=== PATIENT | male | born 1975 | race Caucasian/White ===

== ENCOUNTER → 2016-05-25 | Outpatient (REF) | payer MEDICARE, MEDICAID ==
[~2016-05-25] MED LIST: /GLIP10TAB OR; ACID REDUCER PO; ACTO15TA OR; ALBU17IN INH; ASPI81CH PO; ASPI81TA45 OR; ATEN25TA OR; ATOR1TAB21 PO; AUGM875T27 PO; AZIT500T2 PO; CETI10TA PO; CETI5TAB2 OR; CYCL10TA PO; FISH1000 OR; GABA-283 PO; GLIP10TA PO; JANUVIA; LISI10TA4 OR; LISI10TA4 PO; METF1000 PO; METF500T PO; OMEP40CA2 PO; PERC5TAB6 PO; PRED20TAB PO; PRIL40CA PO; SIMV20TA2 OR; TRIC145T19 OR
== END ==
LOC: M SFHCLERA 11:37
PROVIDERS: ATTEND Family Medicine
DX: E11.42 Type 2 diabetes mellitus with diabetic polyneuropathy (principal)

== ENCOUNTER → 2016-05-30 | Outpatient (REF) | payer MEDICARE, MEDICAID ==
[2016-05-30 18:45] LABS: BASO % 0.3 % (0.0-1.0); EOS # 0.1 K/mm3 (0.0-0.50); EOS % 1.5 % (0.0-3.0); LARGE UNSTAINED CELL # 0.1 K/mm3 (0.0-0.4); LARGE UNSTAINED CELL % 1.5 % (0.0-4.0); LYMPH # 1.9 K/mm3 (1.5-4.5); LYMPH % 23.3 % (24.0-44.0); MEAN CORPUSCULAR HEMOGLOBIN 29.2 pg (27.0-33.0); MEAN CORPUSCULAR HGB CONC 35.3 g/dl (32.0-36.5); MEAN CORPUSCULAR VOLUME 82.6 fl (80.0-96.0); MONO # 0.4 K/mm3 (0.0-0.8); MONO % 5.3 % (0.0-5.0); NEUTROPHILS # 5.5 K/mm3 (1.8-7.7); NEUTROPHILS % 68.2 % (36.0-66.0); PLATELET COUNT, AUTOMATED 224 k/mm3 (150-450); RED CELL DISTRIBUTION WIDTH 12.5 % (11.5-14.5); WHITE BLOOD COUNT 8.1 K/mm3 (4.0-10.0)
[2016-05-30 19:35] LABS: ALBUMIN 3.8 GM/DL (3.2-5.2); ALBUMIN/GLOBULIN RATIO 1.31 (1.00-1.93); ALKALINE PHOSPHATASE 115 U/L (45-117); ALT/SGPT 71 U/L (12-78); ANION GAP 13 MEQ/L (8-16); AST/SGOT 14 U/L (15-37); BILIRUBIN,TOTAL 0.8 MG/DL (0.2-1.0); BLOOD UREA NITROGEN 15 MG/DL (7-18); CALCIUM LEVEL 8.4 MG/DL (8.5-10.1); CARBON DIOXIDE LEVEL 23 MEQ/L (21-32); CHLORIDE LEVEL 103 MEQ/L (98-107); CHOLESTEROL LEVEL 103 MG/DL (<200); CREATININE FOR GFR 0.97 MG/DL (0.70-1.30); GLOMERULAR FILTRATION RATE > 60.0 (>60); GLUCOSE, FASTING 209 MG/DL (70-105); POTASSIUM SERUM 4.4 MEQ/L (3.5-5.1); SODIUM LEVEL 139 MEQ/L (136-145); TOTAL PROTEIN 6.7 GM/DL (6.4-8.2); TRIGLYCERIDES LEVEL 130 MG/DL (<150)
== END ==
LOC: M SFHCLERA 11:05
PROVIDERS: ATTEND Family Medicine
DX: E11.42 Type 2 diabetes mellitus with diabetic polyneuropathy (principal)

== ENCOUNTER → 2016-06-06 | Outpatient (CLI) | payer MEDICARE, MEDICAID ==
--- NOTE | 2016-06-20 01:49 | ECWPNPC ---
PATIENT NAME: ABHAY ORNELAS : 1975 GENDER: MALE VISIT DATE: 06/06/2016 DISCHARGE DATE: 06/06/16 1425 VISIT LOCKED DATE TIME: PHYSICIAN: LING HURLEY RESOURCE: LING HURLEY REASON FOR APPOINTMENT 1. LUMBAR PAIN/REFERRED FOR INJECTION HISTORY OF PRESENT ILLNESS NEW PATIENT CONSULT: 40 Y/O MALE WITH 6MOS HX OF LOW BACK PAIN.BEGAN WITHOUT PRECIPITATING EVENT.LOCATED ACROSS LOW BACK L>R.PAIN RADIATES INTO LEFT BUTTOCK AND HIP.PAIN IS AGGREVATED BY GETTING IN AND OUT OF CAR AND LAYING ON BACK.RELIEVED BY ELEVATING FEET.LONG HX OF CHRONIC BILAT. KNEE PAIN SINCE 2009.HAS BEEN LIMPING AND USING CANE.RATING PAIN VAS 6/10.DENIES RECENT FEVER ,ILLNESS OR WEIGHT LOSS.DENIES BOWEL OR BLADDER INCONTINENCE. WHEN DID YOUR PAIN FIRST START? . BRIEFLY DESCRIBE HOW YOUR PAIN STARTED? . HOW DOES YOUR PAIN CHANGE WITH TIME? . DOES YOUR PAIN AWAKEN YOU FROM SLEEP? . HOW MANY HOURS OF SLEEP DO YOU NORMALLY GET? . ANY DIAGNOSTIC TESTING? . FACILITY WHERE TESTS WERE DONE? ____. PAIN TREATMENT TREATMENT YES CANCER HAVE YOU EVER HAD ANY TYPE OF CANCER?NO NO. PAIN SCREENING: PATIENT HAS A COMPLAINT OF ACUTE OR CHRONIC PAIN YES FALL RISK SCREENING: SCREENING :NO FALLS IN THE PAST YEAR DIAZ INVENTORY: QUESTIONNAIRE ASSESSEDTBD SCORE VALUE CALCULATED TBD CURRENT MEDICATIONS TAKING ASTELIN 137 MCG/SPRAY SOLUTION 1 PUFF IN EACH NOSTRIL NASALLY TWICE A DAY TAKING ZYRTEC ALLERGY 10 MG TABLET 1 TABLET NEEDED ORALLY ONCE A DAY TAKING FLONASE 50 MCG/ACT SUSPENSION 1 SPRAY IN EACH NOSTRIL NASALLY BID TAKING LOTRISONE 1-0.05 % CREAM 1 APPLICATION TO AFFECTED AREAS ON RIGHT THIGH AND LOWER ABDOMEN EXTERNALLY TWICE A DAY UNTIL 2 DAYS AFTER RASH CLEARS TAKING KETOCONAZOLE 2 % CREAM 1 APPLICATION TO AFFECTED AREAS ON LOWER ABDOMEN EXTERNALLY TWICE A DAY UNTIL 2 DAYS AFTER RASH CLEARS TAKING LISINOPRIL 10 MG TABLET 1 TABLET ORALLY ONCE A DAY TAKING OMEPRAZOLE 40 MG CAPSULE DELAYED RELEASE 1 CAPSULE ORALLY TWICE A DAY TAKING GABAPENTIN 400MG CAPSULE 1 CAP(S) P.O. BID TAKING METFORMIN HCL 1000 MG TABLET 1 TABLET WITH MEALS ORALLY TWICE A DAY TAKING ATORVASTATIN CALCIUM 80 MG TABLET 1 TABLET ORALLY ONCE A DAY TAKING ASPIR-81 81 MG TABLET DELAYED RELEASE 1 TABLET ORALLY ONCE A DAY TAKING GLIPIZIDE ER 10 MG TABLET EXTENDED RELEASE 24 HOUR 1 TABLET ORALLY BID PRIOR TO BREAKFAST AND DINNER TAKING LYRICA 75 MG CAPSULE 1 CAPSULE ORALLY-SOS TWICE A DAY TAKING FLEXERIL 10 MG TABLET 1 TABLET ORALLY THREE TIMES A DAY NOT-TAKING LIDOCAINE VISCOUS 2 % SOLUTION 15 ML NEEDED MOUTH/THROAT EVERY 6 HRS NOT-TAKING BENZONATATE 100 MG CAPSULE 1 CAPSULE NEEDED ORALLY THREE TIMES A DAY NOT-TAKING OMEPRAZOLE 40MG CAPSULE DELAYED RELEASE TAKE ONE CAPSULE BY MOUTH TWICE DAILY NOT-TAKING FARXIGA 5MG TABLET 1 TAB ORALLY ONCE DAILY MEDICATION LIST REVIEWED AND RECONCILED WITH THE PATIENT PAST MEDICAL HISTORY HYPERTENSION OBESITY ESOPHAGEAL REFLUX OBSTRUCTIVE SLEEP APNEA, 9 CM WATER BALANTITIS / BALANOPOSTHITIS HISTORY OF DM2 STRESS TEST 06/2012 [facility] - CANNY PAIN IN JOINT, LOWER LEG OSTEOARTHRITIS OF BOTH KNEES PAIN IN JOINT, SHOULDER REGION UNSPECIFIED INTERNAL DERANGEMENT OF KNEE ALLERGIC RHINITIS POSITIVE URINE DRUG SCREEN FOR MARIJUANA, PATIENT DENIES USE ALLERGIES ENVIRONMENTAL: ALLERGY SURGICAL HISTORY TONSILLECTOMY AT AGE 7 ARTHROSCOPIC KNEE SURGERY L - DR Brett ROLLINS 11/14 GASTRIC BYPASS SURGERY 12/09/12 RIGHT SHOULDER SURGERY @ [facility] 11/2013 LEFT SHOULDER SURGERY @ [facility] 12/2013 LUMP REMOVED FROM RIGHT SHOULDER DR. SCOTT 03/2014 RIGHT CARPAL TUNNEL /ELBOE 2016 FAMILY HISTORY FATHER: ALIVE, UNKNOWN- ESTRANGED UNKNOWN- ESTRANGED, DIAGNOSED WITH OTHER MOTHER: ALIVE 59 YRS, HTN, DM-2, CERVICAL CANCER, MORBID OBESITY HTN, DM-2, CERVICAL CANCER, MORBID OBESITY, DIAGNOSED WITH DIABETES, HYPERTENSION, CANCER SIBLINGS: ALIVE, 1/2 MATERNAL SISTER - SIGNIFICANT PSYCHIATRIC HX 1/2 MATERNAL SISTER - SIGNIFICANT PSYCHIATRIC HX, DIAGNOSED WITH PSYCHIATRIC CONDITIONS DAUGHTER(S): ALIVE 11 YRS, NO KNOWN MEDICAL PROBLEMS NO KNOWN MEDICAL PROBLEMS, DIAGNOSED WITH OTHER PATERNAL GRAND FATHER: UNKNOWN, DIAGNOSED WITH OTHER PATERNAL GRAND MOTHER: UNKNOWN, DIAGNOSED WITH OTHER MATERNAL GRAND MOTHER: , UNKNOWN CANCER UNKNOWN CANCER, DIAGNOSED WITH CANCER 1 SISTER(S) . 1DAUGHTER(S) - HEALTHY. . NO H/O COLON/PROSTATE/LUNG CANCER. SON 4 HOURS AFTER DELIVERY AT 21 WEEKS GESTATION. SOCIAL HISTORY GENERAL: TOBACCO USE ARE YOU A:NONSMOKER ARE YOU A:NONSMOKER PAIN CLINIC PFS, CLERGY, PUBLIC HEALTH REFERRALS CLERGY REFERRAL NEEDED?NO WAS THE PROVIDER NOTIFIED OF ANY PERTINENT INFO?NO PFS REFERRAL NEEDED?NO PUBLIC HEALTH REFERRAL NEEDED?NO PSYCHOLOGICAL HX TREATMENTNO ALCOHOL OR DRUG TREATMENTNO PATIENT: ____. ADVANCED DIRECTIVES HEALTH CARE PROXY?NO POWER OF NAILHEAD SETTER?NO SCREENING/ASSESSMENT TOOL NUTRITION ASSESSEDYES ARE YOU ON ANY SPECIAL DIET?NO ANY SIGNIFICANT CHANGES RELATED TO EATING, WEIGHT GAIN/LOSS, OR BOWEL HABITS?NO IF YES, IS YOUR PRIMARY CARE PROVIDER AWARE OF THIS?NO SPECIAL NEEDS LEVEL OF CARE? SELF, GLASSES: NO, CONTACTS: NO, HEARING AIDS: NO, DENTURES: NO, WALKER: NO, CANE: NO, WHEELCHAIR: NO, REFERRALS NEEDED: NO. BMI CARE GOAL FOLLOW-UP ABOVE NORMAL BMI FOLLOW-UPDIETARY MANAGEMENT EDUCATION, GUIDANCE, AND COUNSELING ALCOHOL SCREENING DID YOU HAVE A DRINK CONTAINING ALCOHOL IN THE PAST YEAR?NO POINTS0 INTERPRETATIONNEGATIVE RECREATIONAL DRUG USE DRUG USE?NO CAFFEINE CAFFEINE USE?NO OCCUPATION: DISABLED. DIET: REGULAR DIET. EXERCISE: NO REGULAR EXERCISE. MARITAL STATUS: . OTHERS AT HOME: SPOUSE. PETS: NONE. CONGREGATIONAL: NO BAHAI BELIEFS THAT WOULD IMPACT HEALTH CARE. LANGUAGE: KINYARWANDA. EDUCATION: HIGH SCHOOL. LEARNING BARRIERS / SPECIAL NEEDS CHANGE FROM LAST VISIT?NO BARRIERS TO LEARNING?NO HEARING IMPAIRED?NO VISION IMPAIRED?YES :CORRECTIVE LENSES COGNITIVELY IMPAIRED?NO READINESS TO LEARN?YES LEARNING PREFERENCES?NO LEARNING CAPABILITIES PRESENT?YES EMOTIONAL BARRIERS?NO SPECIAL DEVICES?NO HOSPITALIZATION/MAJOR DIAGNOSTIC PROCEDURE [facility] 12/09/2012 TONSILLECTOMY 1983 [facility] - PNEUMONIA 06/2015 [facility] - TIA 03/2016 REVIEW OF SYSTEMS CONSTITUTIONAL: RECENT ILLNESS DENIES . ANY CHANGE IN YOUR MEDICAL CONDITION? NO . CHILLS NO . FEVER NO, DENIES . WEIGHT LOSS DENIES . INFECTION: DO YOU HAVE NEW INFECTIONS? NO . DO YOU HAVE HISTORY OF MRSA? NO . MUSCULOSKELETAL: ANY NEW PATTERNS OF PAIN OR NUMBNESS? YES . SYTEMIC LUPUS NO . JOINT PAIN DENIES . JOINT STIFFNESS DENIES . GASTROENTEROLOGY: BOWEL INCONTINENCE DENIES . ANY NEW CHANGE IN BOWEL CONTROL? NO . BARRETTS ESOPHAGUS NO . CIRRHOSIS NO . HEPATITIS NO . LIVER FAILURE NO . ACID REFLUX NO . BLOOD IN STOOL DENIES . UNEXPLAINED WEIGHT LOSS NO . GENITOURINARY: ANY NEW CHANGE IN BLADDER CONTROL? NO . IS THERE A CHANCE YOU COULD BE ? NO . HEMATOLOGY/LYMPH: DENIES . BLEEDING DISORDER DENIES . DO YOU TAKE ANY BLOOD THINNERS? (FOR EXAMPLE- COUMADIN, PLAVIX, AGGRENOX, PLATEL, PRADAXA, OR XARELTO) NO . WHEN WAS YOUR LAST DOSE? DATE: TIME: . LOW PLATELET COUNT NO . SICKLE CELL DISEASE NO . VON WILLIEBRANDS NO . FACTOR V LEIDEN NO . THALLASEMIA NO . ANEMIA NO . EASY BRUISING NO . NEUROLOGY: HAVE YOU FALLEN IN THE PAST 6 MONTHS? NO . ANY NEW EXTREMITY NUMBNESS OR WEAKNESS? NO . HEAD INJURY NO . DEMENTIA NO . CEREBRAL PALSY NO . MULTIPLE SCLEROSIS NO . DIZZINESS NO . HEADACHE NO, DENIES . SEIZURES DENIES . STROKES NO . VERTIGO NO . CARDIOLOGY: DO YOU HAVE A PACEMAKER OR DEFIBRILLATOR? NO . ANGINA NO . HEART ATTACK NO . HEART SURGERY NO . CONGESTIVE HEART FAILURE/FLUID OVERLOAD NO . CHEST PAIN NO, DENIES . HIGH BLOOD PRESSURE NO . IRREGULAR HEART BEAT NO . SHORTNESS OF BREATH DENIES . RESPIRATORY: HAVE YOU BEEN SICK IN THE PAST WEEK? NO . FEVER NO . FLU LIKE SYMPTOMS? NO . CPAP NO . BYPAP NO . ASTHMA NO . EMPHYSEMA NO . CHRONIC LUNG DISEASES NO . SHORTNESS OF BREATH ON EXERTION NO . DO YOU USE ANY TYPE OF TOBACCO (SMOKE, SMOKELESS, CHEW)? NO . COUGH NO, DENIES . SHORTNESS OF BREATH DENIES . SNORING NO . INTEGUMENTARY: DO YOU HAVE ANY RASHES OR OPEN SORES? NO . ALLERGIC/IMMUNO: ARE YOU ALLERGIC TO SHELLFISH OR IV DYE? NO . ANY NEW ALLERGIES? NO . PSYCHIATRIC: DO YOU HAVE THOUGHTS OF HURTING YOURSELF OR SOMEONE ELSE? NO . ARE YOU ABUSED, NEGLECTED, OR IN AN UNSAFE ENVIRONMENT? NO . ENDOCRINOLOGY: THYROID DISEASE DENIES . ARE YOU DIABETIC? YES . DIABETES DENIES . THYROID DISORDER NO . OTHER: DO YOU NEED ANY PRESCRIPTIONS? NO . IF YES, PLEASE LIST: ____ . ANY NEW PROBLEMS WITH YOUR MEDICATIONS? NO . WHEN DID YOU LAST EAT? ____ . WHEN DID YOU LAST DRINK? ____ . WHAT DID YOU LAST DRINK? ____ . NAME OF PERSON DRIVING YOU HOME? ____ . DO YOU HAVE ANY OTHER QUESTIONS OR CONCERNS NO . HEENT: CHANGE IN VISION DENIES . LOSS OF HEARING DENIES . TROUBLE SWALLOWING DENIES . PSYCHOLOGY: ANXIETY DENIES . DEPRESSION DENIES . UROLOGY: URINARY INCONTINENCE DENIES . BLOOD IN URINE DENIES . REVIEWED BY: PROVIDER: LING ZAPATA . EXAMINATION GENERAL EXAMINATION: HEENT:HEAD:, NORMOCEPHALIC, EYES:, EYES NORMAL, NOSE:, NOSE CLEAR, THROAT: NORMAL. LUNGS:LUNG SOUNDS ARE CLEAR. HEART:HEART RATE REGULAR. ABDOMEN:SOFT AND NOT TENDER, NON-DISTENDED. MUSCULOSKELETAL:*. LUMBAR SACRAL SPINEMUSCLE STRENGTH TESTING 5/5 BILATERAL, PALPATION: NEGATIVE FOR PAIN OVER L/S SPINE. SPECIFIC POINT TENDERNESS NOTED OVER LEFT SIJ. THORACIC SPINENEGATIVE FOR PAIN WITH PALPATION OF THORACIC SPINE. NEGATIVE FOR PAIN WITH PALPATION OF THORACIC PARASPINAL. CERVICALNEGATIVE FOR PAIN WITH PALPATION OF CERVICAL SPINE. NEGATIVE FOR PAIN WITH PALPATION OF CERVICAL PARASPINALS. NEGATIVE FOR PAIN WITH PALPATION OF TRAPEZIUS BILAT. SKIN:NORMAL, NO RASH. NEUROLOGIC EXAM:ALERT AND ORIENTED X 3, DTRS 1-2+ IN ALL 4 EXTREMITIES, DENIES UPPER EXTREMETIES SENSORY LOSS, DENIES LOWER EXTREMETIES SENSORY LOSS. DIAGNOSTIC: . 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 IT IS NOT A COPY OF THE [employer] System PROGRESS NOTE. MTDD
== END ==
LOC: M PAIN 13:20
PROVIDERS: ATTEND Nurse Practitioner Family
DX: G89.29 Other chronic pain (principal); M46.1 Sacroiliitis, not elsewhere classified; I10 Essential (primary) hypertension; E66.9 Obesity, unspecified; Z68.41 Body mass index [BMI] 40.0-44.9, adult; K21.9 Gastro-esophageal reflux disease without esophagitis; G47.33 Obstructive sleep apnea (adult) (pediatric); E11.9 Type 2 diabetes mellitus without complications; M17.0 Bilateral primary osteoarthritis of knee; J30.89 Other allergic rhinitis; Z79.84 Long term (current) use of oral hypoglycemic drugs; Z79.82 Long term (current) use of aspirin; Z79.899 Other long term (current) drug therapy; Z87.438 Personal history of other diseases of male genital organs

== ENCOUNTER → 2016-07-17 | Outpatient (CLI) | payer MEDICARE, MEDICAID ==
[~2016-07-17] MED LIST changes: +BUPIVACAINE HCL 0.25% 30 ML VIAL As Ordered ONE; +ISOVUE-M 300 61% 15ML VIAL (Q9967) As Ordered ONE; +LIDOCAINE 1% SDV INJ 30 ML VIAL As Ordered ONE; +TRIAMCINOLONE ACETONIDE SUSP 40 MG/ML VIAL (J3301) As Ordered ONE; +diazePAM 5 MG TAB As Ordered ONE; +oxyCODONE 5MG TAB As Ordered ONE
--- NOTE | 2016-07-17 15:28 | REP ---
FLUOROSCOPIC GUIDANCE FOR LEFT SI JOINT INJECTION: 07/17/2016. Clinical history: Back pain. Eight images from C-arm fluoroscopy provided to Dr. Martin of the pain clinic for left SI joint injection. The images show the needle pointed to the middle, lower and upper one-third aspect of that joint with some contrast adjacent. Fluoroscopy time: 17 seconds. Signed by Eusebio Art MD 07/17/2016 05:11 P
--- NOTE | 2016-07-22 23:24 | ECWPNPC ---
PATIENT NAME: ABHAY ORNELAS : 1975 GENDER: MALE VISIT DATE: 07/17/2016 DISCHARGE DATE: 07/17/16 1329 VISIT LOCKED DATE TIME: PHYSICIAN: SILVINA MITTAL RESOURCE: SILVINA MITTAL REASON FOR APPOINTMENT 1. SIJ HISTORY OF PRESENT ILLNESS HISTORY OF PRESENT ILLNESS: PAIN THE PATIENT DESCRIBES THE PAIN... FALL RISK SCREENING: SCREENING :NO FALLS IN THE PAST YEAR CURRENT MEDICATIONS TAKING ASTELIN 137 MCG/SPRAY SOLUTION 1 PUFF IN EACH NOSTRIL NASALLY TWICE A DAY, NOTES: 07/16 11PM TAKING ZYRTEC ALLERGY 10 MG TABLET 1 TABLET NEEDED ORALLY ONCE A DAY, NOTES: 07/16 9AM TAKING FLONASE 50 MCG/ACT SUSPENSION 1 SPRAY IN EACH NOSTRIL NASALLY BID, NOTES: 6 MONTHS TAKING LOTRISONE 1-0.05 % CREAM 1 APPLICATION TO AFFECTED AREAS ON RIGHT THIGH AND LOWER ABDOMEN EXTERNALLY TWICE A DAY UNTIL 2 DAYS AFTER RASH CLEARS, NOTES: 1 WEEK TAKING KETOCONAZOLE 2 % CREAM 1 APPLICATION TO AFFECTED AREAS ON LOWER ABDOMEN EXTERNALLY TWICE A DAY UNTIL 2 DAYS AFTER RASH CLEARS, NOTES: 1 WEEK TAKING LISINOPRIL 10 MG TABLET 1 TABLET ORALLY ONCE A DAY, NOTES: 07/16 9AM TAKING OMEPRAZOLE 40 MG CAPSULE DELAYED RELEASE 1 CAPSULE ORALLY TWICE A DAY, NOTES: 07/16 9AM TAKING METFORMIN HCL 1000 MG TABLET 1 TABLET WITH MEALS ORALLY TWICE A DAY, NOTES: 07/16 11PM TAKING ATORVASTATIN CALCIUM 80 MG TABLET 1 TABLET ORALLY ONCE A DAY, NOTES: 07/16 11PM TAKING ASPIR-81 81 MG TABLET DELAYED RELEASE 1 TABLET ORALLY ONCE A DAY, NOTES: 07/16 11PM TAKING GLIPIZIDE ER 10 MG TABLET EXTENDED RELEASE 24 HOUR 1 TABLET ORALLY BID PRIOR TO BREAKFAST AND DINNER, NOTES: 07/16 11PM TAKING LYRICA 75 MG CAPSULE 1 CAPSULE ORALLY-SOS TWICE A DAY, NOTES: 07/16 11PM TAKING FLEXERIL 10 MG TABLET 1 TABLET ORALLY THREE TIMES A DAY, NOTES: 07/16 11PM NOT-TAKING GABAPENTIN 400MG CAPSULE 1 CAP(S) P.O. BID NOT-TAKING LIDOCAINE VISCOUS 2 % SOLUTION 15 ML NEEDED MOUTH/THROAT EVERY 6 HRS NOT-TAKING BENZONATATE 100 MG CAPSULE 1 CAPSULE NEEDED ORALLY THREE TIMES A DAY NOT-TAKING OMEPRAZOLE 40MG CAPSULE DELAYED RELEASE TAKE ONE CAPSULE BY MOUTH TWICE DAILY NOT-TAKING FARXIGA 5MG TABLET 1 TAB ORALLY ONCE DAILY MEDICATION LIST REVIEWED AND RECONCILED WITH THE PATIENT PAST MEDICAL HISTORY HYPERTENSION OBESITY ESOPHAGEAL REFLUX OBSTRUCTIVE SLEEP APNEA, 9 CM WATER BALANTITIS / BALANOPOSTHITIS HISTORY OF DM2 STRESS TEST 06/2012 [facility] - CANNY PAIN IN JOINT, LOWER LEG OSTEOARTHRITIS OF BOTH KNEES PAIN IN JOINT, SHOULDER REGION UNSPECIFIED INTERNAL DERANGEMENT OF KNEE ALLERGIC RHINITIS POSITIVE URINE DRUG SCREEN FOR MARIJUANA, PATIENT DENIES USE ALLERGIES ENVIRONMENTAL: ALLERGY SOCIAL HISTORY GENERAL: TOBACCO USE ARE YOU A:NONSMOKER LEARNING BARRIERS / SPECIAL NEEDS ORIENTED TO PLAN OF CARE: PATIENT, PAIN MANAGEMENT PATIENT, ORIENTED TO PLAN OF CARE: PATIENT, PAIN MANAGEMENT PATIENT. NEW PATIENT PAIN DIARY TODAY'S VISITNOTES FROM 0-10, WHAT LEVEL IS YOUR PAIN TODAY?0 PAIN CLINIC PFS, CLERGY, PUBLIC HEALTH REFERRALS PFS REFERRAL NEEDED?NO CLERGY REFERRAL NEEDED?NO PUBLIC HEALTH REFERRAL NEEDED?NO WAS THE PROVIDER NOTIFIED OF ANY PERTINENT INFO?NO PFS REFERRAL NEEDED?NO CLERGY REFERRAL NEEDED?NO PUBLIC HEALTH REFERRAL NEEDED?NO WAS THE PROVIDER NOTIFIED OF ANY PERTINENT INFO?NO REVIEW OF SYSTEMS CONSTITUTIONAL: ANY CHANGE IN YOUR MEDICAL CONDITION? NO . CHILLS NO . FEVER NO . INFECTION: DO YOU HAVE NEW INFECTIONS? NO . DO YOU HAVE HISTORY OF MRSA? NO . MUSCULOSKELETAL: ANY NEW PATTERNS OF PAIN OR NUMBNESS? NO . GASTROENTEROLOGY: ANY NEW CHANGE IN BOWEL CONTROL? NO . GENITOURINARY: ANY NEW CHANGE IN BLADDER CONTROL? NO . IS THERE A CHANCE YOU COULD BE ? NO . HEMATOLOGY/LYMPH: DO YOU TAKE ANY BLOOD THINNERS? (FOR EXAMPLE- COUMADIN, PLAVIX, AGGRENOX, PLATEL, PRADAXA, OR XARELTO) NO . WHEN WAS YOUR LAST DOSE? DATE: TIME: . NEUROLOGY: HAVE YOU FALLEN IN THE PAST 6 MONTHS? NO . ANY NEW EXTREMITY NUMBNESS OR WEAKNESS? NO . CARDIOLOGY: DO YOU HAVE A PACEMAKER OR DEFIBRILLATOR? NO . RESPIRATORY: HAVE YOU BEEN SICK IN THE PAST WEEK? NO . FEVER NO . FLU LIKE SYMPTOMS? NO . COUGH NO . INTEGUMENTARY: DO YOU HAVE ANY RASHES OR OPEN SORES? NO . ALLERGIC/IMMUNO: ARE YOU ALLERGIC TO SHELLFISH OR IV DYE? NO . ANY NEW ALLERGIES? NO . PSYCHIATRIC: DO YOU HAVE THOUGHTS OF HURTING YOURSELF OR SOMEONE ELSE? NO . ARE YOU ABUSED, NEGLECTED, OR IN AN UNSAFE ENVIRONMENT? NO . ENDOCRINOLOGY: ARE YOU DIABETIC? YES, BORDERLINE, MANAGED WITH MEDICATIONS . OTHER: DO YOU NEED ANY PRESCRIPTIONS? NO . IF YES, PLEASE LIST: ____ . ANY NEW PROBLEMS WITH YOUR MEDICATIONS? NO . WHEN DID YOU LAST EAT? 07/16 11PM . WHEN DID YOU LAST DRINK? 07/16 11PM . WHAT DID YOU LAST DRINK? WATER . NAME OF PERSON DRIVING YOU HOME? LUCÍA . DO YOU HAVE ANY OTHER QUESTIONS OR CONCERNS NO . REVIEWED BY: PROVIDER: . VITAL SIGNS WT 304 LBS, HT 70 IN, BMI 43.61 INDEX, BP 137/85 MM HG, HR 86 /MIN, RR 18 /MIN, TEMP 97.7 F, OXYGEN SAT % 99, SAFE IN ENV? (Y/N) Y, NA INITIALS TL 1138, REVIEWED BY: YAQUELIN. ASSESSMENTS SACROILIITIS, NOT ELSEWHERE CLASSIFIED - M46.1 (PRIMARY) PROCEDURES PN SI PRE PROCEDURE DIAGNOSIS SACROILIITIS, SACROILIAC JOINT DYSFUNCTION POST PROCEDURE DIAGNOSIS SACROILIITIS, SACROILIAC JOINT DYSFUNCTION PROCEDURE LEFT SACROILIAC JOINT BLOCK SURGEON DR. SILVINA MITTAL PRODUCT CRAFTSMAN NONE ANESTHESIA LOCAL PRE PROCEDURE NOTE PATIENT WITH HISTORY OF CHRONIC LOW BACK PAIN. I EVALUATED THE PATIENT AND REVIEWED THE CHART. I WENT OVER THE RISKS, ALTERNATIVES, AND BENEFITS ASSOCIATED WITH THIS PROCEDURE. THE PATIENT WOULD LIKE TO PROCEED AND GAVE CONSENT TO PERFORM THE PROCEDURE. THE PATIENT DENIES UNEXPLAINABLE WEIGHT LOSS, FEVER, CHILLS, OR NEW CHANGES IN URINARY OR BOWEL CONTROL DESCRIPTION OF PROCEDURE THE PATIENT WAS BROUGHT TO THE PROCEDURE ROOM AND PLACED IN THE PRONE POSITION. THE LUMBOSACRAL AREA WAS CLEANED WITH CHLORAPREP SOLUTION AND DRAPED ASEPTICALLY. THE PROCEDURE WAS DONE UNDER STERILE CONDITIONS. I CHECKED LATERALITY AND THE LEVEL WHERE THE PROCEDURE WAS GOING TO BE PERFORMED WITH THE PATIENT AND THE SUPPORTING STAFF AT THE MOMENT OF THE TIME OUT IN THE PROCEDURE ROOM. UNDER FLUOROSCOPIC GUIDANCE, TARGET POINT WAS SELECTED AT THE LOWER BORDER OF THE LEFT SACROILIAC JOINT. TARGET POINT WAS SELECTED AFTER MEDIAL ROTATION AND TILT OF THE MAGNIFIER OF THE C-ARM. LIDOCAINE WAS USED TO NUMB THE SKIN AND SUBCUTANEOUS TISSUE BELOW IT. A SPINAL NEEDLE, 22-GAUGE, WAS ADVANCED UNDER FLUOROSCOPIC GUIDANCE AND FOLLOWING PATIENT FEEDBACK UNTIL THE TARGET AREA WAS TOUCHED. THE POSITION OF THE NEEDLE WAS VERIFIED WITH AP AND LATERAL VIEWS. AFTER PROPER POSITION OF THE NEEDLE WAS ACHIEVED, ISOVUE M DYE 30%, 0.25 ML, WAS INJECTED SHOWING SPREAD OF THE DYE. THEN, A SOLUTION OF 20 MG OF KENALOG WAS INJECTED IN RIGHT JOINT WITH 3 ML OF BUPIVACAINE 0.125%. THERE WAS NO EVIDENCE OF BLOOD, PARESTHESIA OR CEREBROSPINAL FLUID DURING THE PROCEDURE. THE PATIENT WAS SENT TO THE RECOVERY ROOM. THE PATIENT WAS MOVING THE EXTREMITIES AND DOING WELL. THERE WAS NO COMPLICATION DURING THE PROCEDURE. FLUOROSCOPY TIME WAS 17 SECONDS POST PROCEDURE NOTE THE PATIENT WILL BE SEEN IN A FOLLOW UP IN THE NEXT FEW WEEKS. INSTRUCTIONS WERE GIVEN, QUESTIONS WERE ANSWERED, AND THE PATIENT EXPRESSED UNDERSTANDING AND AGREED WITH THE PLAN. I, ARLIN POSADAS, DOCUMENTED THE ABOVE INFORMATION ACTING A SCRIBE FOR DR. MITTAL. I HAVE REVIEWED THE ABOVE DOCUMENT, WRITTEN BY ARLIN ZAPATAIBVishnu AND I VERIFY THAT IT IS [facility] FLUORO GUIDANCE (PAIN)[id number] PROCEDURE CODES 46361 INJECT SACROILIAC JOINT 6045F RADXPS IN END [id number] PXD DISPOSITION & COMMUNICATION FOLLOW UP 3 WEEKS ELECTRONICALLY SIGNED BY SILVINA MITTAL MD ON 07/22/2016 AT 09:50 PM EDT DISCLAIMER : THIS IS A VISIT SUMMARY EXTRACTED FROM THE [employer] CHART. IT IS NOT A COPY OF THE [employer] PROGRESS NOTE. MICK
== END | disposition home or self-care (01) ==
LOC: M PAIN 11:40
PROVIDERS: ATTEND Anesthesiology
DX: G89.29 Other chronic pain (principal); M46.1 Sacroiliitis, not elsewhere classified; I10 Essential (primary) hypertension; K21.9 Gastro-esophageal reflux disease without esophagitis; E11.9 Type 2 diabetes mellitus without complications; G47.33 Obstructive sleep apnea (adult) (pediatric); J30.9 Allergic rhinitis, unspecified; Z79.899 Other long term (current) drug therapy; Z79.84 Long term (current) use of oral hypoglycemic drugs
CPT/HCPCS: G0260; J3301; Q9967

== ENCOUNTER → 2016-08-01 | Outpatient (CLI) | payer MEDICARE, MEDICAID ==
[~2016-08-01] MED LIST changes: -BUPIVACAINE HCL 0.25% 30 ML VIAL As Ordered ONE; -ISOVUE-M 300 61% 15ML VIAL (Q9967) As Ordered ONE; -LIDOCAINE 1% SDV INJ 30 ML VIAL As Ordered ONE; -TRIAMCINOLONE ACETONIDE SUSP 40 MG/ML VIAL (J3301) As Ordered ONE; -diazePAM 5 MG TAB As Ordered ONE; -oxyCODONE 5MG TAB As Ordered ONE
--- NOTE | 2016-08-08 02:16 | ECWPNPC ---
PATIENT NAME: ABHAY ORNELAS : 1975 GENDER: MALE VISIT DATE: 08/01/2016 DISCHARGE DATE: 08/01/16 1523 VISIT LOCKED DATE TIME: PHYSICIAN: LING HURLEY RESOURCE: LING HURLEY REASON FOR APPOINTMENT 1. POST PROCEDURE HISTORY OF PRESENT ILLNESS HISTORY OF PRESENT ILLNESS: HERE FOR POST PROC. F/U.HAD LEFT SIJ ON 07-17-16.REPORTS 2-3 DAYS OF IMPROVEMENT POST PROCEDURE THEN DAY #4 PAIN HAS ESCALATED.REPORTS INCREASE IN LEFT LEG NUMBNESS PAST FEW DAYS.REPORTING TWO EPISODES OF DIARHEA INCONTINENECE ,ONE YESTERDAY AND ONE 3 DAYS AGO.NORMAL URINATION.RATING PAIN VAS 7/10.DESCRIBES PAIN INTERMITTENT SHARP AND ACHING.PAIN IS LOCATED IN LEFT BUTTOCKS. PAIN THE PATIENT DESCRIBES THE PAIN... FALL RISK SCREENING: SCREENING :NO FALLS IN THE PAST YEAR CURRENT MEDICATIONS TAKING ASTELIN 137 MCG/SPRAY SOLUTION 1 PUFF IN EACH NOSTRIL NASALLY TWICE A DAY TAKING ZYRTEC ALLERGY 10 MG TABLET 1 TABLET NEEDED ORALLY ONCE A DAY TAKING FLONASE 50 MCG/ACT SUSPENSION 1 SPRAY IN EACH NOSTRIL NASALLY BID TAKING LOTRISONE 1-0.05 % CREAM 1 APPLICATION TO AFFECTED AREAS ON RIGHT THIGH AND LOWER ABDOMEN EXTERNALLY TWICE A DAY UNTIL 2 DAYS AFTER RASH CLEARS TAKING KETOCONAZOLE 2 % CREAM 1 APPLICATION TO AFFECTED AREAS ON LOWER ABDOMEN EXTERNALLY TWICE A DAY UNTIL 2 DAYS AFTER RASH CLEARS TAKING OMEPRAZOLE 40 MG CAPSULE DELAYED RELEASE 1 CAPSULE ORALLY TWICE A DAY TAKING METFORMIN HCL 1000 MG TABLET 1 TABLET WITH MEALS ORALLY TWICE A DAY TAKING ATORVASTATIN CALCIUM 80 MG TABLET 1 TABLET ORALLY ONCE A DAY TAKING ASPIR-81 81 MG TABLET DELAYED RELEASE 1 TABLET ORALLY ONCE A DAY TAKING GLIPIZIDE ER 10 MG TABLET EXTENDED RELEASE 24 HOUR 1 TABLET ORALLY BID PRIOR TO BREAKFAST AND DINNER TAKING LYRICA 75 MG CAPSULE 1 CAPSULE ORALLY-SOS TWICE A DAY TAKING FLEXERIL 10 MG TABLET 1 TABLET ORALLY THREE TIMES A DAY TAKING LISINOPRIL 10 MG TABLET 1 TABLET ORALLY ONCE A DAY NOT-TAKING GABAPENTIN 400MG CAPSULE 1 CAP(S) P.O. BID NOT-TAKING LIDOCAINE VISCOUS 2 % SOLUTION 15 ML NEEDED MOUTH/THROAT EVERY 6 HRS NOT-TAKING BENZONATATE 100 MG CAPSULE 1 CAPSULE NEEDED ORALLY THREE TIMES A DAY NOT-TAKING OMEPRAZOLE 40MG CAPSULE DELAYED RELEASE TAKE ONE CAPSULE BY MOUTH TWICE DAILY NOT-TAKING FARXIGA 5MG TABLET 1 TAB ORALLY ONCE DAILY MEDICATION LIST REVIEWED AND RECONCILED WITH THE PATIENT PAST MEDICAL HISTORY HYPERTENSION OBESITY ESOPHAGEAL REFLUX OBSTRUCTIVE SLEEP APNEA, 9 CM WATER BALANTITIS / BALANOPOSTHITIS HISTORY OF DM2 STRESS TEST 06/2012 [facility] - CANNY PAIN IN JOINT, LOWER LEG OSTEOARTHRITIS OF BOTH KNEES PAIN IN JOINT, SHOULDER REGION UNSPECIFIED INTERNAL DERANGEMENT OF KNEE ALLERGIC RHINITIS POSITIVE URINE DRUG SCREEN FOR MARIJUANA, PATIENT DENIES USE ALLERGIES ENVIRONMENTAL: ALLERGY REVIEW OF SYSTEMS CONSTITUTIONAL: ANY CHANGE IN YOUR MEDICAL CONDITION? NO . CHILLS NO . FEVER NO . INFECTION: DO YOU HAVE NEW INFECTIONS? NO . DO YOU HAVE HISTORY OF MRSA? NO . MUSCULOSKELETAL: ANY NEW PATTERNS OF PAIN OR NUMBNESS? YES INCREASED PAIN IN LEFT BUTTOCK . GASTROENTEROLOGY: ANY NEW CHANGE IN BOWEL CONTROL? YES LOST CONTROL OF BOWELS ON SUNDAY AND SUNDAY , THEY WERE LOOSE,,&QUOT;THIS HAS NEVER HAPPENED BEFORE&QUOT; . GENITOURINARY: ANY NEW CHANGE IN BLADDER CONTROL? NO . IS THERE A CHANCE YOU COULD BE ? NO . HEMATOLOGY/LYMPH: DO YOU TAKE ANY BLOOD THINNERS? (FOR EXAMPLE- COUMADIN, PLAVIX, AGGRENOX, PLATEL, PRADAXA, OR XARELTO) NO . WHEN WAS YOUR LAST DOSE? DATE: TIME: . NEUROLOGY: HAVE YOU FALLEN IN THE PAST 6 MONTHS? NO . ANY NEW EXTREMITY NUMBNESS OR WEAKNESS? NO . CARDIOLOGY: DO YOU HAVE A PACEMAKER OR DEFIBRILLATOR? NO . RESPIRATORY: HAVE YOU BEEN SICK IN THE PAST WEEK? NO . FEVER NO . FLU LIKE SYMPTOMS? NO . COUGH NO . INTEGUMENTARY: DO YOU HAVE ANY RASHES OR OPEN SORES? NO . ALLERGIC/IMMUNO: ARE YOU ALLERGIC TO SHELLFISH OR IV DYE? NO . ANY NEW ALLERGIES? NO . PSYCHIATRIC: DO YOU HAVE THOUGHTS OF HURTING YOURSELF OR SOMEONE ELSE? NO . ARE YOU ABUSED, NEGLECTED, OR IN AN UNSAFE ENVIRONMENT? NO . ENDOCRINOLOGY: ARE YOU DIABETIC? NO . OTHER: DO YOU NEED ANY PRESCRIPTIONS? NO . IF YES, PLEASE LIST: ____ . ANY NEW PROBLEMS WITH YOUR MEDICATIONS? NO . WHEN DID YOU LAST EAT? ____ . WHEN DID YOU LAST DRINK? ____ . WHAT DID YOU LAST DRINK? ____ . NAME OF PERSON DRIVING YOU HOME? ____ . DO YOU HAVE ANY OTHER QUESTIONS OR CONCERNS NO . REVIEWED BY: PROVIDER: LING ZAPATA . VITAL SIGNS WT 300 LBS, HT 70 IN, BMI 43.04 INDEX, BP 138/90 MM HG, HR 89 /MIN, RR 18 /MIN, TEMP 99.4 F, OXYGEN SAT % 95%, SAFE IN ENV? (Y/N) KG, NA INITIALS SC 14:49. EXAMINATION GENERAL EXAMINATION: HEENT:HEAD:, NORMOCEPHALIC, EYES:, EYES NORMAL, NOSE:, NOSE CLEAR, THROAT: NORMAL. LUNGS:LUNG SOUNDS ARE CLEAR. HEART:HEART RATE REGULAR. ABDOMEN:SOFT AND NOT TENDER, NON-DISTENDED. MUSCULOSKELETAL:*. LUMBAR SACRAL SPINEMUSCLE STRENGTH TESTING 5/5 BILATERAL, PALPATION: NEGATIVE FOR PAIN OVER L/S SPINE. SPECIFIC POINT TENDERNESS NOTED OVER LEFT SIJ. THORACIC SPINENEGATIVE FOR PAIN WITH PALPATION OF THORACIC SPINE. NEGATIVE FOR PAIN WITH PALPATION OF THORACIC PARASPINAL. CERVICALNEGATIVE FOR PAIN WITH PALPATION OF CERVICAL SPINE. NEGATIVE FOR PAIN WITH PALPATION OF CERVICAL PARASPINALS. NEGATIVE FOR PAIN WITH PALPATION OF TRAPEZIUS BILAT. SKIN:NORMAL, NO RASH. NEUROLOGIC EXAM:ALERT AND ORIENTED X 3, DTRS 1-2+ IN ALL 4 EXTREMITIES, DENIES UPPER EXTREMETIES SENSORY LOSS, DENIES LOWER EXTREMETIES SENSORY LOSS. DIAGNOSTIC: . ASSESSMENTS SACROILIITIS - M46.1 (PRIMARY) PROTRUDED LUMBAR DISC - M51.26 TREATMENT SACROILIITIS NOTES: CONSERVATIVE CARE/MD ALVARADO. FOR ANY MORE BOWEL INCONTINENCE. PROCEDURE CODES FA211 ESTABILISHED PATIENT [facility] CHARGE DISPOSITION & COMMUNICATION FOLLOW UP 4 WEEKS ELECTRONICALLY SIGNED BY JODI MULLEN ON 08/07/2016 AT 01:25 PM EDT DISCLAIMER : THIS IS A VISIT SUMMARY EXTRACTED FROM THE [employer] CHART. IT IS NOT A COPY OF THE [employer] PROGRESS NOTE. MICK
== END ==
LOC: M PAIN 14:20
PROVIDERS: ATTEND Nurse Practitioner Family
DX: Z09 Encounter for follow-up examination after completed treatment for conditions other than malignant neoplasm (principal); G89.29 Other chronic pain; M46.1 Sacroiliitis, not elsewhere classified; M51.26 Other intervertebral disc displacement, lumbar region; I10 Essential (primary) hypertension; E66.9 Obesity, unspecified; Z68.43 Body mass index [BMI] 50.0-59.9, adult; K21.9 Gastro-esophageal reflux disease without esophagitis; G47.33 Obstructive sleep apnea (adult) (pediatric); M17.0 Bilateral primary osteoarthritis of knee; J30.89 Other allergic rhinitis; E11.9 Type 2 diabetes mellitus without complications; Z79.84 Long term (current) use of oral hypoglycemic drugs; Z79.82 Long term (current) use of aspirin; Z79.899 Other long term (current) drug therapy

== ENCOUNTER 2016-08-21 12:26 | Emergency (ER) | payer MEDICARE, MEDICAID ==
[~2016-08-21] VITALS: Ht 177.8 cm; Wt 137.0 kg
[2016-08-21] MEDS ORDERED: LYRI75CA (12:43)
[2016-08-21] MEDS ORDERED: ACETAMINOPHEN 325 MG TAB PO ONE (13:45)
[2016-08-21] MEDS ORDERED: IPRATROPIUM 0.5MG/ALBUTEROL 2.5MG INH SOL UD 3ML (DUONEB)(J7620) NEB ONE (13:45)
--- NOTE | 2016-08-21 14:06 | REP ---
Chest two views HISTORY: Cough Comparison: 03/09/2016 The lungs are clear. The heart is normal in size. The pulmonary vasculature is normal in appearance. The bony structure is intact. IMPRESSION: No acute disease. Signed by Christian Jett MD 08/21/2016 01:56 P
[2016-08-21] MEDS ORDERED: NS 1,000 ML IV ONE (15:00)
[2016-08-21] MEDS ORDERED: KETOROLAC 30 MG/ML VIAL (J1885) IV ONE (15:00)
[2016-08-21 15:50] LABS: BASO % 0.3 % (0.0-1.0); EOS # 0.1 K/mm3 (0.0-0.50); EOS % 1.3 % (0.0-3.0); LARGE UNSTAINED CELL # 0.1 K/mm3 (0.0-0.4); LYMPH # 0.6 K/mm3 (1.5-4.5); LYMPH % 5.8 % (24.0-44.0); MEAN CORPUSCULAR HEMOGLOBIN 29.1 pg (27.0-33.0); MEAN CORPUSCULAR VOLUME 80.9 fl (80.0-96.0); MONO # 0.6 K/mm3 (0.0-0.8); MONO % 6.1 % (0.0-5.0); NEUTROPHILS # 7.9 K/mm3 (1.8-7.7); NEUTROPHILS % 85.4 % (36.0-66.0); PLATELET COUNT, AUTOMATED 198 k/mm3 (150-450); RED CELL DISTRIBUTION WIDTH 12.2 % (11.5-14.5); WHITE BLOOD COUNT 9.3 K/mm3 (4.0-10.0)
[2016-08-21 16:19] LABS: ALBUMIN 3.9 GM/DL (3.2-5.2); ALBUMIN/GLOBULIN RATIO 1.39 (1.00-1.93); ALKALINE PHOSPHATASE 111 U/L (45-117); ALT/SGPT 80 U/L (12-78); ANION GAP 11 MEQ/L (8-16); AST/SGOT 37 U/L (15-37); BILIRUBIN,DIRECT 0.3 MG/DL (0.0-0.2); BILIRUBIN,TOTAL 0.9 MG/DL (0.2-1.0); BLOOD UREA NITROGEN 14 MG/DL (7-18); CALCIUM LEVEL 8.2 MG/DL (8.5-10.1); CARBON DIOXIDE LEVEL 24 MEQ/L (21-32); CHLORIDE LEVEL 99 MEQ/L (98-107); CREATININE FOR GFR 1.02 MG/DL (0.70-1.30); GLOMERULAR FILTRATION RATE > 60.0 (>60); GLUCOSE, FASTING 197 MG/DL (70-105); POTASSIUM SERUM 4.1 MEQ/L (3.5-5.1); SODIUM LEVEL 134 MEQ/L (136-145); TOTAL PROTEIN 6.7 GM/DL (6.4-8.2)
[2016-08-21 16:51] VITALS: BP 128/79
== END 2016-08-21 17:43 | disposition home or self-care (01) ==
LOC: M ED 13:35
DX: B34.9 Viral infection, unspecified (principal); E11.9 Type 2 diabetes mellitus without complications; I10 Essential (primary) hypertension; K21.9 Gastro-esophageal reflux disease without esophagitis; E66.9 Obesity, unspecified; J30.89 Other allergic rhinitis; Z79.899 Other long term (current) drug therapy; Z79.82 Long term (current) use of aspirin; Z79.84 Long term (current) use of oral hypoglycemic drugs
CPT/HCPCS: 71020; 80048; 80076; 81001; 83605; 85025; 87040; 87804; 94640; 96374; 99283; J1885

== ENCOUNTER → 2016-09-05 | Outpatient (CLI) | payer MEDICARE, MEDICAID ==
[~2016-09-05] MED LIST changes: +LYRI75CA
--- NOTE | 2016-09-13 00:19 | ECWPNPC ---
PATIENT NAME: ABHAY ORNELAS : 1975 GENDER: MALE VISIT DATE: 09/05/2016 DISCHARGE DATE: 09/05/16 1401 VISIT LOCKED DATE TIME: PHYSICIAN: LING HURLEY RESOURCE: LING HURLEY REASON FOR APPOINTMENT 1. BACK HISTORY OF PRESENT ILLNESS HISTORY OF PRESENT ILLNESS: HERE FOR F/U OF CHRONIC LOW BACK AND LEFT LEG PAIN.HAS MULTI LEVEL LUMBAR DISC PROTRUSIONS AND A MODERATE SIZED RIGHT PARACENTRAL DISC PROTRUSION ON MRI-2016.PAIN IS DESCRIBED CONSTANT LEFT LOW BACK PAIN WITH RADIATION INTO LEFT INNER THIGH AND DOWN LEFT POSTERIOR LEG.DID NOT RESPOND TO LEFT SIJ.RATING PAIN VAS 6/10. FALL RISK SCREENING: SCREENING :NO FALLS IN THE PAST YEAR CURRENT MEDICATIONS TAKING OMEPRAZOLE 40 MG CAPSULE DELAYED RELEASE 1 CAPSULE ORALLY TWICE A DAY TAKING ASTELIN 137 MCG/SPRAY SOLUTION 1 PUFF IN EACH NOSTRIL NASALLY TWICE A DAY TAKING ZYRTEC ALLERGY 10 MG TABLET 1 TABLET NEEDED ORALLY ONCE A DAY TAKING FLONASE 50 MCG/ACT SUSPENSION 1 SPRAY IN EACH NOSTRIL NASALLY BID TAKING METFORMIN HCL 1000 MG TABLET 1 TABLET WITH MEALS ORALLY TWICE A DAY TAKING ATORVASTATIN CALCIUM 40 MG TABLET 1 TABLET ORALLY ONCE A DAY TAKING ASPIR-81 81 MG TABLET DELAYED RELEASE 1 TABLET ORALLY ONCE A DAY TAKING GLIPIZIDE ER 10 MG TABLET EXTENDED RELEASE 24 HOUR 1 TABLET ORALLY BID PRIOR TO BREAKFAST AND DINNER TAKING LYRICA 75 MG CAPSULE 1 CAPSULE ORALLY-SOS TWICE A DAY TAKING FLEXERIL 10 MG TABLET 1 TABLET ORALLY THREE TIMES A DAY TAKING LISINOPRIL 10 MG TABLET 1 TABLET ORALLY ONCE A DAY TAKING ALBUTEROL SULFATE HFA 108 (90 BASE) MCG/ACT AEROSOL SOLUTION 2 PUFFS NEEDED INHALATION EVERY 4 HRS TAKING IPRATROPIUM-ALBUTEROL 0.5-2.5 (3) MG/3ML SOLUTION 3 ML PRN INHALATION EVERY 6 HRS TAKING NEBULIZER - DEVICE DIRECTED DX. J20.9 DIRECTED TAKING NEBULIZER AIR TUBE/PLUGS - MISCELLANEOUS DIRECTED DX. J20.9 DIRECTED NOT-TAKING LEVOFLOXACIN 750 MG TABLET 1 TABLET ORALLY ONCE A DAY NOT-TAKING METHYLPREDNISOLONE 4 MG TABLET DIRECTED WITH FOOD OR MILK ORALLY DIRECTED NOT-TAKING LOTRISONE 1-0.05 % CREAM 1 APPLICATION TO AFFECTED AREAS ON RIGHT THIGH AND LOWER ABDOMEN EXTERNALLY TWICE A DAY UNTIL 2 DAYS AFTER RASH CLEARS NOT-TAKING KETOCONAZOLE 2 % CREAM 1 APPLICATION TO AFFECTED AREAS ON LOWER ABDOMEN EXTERNALLY TWICE A DAY UNTIL 2 DAYS AFTER RASH CLEARS NOT-TAKING GABAPENTIN 400MG CAPSULE 1 CAP(S) P.O. BID NOT-TAKING LIDOCAINE VISCOUS 2 % SOLUTION 15 ML NEEDED MOUTH/THROAT EVERY 6 HRS NOT-TAKING BENZONATATE 100 MG CAPSULE 1 CAPSULE NEEDED ORALLY THREE TIMES A DAY NOT-TAKING OMEPRAZOLE 40MG CAPSULE DELAYED RELEASE TAKE ONE CAPSULE BY MOUTH TWICE DAILY NOT-TAKING FARXIGA 5MG TABLET 1 TAB ORALLY ONCE DAILY MEDICATION LIST REVIEWED AND RECONCILED WITH THE PATIENT PAST MEDICAL HISTORY HYPERTENSION OBESITY ESOPHAGEAL REFLUX OBSTRUCTIVE SLEEP APNEA, 9 CM WATER BALANTITIS / BALANOPOSTHITIS HISTORY OF DM2 STRESS TEST 06/2012 [facility] - CANNY PAIN IN JOINT, LOWER LEG OSTEOARTHRITIS OF BOTH KNEES PAIN IN JOINT, SHOULDER REGION UNSPECIFIED INTERNAL DERANGEMENT OF KNEE ALLERGIC RHINITIS POSITIVE URINE DRUG SCREEN FOR MARIJUANA, PATIENT DENIES USE ALLERGIES ENVIRONMENTAL: ALLERGY REVIEW OF SYSTEMS CONSTITUTIONAL: ANY CHANGE IN YOUR MEDICAL CONDITION? NO . CHILLS NO . FEVER NO . INFECTION: DO YOU HAVE NEW INFECTIONS? NO . DO YOU HAVE HISTORY OF MRSA? NO . MUSCULOSKELETAL: ANY NEW PATTERNS OF PAIN OR NUMBNESS? NO . GASTROENTEROLOGY: ANY NEW CHANGE IN BOWEL CONTROL? NO . GENITOURINARY: ANY NEW CHANGE IN BLADDER CONTROL? NO . IS THERE A CHANCE YOU COULD BE ? NO . HEMATOLOGY/LYMPH: DO YOU TAKE ANY BLOOD THINNERS? (FOR EXAMPLE- COUMADIN, PLAVIX, AGGRENOX, PLATEL, PRADAXA, OR XARELTO) NO . WHEN WAS YOUR LAST DOSE? DATE: TIME: . NEUROLOGY: HAVE YOU FALLEN IN THE PAST 6 MONTHS? NO . ANY NEW EXTREMITY NUMBNESS OR WEAKNESS? NO . CARDIOLOGY: DO YOU HAVE A PACEMAKER OR DEFIBRILLATOR? NO . RESPIRATORY: HAVE YOU BEEN SICK IN THE PAST WEEK? NO . FEVER NO . FLU LIKE SYMPTOMS? NO . COUGH NO . INTEGUMENTARY: DO YOU HAVE ANY RASHES OR OPEN SORES? NO . ALLERGIC/IMMUNO: ARE YOU ALLERGIC TO SHELLFISH OR IV DYE? NO . ANY NEW ALLERGIES? NO . PSYCHIATRIC: DO YOU HAVE THOUGHTS OF HURTING YOURSELF OR SOMEONE ELSE? NO . ARE YOU ABUSED, NEGLECTED, OR IN AN UNSAFE ENVIRONMENT? NO . ENDOCRINOLOGY: ARE YOU DIABETIC? YES . OTHER: DO YOU NEED ANY PRESCRIPTIONS? NO . IF YES, PLEASE LIST: ____ . ANY NEW PROBLEMS WITH YOUR MEDICATIONS? NO . WHEN DID YOU LAST EAT? ____ . WHEN DID YOU LAST DRINK? ____ . WHAT DID YOU LAST DRINK? ____ . NAME OF PERSON DRIVING YOU HOME? ____ . DO YOU HAVE ANY OTHER QUESTIONS OR CONCERNS NO . REVIEWED BY: PROVIDER: LING ZAPATA . VITAL SIGNS WT 292 LBS, HT 70 IN, BMI 41.89 INDEX, BP 137/77 MM HG, HR 100 /MIN, RR 18 /MIN, TEMP 98.6 F, OXYGEN SAT % 95%, REVIEWED BY: CS (DONE AT 1320). EXAMINATION GENERAL EXAMINATION: HEENT:HEAD:, NORMOCEPHALIC, EYES:, EYES NORMAL, NOSE:, NOSE CLEAR, THROAT: NORMAL. LUNGS:LUNG SOUNDS ARE CLEAR. HEART:HEART RATE REGULAR. ABDOMEN:SOFT AND NOT TENDER, NON-DISTENDED. MUSCULOSKELETAL:*. LUMBAR SACRAL SPINEMUSCLE STRENGTH TESTING 5/5 BILATERAL, PALPATION: NEGATIVE FOR PAIN OVER L/S SPINE. SPECIFIC POINT TENDERNESS NOTED OVER LEFT SIJ. THORACIC SPINENEGATIVE FOR PAIN WITH PALPATION OF THORACIC SPINE. NEGATIVE FOR PAIN WITH PALPATION OF THORACIC PARASPINAL. CERVICALNEGATIVE FOR PAIN WITH PALPATION OF CERVICAL SPINE. NEGATIVE FOR PAIN WITH PALPATION OF CERVICAL PARASPINALS. NEGATIVE FOR PAIN WITH PALPATION OF TRAPEZIUS BILAT. SKIN:NORMAL, NO RASH. NEUROLOGIC EXAM:ALERT AND ORIENTED X 3, DTRS 1-2+ IN ALL 4 EXTREMITIES, DENIES UPPER EXTREMETIES SENSORY LOSS, DENIES LOWER EXTREMETIES SENSORY LOSS. DIAGNOSTIC: . ASSESSMENTS PROTRUDED LUMBAR DISC - M51.26 (PRIMARY) LUMBAR RADICULOPATHY - M54.16 TREATMENT PROTRUDED LUMBAR DISC CAUDAL/LUMBAR EPIDURALMEILING 09/05/2016 1:53:28 PM > LESI-L4/5 NOTES: OPTION FOR EPIDURAL INJECTIONS WERE DISCUSSED WITH THE PATIENT. FDA CONCERNS AND WARNING WERE REVIEWED INCLUDING THE RISK OF BLEEDING, RISK OF INFECTION, RISK OF INCREASED PAIN OR NEURALGIA, AND RISK OF PARALYSIS. PATIENT'S QUESTIONS WERE ANSWERED AND HE/SHE WISHES TO MOVE FORWARD WITH EPIDURAL INJECTION. LUMBAR RADICULOPATHY CAUDAL/LUMBAR EPIDURALMEILING 09/05/2016 1:53:28 PM > LESI-L4/5 PROCEDURE CODES FA211 ESTABILISHED PATIENT [facility] CHARGE G8730 PAIN ASSESS POS TOOL F/U PLAN DOC G8427 DOC MEDS VERIFIED W/PT OR RE DISPOSITION & COMMUNICATION FOLLOW UP 2WK POST (REASON: LESI L4/5) ELECTRONICALLY SIGNED BY JODI MULLEN ON 09/12/2016 AT 10:43 AM EDT DISCLAIMER : THIS IS A VISIT SUMMARY EXTRACTED FROM THE [employer] CHART. IT IS NOT A COPY OF THE [employer] PROGRESS NOTE. MICK
== END ==
LOC: M PAIN 13:20
PROVIDERS: ATTEND Nurse Practitioner Family
DX: G89.29 Other chronic pain (principal); M51.26 Other intervertebral disc displacement, lumbar region; M54.16 Radiculopathy, lumbar region; I10 Essential (primary) hypertension; E66.9 Obesity, unspecified; Z68.41 Body mass index [BMI] 40.0-44.9, adult; K21.9 Gastro-esophageal reflux disease without esophagitis; G47.33 Obstructive sleep apnea (adult) (pediatric); E11.9 Type 2 diabetes mellitus without complications; M17.0 Bilateral primary osteoarthritis of knee; J30.2 Other seasonal allergic rhinitis; Z79.84 Long term (current) use of oral hypoglycemic drugs; Z79.82 Long term (current) use of aspirin; Z79.899 Other long term (current) drug therapy

== ENCOUNTER → 2016-09-07 | Outpatient (REF) | payer MEDICARE, MEDICAID ==
[2016-09-07 11:51] LABS: MEAN CORPUSCULAR HEMOGLOBIN 29.6 pg (27.0-33.0); MEAN CORPUSCULAR HGB CONC 34.5 g/dl (32.0-36.5); RED CELL DISTRIBUTION WIDTH 12.7 % (11.5-14.5)
[2016-09-07 12:12] LABS: ALBUMIN 3.6 GM/DL (3.2-5.2); ALBUMIN/GLOBULIN RATIO 1.16 (1.00-1.93); ALKALINE PHOSPHATASE 99 U/L (45-117); ALT/SGPT 59 U/L (12-78); ANION GAP 9 MEQ/L (8-16); AST/SGOT 10 U/L (15-37); BILIRUBIN,TOTAL 0.7 MG/DL (0.2-1.0); BLOOD UREA NITROGEN 13 MG/DL (7-18); CALCIUM LEVEL 8.6 MG/DL (8.5-10.1); CARBON DIOXIDE LEVEL 28 MEQ/L (21-32); CHLORIDE LEVEL 102 MEQ/L (98-107); CHOLESTEROL LEVEL 187 MG/DL (<200); GLOMERULAR FILTRATION RATE > 60.0 (>60); GLUCOSE, FASTING 234 MG/DL (70-105); POTASSIUM SERUM 4.3 MEQ/L (3.5-5.1); SODIUM LEVEL 139 MEQ/L (136-145); TOTAL PROTEIN 6.7 GM/DL (6.4-8.2); TRIGLYCERIDES LEVEL 365 MG/DL (<150)
== END ==
LOC: M SFHCLERA 07:54
PROVIDERS: ATTEND Family Medicine
DX: I10 Essential (primary) hypertension (principal); E11.42 Type 2 diabetes mellitus with diabetic polyneuropathy; G45.9 Transient cerebral ischemic attack, unspecified

== ENCOUNTER → 2016-09-07 | Outpatient (CLI) | payer MEDICARE, MEDICAID ==
[2016-09-07 11:51] LABS: BASO % 0.2 % (0.0-1.0); EOS # 0.1 K/mm3 (0.0-0.50); EOS % 0.9 % (0.0-3.0); LYMPH # 2.1 K/mm3 (1.5-4.5); LYMPH % 23.4 % (24.0-44.0); MEAN CORPUSCULAR HEMOGLOBIN 29.7 pg (27.0-33.0); MEAN CORPUSCULAR HGB CONC 34.6 g/dl (32.0-36.5); MEAN CORPUSCULAR VOLUME 85.9 fl (80.0-96.0); MONO # 0.5 K/mm3 (0.0-0.8); MONO % 5.1 % (0.0-5.0); NEUTROPHILS # 6.2 K/mm3 (1.8-7.7); RED CELL DISTRIBUTION WIDTH 12.6 % (11.5-14.5); WHITE BLOOD COUNT 8.9 K/mm3 (4.0-10.0)
[2016-09-07 12:08] LABS: ANION GAP 9 MEQ/L (8-16); BLOOD UREA NITROGEN 14 MG/DL (7-18); CALCIUM LEVEL 8.7 MG/DL (8.5-10.1); CARBON DIOXIDE LEVEL 28 MEQ/L (21-32); CHLORIDE LEVEL 102 MEQ/L (98-107); GLOMERULAR FILTRATION RATE > 60.0 (>60); GLUCOSE, FASTING 234 MG/DL (70-105); POTASSIUM SERUM 4.3 MEQ/L (3.5-5.1); SODIUM LEVEL 139 MEQ/L (136-145)
== END ==
LOC: M LRY 08:11
PROVIDERS: ATTEND Internal Medicine Cardiovascular Disease
DX: G45.9 Transient cerebral ischemic attack, unspecified (principal); I10 Essential (primary) hypertension; E11.42 Type 2 diabetes mellitus with diabetic polyneuropathy

== ENCOUNTER → 2016-09-18 | Outpatient (CLI) | payer MEDICARE, MEDICAID ==
[~2016-09-18] MED LIST changes: +ISOVUE-M 300 61% 15ML VIAL (Q9967) As Ordered ONE; +LIDOCAINE 1% SDV INJ 30 ML VIAL As Ordered ONE; +diazePAM 5 MG TAB As Ordered ONE; +methylPREDNISolone SUSP 40 MG/ML (DEPO-medrol) VIAL (J1030) As Ordered ONE; +oxyCODONE 5MG TAB As Ordered ONE
--- NOTE | 2016-09-18 10:40 | REP ---
PARTIAL LUMBAR SPINE SERIES: THREE VIEWS. HISTORY: Lumbar epidural steroid injection for pain. 10 seconds of fluoroscopy time is reported. FINDINGS: A sequence of three fluoroscopically-obtained last image hold intraprocedural spot radiographs of the lumbar spine document needle position and contrast injection associated with lumbar epidural injection procedure. Signed by Arnie Sauceda MD 09/18/2016 12:18 P
--- NOTE | 2016-09-23 23:32 | ECWPNPC ---
PATIENT NAME: ABHAY ORNELAS : 1975 GENDER: MALE VISIT DATE: 09/18/2016 DISCHARGE DATE: 09/18/16 1031 VISIT LOCKED DATE TIME: PHYSICIAN: SILVINA MITTAL RESOURCE: SILVINA MITTAL REASON FOR APPOINTMENT 1. LE HISTORY OF PRESENT ILLNESS HISTORY OF PRESENT ILLNESS: PAIN THE PATIENT DESCRIBES THE PAIN... FALL RISK SCREENING: SCREENING :NO FALLS IN THE PAST YEAR CURRENT MEDICATIONS TAKING OMEPRAZOLE 40 MG CAPSULE DELAYED RELEASE 1 CAPSULE ORALLY TWICE A DAY, NOTES: 09/17/162199 TAKING ASTELIN 137 MCG/SPRAY SOLUTION 1 PUFF IN EACH NOSTRIL NASALLY TWICE A DAY, NOTES: ONE YEAR TAKING ZYRTEC ALLERGY 10 MG TABLET 1 TABLET NEEDED ORALLY ONCE A DAY, NOTES: ONE MONTH TAKING FLONASE 50 MCG/ACT SUSPENSION 1 SPRAY IN EACH NOSTRIL NASALLY BID, NOTES: LAST YEAR TAKING METFORMIN HCL 1000 MG TABLET 1 TABLET WITH MEALS ORALLY TWICE A DAY, NOTES: 09/17/162199 TAKING ATORVASTATIN CALCIUM 40 MG TABLET 1 TABLET ORALLY ONCE A DAY, NOTES: 09/17/162199 TAKING ASPIR-81 81 MG TABLET DELAYED RELEASE 1 TABLET ORALLY ONCE A DAY, NOTES: 09/17/162199 TAKING GLIPIZIDE ER 10 MG TABLET EXTENDED RELEASE 24 HOUR 1 TABLET ORALLY BID PRIOR TO BREAKFAST AND DINNER, NOTES: 09/17/16 08 TAKING LYRICA 75 MG CAPSULE 1 CAPSULE ORALLY-SOS TWICE A DAY, NOTES: 09/17/162199 TAKING FLEXERIL 10 MG TABLET 1 TABLET ORALLY THREE TIMES A DAY, NOTES: 09/17/162199 TAKING LISINOPRIL 10 MG TABLET 1 TABLET ORALLY ONCE A DAY, NOTES: 09/17/16 08 TAKING ALBUTEROL SULFATE HFA 108 (90 BASE) MCG/ACT AEROSOL SOLUTION 2 PUFFS NEEDED INHALATION EVERY 4 HRS, NOTES: ONE WEEK AGO NOT-TAKING NEBULIZER - DEVICE DIRECTED DX. J20.9 DIRECTED NOT-TAKING NEBULIZER AIR TUBE/PLUGS - MISCELLANEOUS DIRECTED DX. J20.9 DIRECTED NOT-TAKING IPRATROPIUM-ALBUTEROL 0.5-2.5 (3) MG/3ML SOLUTION 3 ML PRN INHALATION EVERY 6 HRS NOT-TAKING LEVOFLOXACIN 750 MG TABLET 1 TABLET ORALLY ONCE A DAY NOT-TAKING METHYLPREDNISOLONE 4 MG TABLET DIRECTED WITH FOOD OR MILK ORALLY DIRECTED NOT-TAKING LOTRISONE 1-0.05 % CREAM 1 APPLICATION TO AFFECTED AREAS ON RIGHT THIGH AND LOWER ABDOMEN EXTERNALLY TWICE A DAY UNTIL 2 DAYS AFTER RASH CLEARS NOT-TAKING KETOCONAZOLE 2 % CREAM 1 APPLICATION TO AFFECTED AREAS ON LOWER ABDOMEN EXTERNALLY TWICE A DAY UNTIL 2 DAYS AFTER RASH CLEARS NOT-TAKING GABAPENTIN 400MG CAPSULE 1 CAP(S) P.O. BID NOT-TAKING LIDOCAINE VISCOUS 2 % SOLUTION 15 ML NEEDED MOUTH/THROAT EVERY 6 HRS NOT-TAKING BENZONATATE 100 MG CAPSULE 1 CAPSULE NEEDED ORALLY THREE TIMES A DAY NOT-TAKING OMEPRAZOLE 40MG CAPSULE DELAYED RELEASE TAKE ONE CAPSULE BY MOUTH TWICE DAILY NOT-TAKING FARXIGA 5MG TABLET 1 TAB ORALLY ONCE DAILY MEDICATION LIST REVIEWED AND RECONCILED WITH THE PATIENT PAST MEDICAL HISTORY HYPERTENSION OBESITY ESOPHAGEAL REFLUX OBSTRUCTIVE SLEEP APNEA, 9 CM WATER BALANTITIS / BALANOPOSTHITIS HISTORY OF DM2 STRESS TEST 06/2012 [facility] - CANNY PAIN IN JOINT, LOWER LEG OSTEOARTHRITIS OF BOTH KNEES PAIN IN JOINT, SHOULDER REGION UNSPECIFIED INTERNAL DERANGEMENT OF KNEE ALLERGIC RHINITIS POSITIVE URINE DRUG SCREEN FOR MARIJUANA, PATIENT DENIES USE ALLERGIES ENVIRONMENTAL: ALLERGY SURGICAL HISTORY TONSILLECTOMY AT AGE 7 ARTHROSCOPIC KNEE SURGERY L - DR Brett ROLLINS 11/14 GASTRIC BYPASS SURGERY 12/09/12 RIGHT SHOULDER SURGERY @ [facility] 11/2013 LEFT SHOULDER SURGERY @ [facility] 12/2013 LUMP REMOVED FROM RIGHT SHOULDER DR. SCOTT 03/2014 RIGHT CARPAL TUNNEL /ELBOE 2015 HOSPITALIZATION/MAJOR DIAGNOSTIC PROCEDURE [facility] BYPASS 12/09/2012 TONSILLECTOMY 1983 [facility] - PNEUMONIA 06/2015 [facility] - TIA 03/2016 REVIEW OF SYSTEMS CONSTITUTIONAL: ANY CHANGE IN YOUR MEDICAL CONDITION? NO . CHILLS NO . FEVER NO . INFECTION: DO YOU HAVE NEW INFECTIONS? NO . DO YOU HAVE HISTORY OF MRSA? NO . MUSCULOSKELETAL: ANY NEW PATTERNS OF PAIN OR NUMBNESS? NO . GASTROENTEROLOGY: ANY NEW CHANGE IN BOWEL CONTROL? NO . GENITOURINARY: ANY NEW CHANGE IN BLADDER CONTROL? NO . IS THERE A CHANCE YOU COULD BE ? NO . HEMATOLOGY/LYMPH: DO YOU TAKE ANY BLOOD THINNERS? (FOR EXAMPLE- COUMADIN, PLAVIX, AGGRENOX, PLATEL, PRADAXA, OR XARELTO) NO . WHEN WAS YOUR LAST DOSE? DATE: TIME: . NEUROLOGY: HAVE YOU FALLEN IN THE PAST 6 MONTHS? NO . ANY NEW EXTREMITY NUMBNESS OR WEAKNESS? NO . CARDIOLOGY: DO YOU HAVE A PACEMAKER OR DEFIBRILLATOR? NO . RESPIRATORY: HAVE YOU BEEN SICK IN THE PAST WEEK? NO . FEVER NO . FLU LIKE SYMPTOMS? NO . COUGH NO . INTEGUMENTARY: DO YOU HAVE ANY RASHES OR OPEN SORES? NO . ALLERGIC/IMMUNO: ARE YOU ALLERGIC TO SHELLFISH OR IV DYE? NO . ANY NEW ALLERGIES? NO . PSYCHIATRIC: DO YOU HAVE THOUGHTS OF HURTING YOURSELF OR SOMEONE ELSE? NO . ARE YOU ABUSED, NEGLECTED, OR IN AN UNSAFE ENVIRONMENT? NO . ENDOCRINOLOGY: ARE YOU DIABETIC? YES . OTHER: DO YOU NEED ANY PRESCRIPTIONS? NO . IF YES, PLEASE LIST: ____ . ANY NEW PROBLEMS WITH YOUR MEDICATIONS? NO . WHEN DID YOU LAST EAT? ____09/17/161999 . WHEN DID YOU LAST DRINK? ____09/17/162299 . WHAT DID YOU LAST DRINK? ____WATER . NAME OF PERSON DRIVING YOU HOME? ____AMANDA . DO YOU HAVE ANY OTHER QUESTIONS OR CONCERNS NO . REVIEWED BY: PROVIDER: . VITAL SIGNS WT 292.0 LBS, HT 70 IN, BMI 41.89 INDEX, BP 130/92 MM HG, HR 89 /MIN, RR 18 /MIN, TEMP 98.0 F, OXYGEN SAT % 96%, SAFE IN ENV? (Y/N) YES, NA INITIALS TL 0854, REVIEWED BY: LAS. DONG INTERVERTEBRAL DISC DISORDERS WITH RADICULOPATHY, LUMBOSACRAL REGION - M51.17 (PRIMARY) PROCEDURES PRE PROCEDURE DIAGNOSIS LUMBOSACRAL DISC DISORDER WITH RADICULOPATHY POST PROCEDURE DIAGNOSIS LUMBOSACRAL DISC DISORDER WITH RADICULOPATHY PROCEDURE LUMBAR EPIDURAL STEROID INJECTION UNDER FLUOROSCOPIC GUIDANCE SURGEON DR. SILVINA MITTAL ATHLETIC FIELD CUSTODIAN NONE ANESTHESIA LOCAL PRE PROCEDURE NOTE THE PATIENT HAS A HISTORY OF CHRONIC LOW BACK PAIN. I EVALUATE THE PATIENT AND REVIEWED THE CHART. I WENT OVER THE RISKS, ALTERNATIVES, AND BENEFITS ASSOCIATED WITH THIS PROCEDURE. THE PATIENT WOULD LIKE TO PROCEED AND GIVE CONSENT TO PERFORMED THE PROCEDURE. THE PATIENT DENIES UNEXPLAINABLE WEIGHT LOSS, FEVER, CHILLS, OR NEW CHANGES IN URINARY OR BOWEL CONTROL DESCRIPTION OF PROCEDURE THE PATIENT WAS BROUGHT TO THE PROCEDURE ROOM AND PLACED IN THE PRONE POSITION. THE LUMBOSACRAL AREA WAS CLEANED WITH BETADINE SOLUTION AND DRAPED ASEPTICALLY. THE PROCEDURE WAS DONE UNDER STERILE CONDITIONS. I CHECKED LATERALITY AND THE LEVEL WHERE THE PROCEDURE WAS GOING TO BE PERFORMED WITH THE PATIENT AND THE SUPPORTING STAFF AT THE MOMENT OF THE TIME OUT IN THE PROCEDURE ROOM. UNDER FLUOROSCOPIC GUIDANCE, THE TARGET POINT WAS SELECTED AT THE INTERLAMINAR LEVEL OF L5-S1. LIDOCAINE WAS USED TO NUMB THE SKIN AND THE SUBCUTANEOUS TISSUE BELOW IT. EPIDURAL TUOHY NEEDLE, 17-GAUGE, WAS ADVANCED UNDER FLUOROSCOPIC GUIDANCE AND FOLLOWING PATIENT FEEDBACK UNTIL THE EPIDURAL SPACE WAS REACHED, 7 CM DEEP INTO THE SKIN BY THE LOSS OF RESISTANCE TECHNIQUE. ISOVUE M DYE 30%, 0.25 ML, WAS INJECTED SHOWING ADEQUATE SPREAD OF THE DYE. THEN, A SOLUTION OF 3 ML OF NORMAL SALINE WITH DEPO-MEDROL 60 MG WAS INJECTED SLOWLY FOLLOWING PATIENT FEEDBACK. THERE WAS NO EVIDENCE OF BLOOD, PARESTHESIA OR CEREBROSPINAL FLUID DURING THE PROCEDURE. THE PATIENT WAS SENT TO THE RECOVERY ROOM. THE PATIENT WAS MOVING THE EXTREMITIES AND DOING WELL. THERE WAS NO COMPLICATION DURING THE PROCEDURE. FLUOROSCOPY TIME WAS 10 SECONDS POST PROCEDURE NOTE THE PATIENT WILL BE SEEN IN A FOLLOW UP IN THE NEXT FEW WEEKS. INSTRUCTIONS WERE GIVEN, QUESTIONS WERE ANSWERED, AND THE PATIENT EXPRESSED UNDERSTANDING AND AGREES WITH THE PLAN. I, ARLIN POSADAS, DOCUMENTED THE ABOVE INFORMATION ACTING A SCRIBE FOR DR. MITTAL. I HAVE REVIEWED THE ABOVE DOCUMENT, WRITTEN BY ARLIN ROACH AND I VERIFY THAT IT IS ACCURATE DIAGNOSTIC IMAGING [facility] FLUORO GUIDE SPINE INJECTION (PAIN)[id number] PROCEDURE CODES 55225 LUMBAR/SACRAL W/ IMAGING 6045F RADXPS IN END [id number] PXD DISPOSITION & COMMUNICATION FOLLOW UP 3 WEEKS ELECTRONICALLY SIGNED BY SILVINA MITTAL MD ON 09/23/2016 AT 07:28 PM EDT DISCLAIMER : THIS IS A VISIT SUMMARY EXTRACTED FROM THE [employer] CHART. IT IS NOT A COPY OF THE [employer] PROGRESS NOTE. MICK
== END ==
LOC: M PAIN 08:40
PROVIDERS: ATTEND Anesthesiology
DX: G89.29 Other chronic pain (principal); M51.17 Intervertebral disc disorders with radiculopathy, lumbosacral region; E11.42 Type 2 diabetes mellitus with diabetic polyneuropathy; I10 Essential (primary) hypertension; E66.9 Obesity, unspecified; Z68.41 Body mass index [BMI] 40.0-44.9, adult; K21.9 Gastro-esophageal reflux disease without esophagitis; G47.33 Obstructive sleep apnea (adult) (pediatric); M17.0 Bilateral primary osteoarthritis of knee; J30.89 Other allergic rhinitis; Z79.4 Long term (current) use of insulin; Z79.84 Long term (current) use of oral hypoglycemic drugs; Z79.82 Long term (current) use of aspirin; Z79.899 Other long term (current) drug therapy
CPT/HCPCS: 62323; J1030; Q9967

== ENCOUNTER → 2016-10-03 | Outpatient (CLI) | payer MEDICARE, MEDICAID ==
[~2016-10-03] MED LIST changes: -ISOVUE-M 300 61% 15ML VIAL (Q9967) As Ordered ONE; -LIDOCAINE 1% SDV INJ 30 ML VIAL As Ordered ONE; -diazePAM 5 MG TAB As Ordered ONE; -methylPREDNISolone SUSP 40 MG/ML (DEPO-medrol) VIAL (J1030) As Ordered ONE; -oxyCODONE 5MG TAB As Ordered ONE
--- NOTE | 2016-10-04 01:20 | ECWPNPC ---
PATIENT NAME: ABHAY ORNELAS : 1975 GENDER: MALE VISIT DATE: 10/03/2016 DISCHARGE DATE: 10/03/16 1230 VISIT LOCKED DATE TIME: PHYSICIAN: LING HURLEY RESOURCE: LING HURLEY REASON FOR APPOINTMENT 1. POST LE HISTORY OF PRESENT ILLNESS HISTORY OF PRESENT ILLNESS: HERE FOR POST PROCEDURE F/U AND MANAGEMENT OF CHRONIC LOW BACK PAIN/LEFT LEG PAIN.REPORTS 7 DAYS OF >75% IMPROVEMENT THEN PAIN RETURNED TO BASELINE.RATING PAIN VAS 7/10.DESCRIBES PAIN INTERMITTENT AND SHARP.REPORTING POOR SLEEP SECONDARY TO PAIN.NEED MEDICAL CLEARANCE FROM CARDIOLOGY.HAS HX OF STROKE MARCH 2016.RECENTLY HAD LOOP RECORDER PLACED RECENTLY. PAIN THE PATIENT DESCRIBES THE PAIN... FALL RISK SCREENING: SCREENING :NO FALLS IN THE PAST YEAR CURRENT MEDICATIONS TAKING OMEPRAZOLE 40 MG CAPSULE DELAYED RELEASE 1 CAPSULE ORALLY TWICE A DAY, NOTES: 09/17/162199 TAKING ASTELIN 137 MCG/SPRAY SOLUTION 1 PUFF IN EACH NOSTRIL NASALLY TWICE A DAY, NOTES: ONE YEAR TAKING ZYRTEC ALLERGY 10 MG TABLET 1 TABLET NEEDED ORALLY ONCE A DAY, NOTES: ONE MONTH TAKING FLONASE 50 MCG/ACT SUSPENSION 1 SPRAY IN EACH NOSTRIL NASALLY BID, NOTES: LAST YEAR TAKING METFORMIN HCL 1000 MG TABLET 1 TABLET WITH MEALS ORALLY TWICE A DAY, NOTES: 09/17/162199 TAKING ATORVASTATIN CALCIUM 40 MG TABLET 1 TABLET ORALLY ONCE A DAY, NOTES: 09/17/162199 TAKING ASPIR-81 81 MG TABLET DELAYED RELEASE 1 TABLET ORALLY ONCE A DAY, NOTES: 09/17/162199 TAKING GLIPIZIDE ER 10 MG TABLET EXTENDED RELEASE 24 HOUR 1 TABLET ORALLY BID PRIOR TO BREAKFAST AND DINNER, NOTES: 09/17/16 08 TAKING LYRICA 75 MG CAPSULE 1 CAPSULE ORALLY-SOS TWICE A DAY, NOTES: 09/17/162199 TAKING FLEXERIL 10 MG TABLET 1 TABLET ORALLY THREE TIMES A DAY, NOTES: 09/17/162199 TAKING LISINOPRIL 10 MG TABLET 1 TABLET ORALLY ONCE A DAY, NOTES: 09/17/16 0800 TAKING ALBUTEROL SULFATE HFA 108 (90 BASE) MCG/ACT AEROSOL SOLUTION 2 PUFFS NEEDED INHALATION EVERY 4 HRS, NOTES: ONE WEEK AGO TAKING IPRATROPIUM-ALBUTEROL 0.5-2.5 (3) MG/3ML SOLUTION 3 ML PRN DX J44.9 INHALATION EVERY 6 HRS NOT-TAKING NEBULIZER - DEVICE DIRECTED DX. J20.9 DIRECTED NOT-TAKING NEBULIZER AIR TUBE/PLUGS - MISCELLANEOUS DIRECTED DX. J20.9 DIRECTED NOT-TAKING LEVOFLOXACIN 750 MG TABLET 1 TABLET ORALLY ONCE A DAY NOT-TAKING METHYLPREDNISOLONE 4 MG TABLET DIRECTED WITH FOOD OR MILK ORALLY DIRECTED NOT-TAKING LOTRISONE 1-0.05 % CREAM 1 APPLICATION TO AFFECTED AREAS ON RIGHT THIGH AND LOWER ABDOMEN EXTERNALLY TWICE A DAY UNTIL 2 DAYS AFTER RASH CLEARS NOT-TAKING KETOCONAZOLE 2 % CREAM 1 APPLICATION TO AFFECTED AREAS ON LOWER ABDOMEN EXTERNALLY TWICE A DAY UNTIL 2 DAYS AFTER RASH CLEARS NOT-TAKING GABAPENTIN 400MG CAPSULE 1 CAP(S) P.O. BID NOT-TAKING LIDOCAINE VISCOUS 2 % SOLUTION 15 ML NEEDED MOUTH/THROAT EVERY 6 HRS NOT-TAKING BENZONATATE 100 MG CAPSULE 1 CAPSULE NEEDED ORALLY THREE TIMES A DAY NOT-TAKING OMEPRAZOLE 40MG CAPSULE DELAYED RELEASE TAKE ONE CAPSULE BY MOUTH TWICE DAILY NOT-TAKING FARXIGA 5MG TABLET 1 TAB ORALLY ONCE DAILY MEDICATION LIST REVIEWED AND RECONCILED WITH THE PATIENT PAST MEDICAL HISTORY HYPERTENSION OBESITY ESOPHAGEAL REFLUX OBSTRUCTIVE SLEEP APNEA, 9 CM WATER BALANTITIS / BALANOPOSTHITIS HISTORY OF DM2 STRESS TEST 06/2012 [facility]MILL - CANNY PAIN IN JOINT, LOWER LEG OSTEOARTHRITIS OF BOTH KNEES PAIN IN JOINT, SHOULDER REGION UNSPECIFIED INTERNAL DERANGEMENT OF KNEE ALLERGIC RHINITIS POSITIVE URINE DRUG SCREEN FOR MARIJUANA, PATIENT DENIES USE ALLERGIES ENVIRONMENTAL: ALLERGY SURGICAL HISTORY TONSILLECTOMY AT AGE 7 ARTHROSCOPIC KNEE SURGERY L - DR Brett ROLLINS 11/14 GASTRIC BYPASS SURGERY 12/09/12 RIGHT SHOULDER SURGERY @ [facility] 11/2013 LEFT SHOULDER SURGERY @ [facility] 12/2013 LUMP REMOVED FROM RIGHT SHOULDER DR. SCOTT 03/2014 RIGHT CARPAL TUNNEL /ELBOE 2016 LOOP RECORDER 09/2016 HOSPITALIZATION/MAJOR DIAGNOSTIC PROCEDURE [facility] BYPASS 12/09/2012 TONSILLECTOMY 1983 [facility] - PNEUMONIA 06/2015 [facility] - TIA 03/2016 REVIEW OF SYSTEMS CONSTITUTIONAL: ANY CHANGE IN YOUR MEDICAL CONDITION? NO . CHILLS NO . FEVER NO . INFECTION: DO YOU HAVE NEW INFECTIONS? NO . DO YOU HAVE HISTORY OF MRSA? NO . MUSCULOSKELETAL: ANY NEW PATTERNS OF PAIN OR NUMBNESS? YES, PT STATES LESI DONE 09/18/16. PRE PROCEDURE PT STATES PAIN WAS 8/10. POST PROCEDURE PT STATES PAIN WAS 3-4/10, THEN STARTED CREEPING IN INTENSITY TO CURRENT 7/10. PT STATES HE HAS APPT WITH ORTHOPEDIC SURGEON 10/10/16, [facility] IN [place] FOR DISCUSSION OF SURGERY TO LOWER BACK. . GASTROENTEROLOGY: ANY NEW CHANGE IN BOWEL CONTROL? NO . GENITOURINARY: ANY NEW CHANGE IN BLADDER CONTROL? NO . IS THERE A CHANCE YOU COULD BE ? NO . HEMATOLOGY/LYMPH: DO YOU TAKE ANY BLOOD THINNERS? (FOR EXAMPLE- COUMADIN, PLAVIX, AGGRENOX, PLATEL, PRADAXA, OR XARELTO) NO . WHEN WAS YOUR LAST DOSE? DATE: TIME: . NEUROLOGY: HAVE YOU FALLEN IN THE PAST 6 MONTHS? NO . ANY NEW EXTREMITY NUMBNESS OR WEAKNESS? NO . CARDIOLOGY: DO YOU HAVE A PACEMAKER OR DEFIBRILLATOR? NO, LOOP RECORDER, PLACED 09/19/2016 . RESPIRATORY: HAVE YOU BEEN SICK IN THE PAST WEEK? NO . FEVER NO . FLU LIKE SYMPTOMS? NO . COUGH NO . INTEGUMENTARY: DO YOU HAVE ANY RASHES OR OPEN SORES? NO . ALLERGIC/IMMUNO: ARE YOU ALLERGIC TO SHELLFISH OR IV DYE? NO . ANY NEW ALLERGIES? NO . PSYCHIATRIC: DO YOU HAVE THOUGHTS OF HURTING YOURSELF OR SOMEONE ELSE? NO . ARE YOU ABUSED, NEGLECTED, OR IN AN UNSAFE ENVIRONMENT? NO . ENDOCRINOLOGY: ARE YOU DIABETIC? YES . OTHER: DO YOU NEED ANY PRESCRIPTIONS? NO . IF YES, PLEASE LIST: ____ . ANY NEW PROBLEMS WITH YOUR MEDICATIONS? NO . WHEN DID YOU LAST EAT? ____ . WHEN DID YOU LAST DRINK? ____ . WHAT DID YOU LAST DRINK? ____ . NAME OF PERSON DRIVING YOU HOME? ____ . DO YOU HAVE ANY OTHER QUESTIONS OR CONCERNS NO . REVIEWED BY: PROVIDER: LING ZAPATA . VITAL SIGNS WT 302.6 LBS, HT 70 IN, BMI 43.41 INDEX, BP 130/77 MM HG, HR 88 /MIN, RR 16 /MIN, TEMP 98.2 F, OXYGEN SAT % 98%, SAFE IN ENV? (Y/N) Y, NA INITIALS TL 1119, REVIEWED BY: EM. EXAMINATION GENERAL EXAMINATION: HEENT:HEAD:, NORMOCEPHALIC, EYES:, EYES NORMAL, NOSE:, NOSE CLEAR, THROAT: NORMAL. LUNGS:LUNG SOUNDS ARE CLEAR. HEART:HEART RATE REGULAR. ABDOMEN:SOFT AND NOT TENDER, NON-DISTENDED. MUSCULOSKELETAL:*. LUMBAR SACRAL SPINEMUSCLE STRENGTH TESTING 5/5 BILATERAL, PALPATION: NEGATIVE FOR PAIN OVER L/S SPINE. SPECIFIC POINT TENDERNESS NOTED OVER LEFT SIJ. THORACIC SPINENEGATIVE FOR PAIN WITH PALPATION OF THORACIC SPINE. NEGATIVE FOR PAIN WITH PALPATION OF THORACIC PARASPINAL. CERVICALNEGATIVE FOR PAIN WITH PALPATION OF CERVICAL SPINE. NEGATIVE FOR PAIN WITH PALPATION OF CERVICAL PARASPINALS. NEGATIVE FOR PAIN WITH PALPATION OF TRAPEZIUS BILAT. SKIN:NORMAL, NO RASH. NEUROLOGIC EXAM:ALERT AND ORIENTED X 3, DTRS 1-2+ IN ALL 4 EXTREMITIES, DENIES UPPER EXTREMETIES SENSORY LOSS, DENIES LOWER EXTREMETIES SENSORY LOSS. DIAGNOSTIC: . ASSESSMENTS INTERVERTEBRAL DISC DISORDERS WITH RADICULOPATHY, LUMBOSACRAL REGION - M51.17 (PRIMARY) TREATMENT INTERVERTEBRAL DISC DISORDERS WITH RADICULOPATHY, LUMBOSACRAL REGION START PERCOCET TABLET, 5-325 MG, 1 TABLET NEEDED, ORALLY, EVERY 6 HRS PRN MDD2, 30 DAY(S), 30, REFILLS 0 NOTES: ISTOP REGISTRY REVIEWED AND DEMNOSTRATES COMPLLIANCE., RISKS AND BENEFITS OF NARCOTIC/OPIOD MEDICATIONS WERE REVIEWED WITH PATIENT - THIS INCLUDES BUT IS NOT LIMITED TO RISK OF DEPENDANCE/DEVELOPMENT OF ADDICTION, MOOD DISTURBANCE AND DEPRESSION, OSTEOPOROSIS, HORMONAL AND LABIDAL CHANGES, RESPIRATORY DEPRESSION AND . PATIENT IS ADVISED NOT TO DRIVE WHILE ON THESE MEDICATIONS. PROCEDURE CODES FA211 ESTABILISHED PATIENT [facility] CHARGE G8730 PAIN ASSESS POS TOOL F/U PLAN DOC G8427 DOC MEDS VERIFIED W/PT OR RE DISPOSITION & COMMUNICATION FOLLOW UP 2 WEEKS ELECTRONICALLY SIGNED BY JODI MULLEN ON 10/03/2016 AT 04:56 PM EDT DISCLAIMER : THIS IS A VISIT SUMMARY EXTRACTED FROM THE [employer] CHART. IT IS NOT A COPY OF THE [employer] PROGRESS NOTE. MTDD
== END ==
LOC: M PAIN 11:00
PROVIDERS: ATTEND Nurse Practitioner Family
DX: M51.17 Intervertebral disc disorders with radiculopathy, lumbosacral region (principal); Z79.82 Long term (current) use of aspirin; Z79.84 Long term (current) use of oral hypoglycemic drugs; Z79.899 Other long term (current) drug therapy; J30.9 Allergic rhinitis, unspecified; E78.2 Mixed hyperlipidemia; I10 Essential (primary) hypertension; J45.30 Mild persistent asthma, uncomplicated; J44.9 Chronic obstructive pulmonary disease, unspecified

== ENCOUNTER → 2016-10-31 | Outpatient (REF) | payer MEDICARE, MEDICAID ==
[~2016-10-31] MED LIST changes: -AUGM875T27 PO; +AUGM875T28 PO; -METF1000 PO; +METF10004 PO; -METF500T PO; +METF500T13 PO; +PERC5TAB12 PO; -PERC5TAB6 PO
[2016-10-31 21:03] LABS: FOLATE > 24.0 NG/ML (>5.4)
[2016-10-31 21:08] LABS: BASO % 0.3 % (0.0-1.0); EOS # 0.2 K/mm3 (0.0-0.50); LARGE UNSTAINED CELL # 0.1 K/mm3 (0.0-0.4); LYMPH # 2.7 K/mm3 (1.5-4.5); LYMPH % 28.4 % (24.0-44.0); MEAN CORPUSCULAR HEMOGLOBIN 29.8 pg (27.0-33.0); MEAN CORPUSCULAR VOLUME 82.8 fl (80.0-96.0); MONO # 0.4 K/mm3 (0.0-0.8); NEUTROPHILS % 64.2 % (36.0-66.0); PLATELET COUNT, AUTOMATED 251 k/mm3 (150-450); RED CELL DISTRIBUTION WIDTH 12.6 % (11.5-14.5); WHITE BLOOD COUNT 9.3 K/mm3 (4.0-10.0)
[2016-10-31 21:17] LABS: ALBUMIN/GLOBULIN RATIO 1.33 (1.00-1.93); ALKALINE PHOSPHATASE 92 U/L (45-117); ALT/SGPT 48 U/L (12-78); ANION GAP 6 MEQ/L (8-16); AST/SGOT 12 U/L (15-37); BILIRUBIN,TOTAL 0.7 MG/DL (0.2-1.0); BLOOD UREA NITROGEN 11 MG/DL (7-18); CALCIUM LEVEL 8.8 MG/DL (8.5-10.1); CARBON DIOXIDE LEVEL 27 MEQ/L (21-32); CHLORIDE LEVEL 104 MEQ/L (98-107); FERRITIN 104 NG/ML (26-388); FREE T4 1.12 NG/DL (0.76-1.46); GLOMERULAR FILTRATION RATE > 60.0 (>60); GLUCOSE, FASTING 115 MG/DL (70-105); PERCENT SATURATION 20.3 % (19.7-37.4); POTASSIUM SERUM 4.1 MEQ/L (3.5-5.1); SODIUM LEVEL 137 MEQ/L (136-145); TOTAL IRON BINDING CAPACITY 330 UG/DL (250-450)
[2016-11-01 11:18] LABS: VITAMIN B12 LEVEL 659 PG/ML (247-911)
== END ==
LOC: M SFHCLERA 15:00
PROVIDERS: ATTEND Family Medicine
DX: E11.42 Type 2 diabetes mellitus with diabetic polyneuropathy (principal); Z98.84 Bariatric surgery status; E78.2 Mixed hyperlipidemia; G45.9 Transient cerebral ischemic attack, unspecified; I10 Essential (primary) hypertension; Z86.73 Personal history of transient ischemic attack (TIA), and cerebral infarction without residual deficits; Z79.84 Long term (current) use of oral hypoglycemic drugs; Z79.82 Long term (current) use of aspirin; Z79.899 Other long term (current) drug therapy
CPT/HCPCS: 80053; 82306; 82525; 82607; 82728; 82746; 83036; 83550; 84439; 84443; 84630; 85025; G0463

== ENCOUNTER → 2017-01-22 | Outpatient (CLI) | payer MEDICARE, MEDICAID ==
--- NOTE | 2017-01-22 23:21 | ECWPNPC ---
PATIENT NAME: ABHAY ORNELAS : 1975 GENDER: MALE VISIT DATE: 01/22/2017 DISCHARGE DATE: 01/22/17 1009 VISIT LOCKED DATE TIME: PHYSICIAN: LING HURLEY RESOURCE: LING HURLEY REASON FOR APPOINTMENT 1. HIP HISTORY OF PRESENT ILLNESS HISTORY OF PRESENT ILLNESS: HERE FOR F/U OF CHRONIC LOW BACK PAIN L>R.SURGERY ON HIS BACK HAS BEEN POSPONED UNTIL INSURANCE CAN BE EVALUATED.HAS RESPONDED WELL TO LESI,LAST DONE IN SEPTEMBER.RATING PAIN VAS 7/10.DESCRIBES PAIN SHARP AND ACHING AND AGGREVATED WITH WALKING.DISCUSSED TREATMENT OPTIONS. PAIN THE PATIENT DESCRIBES THE PAIN... FALL RISK SCREENING: SCREENING :NO FALLS IN THE PAST YEAR CURRENT MEDICATIONS TAKING OMEPRAZOLE 40 MG CAPSULE DELAYED RELEASE 1 CAPSULE ORALLY TWICE A DAY TAKING ASPIR-81 81 MG TABLET DELAYED RELEASE 1 TABLET ORALLY ONCE A DAY TAKING ALBUTEROL SULFATE HFA 108 (90 BASE) MCG/ACT AEROSOL SOLUTION 2 PUFFS NEEDED INHALATION EVERY 4 HRS TAKING IPRATROPIUM-ALBUTEROL 0.5-2.5 (3) MG/3ML SOLUTION 3 ML PRN DX J44.9 INHALATION EVERY 6 HRS TAKING ACCU-CHEK QUINCY PLUS W/DEVICE KIT DIRECTED SUBCUTANEOUSLY BID TESTING TAKING ACCU-CHEK QUINCY PLUS - STRIP DIRECTED IN VITRO BID TESTING TAKING ALCOHOL PADS 70 % PAD DIRECTED TOPICALLY BID TESTING TAKING ACCU-CHEK SOFTCLIX LANCET DEV - KIT DIRECTED _ BID TESTING TAKING ACCU-CHEK SOFTCLIX LANCETS - MISCELLANEOUS DIRECTED _ BID TESTING TAKING METFORMIN HCL 1000 MG TABLET 1 TABLET WITH MEALS ORALLY TWICE A DAY TAKING ATORVASTATIN CALCIUM 40 MG TABLET 1 TABLET ORALLY ONCE A DAY TAKING LISINOPRIL 10 MG TABLET 1 TABLET ORALLY ONCE A DAY TAKING FLEXERIL 10 MG TABLET 1 TABLET ORALLY THREE TIMES A DAY TAKING GLIPIZIDE ER 10 MG TABLET EXTENDED RELEASE 24 HOUR 1 TABLET ORALLY BID PRIOR TO BREAKFAST AND DINNER NOT-TAKING VITAMIN D (CHOLECALCIFEROL) 400 UNIT TABLET 2 TABLETS ORALLY ONCE A DAY MEDICATION LIST REVIEWED AND RECONCILED WITH THE PATIENT PAST MEDICAL HISTORY HYPERTENSION OBESITY ESOPHAGEAL REFLUX OBSTRUCTIVE SLEEP APNEA, 9 CM WATER TYPE II DIABETIC OSTEOARTHRITIS OF BOTH KNEES PAIN IN JOINT, SHOULDER REGION UNSPECIFIED INTERNAL DERANGEMENT OF KNEE ALLERGIC RHINITIS POSITIVE URINE DRUG SCREEN FOR MARIJUANA, PATIENT DENIES USE HYPERLIPIDEMIA HYPERTENSION MORBID OBESITY STATUS POST BYPASS 2012 WITH REGAINING OF WEIGHT ALLERGIES ENVIRONMENTAL: ALLERGY REVIEW OF SYSTEMS REVIEWED BY: PROVIDER: LING ZAPATA . CONSTITUTIONAL: ANY CHANGE IN YOUR MEDICAL CONDITION? NO . CHILLS NO . FEVER NO . INFECTION: DO YOU HAVE NEW INFECTIONS? NO . DO YOU HAVE HISTORY OF MRSA? NO . MUSCULOSKELETAL: ANY NEW PATTERNS OF PAIN OR NUMBNESS? YES PT REPORTS INCREASED PAIN GOING DOWN LEFT LEG, WITH CRAMPING OF FOOT AND TOES. ALSO REPORTS MILDER PAIN STARTING IN RIGHT LEG. . GASTROENTEROLOGY: ANY NEW CHANGE IN BOWEL CONTROL? NO . GENITOURINARY: ANY NEW CHANGE IN BLADDER CONTROL? NO . IS THERE A CHANCE YOU COULD BE ? NO . HEMATOLOGY/LYMPH: DO YOU TAKE ANY BLOOD THINNERS? (FOR EXAMPLE- COUMADIN, PLAVIX, AGGRENOX, PLATEL, PRADAXA, OR XARELTO) NO . WHEN WAS YOUR LAST DOSE? DATE: TIME: . NEUROLOGY: HAVE YOU FALLEN IN THE PAST 6 MONTHS? NO . ANY NEW EXTREMITY NUMBNESS OR WEAKNESS? NO . CARDIOLOGY: DO YOU HAVE A PACEMAKER OR DEFIBRILLATOR? NO . RESPIRATORY: HAVE YOU BEEN SICK IN THE PAST WEEK? NO . FEVER NO . FLU LIKE SYMPTOMS? NO . COUGH NO . INTEGUMENTARY: DO YOU HAVE ANY RASHES OR OPEN SORES? NO . ALLERGIC/IMMUNO: ARE YOU ALLERGIC TO SHELLFISH OR IV DYE? NO . ANY NEW ALLERGIES? NO . PSYCHIATRIC: DO YOU HAVE THOUGHTS OF HURTING YOURSELF OR SOMEONE ELSE? NO . ARE YOU ABUSED, NEGLECTED, OR IN AN UNSAFE ENVIRONMENT? NO . ENDOCRINOLOGY: ARE YOU DIABETIC? YES . OTHER: DO YOU NEED ANY PRESCRIPTIONS? NO . IF YES, PLEASE LIST: ____ . ANY NEW PROBLEMS WITH YOUR MEDICATIONS? NO . WHEN DID YOU LAST EAT? ____ . WHEN DID YOU LAST DRINK? ____ . WHAT DID YOU LAST DRINK? ____ . NAME OF PERSON DRIVING YOU HOME? ____ . DO YOU HAVE ANY OTHER QUESTIONS OR CONCERNS NO . VITAL SIGNS WT 294 LBS, HT 70 IN, BMI 42.18 INDEX, BP 133/79 MM HG, HR 100 /MIN, RR 18 /MIN, TEMP 98.2 F, OXYGEN SAT % 98%, SAFE IN ENV? (Y/N) YES, NA INITIALS IA 09:08, REVIEWED BY: DELILAH. EXAMINATION GENERAL EXAMINATION: HEENT:HEAD:, NORMOCEPHALIC, EYES:, EYES NORMAL, NOSE:, NOSE CLEAR, THROAT: NORMAL. LUNGS:LUNG SOUNDS ARE CLEAR. HEART:HEART RATE REGULAR. ABDOMEN:SOFT AND NOT TENDER, NON-DISTENDED. MUSCULOSKELETAL:*. LUMBAR SACRAL SPINEMUSCLE STRENGTH TESTING 5/5 BILATERAL, PALPATION: NEGATIVE FOR PAIN OVER L/S SPINE. SPECIFIC POINT TENDERNESS NOTED OVER LEFT SIJ. THORACIC SPINENEGATIVE FOR PAIN WITH PALPATION OF THORACIC SPINE. NEGATIVE FOR PAIN WITH PALPATION OF THORACIC PARASPINAL. CERVICALNEGATIVE FOR PAIN WITH PALPATION OF CERVICAL SPINE. NEGATIVE FOR PAIN WITH PALPATION OF CERVICAL PARASPINALS. NEGATIVE FOR PAIN WITH PALPATION OF TRAPEZIUS BILAT. SKIN:NORMAL, NO RASH. NEUROLOGIC EXAM:ALERT AND ORIENTED X 3, DTRS 1-2+ IN ALL 4 EXTREMITIES, DENIES UPPER EXTREMETIES SENSORY LOSS, DENIES LOWER EXTREMETIES SENSORY LOSS. DIAGNOSTIC: . ASSESSMENTS PROTRUDED LUMBAR DISC - M51.26 (PRIMARY) LUMBAR RADICULOPATHY - M54.16 TREATMENT PROTRUDED LUMBAR DISC NOTES: L4/5 INTRALAMINAR LESI,WHAT IS LUMBAR EPIDURAL INJECTION? MATERIAL WAS PRINTED,LUMBAR EPIDURAL INJECTION: YOUR PROCEDURE MATERIAL WAS PRINTED,LUMBAR EPIDURAL INJECTION: YOUR PROCEDURE MATERIAL WAS PRINTED. PROCEDURE CODES FA211 ESTABILISHED PATIENT [facility] CHARGE G8730 PAIN ASSESS POS TOOL F/U PLAN DOC G8427 DOC MEDS VERIFIED W/PT OR RE DISPOSITION & COMMUNICATION FOLLOW UP 2WK POST (REASON: L4/5 INTRALAMINAR LESI) ELECTRONICALLY SIGNED BY JODI MULLEN ON 01/22/2017 AT 10:45 AM EDT DISCLAIMER : THIS IS A VISIT SUMMARY EXTRACTED FROM THE [employer] CHART. IT IS NOT A COPY OF THE [employer] PROGRESS NOTE. MTDD
== END ==
LOC: M PAIN 08:45
PROVIDERS: ATTEND Nurse Practitioner Family
DX: G89.29 Other chronic pain (principal); M51.26 Other intervertebral disc displacement, lumbar region; M54.16 Radiculopathy, lumbar region; E78.2 Mixed hyperlipidemia; I10 Essential (primary) hypertension; E11.9 Type 2 diabetes mellitus without complications; E55.9 Vitamin D deficiency, unspecified; E66.9 Obesity, unspecified; Z68.41 Body mass index [BMI] 40.0-44.9, adult; G47.33 Obstructive sleep apnea (adult) (pediatric); M17.0 Bilateral primary osteoarthritis of knee; J30.89 Other allergic rhinitis; E78.5 Hyperlipidemia, unspecified; Z79.82 Long term (current) use of aspirin; Z79.84 Long term (current) use of oral hypoglycemic drugs; Z79.899 Other long term (current) drug therapy

== ENCOUNTER → 2017-02-07 | Outpatient (REF) | payer MEDICARE, MEDICAID ==
[2017-02-07 14:30] LABS: INR 0.91
== END ==
LOC: M LAB REF 13:23
PROVIDERS: ATTEND Internal Medicine Medical Oncology
DX: D68.61 Antiphospholipid syndrome (principal)

== ENCOUNTER → 2017-02-13 | Outpatient (CLI) | payer MEDICARE, MEDICAID ==
[~2017-02-13] MED LIST changes: +ISOVUE-M 300 61% 15ML VIAL (Q9967) As Ordered ONE; +LIDOCAINE 1% SDV INJ 30 ML VIAL As Ordered ONE; +diazePAM 5 MG TAB As Ordered ONE; +methylPREDNISolone SUSP 40 MG/ML (DEPO-medrol) VIAL (J1030) As Ordered ONE; +oxyCODONE 5MG TAB As Ordered ONE
--- NOTE | 2017-02-13 11:15 | REP ---
Partial lumbar spine series: Three views . History: Injection procedure for pain. Eight seconds of fluoroscopy time is reported. Findings: A sequence of three fluoroscopically obtained last image hold procedural spot radiographs of the lumbar spine document needle position and contrast injection associated with injection procedure. Signed by Arnie Sauceda MD 02/13/2017 11:06 A
--- NOTE | 2017-02-15 00:01 | ECWPNPC ---
PATIENT NAME: ABHAY ORNELAS : 1975 GENDER: MALE VISIT DATE: 02/13/2017 DISCHARGE DATE: 02/13/17 1054 VISIT LOCKED DATE TIME: PHYSICIAN: SILVINA MITTAL RESOURCE: SILVINA MITTAL REASON FOR APPOINTMENT 1. L4-5 INTERLAMINAL HISTORY OF PRESENT ILLNESS HISTORY OF PRESENT ILLNESS: PAIN THE PATIENT DESCRIBES THE PAIN... FALL RISK SCREENING: SCREENING :NO FALLS IN THE PAST YEAR CURRENT MEDICATIONS TAKING OMEPRAZOLE 40 MG CAPSULE DELAYED RELEASE 1 CAPSULE ORALLY TWICE A DAY, NOTES: 02/12/17 AM TAKING ASPIR-81 81 MG TABLET DELAYED RELEASE 1 TABLET ORALLY ONCE A DAY, NOTES: 02/12/17 PM TAKING ALBUTEROL SULFATE HFA 108 (90 BASE) MCG/ACT AEROSOL SOLUTION 2 PUFFS NEEDED INHALATION EVERY 4 HRS, NOTES: NONE LATELY TAKING IPRATROPIUM-ALBUTEROL 0.5-2.5 (3) MG/3ML SOLUTION 3 ML PRN DX J44.9 INHALATION EVERY 6 HRS, NOTES: NONE LATELY TAKING ACCU-CHEK QUINCY PLUS W/DEVICE KIT DIRECTED SUBCUTANEOUSLY BID TESTING TAKING ACCU-CHEK QUINCY PLUS - STRIP DIRECTED IN VITRO BID TESTING TAKING ALCOHOL PADS 70 % PAD DIRECTED TOPICALLY BID TESTING TAKING ACCU-CHEK SOFTCLIX LANCET DEV - KIT DIRECTED _ BID TESTING TAKING ACCU-CHEK SOFTCLIX LANCETS - MISCELLANEOUS DIRECTED _ BID TESTING TAKING METFORMIN HCL 1000 MG TABLET 1 TABLET WITH MEALS ORALLY TWICE A DAY, NOTES: 02/12/17 PM TAKING ATORVASTATIN CALCIUM 40 MG TABLET 1 TABLET ORALLY ONCE A DAY, NOTES: 02/12/17 AM TAKING LISINOPRIL 10 MG TABLET 1 TABLET ORALLY ONCE A DAY, NOTES: 02/12/17 AM TAKING FLEXERIL 10 MG TABLET 1 TABLET ORALLY THREE TIMES A DAY, NOTES: 02/12/17 PM TAKING GLIPIZIDE ER 10 MG TABLET EXTENDED RELEASE 24 HOUR 1 TABLET ORALLY BID PRIOR TO BREAKFAST AND DINNER, NOTES: 02/12/17 PM UNKNOWN VITAMIN D (CHOLECALCIFEROL) 400 UNIT TABLET 2 TABLETS ORALLY ONCE A DAY MEDICATION LIST REVIEWED AND RECONCILED WITH THE PATIENT PAST MEDICAL HISTORY HYPERTENSION OBESITY ESOPHAGEAL REFLUX OBSTRUCTIVE SLEEP APNEA, 9 CM WATER TYPE II DIABETIC OSTEOARTHRITIS OF BOTH KNEES PAIN IN JOINT, SHOULDER REGION UNSPECIFIED INTERNAL DERANGEMENT OF KNEE ALLERGIC RHINITIS POSITIVE URINE DRUG SCREEN FOR MARIJUANA, PATIENT DENIES USE HYPERLIPIDEMIA HYPERTENSION MORBID OBESITY STATUS POST BYPASS 2012 WITH REGAINING OF WEIGHT ALLERGIES ENVIRONMENTAL: ALLERGY SURGICAL HISTORY TONSILLECTOMY AT AGE 7 ARTHROSCOPIC KNEE SURGERY Amos - DR Brett ROLLINS 11/14 GASTRIC BYPASS SURGERY 12/09/12 RIGHT SHOULDER SURGERY @ [facility] 11/2013 LEFT SHOULDER SURGERY @ [facility] 12/2013 LUMP REMOVED FROM RIGHT SHOULDER DR. SCOTT 03/2014 RIGHT CARPAL TUNNEL /ELBOE 2016 LOOP RECORDER 09/2016 SOCIAL HISTORY GENERAL: TOBACCO USE ARE YOU A:NONSMOKER LUNG CANCER SCREENING SMOKING STATUS:NON SMOKER BMI CARE GOAL FOLLOW-UP ABOVE NORMAL BMI FOLLOW-UPDIETARY MANAGEMENT EDUCATION, GUIDANCE, AND COUNSELING ALCOHOL SCREENING DID YOU HAVE A DRINK CONTAINING ALCOHOL IN THE PAST YEAR?NO POINTS0 INTERPRETATIONNEGATIVE RECREATIONAL DRUG USE DENIES, DRUG USE? NO. CAFFEINE 1-2/DAY, CAFFEINE USE? NO . OCCUPATION: DISABLED. DIET: REGULAR DIET. EXERCISE: NO REGULAR EXERCISE. MARITAL STATUS: . OTHERS AT HOME: SPOUSE. PETS: NONE. ORIENTAL ORTHODOX NO MANDAEN BELIEFS THAT WOULD IMPACT HEALTH CARE. LANGUAGE DOMINICAN. EDUCATION HIGH SCHOOL. PSYCHOLOGICAL HX TREATMENT NO . PAIN CLINIC PFS, CLERGY, PUBLIC HEALTH REFERRALS HAS THE PATIENT BEEN EDUCATED REGARDING HIS/HER PLAN OF CARE?YES HAS THE PATIENT BEEN EDUCATED REGARDING PAIN, THE RISK FOR PAIN, THE IMPORTANCE OF EFFECTIVE PAIN MANAGEMENT, AND THE PAIN ASSESSMENT PROCESS?YES PATIENT: DENIES ABUSE OR MISUSE OF ANY MEDICATION, DENIES USE OF ANY ILLEGAL SUBSTANCE INCLUDING MARIJUANA OR COCAINE. ADVANCE DIRECTIVES HEALTH CARE PROXY? NO, POWER OF PARTITION ASSEMBLER? NO. HOSPITALIZATION/MAJOR DIAGNOSTIC PROCEDURE [facility] BYPASS 12/09/2012 TONSILLECTOMY 1982 [facility] - PNEUMONIA 06/2015 [facility] - TIA 03/2016 REVIEW OF SYSTEMS REVIEWED BY: PROVIDER: . CONSTITUTIONAL: ANY CHANGE IN YOUR MEDICAL CONDITION? NO . CHILLS NO . FEVER NO . INFECTION: DO YOU HAVE NEW INFECTIONS? NO . DO YOU HAVE HISTORY OF MRSA? NO . MUSCULOSKELETAL: ANY NEW PATTERNS OF PAIN OR NUMBNESS? NO . GASTROENTEROLOGY: ANY NEW CHANGE IN BOWEL CONTROL? NO . GENITOURINARY: ANY NEW CHANGE IN BLADDER CONTROL? NO . IS THERE A CHANCE YOU COULD BE ? NO . HEMATOLOGY/LYMPH: DO YOU TAKE ANY BLOOD THINNERS? (FOR EXAMPLE- COUMADIN, PLAVIX, AGGRENOX, PLATEL, PRADAXA, OR XARELTO) NO . WHEN WAS YOUR LAST DOSE? DATE: TIME: . NEUROLOGY: HAVE YOU FALLEN IN THE PAST 6 MONTHS? NO . ANY NEW EXTREMITY NUMBNESS OR WEAKNESS? NO . CARDIOLOGY: DO YOU HAVE A PACEMAKER OR DEFIBRILLATOR? NO . RESPIRATORY: HAVE YOU BEEN SICK IN THE PAST WEEK? NO . FEVER NO . FLU LIKE SYMPTOMS? NO . COUGH NO . INTEGUMENTARY: DO YOU HAVE ANY RASHES OR OPEN SORES? NO . ALLERGIC/IMMUNO: ARE YOU ALLERGIC TO SHELLFISH OR IV DYE? NO . ANY NEW ALLERGIES? NO . PSYCHIATRIC: DO YOU HAVE THOUGHTS OF HURTING YOURSELF OR SOMEONE ELSE? NO . ARE YOU ABUSED, NEGLECTED, OR IN AN UNSAFE ENVIRONMENT? NO . ENDOCRINOLOGY: ARE YOU DIABETIC? YES . OTHER: DO YOU NEED ANY PRESCRIPTIONS? NO . IF YES, PLEASE LIST: ____ . ANY NEW PROBLEMS WITH YOUR MEDICATIONS? NO . WHEN DID YOU LAST EAT? 02/12/17 9PM . WHEN DID YOU LAST DRINK? 02/12/17 1030PM . WHAT DID YOU LAST DRINK? WATER . NAME OF PERSON DRIVING YOU HOME? LUCÍA . DO YOU HAVE ANY OTHER QUESTIONS OR CONCERNS NO . VITAL SIGNS WT 298 LBS, HT 70 IN, BMI 42.75 INDEX, BP 138/90 MM HG, HR 92 /MIN, RR 20 /MIN, TEMP 98.6 F, OXYGEN SAT % 98%, NA INITIALS SC 08:54. ASSESSMENTS INTERVERTEBRAL DISC DISORDER WITH RADICULOPATHY OF LUMBOSACRAL REGION - M51.17 (PRIMARY) PROCEDURES PRE PROCEDURE DIAGNOSIS LUMBOSACRAL DISC DISORDER WITH RADICULOPATHY POST PROCEDURE DIAGNOSIS LUMBOSACRAL DISC DISORDER WITH RADICULOPATHY PROCEDURE LUMBAR EPIDURAL STEROID INJECTION UNDER FLUOROSCOPIC GUIDANCE SURGEON DR. SILVINA MITTAL SLURRY TANK OPERATOR NONE ANESTHESIA LOCAL PRE PROCEDURE NOTE THE PATIENT HAS A HISTORY OF CHRONIC LOW BACK PAIN. I EVALUATE THE PATIENT AND REVIEWED THE CHART. I WENT OVER THE RISKS, ALTERNATIVES, AND BENEFITS ASSOCIATED WITH THIS PROCEDURE. THE PATIENT WOULD LIKE TO PROCEED AND GIVE CONSENT TO PERFORMED THE PROCEDURE. THE PATIENT DENIES UNEXPLAINABLE WEIGHT LOSS, FEVER, CHILLS, OR NEW CHANGES IN URINARY OR BOWEL CONTROL. DESCRIPTION OF PROCEDURE THE PATIENT WAS BROUGHT TO THE PROCEDURE ROOM AND PLACED IN THE PRONE POSITION. THE LUMBOSACRAL AREA WAS CLEANED WITH BETADINE SOLUTION AND DRAPED ASEPTICALLY. THE PROCEDURE WAS DONE UNDER STERILE CONDITIONS. I CHECKED LATERALITY AND THE LEVEL WHERE THE PROCEDURE WAS GOING TO BE PERFORMED WITH THE PATIENT AND THE SUPPORTING STAFF AT THE MOMENT OF THE TIME OUT IN THE PROCEDURE ROOM. UNDER FLUOROSCOPIC GUIDANCE, THE TARGET POINT WAS SELECTED AT THE INTERLAMINAR LEVEL OF L5-S1. LIDOCAINE WAS USED TO NUMB THE SKIN AND THE SUBCUTANEOUS TISSUE BELOW IT. EPIDURAL TUOHY NEEDLE, 17-GAUGE, WAS ADVANCED UNDER FLUOROSCOPIC GUIDANCE AND FOLLOWING PATIENT FEEDBACK UNTIL THE EPIDURAL SPACE WAS REACHED, 7 CM DEEP INTO THE SKIN BY THE LOSS OF RESISTANCE TECHNIQUE. ISOVUE M DYE 30%, 0.25 ML, WAS INJECTED SHOWING ADEQUATE SPREAD OF THE DYE. THEN, A SOLUTION OF 3 ML OF NORMAL SALINE WITH DEPO-MEDROL 60 MG WAS INJECTED SLOWLY FOLLOWING PATIENT FEEDBACK. THERE WAS NO EVIDENCE OF BLOOD, PARESTHESIA OR CEREBROSPINAL FLUID DURING THE PROCEDURE. THE PATIENT WAS SENT TO THE RECOVERY ROOM. THE PATIENT WAS MOVING THE EXTREMITIES AND DOING WELL. THERE WAS NO COMPLICATION DURING THE PROCEDURE. FLUOROSCOPY TIME WAS 8 SECONDS. POST PROCEDURE NOTE THE PATIENT WILL BE SEEN IN A FOLLOW UP IN THE NEXT FEW WEEKS. INSTRUCTIONS WERE GIVEN, QUESTIONS WERE ANSWERED, AND THE PATIENT EXPRESSED UNDERSTANDING AND AGREES WITH THE PLAN. I, ARLIN POSADAS, DOCUMENTED THE ABOVE INFORMATION ACTING A SCRIBE FOR DR. MITTAL. I HAVE REVIEWED THE ABOVE DOCUMENT, WRITTEN BY ARLIN POSADAS SCRIBVishnu AND I VERIFY THAT IT IS [facility] FLUORO GUIDE SPINE INJECTION (PAIN)[id number] PROCEDURE CODES G8427 DOC MEDS VERIFIED W/PT OR RE 6045F RADXPS IN END [id number] PXD [id number] LUMBAR/SACRAL W/ IMAGING DISPOSITION & COMMUNICATION FOLLOW UP 3 WEEKS ELECTRONICALLY SIGNED BY SILVINA MITTAL MD ON 02/14/2017 AT 01:01 PM EDT DISCLAIMER : THIS IS A VISIT SUMMARY EXTRACTED FROM THE [employer] CHART. IT IS NOT A COPY OF THE [employer] PROGRESS NOTE. MICK
== END ==
LOC: M PAIN 08:45
PROVIDERS: ATTEND Anesthesiology
DX: G89.29 Other chronic pain (principal); M51.17 Intervertebral disc disorders with radiculopathy, lumbosacral region; I10 Essential (primary) hypertension; E11.9 Type 2 diabetes mellitus without complications; Z79.82 Long term (current) use of aspirin; Z79.84 Long term (current) use of oral hypoglycemic drugs; J30.9 Allergic rhinitis, unspecified
CPT/HCPCS: 62323; J1030; Q9967

== ENCOUNTER → 2017-02-26 | Outpatient (CLI) | payer MEDICARE, MEDICAID ==
[~2017-02-26] MED LIST changes: -ISOVUE-M 300 61% 15ML VIAL (Q9967) As Ordered ONE; -LIDOCAINE 1% SDV INJ 30 ML VIAL As Ordered ONE; -diazePAM 5 MG TAB As Ordered ONE; -methylPREDNISolone SUSP 40 MG/ML (DEPO-medrol) VIAL (J1030) As Ordered ONE; -oxyCODONE 5MG TAB As Ordered ONE
--- NOTE | 2017-03-22 01:52 | ECWPNPC ---
PATIENT NAME: ABHAY ORNELAS : 1975 GENDER: MALE VISIT DATE: 02/26/2017 DISCHARGE DATE: 02/26/17 1003 VISIT LOCKED DATE TIME: PHYSICIAN: LING HURLEY RESOURCE: LING HURLEY REASON FOR APPOINTMENT 1. POST INJEC HISTORY OF PRESENT ILLNESS HISTORY OF PRESENT ILLNESS: HERE FOR POST PROCEDURE F/U.HAD LESI L5/S1 ON 02/13/17.REPORTS >50% IMPROVEMENT IN PAIN THAT CONTINUES TODAY.REPORTS HE IS NOW ABLE TO DO WALKING AND SIT.RATING PAIN VAS 3/10.REPORTING PERIODIC NIGHTTIME LEG JERKING AND PAIN MAKING IT DIFFICULT TO SLEEP. PAIN THE PATIENT DESCRIBES THE PAIN... FALL RISK SCREENING: SCREENING :NO FALLS IN THE PAST YEAR CURRENT MEDICATIONS UNKNOWN OMEPRAZOLE 40 MG CAPSULE DELAYED RELEASE 1 CAPSULE ORALLY TWICE A DAY UNKNOWN ASPIR-81 81 MG TABLET DELAYED RELEASE 1 TABLET ORALLY ONCE A DAY UNKNOWN ALBUTEROL SULFATE HFA 108 (90 BASE) MCG/ACT AEROSOL SOLUTION 2 PUFFS NEEDED INHALATION EVERY 4 HRS UNKNOWN IPRATROPIUM-ALBUTEROL 0.5-2.5 (3) MG/3ML SOLUTION 3 ML PRN DX J44.9 INHALATION EVERY 6 HRS UNKNOWN ACCU-CHEK QUINCY PLUS W/DEVICE KIT DIRECTED SUBCUTANEOUSLY BID TESTING UNKNOWN ACCU-CHEK QUINCY PLUS - STRIP DIRECTED IN VITRO BID TESTING UNKNOWN ALCOHOL PADS 70 % PAD DIRECTED TOPICALLY BID TESTING UNKNOWN ACCU-CHEK SOFTCLIX LANCET DEV - KIT DIRECTED _ BID TESTING UNKNOWN ACCU-CHEK SOFTCLIX LANCETS - MISCELLANEOUS DIRECTED _ BID TESTING UNKNOWN METFORMIN HCL 1000 MG TABLET 1 TABLET WITH MEALS ORALLY TWICE A DAY UNKNOWN ATORVASTATIN CALCIUM 40 MG TABLET 1 TABLET ORALLY ONCE A DAY UNKNOWN LISINOPRIL 10 MG TABLET 1 TABLET ORALLY ONCE A DAY UNKNOWN FLEXERIL 10 MG TABLET 1 TABLET ORALLY THREE TIMES A DAY UNKNOWN GLIPIZIDE ER 10 MG TABLET EXTENDED RELEASE 24 HOUR 1 TABLET ORALLY BID PRIOR TO BREAKFAST AND DINNER UNKNOWN VITAMIN D (CHOLECALCIFEROL) 400 UNIT TABLET 2 TABLETS ORALLY ONCE A DAY MEDICATION LIST REVIEWED AND RECONCILED WITH THE PATIENT PAST MEDICAL HISTORY HYPERTENSION OBESITY ESOPHAGEAL REFLUX OBSTRUCTIVE SLEEP APNEA, 9 CM WATER TYPE II DIABETIC OSTEOARTHRITIS OF BOTH KNEES PAIN IN JOINT, SHOULDER REGION UNSPECIFIED INTERNAL DERANGEMENT OF KNEE ALLERGIC RHINITIS POSITIVE URINE DRUG SCREEN FOR MARIJUANA, PATIENT DENIES USE HYPERLIPIDEMIA HYPERTENSION MORBID OBESITY STATUS POST BYPASS 2012 WITH REGAINING OF WEIGHT ALLERGIES ENVIRONMENTAL: ALLERGY REVIEW OF SYSTEMS REVIEWED BY: PROVIDER: LING ZAPATA . CONSTITUTIONAL: ANY CHANGE IN YOUR MEDICAL CONDITION? NO . CHILLS NO . FEVER NO . INFECTION: DO YOU HAVE NEW INFECTIONS? NO . DO YOU HAVE HISTORY OF MRSA? NO . MUSCULOSKELETAL: ANY NEW PATTERNS OF PAIN OR NUMBNESS? NO . GASTROENTEROLOGY: ANY NEW CHANGE IN BOWEL CONTROL? NO . GENITOURINARY: ANY NEW CHANGE IN BLADDER CONTROL? NO . IS THERE A CHANCE YOU COULD BE ? NO . HEMATOLOGY/LYMPH: DO YOU TAKE ANY BLOOD THINNERS? (FOR EXAMPLE- COUMADIN, PLAVIX, AGGRENOX, PLATEL, PRADAXA, OR XARELTO) NO . WHEN WAS YOUR LAST DOSE? DATE: TIME: . NEUROLOGY: HAVE YOU FALLEN IN THE PAST 6 MONTHS? NO . ANY NEW EXTREMITY NUMBNESS OR WEAKNESS? NO . CARDIOLOGY: DO YOU HAVE A PACEMAKER OR DEFIBRILLATOR? NO . RESPIRATORY: HAVE YOU BEEN SICK IN THE PAST WEEK? NO . FEVER NO . FLU LIKE SYMPTOMS? NO . COUGH NO . INTEGUMENTARY: DO YOU HAVE ANY RASHES OR OPEN SORES? NO . ALLERGIC/IMMUNO: ARE YOU ALLERGIC TO SHELLFISH OR IV DYE? NO . ANY NEW ALLERGIES? NO . PSYCHIATRIC: DO YOU HAVE THOUGHTS OF HURTING YOURSELF OR SOMEONE ELSE? NO . ARE YOU ABUSED, NEGLECTED, OR IN AN UNSAFE ENVIRONMENT? NO . ENDOCRINOLOGY: ARE YOU DIABETIC? YES . OTHER: DO YOU NEED ANY PRESCRIPTIONS? NO . IF YES, PLEASE LIST: ____ . ANY NEW PROBLEMS WITH YOUR MEDICATIONS? NO . WHEN DID YOU LAST EAT? ____ . WHEN DID YOU LAST DRINK? ____ . WHAT DID YOU LAST DRINK? ____ . NAME OF PERSON DRIVING YOU HOME? ____ . DO YOU HAVE ANY OTHER QUESTIONS OR CONCERNS MORE PAIN AT NIGHT / NOT SLEEPING WELL, . VITAL SIGNS WT 292.8 LBS, HT 70 IN, BMI 42.01 INDEX, BP 133/74 MM HG, HR 93 /MIN, RR 20 /MIN, TEMP 98.5 F, OXYGEN SAT % 98, SAFE IN ENV? (Y/N) Y, NA INITIALS MP 909, REVIEWED BY: NL. EXAMINATION GENERAL EXAMINATION: HEENT:HEAD:, NORMOCEPHALIC, EYES:, EYES NORMAL, NOSE:, NOSE CLEAR, THROAT: NORMAL. LUNGS:LUNG SOUNDS ARE CLEAR. HEART:HEART RATE REGULAR. ABDOMEN:SOFT AND NOT TENDER, NON-DISTENDED. MUSCULOSKELETAL:*. LUMBAR SACRAL SPINEMUSCLE STRENGTH TESTING 5/5 BILATERAL, PALPATION: NEGATIVE FOR PAIN OVER L/S SPINE. . DIAGNOSTIC: . ASSESSMENTS PROTRUDED LUMBAR DISC - M51.26 (PRIMARY) LUMBAR RADICULOPATHY - M54.16 TREATMENT PROTRUDED LUMBAR DISC STOP FLEXERIL TABLET, 10 MG, 1 TABLET, ORALLY, THREE TIMES A DAY START SOMA TABLET, 350 MG, 1 TABLET NEEDED, ORALLY, QHS PRN MDD1 #15 TAB FOR THIRTY DAY SUPPLY, 30 DAY(S), 15, REFILLS 0 PROCEDURE CODES FA211 ESTABILISHED PATIENT [facility] FACILITY CHARGE G8783 BP SCR PRFRM RCMDD DEFIND SCR INTVL G8730 PAIN ASSESS POS TOOL F/U PLAN DOC 3016F PT SCRND UNHLTHY [place] USE 1124F ACP DISCUSS-NO DSCNMKR DOCD 1036F TOBACCO NON-USER G8427 DOC MEDS VERIFIED W/PT OR RE G8420 BMI<30 AND >=22 CALC & DOCU DISPOSITION & COMMUNICATION FOLLOW UP 2 MONTHS ELECTRONICALLY SIGNED BY JODI MULLEN ON 03/21/2017 AT 05:13 PM EST DISCLAIMER : THIS IS A VISIT SUMMARY EXTRACTED FROM THE [employer] CHART. IT IS NOT A COPY OF THE [employer] PROGRESS NOTE. MTDD
== END ==
LOC: M PAIN 09:00
PROVIDERS: ATTEND Nurse Practitioner Family
DX: M51.26 Other intervertebral disc displacement, lumbar region (principal); M54.16 Radiculopathy, lumbar region; I10 Essential (primary) hypertension; E11.9 Type 2 diabetes mellitus without complications; K21.9 Gastro-esophageal reflux disease without esophagitis; E78.5 Hyperlipidemia, unspecified; J30.2 Other seasonal allergic rhinitis; Z79.82 Long term (current) use of aspirin; Z79.84 Long term (current) use of oral hypoglycemic drugs; Z79.899 Other long term (current) drug therapy

== ENCOUNTER → 2017-05-09 | Outpatient (CLI) | payer MEDICARE, MEDICAID ==
[~2017-05-09] MED LIST changes: -/GLIP10TAB OR; -ACID REDUCER PO; -ACTO15TA OR; -ALBU17IN INH; -ASPI81CH PO; -ASPI81TA45 OR; -ATEN25TA OR; -ATOR1TAB21 PO; -AUGM875T28 PO; -AZIT500T2 PO; -CETI10TA PO; -CETI5TAB2 OR; -CYCL10TA PO; -FISH1000 OR; -GABA-283 PO; -GLIP10TA PO; +ISOVUE-M 300 61% 15ML VIAL (Q9967) As Ordered; -JANUVIA; +LIDOCAINE 1% SDV INJ 30 ML VIAL As Ordered; -LISI10TA4 OR; -LISI10TA4 PO; -LYRI75CA; -METF10004 PO; -METF500T13 PO; -OMEP40CA2 PO; -PERC5TAB12 PO; -PRED20TAB PO; -PRIL40CA PO; -SIMV20TA2 OR; -TRIC145T19 OR; +diazePAM 5 MG TAB As Ordered; +methylPREDNISolone SUSP 40 MG/ML (DEPO-medrol) VIAL (J1030) As Ordered; +oxyCODONE 5MG TAB As Ordered
== END ==
LOC: M PAIN 08:30
DX: G89.29 Other chronic pain (principal); M51.17 Intervertebral disc disorders with radiculopathy, lumbosacral region; I10 Essential (primary) hypertension; E66.01 Morbid (severe) obesity due to excess calories; Z68.41 Body mass index [BMI] 40.0-44.9, adult; K21.9 Gastro-esophageal reflux disease without esophagitis; G47.33 Obstructive sleep apnea (adult) (pediatric); E11.9 Type 2 diabetes mellitus without complications; M16.0 Bilateral primary osteoarthritis of hip; J30.89 Other allergic rhinitis; E78.5 Hyperlipidemia, unspecified; Z79.82 Long term (current) use of aspirin; Z79.84 Long term (current) use of oral hypoglycemic drugs; Z79.899 Other long term (current) drug therapy; Z98.84 Bariatric surgery status
CPT/HCPCS: J1030

== ENCOUNTER → 2017-05-25 | Outpatient (CLI) | payer OTHER | LOC: M PAIN 10:15 | DX: G89.29 Other chronic pain (principal); M25.562 Pain in left knee; I10 Essential (primary) hypertension; E66.01 Morbid (severe) obesity due to excess calories; Z68.41 Body mass index [BMI] 40.0-44.9, adult; K21.9 Gastro-esophageal reflux disease without esophagitis; G47.33 Obstructive sleep apnea (adult) (pediatric); E11.9 Type 2 diabetes mellitus without complications; M17.0 Bilateral primary osteoarthritis of knee; J30.9 Allergic rhinitis, unspecified; E78.5 Hyperlipidemia, unspecified; Z79.82 Long term (current) use of aspirin; Z79.84 Long term (current) use of oral hypoglycemic drugs; Z79.899 Other long term (current) drug therapy | CPT/HCPCS: G0463 ==

== ENCOUNTER → 2017-05-30 | Outpatient (CLI) | payer MEDICARE, MEDICAID, OTHER | LOC: M PAIN 10:45 | DX: M51.26 Other intervertebral disc displacement, lumbar region (principal); M54.16 Radiculopathy, lumbar region; I10 Essential (primary) hypertension; K21.9 Gastro-esophageal reflux disease without esophagitis; E78.5 Hyperlipidemia, unspecified; E11.9 Type 2 diabetes mellitus without complications; Z79.82 Long term (current) use of aspirin; Z79.84 Long term (current) use of oral hypoglycemic drugs; Z79.899 Other long term (current) drug therapy; J30.2 Other seasonal allergic rhinitis | CPT/HCPCS: G0463 ==

== ENCOUNTER 2017-06-07 11:58 | Emergency (ER) | payer MEDICARE, MEDICAID, OTHER ==
[2017-06-07] MEDS: ACETAMINOPHEN 325 MG TAB PO (14:09)
[2017-06-07] MEDS: ASPIRIN 81 MG CHEW TABLET PO (14:09)
[2017-06-07] MEDS: NS 1,000 ML IV (14:09)
[2017-06-07] MEDS: IPRATROPIUM 0.5MG/ALBUTEROL 2.5MG INH SOL UD 3ML (DUONEB)(J7620) NEB (14:10)
[2017-06-07 14:11] LABS: BASO % 0.3 % (0.0-1.0); EOS # 0.1 10^3/uL (0.0-0.50); EOS % 0.6 % (0.0-3.0); HEMATOCRIT 43.5 % (42.0-52.0); HEMOGLOBIN 15.7 g/dl (14.0-18.0); IMMATURE GRANULOCYTE # 0.1 10^3/uL (0-0); IMMATURE GRANULOCYTE % 0.5 % (0-0); LYMPH % 8.5 % (24.0-44.0); MEAN CORPUSCULAR HEMOGLOBIN 28.4 pg (27.0-33.0); MEAN CORPUSCULAR HGB CONC 36.1 g/dl (32.0-36.5); MEAN CORPUSCULAR VOLUME 78.7 fl (80.0-96.0); MONO # 0.9 10^3/uL (0.0-0.8); MONO % 7.9 % (0.0-5.0); NEUTROPHILS # 9.2 10^3/uL (1.8-7.7); NEUTROPHILS % 82.2 % (36.0-66.0); PLATELET COUNT, AUTOMATED 278 10^3/uL (150-450); RED BLOOD COUNT 5.53 10^6/uL (4.30-6.10); RED CELL DISTRIBUTION WIDTH 11.9 % (11.5-14.5); WHITE BLOOD COUNT 11.2 10^3/uL (4.0-10.0)
[2017-06-07 14:30] LABS: INR 0.97
[2017-06-07 14:51] LABS: ANION GAP 10 MEQ/L (8-16); BLOOD UREA NITROGEN 17 MG/DL (7-18); CALCIUM LEVEL 8.9 MG/DL (8.5-10.1); CARBON DIOXIDE LEVEL 23 MEQ/L (21-32); CHLORIDE LEVEL 101 MEQ/L (98-107); CK-MB VALUE MASS 1.5 NG/ML (0.0-3.6); CPK CREATINE PHOSPHOKINASE 63 U/L (39-308); CREATININE FOR GFR 1.01 MG/DL (0.70-1.30); GLOMERULAR FILTRATION RATE > 60.0 (>60); GLUCOSE, FASTING 154 MG/DL (70-100); MB/CK RELATIVE INDEX 2.38 (< OR =4); SODIUM LEVEL 134 MEQ/L (136-145); TROPONIN I < 0.02 NG/ML (< 0.10)
[2017-06-07 15:27] LABS: INFLUENZA A AMPLIFICATION POSITIVE (NEGATIVE); INFLUENZA B AMPLIFICATION NEGATIVE (NEGATIVE); RSV AMPLIFICATION NEGATIVE (NEGATIVE)
== END 2017-06-07 15:58 | disposition home or self-care (01) ==
LOC: M ED 11:58
DX: J10.1 Influenza due to other identified influenza virus with other respiratory manifestations (principal); I10 Essential (primary) hypertension; E11.9 Type 2 diabetes mellitus without complications; Z98.84 Bariatric surgery status
CPT/HCPCS: 71046

== ENCOUNTER → 2017-06-12 | Outpatient (CLI) | payer MEDICARE ==
[2017-06-12 11:28] LABS: BASO % 0.1 % (0.0-1.0); EOS # 0.1 10^3/uL (0.0-0.50); EOS % 1.6 % (0.0-3.0); HEMATOCRIT 43.2 % (42.0-52.0); HEMOGLOBIN 15.4 g/dl (14.0-18.0); IMMATURE GRANULOCYTE % 0.5 % (0-0); LYMPH # 2.7 10^3/uL (1.5-4.5); LYMPH % 33.3 % (24.0-44.0); MEAN CORPUSCULAR HEMOGLOBIN 28.5 pg (27.0-33.0); MEAN CORPUSCULAR HGB CONC 35.6 g/dl (32.0-36.5); MONO # 0.5 10^3/uL (0.0-0.8); MONO % 5.5 % (0.0-5.0); NEUTROPHILS # 4.8 10^3/uL (1.8-7.7); PLATELET COUNT, AUTOMATED 272 10^3/uL (150-450); RED CELL DISTRIBUTION WIDTH 11.8 % (11.5-14.5); WHITE BLOOD COUNT 8.2 10^3/uL (4.0-10.0)
[2017-06-12 11:54] LABS: ALBUMIN 4.1 GM/DL (3.2-5.2); ALBUMIN/GLOBULIN RATIO 1.32 (1.00-1.93); ALKALINE PHOSPHATASE 90 U/L (45-117); ALT/SGPT 39 U/L (12-78); ANION GAP 10 MEQ/L (8-16); AST/SGOT 15 U/L (7-37); BILIRUBIN,TOTAL 0.7 MG/DL (0.2-1.0); BLOOD UREA NITROGEN 17 MG/DL (7-18); CALCIUM LEVEL 8.7 MG/DL (8.5-10.1); CARBON DIOXIDE LEVEL 23 MEQ/L (21-32); CHLORIDE LEVEL 102 MEQ/L (98-107); CHOLESTEROL LEVEL 89 MG/DL (<200); CHOLESTEROL RISK RATIO 2.781 (<5); CREATININE FOR GFR 0.87 MG/DL (0.70-1.30); GLOMERULAR FILTRATION RATE > 60.0 (>60); GLUCOSE, FASTING 132 MG/DL (70-100); HDL CHOLESTEROL 32 MG/DL (>40); NON-HDL-C 57 MG/DL; POTASSIUM SERUM 4.1 MEQ/L (3.5-5.1); SODIUM LEVEL 135 MEQ/L (136-145); TOTAL PROTEIN 7.2 GM/DL (6.4-8.2); TRIGLYCERIDES LEVEL 130 MG/DL (<150)
[2017-06-12 11:57] LABS: TOTAL 25(OH) VITAMIN D 18.8 NG/ML (30.0-100.0)
[2017-06-12 12:03] LABS: ESTIMATED AVERAGE GLUCOSE 171 MG/DL (60-110); HEMOGLOBIN A1c 7.6 %
[2017-06-12 12:06] LABS: MALB URINE SIEMENS 10.8 MG/L; MAU/CREAT RATIO 5.3 MCG/MG (0.0-30.0)
== END ==
LOC: M LAB 10:50
DX: E55.9 Vitamin D deficiency, unspecified (principal); E11.9 Type 2 diabetes mellitus without complications
CPT/HCPCS: 80053

== ENCOUNTER → 2017-07-31 | Outpatient (CLI) | payer OTHER | LOC: M PAIN 14:30 | DX: M25.562 Pain in left knee (principal); G89.29 Other chronic pain; I10 Essential (primary) hypertension; K21.9 Gastro-esophageal reflux disease without esophagitis; G47.30 Sleep apnea, unspecified; E11.9 Type 2 diabetes mellitus without complications; M17.0 Bilateral primary osteoarthritis of knee; E78.5 Hyperlipidemia, unspecified; E66.01 Morbid (severe) obesity due to excess calories; Z68.41 Body mass index [BMI] 40.0-44.9, adult; J30.89 Other allergic rhinitis; Z79.82 Long term (current) use of aspirin; Z79.84 Long term (current) use of oral hypoglycemic drugs; Z79.899 Other long term (current) drug therapy; Z98.84 Bariatric surgery status | CPT/HCPCS: G0463 ==

== ENCOUNTER → 2017-08-02 | Outpatient (CLI) | payer MEDICARE, MEDICAID | LOC: M PAIN 08:30 | DX: G89.29 Other chronic pain (principal); M51.17 Intervertebral disc disorders with radiculopathy, lumbosacral region; I10 Essential (primary) hypertension; K21.9 Gastro-esophageal reflux disease without esophagitis; G47.33 Obstructive sleep apnea (adult) (pediatric); E11.9 Type 2 diabetes mellitus without complications; M17.0 Bilateral primary osteoarthritis of knee; J30.89 Other allergic rhinitis; E78.5 Hyperlipidemia, unspecified; E66.01 Morbid (severe) obesity due to excess calories; Z79.82 Long term (current) use of aspirin; Z79.84 Long term (current) use of oral hypoglycemic drugs; Z79.899 Other long term (current) drug therapy; Z68.41 Body mass index [BMI] 40.0-44.9, adult; Z98.84 Bariatric surgery status | CPT/HCPCS: J1030 ==

== ENCOUNTER → 2017-12-18 | Outpatient (CLI) | payer MEDICARE, MEDICAID | LOC: M PAIN 14:00 | DX: M51.16 Intervertebral disc disorders with radiculopathy, lumbar region (principal); I10 Essential (primary) hypertension; K21.9 Gastro-esophageal reflux disease without esophagitis; G47.33 Obstructive sleep apnea (adult) (pediatric); E11.9 Type 2 diabetes mellitus without complications; M17.0 Bilateral primary osteoarthritis of knee; J30.9 Allergic rhinitis, unspecified; E78.5 Hyperlipidemia, unspecified; Z98.84 Bariatric surgery status; Z68.26 Body mass index [BMI] 26.0-26.9, adult; Z79.82 Long term (current) use of aspirin; Z79.84 Long term (current) use of oral hypoglycemic drugs; Z79.899 Other long term (current) drug therapy; Z86.73 Personal history of transient ischemic attack (TIA), and cerebral infarction without residual deficits | CPT/HCPCS: G0463 ==

== ENCOUNTER → 2018-01-02 | Outpatient (CLI) | payer MEDICARE, MEDICAID | LOC: M PAIN 08:45 | DX: G89.29 Other chronic pain (principal); M51.17 Intervertebral disc disorders with radiculopathy, lumbosacral region; I10 Essential (primary) hypertension; G47.30 Sleep apnea, unspecified; E11.9 Type 2 diabetes mellitus without complications; M17.0 Bilateral primary osteoarthritis of knee; J30.89 Other allergic rhinitis; E78.5 Hyperlipidemia, unspecified; K21.9 Gastro-esophageal reflux disease without esophagitis; E66.01 Morbid (severe) obesity due to excess calories; Z68.41 Body mass index [BMI] 40.0-44.9, adult; Z79.82 Long term (current) use of aspirin; Z79.84 Long term (current) use of oral hypoglycemic drugs; Z79.899 Other long term (current) drug therapy; Z98.84 Bariatric surgery status | CPT/HCPCS: J1030 ==

== ENCOUNTER → 2018-01-23 | Outpatient (CLI) | payer MEDICARE, MEDICAID | LOC: M PAIN 14:00 | DX: M51.26 Other intervertebral disc displacement, lumbar region (principal); M54.16 Radiculopathy, lumbar region; I10 Essential (primary) hypertension; K21.9 Gastro-esophageal reflux disease without esophagitis; E11.9 Type 2 diabetes mellitus without complications; E78.5 Hyperlipidemia, unspecified; Z79.82 Long term (current) use of aspirin; Z79.899 Other long term (current) drug therapy; J30.2 Other seasonal allergic rhinitis | CPT/HCPCS: G0463 ==

== ENCOUNTER → 2018-02-05 | Outpatient (CLI) | payer MEDICARE, MEDICAID, OTHER ==
[2018-02-05 12:10] LABS: BASO % 0.3 % (0.0-1.0); EOS # 0.2 10^3/uL (0.0-0.50); EOS % 1.5 % (0.0-3.0); HEMATOCRIT 42.1 % (42.0-52.0); HEMOGLOBIN 14.9 g/dl (13.5-17.5); IMMATURE GRANULOCYTE % 0.4 % (0-3.0); LYMPH # 2.4 10^3/uL (1.5-4.5); LYMPH % 22.4 % (24.0-44.0); MEAN CORPUSCULAR HEMOGLOBIN 28.8 pg (27.0-33.0); MEAN CORPUSCULAR HGB CONC 35.4 g/dl (32.0-36.5); MEAN CORPUSCULAR VOLUME 81.3 fl (80.0-96.0); MONO # 0.7 10^3/uL (0.0-0.8); MONO % 6.4 % (0.0-5.0); NEUTROPHILS # 7.5 10^3/uL (1.8-7.7); PLATELET COUNT, AUTOMATED 261 10^3/uL (150-450); RED BLOOD COUNT 5.18 10^6/uL (4.30-6.10); WHITE BLOOD COUNT 10.8 10^3/uL (4.0-10.0)
[2018-02-05 12:51] LABS: ESTIMATED AVERAGE GLUCOSE 177 MG/DL (60-110); HEMOGLOBIN A1c 7.8 %
[2018-02-05 13:07] LABS: ALBUMIN 4.1 GM/DL (3.2-5.2); ALBUMIN/GLOBULIN RATIO 1.37 (1.00-1.93); ALKALINE PHOSPHATASE 89 U/L (45-117); ALT/SGPT 44 U/L (12-78); ANION GAP 11 MEQ/L (8-16); AST/SGOT 16 U/L (7-37); BILIRUBIN,TOTAL 0.6 MG/DL (0.2-1.0); BLOOD UREA NITROGEN 15 MG/DL (7-18); CALCIUM LEVEL 8.6 MG/DL (8.5-10.1); CARBON DIOXIDE LEVEL 22 MEQ/L (21-32); CHLORIDE LEVEL 105 MEQ/L (98-107); CREATININE FOR GFR 0.96 MG/DL (0.70-1.30); GLOMERULAR FILTRATION RATE > 60.0 (>60); GLUCOSE, FASTING 206 MG/DL (70-100); POTASSIUM SERUM 4.5 MEQ/L (3.5-5.1); SODIUM LEVEL 138 MEQ/L (136-145); TOTAL PROTEIN 7.1 GM/DL (6.4-8.2)
== END ==
LOC: M LAB 11:26
DX: Z01.812 Encounter for preprocedural laboratory examination (principal)
CPT/HCPCS: 80053

== ENCOUNTER → 2018-02-22 | Outpatient (CLI) | payer MEDICARE, MEDICAID | LOC: M RAD 13:49 | DX: H65.22 Chronic serous otitis media, left ear (principal) | CPT/HCPCS: 70480 ==

== ENCOUNTER → 2018-03-25 | Outpatient (CLI) | payer MEDICARE, MEDICAID | LOC: M PAIN 13:30 | DX: M51.26 Other intervertebral disc displacement, lumbar region (principal); M54.16 Radiculopathy, lumbar region; G89.29 Other chronic pain; I10 Essential (primary) hypertension; E11.9 Type 2 diabetes mellitus without complications; K21.9 Gastro-esophageal reflux disease without esophagitis; G47.33 Obstructive sleep apnea (adult) (pediatric); M17.0 Bilateral primary osteoarthritis of knee; E78.5 Hyperlipidemia, unspecified; J30.89 Other allergic rhinitis; E66.01 Morbid (severe) obesity due to excess calories; Z68.41 Body mass index [BMI] 40.0-44.9, adult; Z79.82 Long term (current) use of aspirin; Z79.84 Long term (current) use of oral hypoglycemic drugs; Z79.899 Other long term (current) drug therapy; Z98.84 Bariatric surgery status | CPT/HCPCS: G0463 ==

== ENCOUNTER → 2018-04-02 | Outpatient (CLI) | payer MEDICARE, MEDICAID ==
[~2018-04-02] MED LIST changes: +/GLIP10TAB OR; +ACID REDUCER PO; +ACTO15TA OR; +ALBU17IN INH; +ASPI81CH PO; +ASPI81TA45 OR; +ATEN25TA OR; +ATOR1TAB21 PO; +AUGM875T28 PO; +AZIT500T2 PO; +CETI10TA PO; +CETI5TAB2 OR; +CYCL10TA PO; +FISH1000 OR; +GABA-845 PO; +GLIP10TA PO; -ISOVUE-M 300 61% 15ML VIAL (Q9967) As Ordered; +ISOVUE-M 300 61% 15ML VIAL (Q9967) As Ordered ONE; +JANUVIA; -LIDOCAINE 1% SDV INJ 30 ML VIAL As Ordered; +LIDOCAINE 1% SDV INJ 30 ML VIAL As Ordered ONE; +LISI10TA4 OR; +LISI10TA4 PO; +LYRI75CA; +METF10004 PO; +METF500T13 PO; +OMEP40CA2 PO; +OSEL75CA PO; +PERC5TAB12 PO; +PRED20TAB PO; +PRIL40CA PO; +SIMV20TA2 OR; +TRIC145T19 OR; -diazePAM 5 MG TAB As Ordered; +diazePAM 5 MG TAB As Ordered ONE; -methylPREDNISolone SUSP 40 MG/ML (DEPO-medrol) VIAL (J1030) As Ordered; +methylPREDNISolone SUSP 40 MG/ML (DEPO-medrol) VIAL (J1030) As Ordered ONE; -oxyCODONE 5MG TAB As Ordered; +oxyCODONE 5MG TAB As Ordered ONE
--- NOTE | 2018-04-02 13:43 | REP ---
Partial lumbar spine series: Four views . History: Injection procedure for pain. 12 seconds of fluoroscopy time is reported. Findings: A sequence of four fluoroscopically obtained last image hold procedural spot radiographs of the lumbar spine document needle position and contrast injection associated with injection procedure. Electronically Signed by Arnie Sauceda MD 04/02/2018 01:35 P
--- NOTE | 2018-04-17 01:09 | ECWPNPC ---
PATIENT NAME: ABHYA ORNELAS : 1975 GENDER: MALE VISIT DATE: 04/02/2018 DISCHARGE DATE: 04/02/18 1157 VISIT LOCKED DATE TIME: PHYSICIAN: SILVINA MITTAL MD RESOURCE: SILVINA MITTAL MD REASON FOR APPOINTMENT 1. NON COMP LESI HISTORY OF PRESENT ILLNESS DEPRESSION SCREENING: PHQ-2 IN LAST TWO WEEKS HAVE YOU BEEN BOTHERED BY LITTLE INTEREST OR PLEASURE IN DOING THINGSNO FEELING DOWN, DEPRESSED, OR HOPELESSNO HISTORY OF PRESENT ILLNESS: PAIN THE PATIENT DESCRIBES THE PAIN... FALL RISK SCREENING: SCREENING :NO FALLS IN THE PAST YEAR CURRENT MEDICATIONS TAKING OMEPRAZOLE 40 MG CAPSULE DELAYED RELEASE 1 CAPSULE ORALLY TWICE A DAY, NOTES: 04/01 1930 TAKING ASPIR-81 81 MG TABLET DELAYED RELEASE 1 TABLET ORALLY ONCE A DAY, NOTES: 04/01 1930 TAKING ACCU-CHEK QUINCY PLUS W/DEVICE KIT DIRECTED SUBCUTANEOUSLY BID TESTING TAKING ACCU-CHEK QUINCY PLUS - STRIP DIRECTED IN VITRO BID TESTING TAKING ALCOHOL PADS 70 % PAD DIRECTED TOPICALLY BID TESTING TAKING ACCU-CHEK SOFTCLIX LANCET DEV - KIT DIRECTED _ BID TESTING TAKING ACCU-CHEK SOFTCLIX LANCETS - MISCELLANEOUS DIRECTED _ BID TESTING TAKING METFORMIN HCL 1000 MG TABLET 1 TABLET WITH MEALS ORALLY TWICE A DAY, NOTES: 04/01 1630 TAKING ATORVASTATIN CALCIUM 40 MG TABLET 1 TABLET ORALLY ONCE A DAY, NOTES: 04/01 1930 TAKING LISINOPRIL 10 MG TABLET 1 TABLET ORALLY ONCE A DAY, NOTES: 04/01 730 TAKING GLIPIZIDE ER 10 MG TABLET EXTENDED RELEASE 24 HOUR 1 TABLET ORALLY BID PRIOR TO BREAKFAST AND DINNER, NOTES: 04/01 1630 TAKING CYCLOBENZAPRINE HCL 10 MG TABLET 1 TABLET NEEDED ORALLY THREE TIMES A DAY PRN, NOTES: NONE RECENT TAKING ALBUTEROL SULFATE HFA 108 (90 BASE) MCG/ACT AEROSOL SOLUTION 2 PUFFS NEEDED INHALATION EVERY 4 HRS, NOTES: NONE RECENT TAKING IPRATROPIUM-ALBUTEROL 0.5-2.5 (3) MG/3ML SOLUTION 3 ML PRN DX J44.9 INHALATION EVERY 6 HRS, NOTES: 2 YRS AGO MEDICATION LIST REVIEWED AND RECONCILED WITH THE PATIENT PAST MEDICAL HISTORY HYPERTENSION OBESITY ESOPHAGEAL REFLUX OBSTRUCTIVE SLEEP APNEA, 9 CM WATER TYPE II DIABETIC OSTEOARTHRITIS OF BOTH KNEES PAIN IN JOINT, SHOULDER REGION UNSPECIFIED INTERNAL DERANGEMENT OF KNEE ALLERGIC RHINITIS POSITIVE URINE DRUG SCREEN FOR MARIJUANA, PATIENT DENIES USE HYPERLIPIDEMIA HYPERTENSION MORBID OBESITY STATUS POST BYPASS 2012 WITH REGAINING OF WEIGHT 03/09/2016 TIA ALLERGIES ENVIRONMENTAL: ALLERGY SURGICAL HISTORY TONSILLECTOMY AT AGE 7 ARTHROSCOPIC KNEE SURGERY L - DR Brett ROLLINS 11/14 GASTRIC BYPASS SURGERY 12/09/12 RIGHT SHOULDER SURGERY @ SOS 11/2013 LEFT SHOULDER SURGERY @ SOS 12/2013 LUMP REMOVED FROM RIGHT SHOULDER DR. SCOTT 03/2014 RIGHT CARPAL TUNNEL /ELBOE 2016 LOOP RECORDER 09/2016 LEFT KNEE ARTHROSCOPIC -2017 FAMILY HISTORY FATHER: ALIVE, DIAGNOSED WITH DIABETES MOTHER: ALIVE 60 YRS, DIAGNOSED WITH DIABETES, HYPERTENSION, CANCER SIBLINGS: ALIVE, DIAGNOSED WITH PSYCHIATRIC CONDITIONS DAUGHTER(S): ALIVE 12 YRS PATERNAL GRAND FATHER: DIAGNOSED WITH OTHER PATERNAL GRAND MOTHER: DIAGNOSED WITH OTHER MATERNAL GRAND MOTHER: , DIAGNOSED WITH CANCER 1DAUGHTER(S) - HEALTHY. MOM-OVARIAN CANO H/O COLON/PROSTATE/LUNG CANCER. SON 4 HOURS AFTER DELIVERY AT 21 WEEKS GESTATION. SOCIAL HISTORY GENERAL: TOBACCO USE ARE YOU A:NONSMOKER ALCOHOL SCREENING DID YOU HAVE A DRINK CONTAINING ALCOHOL IN THE PAST YEAR?NO POINTS0 INTERPRETATIONNEGATIVE RECREATIONAL DRUG USE DRUG USE?NO CAFFEINE CAFFEINE USE?YES HOW OFTEN AND HOW MUCH? 2 CUPS OF COFFEE PER WEEK [employer] [id number] BUD[employer]IST LANGUAGE LANGUAGES SPOKEN:[place] EDUCATION LEVEL OF EDUCATION:HIGH SCHOOL LEARNING BARRIERS / SPECIAL NEEDS BARRIERS TO LEARNING?NO HEARING IMPAIRED?NO VISION IMPAIRED?YES COGNITIVELY IMPAIRED?NO :CORRECTIVE LENSES READINESS TO LEARN?NO LEARNING PREFERENCES?YES :DEMONSTRATION/VERBAL INSTRUCTION LEARNING CAPABILITIES PRESENT?NO EMOTIONAL BARRIERS?NO DOMESTIC VIOLENCE DO YOU FEEL SAFE IN YOUR ENVIRONMENT?YES OCCUPATION: UNEMPLOYED. DIET: REGULAR. EXERCISE: WALKS. MARITAL STATUS: . OTHERS AT HOME: SPOUSE. PAIN CLINIC PFS, CLERGY, PUBLIC HEALTH REFERRALS PFS REFERRAL NEEDED?NO CLERGY REFERRAL NEEDED?NO PUBLIC HEALTH REFERRAL NEEDED?NO WAS THE PROVIDER NOTIFIED OF ANY PERTINENT INFO? N/A HAS THE PATIENT BEEN EDUCATED REGARDING HIS/HER PLAN OF CARE?YES HAS THE PATIENT BEEN EDUCATED REGARDING PAIN, THE RISK FOR PAIN, THE IMPORTANCE OF EFFECTIVE PAIN MANAGEMENT, AND THE PAIN ASSESSMENT PROCESS?YES HOUSING: RENTS APARTMENT. ADVANCE DIRECTIVE ADVANCE DIRECTIVE DISCUSSED WITH PATIENT:YES 04/02/18 PT STATES HE HAS A HCP --LUCÍA [phone] ASKED TO BRING A COPY IN. 04/02/18 5522 REVIEWED WITH PT. AD. HOSPITALIZATION/MAJOR DIAGNOSTIC PROCEDURE [facility] FOR GASTRIC BYPASS 12/09/2012 TONSILLECTOMY 1983 [facility] - PNEUMONIA 06/2015 [facility] - TIA 03/2016 REVIEW OF SYSTEMS REVIEWED BY: PROVIDER: . CONSTITUTIONAL: ANY CHANGE IN YOUR MEDICAL CONDITION? NO . CHILLS NO . FEVER NO . INFECTION: DO YOU HAVE NEW INFECTIONS? NO . DO YOU HAVE HISTORY OF MRSA? NO . MUSCULOSKELETAL: ANY NEW PATTERNS OF PAIN OR NUMBNESS? NO . GASTROENTEROLOGY: ANY NEW CHANGE IN BOWEL CONTROL? NO . GENITOURINARY: ANY NEW CHANGE IN BLADDER CONTROL? NO . IS THERE A CHANCE YOU COULD BE ? NO . HEMATOLOGY/LYMPH: DO YOU TAKE ANY BLOOD THINNERS? (FOR EXAMPLE- COUMADIN, PLAVIX, AGGRENOX, PLATEL, PRADAXA, OR XARELTO) NO . WHEN WAS YOUR LAST DOSE? DATE: TIME: . NEUROLOGY: HAVE YOU FALLEN IN THE PAST 6 MONTHS? NO . ANY NEW EXTREMITY NUMBNESS OR WEAKNESS? NO . CARDIOLOGY: DO YOU HAVE A PACEMAKER OR DEFIBRILLATOR? NO . RESPIRATORY: HAVE YOU BEEN SICK IN THE PAST WEEK? NO . FEVER NO . FLU LIKE SYMPTOMS? NO . COUGH NO . INTEGUMENTARY: DO YOU HAVE ANY RASHES OR OPEN SORES? NO . ALLERGIC/IMMUNO: ARE YOU ALLERGIC TO SHELLFISH OR IV DYE? NO . ANY NEW ALLERGIES? NO . PSYCHIATRIC: DO YOU HAVE THOUGHTS OF HURTING YOURSELF OR SOMEONE ELSE? NO . ARE YOU ABUSED, NEGLECTED, OR IN AN UNSAFE ENVIRONMENT? NO . ENDOCRINOLOGY: ARE YOU DIABETIC? YES FSBS THIS A.M. WAS 117 . OTHER: DO YOU NEED ANY PRESCRIPTIONS? NO . IF YES, PLEASE LIST: ____ . ANY NEW PROBLEMS WITH YOUR MEDICATIONS? NO . WHEN DID YOU LAST EAT? 04/01/18 2130 . WHEN DID YOU LAST DRINK? 04/02 0700 . WHAT DID YOU LAST DRINK? WATER . NAME OF PERSON DRIVING YOU HOME? ____ . DO YOU HAVE ANY OTHER QUESTIONS OR CONCERNS NO PT. HAS NOT HAD ANY VACCINES IN THE PAST 30 DAYS. . VITAL SIGNS WT 285.4 LBS, HT 70 IN, BMI 40.95 INDEX, BP 127/90 MM HG, HR 86 /MIN, RR 18 /MIN, TEMP 97.5 F, OXYGEN SAT % 97%, SAFE IN ENV? (Y/N) YES, NA INITIALS SC 10:10, REVIEWED BY: LUCINA. ASSESSMENTS INTERVERTEBRAL DISC DISORDER WITH RADICULOPATHY OF LUMBOSACRAL REGION - M51.17 (PRIMARY) PROCEDURES PRE PROCEDURE DIAGNOSIS LUMBOSACRAL DISC DISORDER WITH RADICULOPATHY POST PROCEDURE DIAGNOSIS LUMBOSACRAL DISC DISORDER WITH RADICULOPATHY PROCEDURE LUMBAR EPIDURAL STEROID INJECTION UNDER FLUOROSCOPIC GUIDANCE SURGEON DR. SILVINA MITTAL JUNIOR ADMINISTRATIVE ASSISTANT NONE ANESTHESIA LOCAL PRE PROCEDURE NOTE THE PATIENT HAS A HISTORY OF CHRONIC LOW BACK PAIN. I EVALUATE THE PATIENT AND REVIEWED THE CHART. I WENT OVER THE RISKS, ALTERNATIVES, AND BENEFITS ASSOCIATED WITH THIS PROCEDURE. THE PATIENT WOULD LIKE TO PROCEED AND GIVE CONSENT TO PERFORMED THE PROCEDURE. THE PATIENT DENIES UNEXPLAINABLE WEIGHT LOSS, FEVER, CHILLS, OR NEW CHANGES IN URINARY OR BOWEL CONTROL. DESCRIPTION OF PROCEDURE THE PATIENT WAS BROUGHT TO THE PROCEDURE ROOM AND PLACED IN THE PRONE POSITION. THE LUMBOSACRAL AREA WAS CLEANED WITH BETADINE SOLUTION AND DRAPED ASEPTICALLY. THE PROCEDURE WAS DONE UNDER STERILE CONDITIONS. I CHECKED LATERALITY AND THE LEVEL WHERE THE PROCEDURE WAS GOING TO BE PERFORMED WITH THE PATIENT AND THE SUPPORTING STAFF AT THE MOMENT OF THE TIME OUT IN THE PROCEDURE ROOM. UNDER FLUOROSCOPIC GUIDANCE, THE TARGET POINT WAS SELECTED AT THE INTERLAMINAR LEVEL OF L5-S1. LIDOCAINE WAS USED TO NUMB THE SKIN AND THE SUBCUTANEOUS TISSUE BELOW IT. EPIDURAL TUOHY NEEDLE, 17-GAUGE, WAS ADVANCED UNDER FLUOROSCOPIC GUIDANCE AND FOLLOWING PATIENT FEEDBACK UNTIL THE EPIDURAL SPACE WAS REACHED, 7 CM DEEP INTO THE SKIN BY THE LOSS OF RESISTANCE TECHNIQUE. ISOVUE M DYE 30%, 0.25 ML, WAS INJECTED SHOWING ADEQUATE SPREAD OF THE DYE. THEN, A SOLUTION OF 3 ML OF NORMAL SALINE WITH DEPO-MEDROL 60 MG WAS INJECTED SLOWLY FOLLOWING PATIENT FEEDBACK. THERE WAS NO EVIDENCE OF BLOOD, PARESTHESIA OR CEREBROSPINAL FLUID DURING THE PROCEDURE. THE PATIENT WAS SENT TO THE RECOVERY ROOM. THE PATIENT WAS MOVING THE EXTREMITIES AND DOING WELL. THERE WAS NO COMPLICATION DURING THE PROCEDURE. FLUOROSCOPY TIME WAS 12 SECONDS. POST PROCEDURE NOTE THE PATIENT WILL BE SEEN IN A FOLLOW UP IN THE NEXT FEW WEEKS. INSTRUCTIONS WERE GIVEN, QUESTIONS WERE ANSWERED, AND THE PATIENT EXPRESSED UNDERSTANDING AND AGREES WITH THE PLAN. I, BETO GREEN, DOCUMENTED THE ABOVE INFORMATION ACTING A SCRIBE FOR DR. MITTAL. I HAVE REVIEWED THE ABOVE DOCUMENT, WRITTEN BY BETO ROACH AND I VERIFY THAT IT IS ACCURATE. DIAGNOSTIC IMAGING [facility] FLUORO GUIDE SPINE INJECTION (PAIN)[id number] PROCEDURE CODES 6045F RADXPS IN END [id number] PXD [id number] LUMBAR/SACRAL W/ IMAGING DISPOSITION & COMMUNICATION FOLLOW UP 2 WEEKS ELECTRONICALLY SIGNED BY SILVINA MITTAL MD, ON 04/16/2018 AT 04:58 PM EST DISCLAIMER : THIS IS A VISIT SUMMARY EXTRACTED FROM THE [employer] CHART. IT IS NOT A COPY OF THE [employer] PROGRESS NOTE. RODNEYD
== END ==
LOC: M PAIN 10:15
PROVIDERS: ATTEND Anesthesiology
DX: M51.17 Intervertebral disc disorders with radiculopathy, lumbosacral region (principal); G89.29 Other chronic pain; E11.9 Type 2 diabetes mellitus without complications; I10 Essential (primary) hypertension; K21.9 Gastro-esophageal reflux disease without esophagitis; G47.30 Sleep apnea, unspecified; M17.0 Bilateral primary osteoarthritis of knee; J30.9 Allergic rhinitis, unspecified; E66.01 Morbid (severe) obesity due to excess calories; Z68.41 Body mass index [BMI] 40.0-44.9, adult; Z79.82 Long term (current) use of aspirin; Z79.84 Long term (current) use of oral hypoglycemic drugs; Z79.899 Other long term (current) drug therapy; Z98.84 Bariatric surgery status
CPT/HCPCS: 62323; J1030; Q9967

== ENCOUNTER → 2018-06-28 | Outpatient (CLI) | payer MEDICARE, MEDICAID ==
[~2018-06-28] MED LIST changes: -ISOVUE-M 300 61% 15ML VIAL (Q9967) As Ordered ONE; -LIDOCAINE 1% SDV INJ 30 ML VIAL As Ordered ONE; -diazePAM 5 MG TAB As Ordered ONE; -methylPREDNISolone SUSP 40 MG/ML (DEPO-medrol) VIAL (J1030) As Ordered ONE; -oxyCODONE 5MG TAB As Ordered ONE
--- NOTE | 2018-07-13 23:29 | ECWPNPC ---
PATIENT NAME: ABHAY ORNELAS : 1975 GENDER: MALE VISIT DATE: 06/28/2018 DISCHARGE DATE: 06/28/18 1530 VISIT LOCKED DATE TIME: PHYSICIAN: LING HURLEY RESOURCE: LING HULREY REASON FOR APPOINTMENT 1. NON COMP, 2 MONTHS HISTORY OF PRESENT ILLNESS GENERAL: HERE FOR F/U OF CHRONIC LOW BACK PAIN W BILAT. LEG PAIN.PAIN HAS RETURNED TO BASELINE.RATING PAIN VAS 8/10. HISTORY OF PRESENT ILLNESS: PAIN THE PATIENT DESCRIBES THE PAIN... FALL RISK SCREENING: SCREENING : NO FALLS IN THE PAST YEAR. CURRENT MEDICATIONS TAKING OMEPRAZOLE 40 MG CAPSULE DELAYED RELEASE 1 CAPSULE ORALLY TWICE A DAY TAKING ASPIR-81 81 MG TABLET DELAYED RELEASE 1 TABLET ORALLY ONCE A DAY TAKING ACCU-CHEK QUINCY PLUS W/DEVICE KIT DIRECTED SUBCUTANEOUSLY BID TESTING TAKING ACCU-CHEK QUINCY PLUS - STRIP DIRECTED IN VITRO BID TESTING TAKING ALCOHOL PADS 70 % PAD DIRECTED TOPICALLY BID TESTING TAKING ACCU-CHEK SOFTCLIX LANCET DEV - KIT DIRECTED _ BID TESTING TAKING ACCU-CHEK SOFTCLIX LANCETS - MISCELLANEOUS DIRECTED _ BID TESTING TAKING METFORMIN HCL 1000 MG TABLET 1 TABLET WITH MEALS ORALLY TWICE A DAY TAKING ATORVASTATIN CALCIUM 40 MG TABLET 1 TABLET ORALLY ONCE A DAY TAKING LISINOPRIL 10 MG TABLET 1 TABLET ORALLY ONCE A DAY TAKING GLIPIZIDE ER 10 MG TABLET EXTENDED RELEASE 24 HOUR 1 TABLET ORALLY BID PRIOR TO BREAKFAST AND DINNER TAKING CYCLOBENZAPRINE HCL 10 MG TABLET 1 TABLET NEEDED ORALLY THREE TIMES A DAY PRN, NOTES: NONE RECENT TAKING ALBUTEROL SULFATE HFA 108 (90 BASE) MCG/ACT AEROSOL SOLUTION 2 PUFFS NEEDED INHALATION EVERY 4 HRS, NOTES: NONE RECENT TAKING IPRATROPIUM-ALBUTEROL 0.5-2.5 (3) MG/3ML SOLUTION 3 ML PRN DX J44.9 INHALATION EVERY 6 HRS, NOTES: 2 YRS AGO MEDICATION LIST REVIEWED AND RECONCILED WITH THE PATIENT PAST MEDICAL HISTORY HYPERTENSION OBESITY ESOPHAGEAL REFLUX OBSTRUCTIVE SLEEP APNEA, 9 CM WATER TYPE II DIABETIC OSTEOARTHRITIS OF BOTH KNEES PAIN IN JOINT, SHOULDER REGION UNSPECIFIED INTERNAL DERANGEMENT OF KNEE ALLERGIC RHINITIS POSITIVE URINE DRUG SCREEN FOR MARIJUANA, PATIENT DENIES USE HYPERLIPIDEMIA HYPERTENSION MORBID OBESITY STATUS POST BYPASS 2012 WITH REGAINING OF WEIGHT 03/09/2016 TIA ALLERGIES ENVIRONMENTAL: ALLERGY SURGICAL HISTORY TONSILLECTOMY AT AGE 7 ARTHROSCOPIC KNEE SURGERY L - DR Brett ROLLINS 11/14 GASTRIC BYPASS SURGERY 12/09/12 RIGHT SHOULDER SURGERY @ SOS 11/2013 LEFT SHOULDER SURGERY @ SOS 12/2013 LUMP REMOVED FROM RIGHT SHOULDER DR. SCOTT 03/2014 RIGHT CARPAL TUNNEL /ELBOE 2016 LOOP RECORDER 09/2016 LEFT KNEE ARTHROSCOPIC --2017 FAMILY HISTORY FATHER: ALIVE, DIAGNOSED WITH DIABETES MOTHER: ALIVE 61 YRS, DIAGNOSED WITH DIABETES, HYPERTENSION, CANCER SIBLINGS: ALIVE, DIAGNOSED WITH PSYCHIATRIC CONDITIONS DAUGHTER(S): ALIVE 13 YRS PATERNAL GRAND FATHER: DIAGNOSED WITH OTHER PATERNAL GRAND MOTHER: DIAGNOSED WITH OTHER MATERNAL GRAND MOTHER: , DIAGNOSED WITH CANCER 1DAUGHTER(S) - HEALTHY. MOM-OVARIAN CANO H/O COLON/PROSTATE/LUNG CANCER. SON 4 HOURS AFTER DELIVERY AT 21 WEEKS GESTATION. SOCIAL HISTORY GENERAL: TOBACCO USE ARE YOU A:NONSMOKER ALCOHOL SCREENING DID YOU HAVE A DRINK CONTAINING ALCOHOL IN THE PAST YEAR?NO POINTS0 INTERPRETATIONNEGATIVE RECREATIONAL DRUG USE DRUG USE?NO CAFFEINE CAFFEINE USE?YES HOW OFTEN AND HOW MUCH? 2 CUPS OF COFFEE PER WEEK [id number] L[employer] LANGUAGES SPOKEN:[place] EDUCATION LEVEL OF EDUCATION:HIGH SCHOOL LEARNING BARRIERS / SPECIAL NEEDS BARRIERS TO LEARNING?NO HEARING IMPAIRED?NO VISION IMPAIRED?YES COGNITIVELY IMPAIRED?NO :CORRECTIVE LENSES READINESS TO LEARN?NO LEARNING PREFERENCES?YES :DEMONSTRATION/VERBAL INSTRUCTION LEARNING CAPABILITIES PRESENT?NO EMOTIONAL BARRIERS?NO DOMESTIC VIOLENCE DO YOU FEEL SAFE IN YOUR ENVIRONMENT?YES OCCUPATION: UNEMPLOYED. DIET: REGULAR. EXERCISE: WALKS. MARITAL STATUS: . OTHERS AT HOME: SPOUSE. PAIN CLINIC PFS, CLERGY, PUBLIC HEALTH REFERRALS PFS REFERRAL NEEDED?NO CLERGY REFERRAL NEEDED?NO PUBLIC HEALTH REFERRAL NEEDED?NO WAS THE PROVIDER NOTIFIED OF ANY PERTINENT INFO? N/A HAS THE PATIENT BEEN EDUCATED REGARDING HIS/HER PLAN OF CARE?YES HAS THE PATIENT BEEN EDUCATED REGARDING PAIN, THE RISK FOR PAIN, THE IMPORTANCE OF EFFECTIVE PAIN MANAGEMENT, AND THE PAIN ASSESSMENT PROCESS?YES HOUSING: RENTS APARTMENT. ADVANCE DIRECTIVE ADVANCE DIRECTIVE DISCUSSED WITH PATIENT:YES 06/28/18 PT STATES HE HAS A HCP --LUCÍA [phone] ASKED TO BRING A COPY IN. REMINDED PT BRING IN COPT 04/02/18 1048 REVIEWED WITH PT. AD 06/28/18 1455 REVIEWED WITH PT LAS. HOSPITALIZATION/MAJOR DIAGNOSTIC PROCEDURE [facility] FOR GASTRIC BYPASS 12/09/2012 TONSILLECTOMY 1982 [facility] - PNEUMONIA 06/2015 [facility] - TIA 03/2016 REVIEW OF SYSTEMS REVIEWED BY: PROVIDER: LING ZAPATA . CONSTITUTIONAL: ANY CHANGE IN YOUR MEDICAL CONDITION? NO . CHILLS NO . FEVER NO . INFECTION: DO YOU HAVE NEW INFECTIONS? NO . DO YOU HAVE HISTORY OF MRSA? NO . MUSCULOSKELETAL: ANY NEW PATTERNS OF PAIN OR NUMBNESS? NO . GASTROENTEROLOGY: ANY NEW CHANGE IN BOWEL CONTROL? NO . GENITOURINARY: ANY NEW CHANGE IN BLADDER CONTROL? NO . IS THERE A CHANCE YOU COULD BE ? NO . HEMATOLOGY/LYMPH: DO YOU TAKE ANY BLOOD THINNERS? (FOR EXAMPLE- COUMADIN, PLAVIX, AGGRENOX, PLATEL, PRADAXA, OR XARELTO) NO . WHEN WAS YOUR LAST DOSE? DATE: TIME: . NEUROLOGY: HAVE YOU FALLEN IN THE PAST 12 MONTHS? NO . ANY NEW EXTREMITY NUMBNESS OR WEAKNESS? NO . CARDIOLOGY: DO YOU HAVE A PACEMAKER OR DEFIBRILLATOR? NO . RESPIRATORY: HAVE YOU BEEN SICK IN THE PAST WEEK? NO . FEVER NO . FLU LIKE SYMPTOMS? NO . COUGH NO . INTEGUMENTARY: DO YOU HAVE ANY RASHES OR OPEN SORES? NO . ALLERGIC/IMMUNO: ARE YOU ALLERGIC TO IV DYE? NO . ANY NEW ALLERGIES? NO . PSYCHIATRIC: DO YOU HAVE THOUGHTS OF HURTING YOURSELF OR SOMEONE ELSE? NO . ARE YOU ABUSED, NEGLECTED, OR IN AN UNSAFE ENVIRONMENT? NO . ENDOCRINOLOGY: ARE YOU DIABETIC? NO . OTHER: DO YOU NEED ANY PRESCRIPTIONS? NO . IF YES, PLEASE LIST: ____ . ANY NEW PROBLEMS WITH YOUR MEDICATIONS? NO . WHEN DID YOU LAST EAT? ____ . WHEN DID YOU LAST DRINK? ____ . WHAT DID YOU LAST DRINK? ____ . NAME OF PERSON DRIVING YOU HOME? ____ . DO YOU HAVE ANY OTHER QUESTIONS OR CONCERNS NO . VITAL SIGNS WT 290.4 LBS, HT 70 IN, BMI 41.66 INDEX, BP 141/88 MM HG, HR 97 /MIN, RR 20 /MIN, TEMP 98.6 F, OXYGEN SAT % 98%, NA INITIALS SC 14:44, REVIEWED BY: EM. EXAMINATION GENERAL EXAMINATION: LUNGS:LUNG SOUNDS ARE CLEAR. HEART:HEART RATE REGULAR. MUSCULOSKELETAL:*. LUMBAR SACRAL SPINEMUSCLE STRENGTH TESTING 5/5 BILATERAL, PALPATION: MILD TENDERNESS OVER L/S SPINE. SLE + AT 45 DEGREES BILAT. DIAGNOSTIC: . ASSESSMENTS PROTRUDED LUMBAR DISC - M51.26 (PRIMARY) LUMBAR RADICULOPATHY - M54.16 TREATMENT OTHERS NOTES: L5/S1 INTRALAMINAR LESI. PROCEDURE CODES [id number] ESTABILISHED PATIENT [facility] CHARGE DISPOSITION & COMMUNICATION FOLLOW UP POST (REASON: L5/S1 INTRALAMINAR LESI) ELECTRONICALLY SIGNED BY JODI COLON ON 07/12/2018 AT 03:41 PM EST DISCLAIMER : THIS IS A VISIT SUMMARY EXTRACTED FROM THE [facility] CHART. IT IS NOT A COPY OF THE [facility] PROGRESS NOTE. MTDD
== END ==
LOC: M PAIN 14:45
PROVIDERS: ATTEND Nurse Practitioner Family
DX: M51.26 Other intervertebral disc displacement, lumbar region (principal); M54.16 Radiculopathy, lumbar region; G89.29 Other chronic pain; E11.9 Type 2 diabetes mellitus without complications; I10 Essential (primary) hypertension; K21.9 Gastro-esophageal reflux disease without esophagitis; G47.33 Obstructive sleep apnea (adult) (pediatric); M17.0 Bilateral primary osteoarthritis of knee; E78.5 Hyperlipidemia, unspecified; J30.89 Other allergic rhinitis; E66.01 Morbid (severe) obesity due to excess calories; Z68.41 Body mass index [BMI] 40.0-44.9, adult; Z79.82 Long term (current) use of aspirin; Z79.84 Long term (current) use of oral hypoglycemic drugs; Z79.899 Other long term (current) drug therapy; Z98.84 Bariatric surgery status

== ENCOUNTER → 2018-08-20 | Outpatient (CLI) | payer MEDICARE, MEDICAID ==
[~2018-08-20] MED LIST changes: -ASPI81CH PO; +ASPI81CH49 PO
--- NOTE | 2018-09-05 00:44 | ECWPNPC ---
PATIENT NAME: ABHAY ORNELAS : 1975 GENDER: MALE VISIT DATE: 08/20/2018 DISCHARGE DATE: 08/20/18 1421 VISIT LOCKED DATE TIME: PHYSICIAN: LING HURLEY RESOURCE: LING HURLEY REASON FOR APPOINTMENT 1. F/U L5/S1 INTRALAMINAR LESI HISTORY OF PRESENT ILLNESS HISTORY OF PRESENT ILLNESS: HERE FOR POST PROCEDURE F/U.HAD LESI ON 07-16-18.REPORTING THAT HE HAD 3 1/2 WEEKS OF SIGNIFICANT IMPROVEMENT THEN PAIN GRADUALLY RETURNS TO BASELINE.RATING PAIN VAS 7/0.HAVING FREQUENT FALLING EPISODES.FOLLOWS WITH NEUROLOGY WHO FEEL HE HAS NEUROPATHY AND THEY HAVE STARTED HIM ON GABAPENTIN.FOLLOWS WITH SARAH BARAHONA WHO FEELS HE NEEDS SURGERY BUT IS ASKING HIM TO LOOSE 50#.REVIEWED MRI L/S SPINE AND DISCUSSSED TREATMENT OPTIONS. PAIN THE PATIENT DESCRIBES THE PAIN... THE PATIENT DESCRIBES THE PAIN... FALL RISK SCREENING: SCREENING :NO FALLS REPORTED IN THE LAST YEAR CURRENT MEDICATIONS TAKING OMEPRAZOLE 40 MG CAPSULE DELAYED RELEASE 1 CAPSULE ORALLY TWICE A DAY TAKING ASPIR-81 81 MG TABLET DELAYED RELEASE 1 TABLET ORALLY ONCE A DAY TAKING ACCU-CHEK QUINCY PLUS W/DEVICE KIT DIRECTED SUBCUTANEOUSLY BID TESTING TAKING ACCU-CHEK QUINCY PLUS - STRIP DIRECTED IN VITRO BID TESTING TAKING ALCOHOL PADS 70 % PAD DIRECTED TOPICALLY BID TESTING TAKING ACCU-CHEK SOFTCLIX LANCET DEV - KIT DIRECTED _ BID TESTING TAKING ACCU-CHEK SOFTCLIX LANCETS - MISCELLANEOUS DIRECTED _ BID TESTING TAKING METFORMIN HCL 1000 MG TABLET 1 TABLET WITH MEALS ORALLY TWICE A DAY TAKING ATORVASTATIN CALCIUM 40 MG TABLET 1 TABLET ORALLY ONCE A DAY TAKING LISINOPRIL 10 MG TABLET 1 TABLET ORALLY ONCE A DAY TAKING GLIPIZIDE ER 10 MG TABLET EXTENDED RELEASE 24 HOUR 1 TABLET ORALLY BID PRIOR TO BREAKFAST AND DINNER TAKING CYCLOBENZAPRINE HCL 10 MG TABLET 1 TABLET NEEDED ORALLY THREE TIMES A DAY PRN TAKING ALBUTEROL SULFATE HFA 108 (90 BASE) MCG/ACT AEROSOL SOLUTION 2 PUFFS NEEDED INHALATION EVERY 4 HRS TAKING GABAPENTIN 300 MG CAPSULE 1 CAPSULE ORALLY THREE TIMES DAILY TAKING IPRATROPIUM-ALBUTEROL 0.5-2.5 (3) MG/3ML SOLUTION 3 ML PRN DX J44.9 INHALATION EVERY 6 HRS MEDICATION LIST REVIEWED AND RECONCILED WITH THE PATIENT PAST MEDICAL HISTORY HYPERTENSION OBESITY ESOPHAGEAL REFLUX OBSTRUCTIVE SLEEP APNEA, 9 CM WATER TYPE II DIABETIC OSTEOARTHRITIS OF BOTH KNEES PAIN IN JOINT, SHOULDER REGION UNSPECIFIED INTERNAL DERANGEMENT OF KNEE ALLERGIC RHINITIS POSITIVE URINE DRUG SCREEN FOR MARIJUANA, PATIENT DENIES USE HYPERLIPIDEMIA HYPERTENSION MORBID OBESITY STATUS POST BYPASS 2012 WITH REGAINING OF WEIGHT 03/09/2016 [facility]IA ALLERGIES ENVIRONMENTAL: ALLERGY SURGICAL HISTORY TONSILLECTOMY AT AGE 7 ARTHROSCOPIC KNEE SURGERY Amos - DR Brett ROLLINS 11/14 GASTRIC BYPASS SURGERY 12/09/12 RIGHT SHOULDER SURGERY @ SOS 11/2013 LEFT SHOULDER SURGERY @ SOS 12/2013 LUMP REMOVED FROM RIGHT SHOULDER DR. SCOTT 03/2014 RIGHT CARPAL TUNNEL /ELBOW 2015 LOOP RECORDER 09/2016 LEFT KNEE ARTHROSCOPIC FAMILY HISTORY FATHER: ALIVE, DIAGNOSED WITH DIABETES MOTHER: ALIVE 61 YRS, CANCER, DIABETES, HYPERTENSION SIBLINGS: ALIVE, PSYCHIATRIC CONDITIONS DAUGHTER(S): ALIVE 13 YRS MATERNAL GRAND MOTHER: , CANCER PATERNAL GRAND FATHER: OTHER PATERNAL GRAND MOTHER: OTHER 1DAUGHTER(S) - HEALTHY. MOM-OVARIAN CA\NNO H\/O COLON\/PROSTATE\/LUNG CANCER. SON 4 HOURS AFTER DELIVERY AT 21 WEEKS GESTATION. SOCIAL HISTORY GENERAL: TOBACCO USE ARE YOU A:NONSMOKER LATEX QUESTIONNAIRE LATEX ALLERGY : HAVE YOU EVER DEVELOPED ANY TYPE OF REACTION AFTER HANDLING LATEX PRODUCTS SUCH RUBBER GLOVES, CONDOMS, DIAPHRAGMS, BALLOONS, SOCKS, OR UNDERWEAR?NO LATEX ALLERGY : HAVE YOU EVER DEVELOPED ANY TYPE OF REACTION DURING OR AFTER DENTAL APPOINTMENT, VAGINAL/RECTAL EXAMINATION, SURGICAL PROCEDURE, OR ANY OTHER EXPOSURE?NO LATEX RISK : HAVE YOU EVER HAD ANY DIFFICULTY BREATHING OR HIVES AFTER EATING OR HANDLING ANY FRUITS, OR VEGETABLES; SUCH KIWI, BANANAS, STONE FRUITS, OR CHESTNUTSNO LATEX RISK : DO YOU HAVE A PREVIOUS PERSONAL HISTORY OF MORE THAN NINE SURGERIES, SPINA BIFIDA, OR REPEATED CATHERTIZATIONS? YES - PLEASE INDICATE : > 9 SURGERIES LATEX RISK : ARE YOU FREQUENTLY EXPOSED TO LATEX PRODUCTS IN YOUR OCCUPATION?NO DATE ASKED : 08/20/2018 ALCOHOL SCREENING DID YOU HAVE A DRINK CONTAINING ALCOHOL IN THE PAST YEAR?NO POINTS0 INTERPRETATIONNEGATIVE RECREATIONAL DRUG USE DRUG USE?NO CAFFEINE CAFFEINE USE?YES HOW OFTEN AND HOW MUCH? 2 CUPS OF COFFEE PER WEEK ROMAN CATHOLIC [id number] SPIRITISM LANGUAGE LANGUAGES SPOKEN:CHINESE EDUCATION LEVEL OF EDUCATION:HIGH SCHOOL LEARNING BARRIERS / SPECIAL NEEDS BARRIERS TO LEARNING?NO HEARING IMPAIRED?NO VISION IMPAIRED?YES :CORRECTIVE LENSES COGNITIVELY IMPAIRED?NO READINESS TO LEARN?NO LEARNING PREFERENCES?YES :DEMONSTRATION/VERBAL INSTRUCTION LEARNING CAPABILITIES PRESENT?NO EMOTIONAL BARRIERS?NO DOMESTIC VIOLENCE DO YOU FEEL SAFE IN YOUR ENVIRONMENT?YES OCCUPATION: UNEMPLOYED. DIET: REGULAR. EXERCISE: WALKS. MARITAL STATUS: . OTHERS AT HOME: SPOUSE. PAIN CLINIC PFS, CLERGY, PUBLIC HEALTH REFERRALS PFS REFERRAL NEEDED?NO CLERGY REFERRAL NEEDED?NO PUBLIC HEALTH REFERRAL NEEDED?NO WAS THE PROVIDER NOTIFIED OF ANY PERTINENT INFO? N/A HAS THE PATIENT BEEN EDUCATED REGARDING HIS/HER PLAN OF CARE?YES HAS THE PATIENT BEEN EDUCATED REGARDING PAIN, THE RISK FOR PAIN, THE IMPORTANCE OF EFFECTIVE PAIN MANAGEMENT, AND THE PAIN ASSESSMENT PROCESS?YES HOUSING: RENTS APARTMENT. ADVANCE DIRECTIVE ADVANCE DIRECTIVE DISCUSSED WITH PATIENT:YES PT STATES HE HAS A HCP --LUCÍA [phone] ASKED TO BRING A COPY IN. REMINDED PT BRING IN COPY. 04/02/18 1048 REVIEWED WITH PT. AD 06/28/18 1455 REVIEWED WITH PT LAS 08/20/18 REVIEWED WITH PT. AD. HOSPITALIZATION/MAJOR DIAGNOSTIC PROCEDURE [facility] 12/09/2012 TONSILLECTOMY 1982 [facility] - PNEUMONIA 06/2015 [facility] - TIA 03/2016 REVIEW OF SYSTEMS REVIEWED BY: PROVIDER: LING ZAPATA . CONSTITUTIONAL: ANY CHANGE IN YOUR MEDICAL CONDITION? NO . CHILLS NO . FEVER NO . INFECTION: DO YOU HAVE NEW INFECTIONS? NO . DO YOU HAVE HISTORY OF MRSA? NO . MUSCULOSKELETAL: ANY NEW PATTERNS OF PAIN OR NUMBNESS? YES, NUMBNESS RIGHT CENTER 3 TOES. SAW NEUROLOGIST YEST AND STARTED ON GABAPENTIN 300MGS-HASN'T STARTED YET . GASTROENTEROLOGY: ANY NEW CHANGE IN BOWEL CONTROL? NO . GENITOURINARY: ANY NEW CHANGE IN BLADDER CONTROL? YES, HAS HAD AN INCREASE IN URINATION . IS THERE A CHANCE YOU COULD BE ? NO . HEMATOLOGY/LYMPH: DO YOU TAKE ANY BLOOD THINNERS? (FOR EXAMPLE- COUMADIN, PLAVIX, AGGRENOX, PLATEL, PRADAXA, OR XARELTO) NO . WHEN WAS YOUR LAST DOSE? DATE: TIME: . NEUROLOGY: HAVE YOU FALLEN IN THE PAST 12 MONTHS? YES, X 2 IN THE PAST 2 WEEKS, HIS LEFT KNEE GAVE OUT ON HIM. NOT EVALUATED AFTER, NO INJURY . ANY NEW EXTREMITY NUMBNESS OR WEAKNESS? YES, RIGHT FOOT DESCRIBED ABOVE . CARDIOLOGY: DO YOU HAVE A PACEMAKER OR DEFIBRILLATOR? NO . RESPIRATORY: HAVE YOU BEEN SICK IN THE PAST WEEK? NO . FEVER NO . FLU LIKE SYMPTOMS? NO . COUGH NO . INTEGUMENTARY: DO YOU HAVE ANY RASHES OR OPEN SORES? NO . ALLERGIC/IMMUNO: ARE YOU ALLERGIC TO IV DYE? NO . ANY NEW ALLERGIES? NO . PSYCHIATRIC: DO YOU HAVE THOUGHTS OF HURTING YOURSELF OR SOMEONE ELSE? NO . ARE YOU ABUSED, NEGLECTED, OR IN AN UNSAFE ENVIRONMENT? NO . ENDOCRINOLOGY: ARE YOU DIABETIC? YES, FSBS THIS A.M. 157 . OTHER: DO YOU NEED ANY PRESCRIPTIONS? NO . IF YES, PLEASE LIST: ____ . ANY NEW PROBLEMS WITH YOUR MEDICATIONS? NO . WHEN DID YOU LAST EAT? ____ . WHEN DID YOU LAST DRINK? ____ . WHAT DID YOU LAST DRINK? ____ . NAME OF PERSON DRIVING YOU HOME? ____ . DO YOU HAVE ANY OTHER QUESTIONS OR CONCERNS NO . VITAL SIGNS WT 293 LBS, HT 70 IN, BMI 42.04 INDEX, BP 132/77 MM HG, HR 92 /MIN, RR 18 /MIN, TEMP 98.8 F, OXYGEN SAT % 96%, SAFE IN ENV? (Y/N) Y, NA INITIALS AW 1309, REVIEWED BY: LUCINA. EXAMINATION GENERAL EXAMINATION: LUNGS:LUNG SOUNDS ARE CLEAR. HEART:HEART RATE REGULAR. MUSCULOSKELETAL:*. LUMBAR SACRAL SPINEMUSCLE STRENGTH TESTING 5/5 BILATERAL, PALPATION: MILD TENDERNESS OVER L/S SPINE. SLE + AT 45 DEGREES BILAT. DIAGNOSTIC: . ASSESSMENTS PROTRUDED LUMBAR DISC - M51.26 (PRIMARY) LUMBAR RADICULOPATHY - M54.16 TREATMENT PROTRUDED LUMBAR DISC [facility] MRI SPINE, L.S. WITHOUT [id number] NOTES: L5/S1 LESI. PROCEDURE CODES FA211 ESTABILISHED PATIENT [facility] FACILITY CHARGE DISPOSITION & COMMUNICATION FOLLOW UP POST (REASON: L5/S1 LESI) ELECTRONICALLY SIGNED BY JODI COLON ON 09/03/2018 AT 08:43 AM EDT DISCLAIMER : THIS IS A VISIT SUMMARY EXTRACTED FROM THE [employer] CHART. IT IS NOT A COPY OF THE [employer] PROGRESS NOTE. MICK
== END ==
LOC: M PAIN 13:00
PROVIDERS: ATTEND Nurse Practitioner Family
DX: M51.26 Other intervertebral disc displacement, lumbar region (principal); M54.16 Radiculopathy, lumbar region; E11.9 Type 2 diabetes mellitus without complications; I10 Essential (primary) hypertension; K21.9 Gastro-esophageal reflux disease without esophagitis; G47.30 Sleep apnea, unspecified; M17.0 Bilateral primary osteoarthritis of knee; J30.89 Other allergic rhinitis; E78.5 Hyperlipidemia, unspecified; E66.01 Morbid (severe) obesity due to excess calories; Z68.41 Body mass index [BMI] 40.0-44.9, adult; Z79.82 Long term (current) use of aspirin; Z79.84 Long term (current) use of oral hypoglycemic drugs; Z79.899 Other long term (current) drug therapy; Z98.84 Bariatric surgery status

== ENCOUNTER → 2018-08-22 | Outpatient (REF) | payer MEDICARE | LOC: M LAB REF 15:52 | PROVIDERS: ATTEND Surgery | DX: D23.71 Other benign neoplasm of skin of right lower limb, including hip (principal) ==

== ENCOUNTER → 2018-08-30 | Outpatient (CLI) | payer MEDICARE ==
--- NOTE | 2018-08-31 09:04 | REP ---
MR LUMBAR SPINE WITHOUT CONTRAST: HISTORY: Disc herniation. Decreased signal intensity on T2-weighted images is present in the T12-L1 and L2-3 through L5-S1 intervertebral discs. The discs are decreased in height. These findings are consistent with disc degeneration. A diffuse disc bulge is present at the L1-2 level. There is minimal compression of the thecal sac. The L1 nerves exit the neural foraminal without compression. A diffuse disc bulge and small central disc protrusion are present at the L2-3 level. There is minimal compression of the thecal sac. The L2 nerves exit the neural foramina without compression. A diffuse disc bulge is present at the L3-4 level. There is minimal compression of the thecal sac. There is hypertrophy of the posterior articulating facets. The L3 nerves exit the neural foramina without compression. A diffuse disc bulge and small right paracentral disc protrusion are present at the L4-5 level. There is minimal compression of the thecal sac. There is hypertrophy of the posterior articulating facets. The L4 nerves exit the neural foraminal without compression. A diffuse disc bulge and small right paracentral disc protrusion are present at the L5-S1 level. There are 3 mm of retrolisthesis of L5 on S1. The disc protrusion abuts the right S1 nerve. There is no thecal sac compression. There is hypertrophy of the posterior articulating facets. The L5 nerves exit the neural foraminal without compression. The conus medullaris is normal in appearance terminating at the level of the T12-L1 intervertebral disc. Normal signal intensity is present in the lumbar vertebral bodies. IMPRESSION: 1. Diffuse disc bulges of the L1-2 and L3-4 levels with minimal thecal sac compression. 2. Diffuse disc bulge and small central disc protrusion at the L2-3 level with minimal thecal sac compression. 3. Diffuse disc bulge and small right paracentral disc protrusion at the L4-5 level with minimal thecal sac compression. 4. Diffuse disc bulge and small right paracentral disc protrusion at the L5-S1 level. The disc protrusion abuts the right S1 nerve. Electronically Signed by Christian Jett MD 08/31/2018 09:18 A
== END ==
LOC: M PLARAD 15:00
PROVIDERS: ATTEND Nurse Practitioner Family
DX: M51.26 Other intervertebral disc displacement, lumbar region (principal); M51.27 Other intervertebral disc displacement, lumbosacral region

== ENCOUNTER → 2018-09-10 | Outpatient (CLI) | payer MEDICARE, MEDICAID ==
[~2018-09-10] MED LIST changes: +ISOVUE-M 300 61% 15ML VIAL (Q9967) As Ordered ONE; +LIDOCAINE 1% SDV INJ 30 ML VIAL As Ordered ONE; +diazePAM 5 MG TAB As Ordered ONE; +methylPREDNISolone SUSP 40 MG/ML (DEPO-medrol) VIAL (J1030) As Ordered ONE; +oxyCODONE 5MG TAB As Ordered ONE
--- NOTE | 2018-09-10 11:09 | REP ---
Partial lumbar spine series: Three views . History: Injection procedure for pain. 12 seconds of fluoroscopy time is reported. Findings: A sequence of three fluoroscopically obtained last image hold procedural spot radiographs of the lumbar spine document needle position and contrast injection associated with injection procedure. Electronically Signed by Arnie Sauceda MD 09/10/2018 11:00 A
--- NOTE | 2018-09-22 23:57 | ECWPNPC ---
PATIENT NAME: ABHAY ORNELAS : 1975 GENDER: MALE VISIT DATE: 09/10/2018 DISCHARGE DATE: 09/10/18 1047 VISIT LOCKED DATE TIME: PHYSICIAN: SILVINA MITTAL MD RESOURCE: SILVINA MITTAL MD REASON FOR APPOINTMENT 1. LESI HISTORY OF PRESENT ILLNESS HISTORY OF PRESENT ILLNESS: PAIN THE PATIENT DESCRIBES THE PAIN... FALL RISK SCREENING: SCREENING :NO FALLS REPORTED IN THE LAST YEAR CURRENT MEDICATIONS TAKING OMEPRAZOLE 40 MG CAPSULE DELAYED RELEASE 1 CAPSULE ORALLY TWICE A DAY, NOTES: 09/09/182199 TAKING ASPIR-81 81 MG TABLET DELAYED RELEASE 1 TABLET ORALLY ONCE A DAY, NOTES: 09/09/182199 TAKING ACCU-CHEK QUINCY PLUS W/DEVICE KIT DIRECTED SUBCUTANEOUSLY BID TESTING TAKING ACCU-CHEK QUINCY PLUS - STRIP DIRECTED IN VITRO BID TESTING TAKING ALCOHOL PADS 70 % PAD DIRECTED TOPICALLY BID TESTING TAKING ACCU-CHEK SOFTCLIX LANCET DEV - KIT DIRECTED _ BID TESTING TAKING ACCU-CHEK SOFTCLIX LANCETS - MISCELLANEOUS DIRECTED _ BID TESTING TAKING METFORMIN HCL 1000 MG TABLET 1 TABLET WITH MEALS ORALLY TWICE A DAY, NOTES: 09/09/182199 TAKING ATORVASTATIN CALCIUM 40 MG TABLET 1 TABLET ORALLY ONCE A DAY, NOTES: 09/09/182199 TAKING LISINOPRIL 10 MG TABLET 1 TABLET ORALLY ONCE A DAY, NOTES: 09/09/18729 TAKING GLIPIZIDE ER 10 MG TABLET EXTENDED RELEASE 24 HOUR 1 TABLET ORALLY BID PRIOR TO BREAKFAST AND DINNER, NOTES: 09/09/182199 TAKING CYCLOBENZAPRINE HCL 10 MG TABLET 1 TABLET NEEDED ORALLY THREE TIMES A DAY PRN, NOTES: > 1 MONTH TAKING ALBUTEROL SULFATE HFA 108 (90 BASE) MCG/ACT AEROSOL SOLUTION 2 PUFFS NEEDED INHALATION EVERY 4 HRS, NOTES: > 3 MONTHS TAKING GABAPENTIN 300 MG CAPSULE 1 CAPSULE ORALLY THREE TIMES DAILY, NOTES: 09/09/182199 TAKING IPRATROPIUM-ALBUTEROL 0.5-2.5 (3) MG/3ML SOLUTION 3 ML PRN DX J44.9 INHALATION EVERY 6 HRS, NOTES: > 1 YEAR TAKING TRULICITY 0.75 MG/0.5ML SOLUTION PEN-INJECTOR DIRECTED SUBCUTANEOUS , NOTES: 09/04/18 MEDICATION LIST REVIEWED AND RECONCILED WITH THE PATIENT PAST MEDICAL HISTORY HYPERTENSION OBESITY ESOPHAGEAL REFLUX OBSTRUCTIVE SLEEP APNEA, 9 CM WATER TYPE II DIABETIC OSTEOARTHRITIS OF BOTH KNEES PAIN IN JOINT, SHOULDER REGION UNSPECIFIED INTERNAL DERANGEMENT OF KNEE ALLERGIC RHINITIS POSITIVE URINE DRUG SCREEN FOR MARIJUANA, PATIENT DENIES USE HYPERLIPIDEMIA HYPERTENSION MORBID OBESITY STATUS POST BYPASS 2012 WITH REGAINING OF WEIGHT 03/09/2016 TIA ALLERGIES ENVIRONMENTAL: ALLERGY SURGICAL HISTORY TONSILLECTOMY AT AGE 7 ARTHROSCOPIC KNEE SURGERY Amos - DR Brett ROLLINS 11/14 GASTRIC BYPASS SURGERY 12/09/12 RIGHT SHOULDER SURGERY @ SOS 11/2013 LEFT SHOULDER SURGERY @ SOS 12/2013 LUMP REMOVED FROM RIGHT SHOULDER DR. SCOTT 03/2014 RIGHT CARPAL TUNNEL /ELBOW 2016 LOOP RECORDER 09/2016 LEFT KNEE ARTHROSCOPIC --2017 REMOVAL OF CYST RIGHT LEG 08/2018 FAMILY HISTORY FATHER: ALIVE, DIAGNOSED WITH DIABETES MOTHER: ALIVE 61 YRS, CANCER, DIABETES, HYPERTENSION SIBLINGS: ALIVE, PSYCHIATRIC CONDITIONS DAUGHTER(S): ALIVE 13 YRS MATERNAL GRAND MOTHER: , CANCER PATERNAL GRAND FATHER: OTHER PATERNAL GRAND MOTHER: OTHER 1DAUGHTER(S) - HEALTHY. MOM-OVARIAN CA\\NNO H\\\/O COLON\\\/PROSTATE\\\/LUNG CANCER. SON 4 HOURS AFTER DELIVERY AT 21 WEEKS GESTATION. SOCIAL HISTORY GENERAL: TOBACCO USE ARE YOU A:NONSMOKER OTHERS AT HOME: SPOUSE. HOUSING: RENTS APARTMENT. EDUCATION LEVEL OF EDUCATION:HIGH SCHOOL DIET: REGULAR. LANGUAGE LANGUAGES SPOKEN:SPANISH DOMESTIC VIOLENCE DO YOU FEEL SAFE IN YOUR ENVIRONMENT?YES RECREATIONAL DRUG USE DRUG USE?NO EXERCISE: WALKS. LEARNING BARRIERS / SPECIAL NEEDS BARRIERS TO LEARNING?NO HEARING IMPAIRED?NO VISION IMPAIRED?YES :CORRECTIVE LENSES COGNITIVELY IMPAIRED?NO READINESS TO LEARN?NO LEARNING PREFERENCES?YES :DEMONSTRATION/VERBAL INSTRUCTION LEARNING CAPABILITIES PRESENT?NO EMOTIONAL BARRIERS?NO PAIN CLINIC PFS, CLERGY, PUBLIC HEALTH REFERRALS PFS REFERRAL NEEDED?NO CLERGY REFERRAL NEEDED?NO PUBLIC HEALTH REFERRAL NEEDED?NO WAS THE PROVIDER NOTIFIED OF ANY PERTINENT INFO? N/A HAS THE PATIENT BEEN EDUCATED REGARDING HIS/HER PLAN OF CARE?YES HAS THE PATIENT BEEN EDUCATED REGARDING PAIN, THE RISK FOR PAIN, THE IMPORTANCE OF EFFECTIVE PAIN MANAGEMENT, AND THE PAIN ASSESSMENT PROCESS?YES LATEX QUESTIONNAIRE LATEX ALLERGY : HAVE YOU EVER DEVELOPED ANY TYPE OF REACTION AFTER HANDLING LATEX PRODUCTS SUCH RUBBER GLOVES, CONDOMS, DIAPHRAGMS, BALLOONS, SOCKS, OR UNDERWEAR?NO LATEX ALLERGY : HAVE YOU EVER DEVELOPED ANY TYPE OF REACTION DURING OR AFTER DENTAL APPOINTMENT, VAGINAL/RECTAL EXAMINATION, SURGICAL PROCEDURE, OR ANY OTHER EXPOSURE?NO LATEX RISK : HAVE YOU EVER HAD ANY DIFFICULTY BREATHING OR HIVES AFTER EATING OR HANDLING ANY FRUITS, OR VEGETABLES; SUCH KIWI, BANANAS, STONE FRUITS, OR CHESTNUTSNO LATEX RISK : DO YOU HAVE A PREVIOUS PERSONAL HISTORY OF MORE THAN NINE SURGERIES, SPINA BIFIDA, OR REPEATED CATHERTIZATIONS? YES - PLEASE INDICATE : > 9 SURGERIES LATEX RISK : ARE YOU FREQUENTLY EXPOSED TO LATEX PRODUCTS IN YOUR OCCUPATION?NO DATE ASKED : 08/20/2018 CAFFEINE CAFFEINE USE?YES HOW OFTEN AND HOW MUCH? 2 CUPS OF COFFEE PER WEEK ADVANCE DIRECTIVE ADVANCE DIRECTIVE DISCUSSED WITH PATIENT:YES PT STATES HE HAS A HCP --LUCÍA [phone] ASKED TO BRING A COPY IN. REMINDED PT BRING IN COPY. PENTECOSTAL [id number] ALEVISM MARITAL STATUS: . ALCOHOL SCREENING DID YOU HAVE A DRINK CONTAINING ALCOHOL IN THE PAST YEAR?NO POINTS0 INTERPRETATIONNEGATIVE OCCUPATION: UNEMPLOYED. 04/02/18 1048 REVIEWED WITH PT. AD 06/28/18 1455 REVIEWED WITH PT LAS 08/20/18 REVIEWED WITH PT. AD. HOSPITALIZATION/MAJOR DIAGNOSTIC PROCEDURE [facility] BYPASS 12/09/2012 TONSILLECTOMY 1982 [facility] - PNEUMONIA 06/2015 [facility] - TIA 03/2016 REVIEW OF SYSTEMS REVIEWED BY: PROVIDER: . CONSTITUTIONAL: ANY CHANGE IN YOUR MEDICAL CONDITION? NO . CHILLS NO . FEVER NO . INFECTION: DO YOU HAVE NEW INFECTIONS? NO . DO YOU HAVE HISTORY OF MRSA? NO . MUSCULOSKELETAL: ANY NEW PATTERNS OF PAIN OR NUMBNESS? NO . GASTROENTEROLOGY: ANY NEW CHANGE IN BOWEL CONTROL? NO . GENITOURINARY: ANY NEW CHANGE IN BLADDER CONTROL? NO . IS THERE A CHANCE YOU COULD BE ? NO . HEMATOLOGY/LYMPH: DO YOU TAKE ANY BLOOD THINNERS? (FOR EXAMPLE- COUMADIN, PLAVIX, AGGRENOX, PLATEL, PRADAXA, OR XARELTO) NO . WHEN WAS YOUR LAST DOSE? DATE: TIME: . NEUROLOGY: HAVE YOU FALLEN IN THE PAST 12 MONTHS? YES . ANY NEW EXTREMITY NUMBNESS OR WEAKNESS? NO . CARDIOLOGY: DO YOU HAVE A PACEMAKER OR DEFIBRILLATOR? NO . RESPIRATORY: HAVE YOU BEEN SICK IN THE PAST WEEK? NO . FEVER NO . FLU LIKE SYMPTOMS? NO . COUGH NO . INTEGUMENTARY: DO YOU HAVE ANY RASHES OR OPEN SORES? NO . ALLERGIC/IMMUNO: ARE YOU ALLERGIC TO IV DYE? NO . ANY NEW ALLERGIES? NO . PSYCHIATRIC: DO YOU HAVE THOUGHTS OF HURTING YOURSELF OR SOMEONE ELSE? NO . ARE YOU ABUSED, NEGLECTED, OR IN AN UNSAFE ENVIRONMENT? NO . ENDOCRINOLOGY: ARE YOU DIABETIC? YES . OTHER: DO YOU NEED ANY PRESCRIPTIONS? NO . IF YES, PLEASE LIST: ____ . ANY NEW PROBLEMS WITH YOUR MEDICATIONS? NO . WHEN DID YOU LAST EAT? ____09/09 2130 . WHEN DID YOU LAST DRINK? ____09/09 1100 . WHAT DID YOU LAST DRINK? ____WATER . NAME OF PERSON DRIVING YOU HOME? ____AMANDA . DO YOU HAVE ANY OTHER QUESTIONS OR CONCERNS NO . VITAL SIGNS WT 288.6 LBS, HT 70 IN, BMI 41.41 INDEX, BP 140/82 MM HG, HR 83 /MIN, RR 18 /MIN, TEMP 99.4 F, OXYGEN SAT % 96%, SAFE IN ENV? (Y/N) YES, NA INITIALS MN 08:54, REVIEWED BY: DELILAH. ASSESSMENTS INTERVERTEBRAL DISC DISORDER WITH RADICULOPATHY OF LUMBAR REGION - M51.16 (PRIMARY) PROCEDURES PRE PROCEDURE DIAGNOSIS LUMBAR DISC DISORDER WITH RADICULOPATHY POST PROCEDURE DIAGNOSIS LUMBAR DISC DISORDER WITH RADICULOPATHY PROCEDURE LUMBAR EPIDURAL STEROID INJECTION UNDER FLUOROSCOPIC GUIDANCE SURGEON DR. SILVINA MITTAL VICE PRESIDENT OF INSTRUCTION NONE ANESTHESIA LOCAL PRE PROCEDURE NOTE THE PATIENT HAS A HISTORY OF CHRONIC LOW BACK PAIN. I EVALUATE THE PATIENT AND REVIEWED THE CHART. I WENT OVER THE RISKS, ALTERNATIVES, AND BENEFITS ASSOCIATED WITH THIS PROCEDURE. THE PATIENT WOULD LIKE TO PROCEED AND GIVE CONSENT TO PERFORMED THE PROCEDURE. THE PATIENT DENIES UNEXPLAINABLE WEIGHT LOSS, FEVER, CHILLS, OR NEW CHANGES IN URINARY OR BOWEL CONTROL. DESCRIPTION OF PROCEDURE THE PATIENT WAS BROUGHT TO THE PROCEDURE ROOM AND PLACED IN THE PRONE POSITION. THE LUMBOSACRAL AREA WAS CLEANED WITH BETADINE SOLUTION AND DRAPED ASEPTICALLY. THE PROCEDURE WAS DONE UNDER STERILE CONDITIONS. I CHECKED LATERALITY AND THE LEVEL WHERE THE PROCEDURE WAS GOING TO BE PERFORMED WITH THE PATIENT AND THE SUPPORTING STAFF AT THE MOMENT OF THE TIME OUT IN THE PROCEDURE ROOM. UNDER FLUOROSCOPIC GUIDANCE, THE TARGET POINT WAS SELECTED AT THE INTERLAMINAR LEVEL OF L4-L5. LIDOCAINE WAS USED TO NUMB THE SKIN AND THE SUBCUTANEOUS TISSUE BELOW IT. EPIDURAL TUOHY NEEDLE, 17-GAUGE, WAS ADVANCED UNDER FLUOROSCOPIC GUIDANCE AND FOLLOWING PATIENT FEEDBACK UNTIL THE EPIDURAL SPACE WAS REACHED, 5 CM DEEP INTO THE SKIN BY THE LOSS OF RESISTANCE TECHNIQUE. ISOVUE M DYE 30%, 0.25 ML, WAS INJECTED SHOWING ADEQUATE SPREAD OF THE DYE. THEN, A SOLUTION OF 3 ML OF NORMAL SALINE WITH DEPO-MEDROL 60 MG WAS INJECTED SLOWLY FOLLOWING PATIENT FEEDBACK. THERE WAS NO EVIDENCE OF BLOOD, PARESTHESIA OR CEREBROSPINAL FLUID DURING THE PROCEDURE. THE PATIENT WAS SENT TO THE RECOVERY ROOM. THE PATIENT WAS MOVING THE EXTREMITIES AND DOING WELL. THERE WAS NO COMPLICATION DURING THE PROCEDURE. FLUOROSCOPY TIME WAS 12 SECONDS. POST PROCEDURE NOTE THE PATIENT WILL BE SEEN IN A FOLLOW UP IN THE NEXT FEW WEEKS. INSTRUCTIONS WERE GIVEN, QUESTIONS WERE ANSWERED, AND THE PATIENT EXPRESSED UNDERSTANDING AND AGREES WITH THE PLAN. I, BETO GREEN, DOCUMENTED THE ABOVE INFORMATION ACTING A SCRIBE FOR DR. MITTAL. I HAVE REVIEWED THE ABOVE DOCUMENT, WRITTEN BY BETO ZAPATAIBVishnu AND I VERIFY THAT IT IS ACCURATE. DIAGNOSTIC IMAGING [facility] FLUORO GUIDE SPINE INJECTION (PAIN)[id number] PROCEDURE CODES 6045F RADXPS IN END [id number] PXD [id number] LUMBAR/SACRAL W/ IMAGING DISPOSITION & COMMUNICATION FOLLOW UP 2 WEEKS ELECTRONICALLY SIGNED BY SILVINA MITTAL MD, MD ON 09/22/2018 AT 07:28 PM EDT DISCLAIMER : THIS IS A VISIT SUMMARY EXTRACTED FROM THE [employer] CHART. IT IS NOT A COPY OF THE [employer] PROGRESS NOTE. MTDD
== END ==
LOC: M PAIN 08:45
PROVIDERS: ATTEND Anesthesiology
DX: G89.29 Other chronic pain (principal); M51.16 Intervertebral disc disorders with radiculopathy, lumbar region; E11.9 Type 2 diabetes mellitus without complications; I10 Essential (primary) hypertension; K21.9 Gastro-esophageal reflux disease without esophagitis; G47.33 Obstructive sleep apnea (adult) (pediatric); M17.0 Bilateral primary osteoarthritis of knee; E78.5 Hyperlipidemia, unspecified; J30.89 Other allergic rhinitis; E66.01 Morbid (severe) obesity due to excess calories; Z68.41 Body mass index [BMI] 40.0-44.9, adult; Z79.82 Long term (current) use of aspirin; Z79.84 Long term (current) use of oral hypoglycemic drugs; Z79.899 Other long term (current) drug therapy; Z98.84 Bariatric surgery status
CPT/HCPCS: 62323; J1030; Q9967

== ENCOUNTER → 2018-10-03 | Outpatient (CLI) | payer MEDICARE, MEDICAID ==
[~2018-10-03] MED LIST changes: -ISOVUE-M 300 61% 15ML VIAL (Q9967) As Ordered ONE; -LIDOCAINE 1% SDV INJ 30 ML VIAL As Ordered ONE; -diazePAM 5 MG TAB As Ordered ONE; -methylPREDNISolone SUSP 40 MG/ML (DEPO-medrol) VIAL (J1030) As Ordered ONE; -oxyCODONE 5MG TAB As Ordered ONE
--- NOTE | 2018-10-15 02:43 | ECWPNPC ---
PATIENT NAME: ABHAY ORNELAS : 1975 GENDER: MALE VISIT DATE: 10/03/2018 DISCHARGE DATE: 10/03/18 1221 VISIT LOCKED DATE TIME: PHYSICIAN: LING HURLEY RESOURCE: LING HURLEY REASON FOR APPOINTMENT 1. POST PROC HISTORY OF PRESENT ILLNESS HISTORY OF PRESENT ILLNESS: HERE FOR POST PROCEDURE F/U.HAD LESI ON 09-10-18.REPORTING RESOLUTION OF RIGHT LEG PAIN AND LEFT LEG WAS RESOLVED POST PROCEDURE BUT HAS RETURNED 2 DAYS AGO.RATING PAIN VAS 7/0.HAVING FREQUENT FALLING EPISODES.FOLLOWS WITH NEUROLOGY WHO FEEL HE HAS NEUROPATHY AND THEY HAVE STARTED HIM ON GABAPENTIN.FOLLOWS WITH SARAH BARAHONA WHO FEELS HE NEEDS SURGERY BUT IS ASKING HIM TO LOOSE 50#.REVIEWED MRI L/S SPINE AND DISCUSSSED TREATMENT OPTIONS. PAIN THE PATIENT DESCRIBES THE PAIN... THE PATIENT DESCRIBES THE PAIN... THE PATIENT DESCRIBES THE PAIN... FALL RISK SCREENING: SCREENING :NO FALLS REPORTED IN THE LAST YEAR CURRENT MEDICATIONS TAKING OMEPRAZOLE 40 MG CAPSULE DELAYED RELEASE 1 CAPSULE ORALLY TWICE A DAY TAKING ASPIR-81 81 MG TABLET DELAYED RELEASE 1 TABLET ORALLY ONCE A DAY TAKING ACCU-CHEK QUINCY PLUS W/DEVICE KIT DIRECTED SUBCUTANEOUSLY BID TESTING TAKING ACCU-CHEK QUINCY PLUS - STRIP DIRECTED IN VITRO BID TESTING TAKING ALCOHOL PADS 70 % PAD DIRECTED TOPICALLY BID TESTING TAKING ACCU-CHEK SOFTCLIX LANCET DEV - KIT DIRECTED _ BID TESTING TAKING ACCU-CHEK SOFTCLIX LANCETS - MISCELLANEOUS DIRECTED _ BID TESTING TAKING METFORMIN HCL 1000 MG TABLET 1 TABLET WITH MEALS ORALLY TWICE A DAY TAKING ATORVASTATIN CALCIUM 40 MG TABLET 1 TABLET ORALLY ONCE A DAY TAKING LISINOPRIL 10 MG TABLET 1 TABLET ORALLY ONCE A DAY TAKING GLIPIZIDE ER 10 MG TABLET EXTENDED RELEASE 24 HOUR 1 TABLET ORALLY BID PRIOR TO BREAKFAST AND DINNER TAKING ALBUTEROL SULFATE HFA 108 (90 BASE) MCG/ACT AEROSOL SOLUTION 2 PUFFS NEEDED INHALATION EVERY 4 HRS TAKING GABAPENTIN 300 MG CAPSULE 1 CAPSULE ORALLY THREE TIMES DAILY TAKING IPRATROPIUM-ALBUTEROL 0.5-2.5 (3) MG/3ML SOLUTION 3 ML PRN DX J44.9 INHALATION EVERY 6 HRS TAKING TRULICITY 0.75 MG/0.5ML SOLUTION PEN-INJECTOR DIRECTED SUBCUTANEOUS DISCONTINUED CYCLOBENZAPRINE HCL 10 MG TABLET 1 TABLET NEEDED ORALLY THREE TIMES A DAY PRN MEDICATION LIST REVIEWED AND RECONCILED WITH THE PATIENT PAST MEDICAL HISTORY HYPERTENSION OBESITY ESOPHAGEAL REFLUX OBSTRUCTIVE SLEEP APNEA, 9 CM WATER TYPE II DIABETIC OSTEOARTHRITIS OF BOTH KNEES PAIN IN JOINT, SHOULDER REGION UNSPECIFIED INTERNAL DERANGEMENT OF KNEE ALLERGIC RHINITIS POSITIVE URINE DRUG SCREEN FOR MARIJUANA, PATIENT DENIES USE HYPERLIPIDEMIA HYPERTENSION MORBID OBESITY STATUS POST BYPASS 2012 WITH REGAINING OF WEIGHT 03/09/2016 TIA ALLERGIES ENVIRONMENTAL: ALLERGY SURGICAL HISTORY TONSILLECTOMY AT AGE 7 ARTHROSCOPIC KNEE SURGERY L - DR Brett ROLLINS 11/14 GASTRIC BYPASS SURGERY 12/09/12 RIGHT SHOULDER SURGERY @ SOS 11/2013 LEFT SHOULDER SURGERY @ SOS 12/2013 LUMP REMOVED FROM RIGHT SHOULDER DR. SCOTT 03/2014 RIGHT CARPAL TUNNEL /ELBOW 2016 LOOP RECORDER 09/2016 LEFT KNEE ARTHROSCOPIC REMOVAL OF CYST RIGHT LEG 08/2018 FAMILY HISTORY FATHER: ALIVE, DIAGNOSED WITH DIABETES MOTHER: ALIVE 61 YRS, DIABETES, HYPERTENSION, CANCER SIBLINGS: ALIVE, PSYCHIATRIC CONDITIONS DAUGHTER(S): ALIVE 13 YRS MATERNAL GRAND MOTHER: , CANCER PATERNAL GRAND FATHER: OTHER PATERNAL GRAND MOTHER: OTHER 1DAUGHTER(S) - HEALTHY. MOM-OVARIAN CA\\NNO H\\\/O COLON\\\/PROSTATE\\\/LUNG CANCER. SON 4 HOURS AFTER DELIVERY AT 21 WEEKS GESTATION. SOCIAL HISTORY GENERAL: TOBACCO USE ARE YOU A:NONSMOKER OTHERS AT HOME: SPOUSE. HOUSING: RENTS APARTMENT. EDUCATION LEVEL OF EDUCATION:HIGH SCHOOL DIET: REGULAR. LANGUAGE LANGUAGES SPOKEN:AMHARIC DOMESTIC VIOLENCE DO YOU FEEL SAFE IN YOUR ENVIRONMENT?YES RECREATIONAL DRUG USE DRUG USE?NO EXERCISE: WALKS. LEARNING BARRIERS / SPECIAL NEEDS BARRIERS TO LEARNING?NO HEARING IMPAIRED?NO VISION IMPAIRED?YES :CORRECTIVE LENSES COGNITIVELY IMPAIRED?NO READINESS TO LEARN?NO LEARNING PREFERENCES?YES :DEMONSTRATION/VERBAL INSTRUCTION LEARNING CAPABILITIES PRESENT?NO EMOTIONAL BARRIERS?NO PAIN CLINIC PFS, CLERGY, PUBLIC HEALTH REFERRALS PFS REFERRAL NEEDED?NO CLERGY REFERRAL NEEDED?NO PUBLIC HEALTH REFERRAL NEEDED?NO WAS THE PROVIDER NOTIFIED OF ANY PERTINENT INFO? N/A HAS THE PATIENT BEEN EDUCATED REGARDING HIS/HER PLAN OF CARE?YES HAS THE PATIENT BEEN EDUCATED REGARDING PAIN, THE RISK FOR PAIN, THE IMPORTANCE OF EFFECTIVE PAIN MANAGEMENT, AND THE PAIN ASSESSMENT PROCESS?YES LATEX QUESTIONNAIRE LATEX ALLERGY : HAVE YOU EVER DEVELOPED ANY TYPE OF REACTION AFTER HANDLING LATEX PRODUCTS SUCH RUBBER GLOVES, CONDOMS, DIAPHRAGMS, BALLOONS, SOCKS, OR UNDERWEAR?NO LATEX ALLERGY : HAVE YOU EVER DEVELOPED ANY TYPE OF REACTION DURING OR AFTER DENTAL APPOINTMENT, VAGINAL/RECTAL EXAMINATION, SURGICAL PROCEDURE, OR ANY OTHER EXPOSURE?NO LATEX RISK : HAVE YOU EVER HAD ANY DIFFICULTY BREATHING OR HIVES AFTER EATING OR HANDLING ANY FRUITS, OR VEGETABLES; SUCH KIWI, BANANAS, STONE FRUITS, OR CHESTNUTSNO LATEX RISK : DO YOU HAVE A PREVIOUS PERSONAL HISTORY OF MORE THAN NINE SURGERIES, SPINA BIFIDA, OR REPEATED CATHERTIZATIONS? YES - PLEASE INDICATE : > 9 SURGERIES LATEX RISK : ARE YOU FREQUENTLY EXPOSED TO LATEX PRODUCTS IN YOUR OCCUPATION?NO DATE ASKED : 08/20/2018 CAFFEINE CAFFEINE USE?YES HOW OFTEN AND HOW MUCH? 2 CUPS OF COFFEE PER WEEK ADVANCE DIRECTIVE ADVANCE DIRECTIVE DISCUSSED WITH PATIENT:YES PT STATES HE HAS A HCP --LUCÍA [phone] ASKED TO BRING A COPY IN. REMINDED PT BRING IN COPY. YARSANISM [id number] TAOIST MARITAL STATUS: . ALCOHOL SCREENING DID YOU HAVE A DRINK CONTAINING ALCOHOL IN THE PAST YEAR?NO POINTS0 INTERPRETATIONNEGATIVE OCCUPATION: UNEMPLOYED. 04/02/18 1048 REVIEWED WITH PT. AD 06/28/18 1455 REVIEWED WITH PT LAS 08/20/18 REVIEWED WITH PT. AD. HOSPITALIZATION/MAJOR DIAGNOSTIC PROCEDURE [facility] 12/09/2012 TONSILLECTOMY 1982 [facility] - PNEUMONIA 06/2015 [facility] - TIA 03/2016 REVIEW OF SYSTEMS REVIEWED BY: PROVIDER: LING ZAPATA . CONSTITUTIONAL: ANY CHANGE IN YOUR MEDICAL CONDITION? NO . CHILLS NO . FEVER NO . INFECTION: DO YOU HAVE NEW INFECTIONS? NO . DO YOU HAVE HISTORY OF MRSA? NO . MUSCULOSKELETAL: ANY NEW PATTERNS OF PAIN OR NUMBNESS? NO . GASTROENTEROLOGY: ANY NEW CHANGE IN BOWEL CONTROL? NO . GENITOURINARY: ANY NEW CHANGE IN BLADDER CONTROL? NO . IS THERE A CHANCE YOU COULD BE ? NO . HEMATOLOGY/LYMPH: DO YOU TAKE ANY BLOOD THINNERS? (FOR EXAMPLE- COUMADIN, PLAVIX, AGGRENOX, PLATEL, PRADAXA, OR XARELTO) NO . WHEN WAS YOUR LAST DOSE? DATE: TIME: . NEUROLOGY: HAVE YOU FALLEN IN THE PAST 12 MONTHS? YES, PRIOR TO LAST VISIT . ANY NEW EXTREMITY NUMBNESS OR WEAKNESS? NO . CARDIOLOGY: DO YOU HAVE A PACEMAKER OR DEFIBRILLATOR? NO . RESPIRATORY: HAVE YOU BEEN SICK IN THE PAST WEEK? NO . FEVER NO . FLU LIKE SYMPTOMS? NO . COUGH NO . INTEGUMENTARY: DO YOU HAVE ANY RASHES OR OPEN SORES? NO . ALLERGIC/IMMUNO: ARE YOU ALLERGIC TO IV DYE? NO . ANY NEW ALLERGIES? NO . PSYCHIATRIC: DO YOU HAVE THOUGHTS OF HURTING YOURSELF OR SOMEONE ELSE? NO . ARE YOU ABUSED, NEGLECTED, OR IN AN UNSAFE ENVIRONMENT? NO . ENDOCRINOLOGY: ARE YOU DIABETIC? YES . OTHER: DO YOU NEED ANY PRESCRIPTIONS? NO . IF YES, PLEASE LIST: ____ . ANY NEW PROBLEMS WITH YOUR MEDICATIONS? NO . WHEN DID YOU LAST EAT? ____ . WHEN DID YOU LAST DRINK? ____ . WHAT DID YOU LAST DRINK? ____ . NAME OF PERSON DRIVING YOU HOME? ____ . DO YOU HAVE ANY OTHER QUESTIONS OR CONCERNS NO . VITAL SIGNS WT 281 LBS, HT 70 IN, BMI 40.31 INDEX, BP 125/74 MM HG, HR 83 /MIN, RR 18 /MIN, TEMP 98.1 F, OXYGEN SAT % 97%, NA INITIALS SC 11:44, REVIEWED BY: EM. EXAMINATION GENERAL EXAMINATION: GENERAL APPEARANCE: ALERT,NO DISTRESS . PSYCH AFFECT NORMAL . LUNGS: LUNG SOUNDS ARE CLEAR . HEART: HEART RATE REGULAR . MUSCULOSKELETAL: MST 5/5 BILAT. LOWER EXTREMITIES . LUMBAR SACRAL SPINE TENDERNESS LEFT . SIJ . DIAGNOSTIC TESTS REVIEWEDMRI L/S SPINE-08/30/18. 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 PROCEDURE CODES FA211 ESTABILISHED PATIENT [facility] CHARGE DISPOSITION & COMMUNICATION FOLLOW UP POST (REASON: LEFT SIJ) ELECTRONICALLY SIGNED BY JODI COLON ON 10/14/2018 AT 11:35 AM EDT DISCLAIMER : THIS IS A VISIT SUMMARY EXTRACTED FROM THE [facility] CHART. IT IS NOT A COPY OF THE [facility] PROGRESS NOTE. MICK
== END ==
LOC: M PAIN 10:45
PROVIDERS: ATTEND Nurse Practitioner Family
DX: M53.3 Sacrococcygeal disorders, not elsewhere classified (principal); I10 Essential (primary) hypertension; K21.9 Gastro-esophageal reflux disease without esophagitis; G47.33 Obstructive sleep apnea (adult) (pediatric); E11.9 Type 2 diabetes mellitus without complications; M17.0 Bilateral primary osteoarthritis of knee; E78.5 Hyperlipidemia, unspecified; Z98.84 Bariatric surgery status; E66.01 Morbid (severe) obesity due to excess calories; Z68.41 Body mass index [BMI] 40.0-44.9, adult; Z79.82 Long term (current) use of aspirin; Z79.84 Long term (current) use of oral hypoglycemic drugs; Z79.899 Other long term (current) drug therapy

== ENCOUNTER → 2018-11-20 | Outpatient (CLI) | payer MEDICARE, MEDICAID ==
[~2018-11-20] MED LIST changes: +BUPIVACAINE HCL 0.25% 30 ML VIAL As Ordered ONE; +LIDOCAINE 1% SDV INJ 30 ML VIAL As Ordered ONE; +TRIAMCINOLONE ACETONIDE SUSP 40 MG/ML VIAL (J3301) As Ordered ONE; +diazePAM 5 MG TAB As Ordered ONE; +oxyCODONE 5MG TAB As Ordered ONE
--- NOTE | 2018-11-20 10:33 | REP ---
Left SI joint series: Four views. History: Injection procedure for pain. 15 seconds of fluoroscopy time is reported. Findings: A sequence of four last image hold fluoroscopically obtained spot radiographs of the left SI joint document needle position associated with SI joint injection procedure. Electronically Signed by Arnie Sauceda MD 11/20/2018 10:44 A
--- NOTE | 2018-11-23 00:44 | ECWPNPC ---
PATIENT NAME: ABHAY ORNELAS : 1975 GENDER: MALE VISIT DATE: 11/20/2018 DISCHARGE DATE: 11/20/18954 VISIT LOCKED DATE TIME: PHYSICIAN: SILVINA MITTAL MD RESOURCE: SILVINA MITTAL MD REASON FOR APPOINTMENT 1. LEFT SIJ HISTORY OF PRESENT ILLNESS HISTORY OF PRESENT ILLNESS: PAIN THE PATIENT DESCRIBES THE PAIN... FALL RISK SCREENING: SCREENING :NO FALLS REPORTED IN THE LAST YEAR CURRENT MEDICATIONS TAKING OMEPRAZOLE 40 MG CAPSULE DELAYED RELEASE 1 CAPSULE ORALLY TWICE A DAY, NOTES: 11/19 AM TAKING ASPIR-81 81 MG TABLET DELAYED RELEASE 1 TABLET ORALLY ONCE A DAY, NOTES: 11/19 PM TAKING ACCU-CHEK QUINCY PLUS W/DEVICE KIT DIRECTED SUBCUTANEOUSLY BID TESTING TAKING ACCU-CHEK QUINCY PLUS - STRIP DIRECTED IN VITRO BID TESTING TAKING ALCOHOL PADS 70 % PAD DIRECTED TOPICALLY BID TESTING TAKING ACCU-CHEK SOFTCLIX LANCET DEV - KIT DIRECTED _ BID TESTING TAKING ACCU-CHEK SOFTCLIX LANCETS - MISCELLANEOUS DIRECTED _ BID TESTING TAKING METFORMIN HCL 1000 MG TABLET 1 TABLET WITH MEALS ORALLY TWICE A DAY, NOTES: 11/19 5:30PM TAKING ATORVASTATIN CALCIUM 40 MG TABLET 1 TABLET ORALLY ONCE A DAY, NOTES: 11/19 PM TAKING LISINOPRIL 10 MG TABLET 1 TABLET ORALLY ONCE A DAY, NOTES: 11/19 AM TAKING GLIPIZIDE ER 10 MG TABLET EXTENDED RELEASE 24 HOUR 1 TABLET ORALLY BID PRIOR TO BREAKFAST AND DINNER, NOTES: 11/19 530PM TAKING GABAPENTIN 300 MG CAPSULE 1 CAPSULE ORALLY THREE TIMES DAILY, NOTES: 11/19 PM TAKING IPRATROPIUM-ALBUTEROL 0.5-2.5 (3) MG/3ML SOLUTION 3 ML PRN DX J44.9 INHALATION EVERY 6 HRS TAKING TRULICITY 0.75 MG/0.5ML SOLUTION PEN-INJECTOR DIRECTED SUBCUTANEOUS , NOTES: LAST SUNDAY NOT-TAKING ALBUTEROL SULFATE HFA 108 (90 BASE) MCG/ACT AEROSOL SOLUTION 2 PUFFS NEEDED INHALATION EVERY 4 HRS, NOTES: 2 YEARS AGO MEDICATION LIST REVIEWED AND RECONCILED WITH THE PATIENT PAST MEDICAL HISTORY HYPERTENSION OBESITY ESOPHAGEAL REFLUX OBSTRUCTIVE SLEEP APNEA, 9 CM WATER TYPE II DIABETIC OSTEOARTHRITIS OF BOTH KNEES PAIN IN JOINT, SHOULDER REGION UNSPECIFIED INTERNAL DERANGEMENT OF KNEE ALLERGIC RHINITIS POSITIVE URINE DRUG SCREEN FOR MARIJUANA, PATIENT DENIES USE HYPERLIPIDEMIA HYPERTENSION MORBID OBESITY STATUS POST BYPASS 2012 WITH REGAINING OF WEIGHT 03/09/2016 TIA ALLERGIES ENVIRONMENTAL: ALLERGY SURGICAL HISTORY TONSILLECTOMY AT AGE 7 ARTHROSCOPIC KNEE SURGERY L - DR Brett ROLLINS 11/14 GASTRIC BYPASS SURGERY 12/09/12 RIGHT SHOULDER SURGERY @ SOS 11/2013 LEFT SHOULDER SURGERY @ SOS 12/2013 LUMP REMOVED FROM RIGHT SHOULDER DR. SCOTT 03/2014 RIGHT CARPAL TUNNEL /ELBOW 2016 LOOP RECORDER 09/2016 LEFT KNEE ARTHROSCOPIC --2017 REMOVAL OF CYST RIGHT LEG 08/2018 FAMILY HISTORY FATHER: ALIVE, DIAGNOSED WITH DIABETES MOTHER: ALIVE 61 YRS, CANCER, DIABETES, HYPERTENSION SIBLINGS: ALIVE, PSYCHIATRIC CONDITIONS DAUGHTER(S): ALIVE 13 YRS MATERNAL GRAND MOTHER: , CANCER PATERNAL GRAND FATHER: OTHER PATERNAL GRAND MOTHER: OTHER 1DAUGHTER(S) - HEALTHY. MOM-OVARIAN CA\\NNO H\\\/O COLON\\\/PROSTATE\\\/LUNG CANCER. SON 4 HOURS AFTER DELIVERY AT 21 WEEKS GESTATION. SOCIAL HISTORY GENERAL: TOBACCO USE ARE YOU A:NONSMOKER OTHERS AT HOME: SPOUSE. HOUSING: RENTS APARTMENT. EDUCATION LEVEL OF EDUCATION:HIGH SCHOOL DIET: REGULAR. LANGUAGE LANGUAGES SPOKEN:YAKUT DOMESTIC VIOLENCE DO YOU FEEL SAFE IN YOUR ENVIRONMENT?YES RECREATIONAL DRUG USE DRUG USE?NO EXERCISE: WALKS. LEARNING BARRIERS / SPECIAL NEEDS BARRIERS TO LEARNING?NO HEARING IMPAIRED?NO VISION IMPAIRED?YES :CORRECTIVE LENSES COGNITIVELY IMPAIRED?NO READINESS TO LEARN?NO LEARNING PREFERENCES?YES :DEMONSTRATION/VERBAL INSTRUCTION LEARNING CAPABILITIES PRESENT?NO EMOTIONAL BARRIERS?NO PAIN CLINIC PFS, CLERGY, PUBLIC HEALTH REFERRALS PFS REFERRAL NEEDED?NO CLERGY REFERRAL NEEDED?NO PUBLIC HEALTH REFERRAL NEEDED?NO WAS THE PROVIDER NOTIFIED OF ANY PERTINENT INFO?YES N/A HAS THE PATIENT BEEN EDUCATED REGARDING HIS/HER PLAN OF CARE?YES HAS THE PATIENT BEEN EDUCATED REGARDING PAIN, THE RISK FOR PAIN, THE IMPORTANCE OF EFFECTIVE PAIN MANAGEMENT, AND THE PAIN ASSESSMENT PROCESS?YES LATEX QUESTIONNAIRE LATEX ALLERGY : HAVE YOU EVER DEVELOPED ANY TYPE OF REACTION AFTER HANDLING LATEX PRODUCTS SUCH RUBBER GLOVES, CONDOMS, DIAPHRAGMS, BALLOONS, SOCKS, OR UNDERWEAR?NO LATEX ALLERGY : HAVE YOU EVER DEVELOPED ANY TYPE OF REACTION DURING OR AFTER DENTAL APPOINTMENT, VAGINAL/RECTAL EXAMINATION, SURGICAL PROCEDURE, OR ANY OTHER EXPOSURE?NO LATEX RISK : HAVE YOU EVER HAD ANY DIFFICULTY BREATHING OR HIVES AFTER EATING OR HANDLING ANY FRUITS, OR VEGETABLES; SUCH KIWI, BANANAS, STONE FRUITS, OR CHESTNUTSNO LATEX RISK : DO YOU HAVE A PREVIOUS PERSONAL HISTORY OF MORE THAN NINE SURGERIES, SPINA BIFIDA, OR REPEATED CATHERIZATIONS? YES - PLEASE INDICATE : > 9 SURGERIES LATEX RISK : ARE YOU FREQUENTLY EXPOSED TO LATEX PRODUCTS IN YOUR OCCUPATION?NO DATE ASKED : 11/20/2018 CAFFEINE CAFFEINE USE?YES HOW OFTEN AND HOW MUCH? 2 CUPS OF COFFEE PER WEEK ADVANCE DIRECTIVE ADVANCE DIRECTIVE DISCUSSED WITH PATIENT:YES PT STATES HE HAS A HCP --LUCÍA [phone] ASKED TO BRING A COPY IN. REMINDED PT BRING IN COPY. YAZIDISM [id number] NONDENOMINATIONAL MARITAL STATUS: . ALCOHOL SCREENING DID YOU HAVE A DRINK CONTAINING ALCOHOL IN THE PAST YEAR?NO POINTS0 INTERPRETATIONNEGATIVE OCCUPATION: UNEMPLOYED. 04/02/18 1048 REVIEWED WITH PT. AD 06/28/18 1455 REVIEWED WITH PT LAS 08/20/18 REVIEWED WITH PT. AD. HOSPITALIZATION/MAJOR DIAGNOSTIC PROCEDURE [facility] BYPASS 12/09/2012 TONSILLECTOMY 1982 [facility] - PNEUMON[facility] 06/2015 [facility] - TIA 03/2016 REVIEW OF SYSTEMS REVIEWED BY: PROVIDER: . CONSTITUTIONAL: ANY CHANGE IN YOUR MEDICAL CONDITION? NO . CHILLS NO . FEVER NO . INFECTION: DO YOU HAVE NEW INFECTIONS? NO . DO YOU HAVE HISTORY OF MRSA? NO . MUSCULOSKELETAL: ANY NEW PATTERNS OF PAIN OR NUMBNESS? YES, INCREASED IN LEVEL OF PAIN . GASTROENTEROLOGY: ANY NEW CHANGE IN BOWEL CONTROL? NO . GENITOURINARY: ANY NEW CHANGE IN BLADDER CONTROL? NO . IS THERE A CHANCE YOU COULD BE ? NO . HEMATOLOGY/LYMPH: DO YOU TAKE ANY BLOOD THINNERS? (FOR EXAMPLE- COUMADIN, PLAVIX, AGGRENOX, PLATEL, PRADAXA, OR XARELTO) NO . WHEN WAS YOUR LAST DOSE? DATE: TIME: . NEUROLOGY: HAVE YOU FALLEN IN THE PAST 12 MONTHS? YES, PT STATES THAT HE WAS AT HOME, KNEE GAVE OUT AND FELL, NO INJURY, NO REPORT TO ED . ANY NEW EXTREMITY NUMBNESS OR WEAKNESS? NO . CARDIOLOGY: DO YOU HAVE A PACEMAKER OR DEFIBRILLATOR? NO . RESPIRATORY: HAVE YOU BEEN SICK IN THE PAST WEEK? NO . FEVER NO . FLU LIKE SYMPTOMS? NO . COUGH NO . INTEGUMENTARY: DO YOU HAVE ANY RASHES OR OPEN SORES? NO . ALLERGIC/IMMUNO: ARE YOU ALLERGIC TO IV DYE? NO . ANY NEW ALLERGIES? NO . PSYCHIATRIC: DO YOU HAVE THOUGHTS OF HURTING YOURSELF OR SOMEONE ELSE? NO . ARE YOU ABUSED, NEGLECTED, OR IN AN UNSAFE ENVIRONMENT? NO . ENDOCRINOLOGY: ARE YOU DIABETIC? YES, FSBS 137 . OTHER: DO YOU NEED ANY PRESCRIPTIONS? NO . IF YES, PLEASE LIST: ____ . ANY NEW PROBLEMS WITH YOUR MEDICATIONS? NO . WHEN DID YOU LAST EAT? 11/19 7:30PM . WHEN DID YOU LAST DRINK? 11/19 08:30PM . WHAT DID YOU LAST DRINK? WATER . NAME OF PERSON DRIVING YOU HOME? ____ . DO YOU HAVE ANY OTHER QUESTIONS OR CONCERNS LUCÍA . VITAL SIGNS WT 289.8 LBS, HT 70 IN, BMI 41.58 INDEX, BP 125/83 MM HG, HR 80 /MIN, RR 18 /MIN, TEMP 97.6 F, OXYGEN SAT % 97%, SAFE IN ENV? (Y/N) Y, NA INITIALS NE 08:36, REVIEWED BY: YAQUELIN. ASSESSMENTS SACROILIITIS, NOT ELSEWHERE CLASSIFIED - M46.1 (PRIMARY) PROCEDURES PN SI PRE PROCEDURE DIAGNOSIS SACROILIITIS, SACROILIAC JOINT DYSFUNCTION POST PROCEDURE DIAGNOSIS SACROILIITIS, SACROILIAC JOINT DYSFUNCTION PROCEDURE LEFT SACROILIAC JOINT BLOCK SURGEON DR. SILVINA MITTAL GEOSPATIAL TECHNICIAN NONE ANESTHESIA LOCAL PRE PROCEDURE NOTE PATIENT WITH HISTORY OF CHRONIC LOW BACK PAIN. I EVALUATED THE PATIENT AND REVIEWED THE CHART. I WENT OVER THE RISKS, ALTERNATIVES, AND BENEFITS ASSOCIATED WITH THIS PROCEDURE. THE PATIENT WOULD LIKE TO PROCEED AND GAVE CONSENT TO PERFORM THE PROCEDURE. THE PATIENT DENIES UNEXPLAINABLE WEIGHT LOSS, FEVER, CHILLS, OR NEW CHANGES IN URINARY OR BOWEL CONTROL DESCRIPTION OF PROCEDURE THE PATIENT WAS BROUGHT TO THE PROCEDURE ROOM AND PLACED IN THE PRONE POSITION. THE LUMBOSACRAL AREA WAS CLEANED WITH CHLORAPREP SOLUTION AND DRAPED ASEPTICALLY. THE PROCEDURE WAS DONE UNDER STERILE CONDITIONS. I CHECKED LATERALITY AND THE LEVEL WHERE THE PROCEDURE WAS GOING TO BE PERFORMED WITH THE PATIENT AND THE SUPPORTING STAFF AT THE MOMENT OF THE TIME OUT IN THE PROCEDURE ROOM. UNDER FLUOROSCOPIC GUIDANCE, TARGET POINT WAS SELECTED AT THE LOWER BORDER OF THE LEFT SACROILIAC JOINT. TARGET POINT WAS SELECTED AFTER MEDIAL ROTATION AND TILT OF THE MAGNIFIER OF THE C-ARM. LIDOCAINE WAS USED TO NUMB THE SKIN AND SUBCUTANEOUS TISSUE BELOW IT. A SPINAL NEEDLE, 22-GAUGE, WAS ADVANCED UNDER FLUOROSCOPIC GUIDANCE AND FOLLOWING PATIENT FEEDBACK UNTIL THE TARGET AREA WAS TOUCHED. THE POSITION OF THE NEEDLE WAS VERIFIED WITH AP AND LATERAL VIEWS. AFTER PROPER POSITION OF THE NEEDLE WAS ACHIEVED, ISOVUE M DYE WAS INJECTED SHOWING SPREAD OF THE DYE. THEN, A SOLUTION OF 20 MG OF KENALOG WAS INJECTED IN LEFT JOINT WITH 3 ML OF BUPIVACAINE 0.125%. THERE WAS NO EVIDENCE OF BLOOD, PARESTHESIA OR CEREBROSPINAL FLUID DURING THE PROCEDURE. THE PATIENT WAS SENT TO THE RECOVERY ROOM. THE PATIENT WAS MOVING THE EXTREMITIES AND DOING WELL. THERE WAS NO COMPLICATION DURING THE PROCEDURE. FLUOROSCOPY TIME WAS 15 SECONDS POST PROCEDURE NOTE THE PATIENT WILL BE SEEN IN A FOLLOW UP IN THE NEXT FEW WEEKS. INSTRUCTIONS WERE GIVEN, QUESTIONS WERE ANSWERED, AND THE PATIENT EXPRESSED UNDERSTANDING AND AGREED WITH THE PLAN. I, BETO GREEN, DOCUMENTED THE ABOVE INFORMATION ACTING A SCRIBE FOR DR. MITTAL. I HAVE REVIEWED THE ABOVE DOCUMENT, WRITTEN BY BETO ZAPATAIBVishnu AND I VERIFY THAT IT IS ACCURATE. DIAGNOSTIC IMAGING [facility] FLUORO GUIDANCE (PAIN)[id number] PROCEDURE CODES 6045F RADXPS IN END [id number] PXD [id number] INJECT SACROILIAC JOINT, MODIFIERS: LT DISPOSITION & COMMUNICATION FOLLOW UP 3 WEEKS ELECTRONICALLY SIGNED BY SILVINA MITTAL MD, MD ON 11/22/2018 AT 11:22 AM EDT DISCLAIMER : THIS IS A VISIT SUMMARY EXTRACTED FROM THE [employer] CHART. IT IS NOT A COPY OF THE [employer] PROGRESS NOTE. MTDD
== END ==
LOC: M PAIN 08:30
PROVIDERS: ATTEND Anesthesiology
DX: M46.1 Sacroiliitis, not elsewhere classified (principal); I10 Essential (primary) hypertension; E66.01 Morbid (severe) obesity due to excess calories; K21.9 Gastro-esophageal reflux disease without esophagitis; G47.33 Obstructive sleep apnea (adult) (pediatric); E11.9 Type 2 diabetes mellitus without complications; M17.0 Bilateral primary osteoarthritis of knee; J30.9 Allergic rhinitis, unspecified; E78.5 Hyperlipidemia, unspecified; Z68.41 Body mass index [BMI] 40.0-44.9, adult; Z86.73 Personal history of transient ischemic attack (TIA), and cerebral infarction without residual deficits; Z79.82 Long term (current) use of aspirin; Z79.4 Long term (current) use of insulin; Z79.899 Other long term (current) drug therapy; Z98.84 Bariatric surgery status
CPT/HCPCS: G0260; J3301

== ENCOUNTER → 2018-12-23 | Outpatient (CLI) | payer MEDICARE, MEDICAID ==
[~2018-12-23] MED LIST changes: -BUPIVACAINE HCL 0.25% 30 ML VIAL As Ordered ONE; -LIDOCAINE 1% SDV INJ 30 ML VIAL As Ordered ONE; -TRIAMCINOLONE ACETONIDE SUSP 40 MG/ML VIAL (J3301) As Ordered ONE; -diazePAM 5 MG TAB As Ordered ONE; -oxyCODONE 5MG TAB As Ordered ONE
--- NOTE | 2019-01-09 02:00 | ECWPNPC ---
PATIENT NAME: ABHAY ORNELAS : 1975 GENDER: MALE VISIT DATE: 12/23/2018 DISCHARGE DATE: 12/23/18 1436 VISIT LOCKED DATE TIME: PHYSICIAN: LING UHRLEY RESOURCE: LING HURLEY HISTORY OF PRESENT ILLNESS HISTORY OF PRESENT ILLNESS: ERE FOR POST PROCEDURE F/U.HAD LEFT SACROILLIAC BLOCK ON 11/20/18.REPORTING NO IMPROVEMENT.REPORTING NEW ONSET LEFT LEG NUMBNESS.RATING PAIN VAS 6/10.REVIEWED MRI AND DISCUSSED TREATMENT OPTIONS. PAIN THE PATIENT DESCRIBES THE PAIN... FALL RISK SCREENING: SCREENING :NO FALLS REPORTED IN THE LAST YEAR CURRENT MEDICATIONS TAKING OMEPRAZOLE 40 MG CAPSULE DELAYED RELEASE 1 CAPSULE ORALLY TWICE A DAY TAKING ASPIR-81 81 MG TABLET DELAYED RELEASE 1 TABLET ORALLY ONCE A DAY TAKING ACCU-CHEK QUINCY PLUS W/DEVICE KIT DIRECTED SUBCUTANEOUSLY BID TESTING TAKING ACCU-CHEK QUINCY PLUS - STRIP DIRECTED IN VITRO BID TESTING TAKING ALCOHOL PADS 70 % PAD DIRECTED TOPICALLY BID TESTING TAKING ACCU-CHEK SOFTCLIX LANCET DEV - KIT DIRECTED _ BID TESTING TAKING ACCU-CHEK SOFTCLIX LANCETS - MISCELLANEOUS DIRECTED _ BID TESTING TAKING METFORMIN HCL 1000 MG TABLET 1 TABLET WITH MEALS ORALLY TWICE A DAY TAKING ATORVASTATIN CALCIUM 40 MG TABLET 1 TABLET ORALLY ONCE A DAY TAKING LISINOPRIL 10 MG TABLET 1 TABLET ORALLY ONCE A DAY TAKING GLIPIZIDE ER 10 MG TABLET EXTENDED RELEASE 24 HOUR 1 TABLET ORALLY BID PRIOR TO BREAKFAST AND DINNER TAKING GABAPENTIN 300 MG CAPSULE 1 CAPSULE ORALLY THREE TIMES DAILY TAKING IPRATROPIUM-ALBUTEROL 0.5-2.5 (3) MG/3ML SOLUTION 3 ML PRN DX J44.9 INHALATION EVERY 6 HRS TAKING TRULICITY 0.75 MG/0.5ML SOLUTION PEN-INJECTOR DIRECTED SUBCUTANEOUS NOT-TAKING ALBUTEROL SULFATE HFA 108 (90 BASE) MCG/ACT AEROSOL SOLUTION 2 PUFFS NEEDED INHALATION EVERY 4 HRS, NOTES: 2 YEARS AGO MEDICATION LIST REVIEWED AND RECONCILED WITH THE PATIENT PAST MEDICAL HISTORY HYPERTENSION OBESITY ESOPHAGEAL REFLUX OBSTRUCTIVE SLEEP APNEA, 9 CM WATER TYPE II DIABETIC OSTEOARTHRITIS OF BOTH KNEES PAIN IN JOINT, SHOULDER REGION UNSPECIFIED INTERNAL DERANGEMENT OF KNEE ALLERGIC RHINITIS POSITIVE URINE DRUG SCREEN FOR MARIJUANA, PATIENT DENIES USE HYPERLIPIDEMIA HYPERTENSION MORBID OBESITY STATUS POST BYPASS 2012 WITH REGAINING OF WEIGHT 03/09/2016 TIA ALLERGIES ENVIRONMENTAL: ALLERGY SURGICAL HISTORY TONSILLECTOMY AT AGE 7 ARTHROSCOPIC KNEE SURGERY Amos - DR Brett ROLLINS 11/14 GASTRIC BYPASS SURGERY 12/09/12 RIGHT SHOULDER SURGERY @ SOS 11/2013 LEFT SHOULDER SURGERY @ SOS 12/2013 LUMP REMOVED FROM RIGHT SHOULDER DR. SCOTT 03/2014 RIGHT CARPAL TUNNEL /ELBOW 2016 LOOP RECORDER 09/2016 LEFT KNEE ARTHROSCOPIC --2017 REMOVAL OF CYST RIGHT LEG 08/2018 FAMILY HISTORY FATHER: ALIVE, DIAGNOSED WITH DIABETES MOTHER: ALIVE 61 YRS, HYPERTENSION, CANCER, DIABETES SIBLINGS: ALIVE, PSYCHIATRIC CONDITIONS DAUGHTER(S): ALIVE 13 YRS MATERNAL GRAND MOTHER: , CANCER PATERNAL GRAND FATHER: OTHER PATERNAL GRAND MOTHER: OTHER 1DAUGHTER(S) - HEALTHY. MOM-OVARIAN CA\\NNO H\\\/O COLON\\\/PROSTATE\\\/LUNG CANCER. SON 4 HOURS AFTER DELIVERY AT 21 WEEKS GESTATION. SOCIAL HISTORY GENERAL: TOBACCO USE ARE YOU A:NONSMOKER OTHERS AT HOME: SPOUSE. HOUSING: RENTS APARTMENT. EDUCATION LEVEL OF EDUCATION:HIGH SCHOOL DIET: REGULAR. LANGUAGE LANGUAGES SPOKEN:[place]ZAKH DOMESTIC VIOLENCE DO YOU FEEL SAFE IN YOUR ENVIRONMENT?YES RECREATIONAL DRUG USE DRUG USE?NO EXERCISE: WALKS. LEARNING BARRIERS / SPECIAL NEEDS BARRIERS TO LEARNING?NO HEARING IMPAIRED?NO VISION IMPAIRED?YES :CORRECTIVE LENSES COGNITIVELY IMPAIRED?NO READINESS TO LEARN?NO LEARNING PREFERENCES?YES :DEMONSTRATION/VERBAL INSTRUCTION LEARNING CAPABILITIES PRESENT?NO EMOTIONAL BARRIERS?NO PAIN CLINIC PFS, CLERGY, PUBLIC HEALTH REFERRALS PFS REFERRAL NEEDED?NO CLERGY REFERRAL NEEDED?NO PUBLIC HEALTH REFERRAL NEEDED?NO WAS THE PROVIDER NOTIFIED OF ANY PERTINENT INFO?YES N/A HAS THE PATIENT BEEN EDUCATED REGARDING HIS/HER PLAN OF CARE?YES HAS THE PATIENT BEEN EDUCATED REGARDING PAIN, THE RISK FOR PAIN, THE IMPORTANCE OF EFFECTIVE PAIN MANAGEMENT, AND THE PAIN ASSESSMENT PROCESS?YES LATEX QUESTIONNAIRE LATEX ALLERGY : HAVE YOU EVER DEVELOPED ANY TYPE OF REACTION AFTER HANDLING LATEX PRODUCTS SUCH RUBBER GLOVES, CONDOMS, DIAPHRAGMS, BALLOONS, SOCKS, OR UNDERWEAR?NO LATEX ALLERGY : HAVE YOU EVER DEVELOPED ANY TYPE OF REACTION DURING OR AFTER DENTAL APPOINTMENT, VAGINAL/RECTAL EXAMINATION, SURGICAL PROCEDURE, OR ANY OTHER EXPOSURE?NO LATEX RISK : HAVE YOU EVER HAD ANY DIFFICULTY BREATHING OR HIVES AFTER EATING OR HANDLING ANY FRUITS, OR VEGETABLES; SUCH KIWI, BANANAS, STONE FRUITS, OR CHESTNUTSNO LATEX RISK : DO YOU HAVE A PREVIOUS PERSONAL HISTORY OF MORE THAN NINE SURGERIES, SPINA BIFIDA, OR REPEATED CATHERIZATIONS? YES - PLEASE INDICATE : > 9 SURGERIES LATEX RISK : ARE YOU FREQUENTLY EXPOSED TO LATEX PRODUCTS IN YOUR OCCUPATION?NO DATE ASKED : 11/20/2018 CAFFEINE CAFFEINE USE?YES HOW OFTEN AND HOW MUCH? 2 CUPS OF COFFEE PER WEEK ADVANCE DIRECTIVE ADVANCE DIRECTIVE DISCUSSED WITH PATIENT:YES PT STATES HE HAS A HCP --LUCÍA [phone] ASKED TO BRING A COPY IN. REMINDED PT BRING IN COPY. CHURCH [id number] RASTAFARIAN MARITAL STATUS: . ALCOHOL SCREENING DID YOU HAVE A DRINK CONTAINING ALCOHOL IN THE PAST YEAR?NO POINTS0 INTERPRETATIONNEGATIVE OCCUPATION: UNEMPLOYED. 04/02/18 1048 REVIEWED WITH PT. AD 06/28/18 1455 REVIEWED WITH PT LAS 08/20/18 REVIEWED WITH PT. AD. HOSPITALIZATION/MAJOR DIAGNOSTIC PROCEDURE [facility] 12/09/2012 TONSILLECTOMY 1982 [facility] - PNEUMONIA 06/2015 [facility] - TIA 03/2016 REVIEW OF SYSTEMS REVIEWED BY: PROVIDER: LING ZAPATA . CONSTITUTIONAL: ANY CHANGE IN YOUR MEDICAL CONDITION? NO . CHILLS NO . FEVER NO . INFECTION: DO YOU HAVE NEW INFECTIONS? NO . DO YOU HAVE HISTORY OF MRSA? NO . MUSCULOSKELETAL: ANY NEW PATTERNS OF PAIN OR NUMBNESS? YES, IF HE LAYS ON HIS BACK HIS LEFT LEG GOES NUMB X 1-1 1/2 WEEKS . GASTROENTEROLOGY: ANY NEW CHANGE IN BOWEL CONTROL? NO . GENITOURINARY: ANY NEW CHANGE IN BLADDER CONTROL? NO . IS THERE A CHANCE YOU COULD BE ? NO . HEMATOLOGY/LYMPH: DO YOU TAKE ANY BLOOD THINNERS? (FOR EXAMPLE- COUMADIN, PLAVIX, AGGRENOX, PLATEL, PRADAXA, OR XARELTO) NO . WHEN WAS YOUR LAST DOSE? DATE: TIME: . NEUROLOGY: HAVE YOU FALLEN IN THE PAST 12 MONTHS? YES, PRIOR TO LAST VISIT . ANY NEW EXTREMITY NUMBNESS OR WEAKNESS? YES, LEFT LEG NUMBNESS WHEN LYING ON BACK . CARDIOLOGY: DO YOU HAVE A PACEMAKER OR DEFIBRILLATOR? NO . RESPIRATORY: HAVE YOU BEEN SICK IN THE PAST WEEK? NO . FEVER NO . FLU LIKE SYMPTOMS? NO . COUGH NO . INTEGUMENTARY: DO YOU HAVE ANY RASHES OR OPEN SORES? NO . ALLERGIC/IMMUNO: ARE YOU ALLERGIC TO IV DYE? NO . ANY NEW ALLERGIES? NO . PSYCHIATRIC: DO YOU HAVE THOUGHTS OF HURTING YOURSELF OR SOMEONE ELSE? NO . ARE YOU ABUSED, NEGLECTED, OR IN AN UNSAFE ENVIRONMENT? NO . ENDOCRINOLOGY: ARE YOU DIABETIC? YES . OTHER: DO YOU NEED ANY PRESCRIPTIONS? NO . IF YES, PLEASE LIST: ____ . ANY NEW PROBLEMS WITH YOUR MEDICATIONS? NO . WHEN DID YOU LAST EAT? ____ . WHEN DID YOU LAST DRINK? ____ . WHAT DID YOU LAST DRINK? ____ . NAME OF PERSON DRIVING YOU HOME? ____ . DO YOU HAVE ANY OTHER QUESTIONS OR CONCERNS NO . VITAL SIGNS WT 278.6 LBS, HT 70 IN, BMI 39.97 INDEX, BP 147/86 MM HG, HR 100 /MIN, RR 18 /MIN, TEMP 97.7 F, OXYGEN SAT % 98%, NA INITIALS AW 1410, REVIEWED BY: EM. EXAMINATION GENERAL EXAMINATION: LUNGS:LUNG SOUNDS ARE CLEAR. HEART:HEART RATE REGULAR. MUSCULOSKELETAL:*. LUMBAR SACRAL SPINEMUSCLE STRENGTH TESTING 5/5 BILATERAL, PALPATION: MILD TENDERNESS OVER L/S SPINE. SLE + AT 45 DEGREES BILAT. DIAGNOSTIC: . ASSESSMENTS PROTRUDED LUMBAR DISC - M51.26 (PRIMARY) LUMBAR RADICULOPATHY - M54.16 TREATMENT PROTRUDED LUMBAR DISC NOTES: L4/5 LESI. REFERRAL TO:[facility] REASON:NEW ONSET OF LEFT LEG NUMBNESS NOT RESPONDING TO LESI PROCEDURE CODES FA211 ESTABILISHED PATIENT [facility] FACILITY CHARGE DISPOSITION & COMMUNICATION FOLLOW UP POST (REASON: L4/5 LESI) ELECTRONICALLY SIGNED BY JODI COLON ON 01/08/2019 AT 04:10 PM EDT DISCLAIMER : THIS IS A VISIT SUMMARY EXTRACTED FROM THE [employer] CHART. IT IS NOT A COPY OF THE [employer] PROGRESS NOTE. MICK
== END ==
LOC: M PAIN 13:45
PROVIDERS: ATTEND Nurse Practitioner Family
DX: M51.26 Other intervertebral disc displacement, lumbar region (principal); M54.16 Radiculopathy, lumbar region; I10 Essential (primary) hypertension; K21.9 Gastro-esophageal reflux disease without esophagitis; G47.33 Obstructive sleep apnea (adult) (pediatric); E11.9 Type 2 diabetes mellitus without complications; M17.0 Bilateral primary osteoarthritis of knee; E78.5 Hyperlipidemia, unspecified; Z98.84 Bariatric surgery status; Z79.82 Long term (current) use of aspirin; Z79.84 Long term (current) use of oral hypoglycemic drugs; Z79.899 Other long term (current) drug therapy

== ENCOUNTER → 2019-02-05 | Outpatient (CLI) | payer MEDICARE, MEDICAID ==
[~2019-02-05] MED LIST changes: -AZIT500T2 PO; +AZIT500T5 PO; +ISOVUE-M 300 61% 15ML VIAL (Q9967) As Ordered ONE; +LIDOCAINE 1% SDV INJ 30 ML VIAL As Ordered ONE; -OMEP40CA2 PO; +OMEP40CA97 PO; +diazePAM 5 MG TAB As Ordered ONE; +methylPREDNISolone SUSP 40 MG/ML (DEPO-medrol) VIAL (J1030) As Ordered ONE; +oxyCODONE 5MG TAB As Ordered ONE
--- NOTE | 2019-02-05 13:16 | REP ---
Partial lumbar spine series: Four views . History: Injection procedure for pain. 10 seconds of fluoroscopy time is reported. Findings: A sequence of four fluoroscopically obtained last image hold procedural spot radiographs of the lumbar spine document needle position and contrast injection associated with injection procedure. Electronically Signed by Arnie Sauceda MD 02/05/2019 01:08 P
--- NOTE | 2019-02-24 11:41 | ECWPNPC ---
PATIENT NAME: ABHAY ORNELAS : 1975 GENDER: MALE VISIT DATE: 02/05/2019 DISCHARGE DATE: 02/05/19 1057 VISIT LOCKED DATE TIME: PHYSICIAN: SILVINA MITTAL MD RESOURCE: SILVINA MITTAL MD REASON FOR APPOINTMENT 1. L5-S1 LESI HISTORY OF PRESENT ILLNESS HISTORY OF PRESENT ILLNESS: PAIN THE PATIENT DESCRIBES THE PAIN... FALL RISK SCREENING: SCREENING :NO FALLS REPORTED IN THE LAST YEAR CURRENT MEDICATIONS TAKING OMEPRAZOLE 40 MG CAPSULE DELAYED RELEASE 1 CAPSULE ORALLY TWICE A DAY, NOTES: 1 WEEK AGO TAKING ASPIR-81 81 MG TABLET DELAYED RELEASE 1 TABLET ORALLY ONCE A DAY, NOTES: 02/04/19@2200 TAKING ACCU-CHEK QUINCY PLUS W/DEVICE KIT DIRECTED SUBCUTANEOUSLY BID TESTING TAKING ACCU-CHEK QUINCY PLUS - STRIP DIRECTED IN VITRO BID TESTING TAKING ALCOHOL PADS 70 % PAD DIRECTED TOPICALLY BID TESTING TAKING ACCU-CHEK SOFTCLIX LANCET DEV - KIT DIRECTED _ BID TESTING TAKING ACCU-CHEK SOFTCLIX LANCETS - MISCELLANEOUS DIRECTED _ BID TESTING TAKING METFORMIN HCL 1000 MG TABLET 1 TABLET WITH MEALS ORALLY TWICE A DAY, NOTES: 02/04/19@1900 TAKING ATORVASTATIN CALCIUM 40 MG TABLET 1 TABLET ORALLY ONCE A DAY, NOTES: 02/04/19190 TAKING LISINOPRIL 10 MG TABLET 1 TABLET ORALLY ONCE A DAY, NOTES: 02/04/19@0700 TAKING GLIPIZIDE ER 10 MG TABLET EXTENDED RELEASE 24 HOUR 1 TABLET ORALLY BID PRIOR TO BREAKFAST AND DINNER, NOTES: 02/04/19@1900 TAKING GABAPENTIN 300 MG CAPSULE 1 CAPSULE ORALLY THREE TIMES DAILY, NOTES: 02/04/19@2200 TAKING IPRATROPIUM-ALBUTEROL 0.5-2.5 (3) MG/3ML SOLUTION 3 ML PRN DX J44.9 INHALATION EVERY 6 HRS, NOTES: NONE RECENTLY TAKING TRULICITY 0.75 MG/0.5ML SOLUTION PEN-INJECTOR DIRECTED SUBCUTANEOUS , NOTES: 1 WEEK AGO DISCONTINUED ALBUTEROL SULFATE HFA 108 (90 BASE) MCG/ACT AEROSOL SOLUTION 2 PUFFS NEEDED INHALATION EVERY 4 HRS, NOTES: 2 YEARS AGO MEDICATION LIST REVIEWED AND RECONCILED WITH THE PATIENT PAST MEDICAL HISTORY HYPERTENSION OBESITY ESOPHAGEAL REFLUX OBSTRUCTIVE SLEEP APNEA, 9 CM WATER TYPE II DIABETIC OSTEOARTHRITIS OF BOTH KNEES PAIN IN JOINT, SHOULDER REGION UNSPECIFIED INTERNAL DERANGEMENT OF KNEE ALLERGIC RHINITIS POSITIVE URINE DRUG SCREEN FOR MARIJUANA, PATIENT DENIES USE HYPERLIPIDEMIA HYPERTENSION MORBID OBESITY STATUS POST BYPASS 2012 WITH REGAINING OF WEIGHT 03/09/2016 TIA ALLERGIES ENVIRONMENTAL: ALLERGY SURGICAL HISTORY TONSILLECTOMY AT AGE 7 ARTHROSCOPIC KNEE SURGERY Amos - DR Brett ROLLINS 11/14 GASTRIC BYPASS SURGERY 12/09/12 RIGHT SHOULDER SURGERY @ SOS 11/2013 LEFT SHOULDER SURGERY @ SOS 12/2013 LUMP REMOVED FROM RIGHT SHOULDER DR. 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 MOM-OVARIAN CA\\NNO H\\\/O COLON\\\/PROSTATE\\\/LUNG CANCER. SON 4 HOURS AFTER DELIVERY AT 21 WEEKS GESTATION. SOCIAL HISTORY GENERAL: TOBACCO USE ARE YOU A:NONSMOKER OTHERS AT HOME: SPOUSE. HOUSING: RENTS APARTMENT. EDUCATION LEVEL OF EDUCATION:HIGH SCHOOL DIET: REGULAR. LANGUAGE LANGUAGES SPOKEN:DJIBOUTIAN DOMESTIC VIOLENCE DO YOU FEEL SAFE IN YOUR ENVIRONMENT?YES RECREATIONAL DRUG USE DRUG USE?NO EXERCISE: WALKS. LEARNING BARRIERS / SPECIAL NEEDS BARRIERS TO LEARNING?NO HEARING IMPAIRED?NO VISION IMPAIRED?YES COGNITIVELY IMPAIRED?NO :CORRECTIVE LENSES READINESS TO LEARN?NO LEARNING PREFERENCES?YES :DEMONSTRATION/VERBAL INSTRUCTION LEARNING CAPABILITIES PRESENT?NO EMOTIONAL BARRIERS?NO PAIN CLINIC PFS, CLERGY, PUBLIC HEALTH REFERRALS PFS REFERRAL NEEDED?NO CLERGY REFERRAL NEEDED?NO PUBLIC HEALTH REFERRAL NEEDED?NO WAS THE PROVIDER NOTIFIED OF ANY PERTINENT INFO?YES N/A HAS THE PATIENT BEEN EDUCATED REGARDING HIS/HER PLAN OF CARE?YES HAS THE PATIENT BEEN EDUCATED REGARDING PAIN, THE RISK FOR PAIN, THE IMPORTANCE OF EFFECTIVE PAIN MANAGEMENT, AND THE PAIN ASSESSMENT PROCESS?YES LATEX QUESTIONNAIRE LATEX ALLERGY : HAVE YOU EVER DEVELOPED ANY TYPE OF REACTION AFTER HANDLING LATEX PRODUCTS SUCH RUBBER GLOVES, CONDOMS, DIAPHRAGMS, BALLOONS, SOCKS, OR UNDERWEAR?NO LATEX ALLERGY : HAVE YOU EVER DEVELOPED ANY TYPE OF REACTION DURING OR AFTER DENTAL APPOINTMENT, VAGINAL/RECTAL EXAMINATION, SURGICAL PROCEDURE, OR ANY OTHER EXPOSURE?NO LATEX RISK : HAVE YOU EVER HAD ANY DIFFICULTY BREATHING OR HIVES AFTER EATING OR HANDLING ANY FRUITS, OR VEGETABLES; SUCH KIWI, BANANAS, STONE FRUITS, OR CHESTNUTSNO LATEX RISK : DO YOU HAVE A PREVIOUS PERSONAL HISTORY OF MORE THAN NINE SURGERIES, SPINA BIFIDA, OR REPEATED CATHERIZATIONS? YES - PLEASE INDICATE : > 9 SURGERIES LATEX RISK : ARE YOU FREQUENTLY EXPOSED TO LATEX PRODUCTS IN YOUR OCCUPATION?NO DATE ASKED : 02/05/2019 CAFFEINE CAFFEINE USE?YES HOW OFTEN AND HOW MUCH? 2 CUPS OF COFFEE PER WEEK ADVANCE DIRECTIVE ADVANCE DIRECTIVE DISCUSSED WITH PATIENT:YES PT STATES HE HAS A HCP --LUCÍA [phone] ASKED TO BRING A COPY IN. REMINDED PT BRING IN COPY. MANDAEN [id number] DENOMINATIONAL MARITAL STATUS: . ALCOHOL SCREENING DID YOU HAVE A DRINK CONTAINING ALCOHOL IN THE PAST YEAR?NO POINTS0 INTERPRETATIONNEGATIVE OCCUPATION: UNEMPLOYED. 04/02/18 1048 REVIEWED WITH PT. AD 06/28/18 1455 REVIEWED WITH PT LAS 08/20/18 REVIEWED WITH PT. AD. HOSPITALIZATION/MAJOR DIAGNOSTIC PROCEDURE [facility] BYPASS 12/09/2012 TONSILLECTOMY 1982 [facility] - PNEUMONIA 06/2015 [facility] - TIA 03/2016 REVIEW OF SYSTEMS REVIEWED BY: PROVIDER: . CONSTITUTIONAL: ANY CHANGE IN YOUR MEDICAL CONDITION? NO . CHILLS NO . FEVER NO . INFECTION: DO YOU HAVE NEW INFECTIONS? NO . DO YOU HAVE HISTORY OF MRSA? NO . MUSCULOSKELETAL: ANY NEW PATTERNS OF PAIN OR NUMBNESS? NO . GASTROENTEROLOGY: ANY NEW CHANGE IN BOWEL CONTROL? NO . GENITOURINARY: ANY NEW CHANGE IN BLADDER CONTROL? NO . IS THERE A CHANCE YOU COULD BE ? NO . HEMATOLOGY/LYMPH: DO YOU TAKE ANY BLOOD THINNERS? (FOR EXAMPLE- COUMADIN, PLAVIX, AGGRENOX, PLATEL, PRADAXA, OR XARELTO) NO . WHEN WAS YOUR LAST DOSE? DATE: TIME: . NEUROLOGY: HAVE YOU FALLEN IN THE PAST 12 MONTHS? YES . ANY NEW EXTREMITY NUMBNESS OR WEAKNESS? NO . CARDIOLOGY: DO YOU HAVE A PACEMAKER OR DEFIBRILLATOR? NO . RESPIRATORY: HAVE YOU BEEN SICK IN THE PAST WEEK? NO . FEVER NO . FLU LIKE SYMPTOMS? NO . COUGH NO . INTEGUMENTARY: DO YOU HAVE ANY RASHES OR OPEN SORES? NO . ALLERGIC/IMMUNO: ARE YOU ALLERGIC TO IV DYE? NO . ANY NEW ALLERGIES? NO . PSYCHIATRIC: DO YOU HAVE THOUGHTS OF HURTING YOURSELF OR SOMEONE ELSE? NO . ARE YOU ABUSED, NEGLECTED, OR IN AN UNSAFE ENVIRONMENT? NO . ENDOCRINOLOGY: ARE YOU DIABETIC? YES . OTHER: DO YOU NEED ANY PRESCRIPTIONS? NO . IF YES, PLEASE LIST: ____ . ANY NEW PROBLEMS WITH YOUR MEDICATIONS? NO . WHEN DID YOU LAST EAT? ____02/04/19 . WHEN DID YOU LAST DRINK? ____06 . WHAT DID YOU LAST DRINK? ____WATER . NAME OF PERSON DRIVING YOU HOME? ____AMANDA . DO YOU HAVE ANY OTHER QUESTIONS OR CONCERNS NO . VITAL SIGNS WT 274.8 LBS, HT 70 IN, BMI 39.43 INDEX, BP 142/90 MM HG, HR 84 /MIN, RR 18 /MIN, TEMP 98.5 F, OXYGEN SAT % 98%, SAFE IN ENV? (Y/N) YES, NA INITIALS AW 0932, REVIEWED BY: VD. ASSESSMENTS INTERVERTEBRAL DISC DISORDERS WITH RADICULOPATHY, LUMBOSACRAL REGION - M51.17 (PRIMARY) PROCEDURES PRE PROCEDURE DIAGNOSIS LUMBOSACRAL DISC DISORDER WITH RADICULOPATHY POST PROCEDURE DIAGNOSIS LUMBOSACRAL DISC DISORDER WITH RADICULOPATHY PROCEDURE LUMBAR EPIDURAL STEROID INJECTION UNDER FLUOROSCOPIC GUIDANCE SURGEON DR. SILVINA MITTAL RCIS NONE ANESTHESIA LOCAL PRE PROCEDURE NOTE THE PATIENT HAS A HISTORY OF CHRONIC LOW BACK PAIN. I EVALUATED THE PATIENT AND REVIEWED THE CHART. I WENT OVER THE RISKS, ALTERNATIVES, AND BENEFITS ASSOCIATED WITH THIS PROCEDURE. THE PATIENT WOULD LIKE TO PROCEED AND GIVES CONSENT TO PERFORM THE PROCEDURE. THE PATIENT DENIES UNEXPLAINABLE WEIGHT LOSS, FEVER, CHILLS, OR NEW CHANGES IN URINARY OR BOWEL CONTROL. DESCRIPTION OF PROCEDURE THE PATIENT WAS BROUGHT TO THE PROCEDURE ROOM AND PLACED IN THE PRONE POSITION. THE LUMBOSACRAL AREA WAS CLEANED WITH BETADINE SOLUTION AND DRAPED ASEPTICALLY. THE PROCEDURE WAS DONE UNDER STERILE CONDITIONS. I CHECKED LATERALITY AND THE LEVEL WHERE THE PROCEDURE WAS GOING TO BE PERFORMED WITH THE PATIENT AND THE SUPPORTING STAFF AT THE MOMENT OF THE TIME OUT IN THE PROCEDURE ROOM. UNDER FLUOROSCOPIC GUIDANCE, THE TARGET POINT WAS SELECTED AT THE INTERLAMINAR LEVEL OF L5-S1. LIDOCAINE WAS USED TO NUMB THE SKIN AND THE SUBCUTANEOUS TISSUE BELOW IT. EPIDURAL TUOHY NEEDLE, 17-GAUGE, WAS ADVANCED UNDER FLUOROSCOPIC GUIDANCE AND FOLLOWING PATIENT FEEDBACK UNTIL THE EPIDURAL SPACE WAS REACHED, 7 CM DEEP INTO THE SKIN BY THE LOSS OF RESISTANCE TECHNIQUE. ISOVUE M DYE 30%, 0.25 ML, WAS INJECTED SHOWING ADEQUATE SPREAD OF THE DYE. THEN, A SOLUTION OF 3 ML OF NORMAL SALINE WITH DEPO-MEDROL 60 MG WAS INJECTED SLOWLY FOLLOWING PATIENT FEEDBACK. THERE WAS NO EVIDENCE OF BLOOD, PARESTHESIA OR CEREBROSPINAL FLUID DURING THE PROCEDURE. THE PATIENT WAS SENT TO THE RECOVERY ROOM. THE PATIENT WAS MOVING THE EXTREMITIES AND DOING WELL. THERE WAS NO COMPLICATION DURING THE PROCEDURE. FLUOROSCOPY TIME WAS 10 SECONDS. POST PROCEDURE NOTE THE PATIENT WILL BE SEEN IN A FOLLOW UP IN THE NEXT FEW WEEKS. INSTRUCTIONS WERE GIVEN, QUESTIONS WERE ANSWERED, AND THE PATIENT EXPRESSED UNDERSTANDING AND AGREES WITH THE PLAN. I, AMRIK LAWRENCE, DOCUMENTED THE ABOVE INFORMATION ACTING A SCRIBE FOR DR. MITTAL. I HAVE REVIEWED THE ABOVE DOCUMENT, WRITTEN BY AMRIK ROACH AND I VERIFY THAT IT IS ACCURATE. DIAGNOSTIC IMAGING [facility] FLUORO GUIDE SPINE INJECTION (PAIN)[id number] PROCEDURE CODES 18736 LUMBAR/SACRAL W/ IMAGING 6045F RADXPS IN END [id number] PXD DISPOSITION & COMMUNICATION FOLLOW UP 2 WEEKS ELECTRONICALLY SIGNED BY SILVINA MITTAL MD, MD ON 02/13/2019 AT 03:14 PM EDT DISCLAIMER : THIS IS A VISIT SUMMARY EXTRACTED FROM THE [employer] CHART. IT IS NOT A COPY OF THE [employer] PROGRESS NOTE. MTDD
== END ==
LOC: M PAIN 09:30
PROVIDERS: ATTEND Anesthesiology
DX: M51.17 Intervertebral disc disorders with radiculopathy, lumbosacral region (principal); I10 Essential (primary) hypertension; E66.9 Obesity, unspecified; Z68.39 Body mass index [BMI] 39.0-39.9, adult; K21.9 Gastro-esophageal reflux disease without esophagitis; G47.33 Obstructive sleep apnea (adult) (pediatric); E11.9 Type 2 diabetes mellitus without complications; M17.0 Bilateral primary osteoarthritis of knee; E78.5 Hyperlipidemia, unspecified; J30.9 Allergic rhinitis, unspecified; Z98.84 Bariatric surgery status; Z79.82 Long term (current) use of aspirin; Z79.84 Long term (current) use of oral hypoglycemic drugs; Z79.899 Other long term (current) drug therapy
CPT/HCPCS: 62323; J1030; Q9967

== ENCOUNTER → 2019-02-26 | Outpatient (CLI) | payer MEDICARE, MEDICAID ==
[~2019-02-26] MED LIST changes: -ISOVUE-M 300 61% 15ML VIAL (Q9967) As Ordered ONE; -LIDOCAINE 1% SDV INJ 30 ML VIAL As Ordered ONE; -diazePAM 5 MG TAB As Ordered ONE; -methylPREDNISolone SUSP 40 MG/ML (DEPO-medrol) VIAL (J1030) As Ordered ONE; -oxyCODONE 5MG TAB As Ordered ONE
--- NOTE | 2019-03-12 02:34 | ECWPNPC ---
PATIENT NAME: ABHAY ORNELAS : 1975 GENDER: MALE VISIT DATE: 02/26/2019 DISCHARGE DATE: 02/26/19 0946 VISIT LOCKED DATE TIME: PHYSICIAN: LING HURLEY RESOURCE: LING HURLEY REASON FOR APPOINTMENT 1. POST PROC HISTORY OF PRESENT ILLNESS HISTORY OF PRESENT ILLNESS: HERE FOR POST PROCDURE F/U.HAD LESI L5/S1-LEFT ON 02/05/19.REPORTING SIGNIFICANT REDUCTION IN LEFT LOW BACK AND LEFT LEG PAIN FROM 8/10 VAS TO 2/10VAS.PAIN CONTROL CONTINUES ON LEFT SIDE TODAY.PAST 2 DAYS RIGHT LOW BACK AND RIGHT LEG PAIN HAS RETURNED.RATING RIGHT LBP AND RIGHT LEG RADICULAR SYMPTOMS 8/10 VAS. PAIN THE PATIENT DESCRIBES THE PAIN... FALL RISK SCREENING: SCREENING :NO FALLS REPORTED IN THE LAST YEAR CURRENT MEDICATIONS TAKING OMEPRAZOLE 40 MG CAPSULE DELAYED RELEASE 1 CAPSULE ORALLY TWICE A DAY TAKING ASPIR-81 81 MG TABLET DELAYED RELEASE 1 TABLET ORALLY ONCE A DAY TAKING ACCU-CHEK QUINCY PLUS W/DEVICE KIT DIRECTED SUBCUTANEOUSLY BID TESTING TAKING ACCU-CHEK QUINCY PLUS - STRIP DIRECTED IN VITRO BID TESTING TAKING ALCOHOL PADS 70 % PAD DIRECTED TOPICALLY BID TESTING TAKING ACCU-CHEK SOFTCLIX LANCET DEV - KIT DIRECTED _ BID TESTING TAKING ACCU-CHEK SOFTCLIX LANCETS - MISCELLANEOUS DIRECTED _ BID TESTING TAKING METFORMIN HCL 1000 MG TABLET 1 TABLET WITH MEALS ORALLY TWICE A DAY TAKING ATORVASTATIN CALCIUM 40 MG TABLET 1 TABLET ORALLY ONCE A DAY TAKING LISINOPRIL 10 MG TABLET 1 TABLET ORALLY ONCE A DAY TAKING GLIPIZIDE ER 10 MG TABLET EXTENDED RELEASE 24 HOUR 1 TABLET ORALLY BID PRIOR TO BREAKFAST AND DINNER TAKING GABAPENTIN 600 MG TABLET 1 CAPSULE ORALLY THREE TIMES DAILY TAKING IPRATROPIUM-ALBUTEROL 0.5-2.5 (3) MG/3ML SOLUTION 3 ML PRN DX J44.9 INHALATION EVERY 6 HRS TAKING TRULICITY 0.75 MG/0.5ML SOLUTION PEN-INJECTOR DIRECTED SUBCUTANEOUS MEDICATION LIST REVIEWED AND RECONCILED WITH THE PATIENT PAST MEDICAL HISTORY HYPERTENSION OBESITY ESOPHAGEAL REFLUX OBSTRUCTIVE SLEEP APNEA, 9 CM WATER TYPE II DIABETIC OSTEOARTHRITIS OF BOTH KNEES PAIN IN JOINT, SHOULDER REGION UNSPECIFIED INTERNAL DERANGEMENT OF KNEE ALLERGIC RHINITIS POSITIVE URINE DRUG SCREEN FOR MARIJUANA, PATIENT DENIES USE HYPERLIPIDEMIA HYPERTENSION MORBID OBESITY STATUS POST BYPASS 2012 WITH REGAINING OF WEIGHT 03/09/2016 TIA ALLERGIES ENVIRONMENTAL: ALLERGY SURGICAL HISTORY TONSILLECTOMY AT AGE 7 ARTHROSCOPIC KNEE SURGERY Amos - DR Brett ROLLINS 11/14 GASTRIC BYPASS SURGERY 12/09/12 RIGHT SHOULDER SURGERY @ SOS 11/2013 LEFT SHOULDER SURGERY @ SOS 12/2013 LUMP REMOVED FROM RIGHT SHOULDER DR. SCOTT 03/2014 RIGHT CARPAL TUNNEL /ELBOW 2016 LOOP RECORDER 09/2016 LEFT KNEE ARTHROSCOPIC --2017 REMOVAL OF CYST RIGHT LEG 08/2018 FAMILY HISTORY FATHER: ALIVE, DIAGNOSED WITH DIABETES MOTHER: ALIVE 61 YRS, DIABETES, HYPERTENSION, OTHER MALIGNANT NEOPLASM OF UNSPECIFIED SITE SIBLINGS: ALIVE, UNSPECIFIED NONPSYCHOTIC MENTAL DISORDER FOLLOWING ORGANIC BRAIN DAMAGE DAUGHTER(S): ALIVE 13 YRS MATERNAL GRAND MOTHER: , OTHER MALIGNANT NEOPLASM OF UNSPECIFIED SITE PATERNAL GRAND FATHER: OTHER SPECIFIED CONDITIONS INFLUENCING HEALTH STATUS PATERNAL GRAND MOTHER: OTHER SPECIFIED CONDITIONS INFLUENCING HEALTH STATUS 1DAUGHTER(S) - HEALTHY. MOM-OVARIAN CA\\NNO H\\\/O COLON\\\/PROSTATE\\\/LUNG CANCER. SON 4 HOURS AFTER DELIVERY AT 21 WEEKS GESTATION. SOCIAL HISTORY GENERAL: TOBACCO USE ARE YOU A:NONSMOKER OTHERS AT HOME: SPOUSE. HOUSING: RENTS APARTMENT. EDUCATION LEVEL OF EDUCATION:HIGH SCHOOL DIET: REGULAR. LANGUAGE LANGUAGES SPOKEN:MONGOLIAN DOMESTIC VIOLENCE DO YOU FEEL SAFE IN YOUR ENVIRONMENT?YES RECREATIONAL DRUG USE DRUG USE?NO EXERCISE: WALKS. LEARNING BARRIERS / SPECIAL NEEDS BARRIERS TO LEARNING?NO HEARING IMPAIRED?NO VISION IMPAIRED?YES COGNITIVELY IMPAIRED?NO :CORRECTIVE LENSES READINESS TO LEARN?NO LEARNING PREFERENCES?YES :DEMONSTRATION/VERBAL INSTRUCTION LEARNING CAPABILITIES PRESENT?NO EMOTIONAL BARRIERS?NO PAIN CLINIC PFS, CLERGY, PUBLIC HEALTH REFERRALS PFS REFERRAL NEEDED?NO CLERGY REFERRAL NEEDED?NO PUBLIC HEALTH REFERRAL NEEDED?NO WAS THE PROVIDER NOTIFIED OF ANY PERTINENT INFO?YES N/A HAS THE PATIENT BEEN EDUCATED REGARDING HIS/HER PLAN OF CARE?YES HAS THE PATIENT BEEN EDUCATED REGARDING PAIN, THE RISK FOR PAIN, THE IMPORTANCE OF EFFECTIVE PAIN MANAGEMENT, AND THE PAIN ASSESSMENT PROCESS?YES LATEX QUESTIONNAIRE LATEX ALLERGY : HAVE YOU EVER DEVELOPED ANY TYPE OF REACTION AFTER HANDLING LATEX PRODUCTS SUCH RUBBER GLOVES, CONDOMS, DIAPHRAGMS, BALLOONS, SOCKS, OR UNDERWEAR?NO LATEX ALLERGY : HAVE YOU EVER DEVELOPED ANY TYPE OF REACTION DURING OR AFTER DENTAL APPOINTMENT, VAGINAL/RECTAL EXAMINATION, SURGICAL PROCEDURE, OR ANY OTHER EXPOSURE?NO DATE ASKED : 02/05/2019 LATEX RISK : HAVE YOU EVER HAD ANY DIFFICULTY BREATHING OR HIVES AFTER EATING OR HANDLING ANY FRUITS, OR VEGETABLES; SUCH KIWI, BANANAS, STONE FRUITS, OR CHESTNUTSNO LATEX RISK : DO YOU HAVE A PREVIOUS PERSONAL HISTORY OF MORE THAN NINE SURGERIES, SPINA BIFIDA, OR REPEATED CATHERIZATIONS? YES - PLEASE INDICATE : > 9 SURGERIES LATEX RISK : ARE YOU FREQUENTLY EXPOSED TO LATEX PRODUCTS IN YOUR OCCUPATION?NO CAFFEINE CAFFEINE USE?YES HOW OFTEN AND HOW MUCH? 2 CUPS OF COFFEE PER WEEK ADVANCE DIRECTIVE ADVANCE DIRECTIVE DISCUSSED WITH PATIENT:YES PT STATES HE HAS A HCP --LUCÍA [phone] ASKED TO BRING A COPY IN. REMINDED PT BRING IN COPY. [facility] [id number] LATTER-DAY MARITAL STATUS: . ALCOHOL SCREENING DID YOU HAVE A DRINK CONTAINING ALCOHOL IN THE PAST YEAR?NO POINTS0 INTERPRETATIONNEGATIVE OCCUPATION: UNEMPLOYED. 04/02/18 1048 REVIEWED WITH PT. AD 06/28/18 1455 REVIEWED WITH PT LAS 08/20/18 REVIEWED WITH PT. AD REVIEWED WITH PATIENT 02/26/19 0910 NLJ. HOSPITALIZATION/MAJOR DIAGNOSTIC PROCEDURE [facility] BYPASS 12/09/2012 TONSILLECTOMY 1982 [facility] - PNEUMONIA 06/2015 [facility] - TIA 03/2016 REVIEW OF SYSTEMS REVIEWED BY: PROVIDER: LING ZAPATA . CONSTITUTIONAL: ANY CHANGE IN YOUR MEDICAL CONDITION? NO . CHILLS NO . FEVER NO . INFECTION: DO YOU HAVE NEW INFECTIONS? NO . DO YOU HAVE HISTORY OF MRSA? NO . MUSCULOSKELETAL: ANY NEW PATTERNS OF PAIN OR NUMBNESS? YES- STATES LEFT THEODORAI WORKED WELL AND HE CONTINUES TO FEEL RELIEF FROM PAIN IN THAT SIDE, STATES HE NOW FEELS PAIN ON RIGHT SIDE THAT HE HAS NOT FELT IN ABOUT 4 MONTHS . GASTROENTEROLOGY: ANY NEW CHANGE IN BOWEL CONTROL? NO . GENITOURINARY: ANY NEW CHANGE IN BLADDER CONTROL? NO . IS THERE A CHANCE YOU COULD BE ? NO . HEMATOLOGY/LYMPH: DO YOU TAKE ANY BLOOD THINNERS? (FOR EXAMPLE- COUMADIN, PLAVIX, AGGRENOX, PLATEL, PRADAXA, OR XARELTO) NO . WHEN WAS YOUR LAST DOSE? DATE: TIME: . NEUROLOGY: HAVE YOU FALLEN IN THE PAST 12 MONTHS? NO- NO FALLS SINCE LAST VISIT . ANY NEW EXTREMITY NUMBNESS OR WEAKNESS? NO . CARDIOLOGY: DO YOU HAVE A PACEMAKER OR DEFIBRILLATOR? NO . RESPIRATORY: HAVE YOU BEEN SICK IN THE PAST WEEK? NO . FEVER NO . FLU LIKE SYMPTOMS? NO . COUGH NO . INTEGUMENTARY: DO YOU HAVE ANY RASHES OR OPEN SORES? NO . ALLERGIC/IMMUNO: ARE YOU ALLERGIC TO IV DYE? NO . ANY NEW ALLERGIES? NO . PSYCHIATRIC: DO YOU HAVE THOUGHTS OF HURTING YOURSELF OR SOMEONE ELSE? NO . ARE YOU ABUSED, NEGLECTED, OR IN AN UNSAFE ENVIRONMENT? NO . ENDOCRINOLOGY: ARE YOU DIABETIC? YES . OTHER: DO YOU NEED ANY PRESCRIPTIONS? NO . IF YES, PLEASE LIST: ____ . ANY NEW PROBLEMS WITH YOUR MEDICATIONS? NO . WHEN DID YOU LAST EAT? ____ . WHEN DID YOU LAST DRINK? ____ . WHAT DID YOU LAST DRINK? ____ . NAME OF PERSON DRIVING YOU HOME? ____ . DO YOU HAVE ANY OTHER QUESTIONS OR CONCERNS YES- STATES THAT THE LEFT LESI WORKED VERY WELL AND HE CONTINUES TO FEEL RELIEF, STATES HE NOW FEELS PAIN ON HIS RIGHT SIDE AND WOULD LIKE TO HAVE RIGHT LESI DONE . VITAL SIGNS WT 280 LBS, HT 70 IN, BMI 40.17 INDEX, BP 139/83 MM HG, HR 74 /MIN, RR 18 /MIN, TEMP 97.4 F, OXYGEN SAT % 100%, SAFE IN ENV? (Y/N) YES, NA INITIALS RI 09:17, REVIEWED BY: ANN. EXAMINATION GENERAL EXAMINATION: GENERAL AWAKE,ALERT ,PLEASANT . PSYCH AFFECT NORMAL . LUNGS: LUNG WOODS ARE CLEAR TO AUSCULTATION BILATERALLY. GOOD MOVEMENT OF AIR . HEART: S1, S2 IN A REGULAR RATE AND RHYTHM. NO SIGNIFICANT MURMURS, RUBS OR GALLOPS NOTED . MUSCULOSKELETAL: WEAK OVER RIGHT LEG. LUMBAR SACRAL SPINE PALPATION: + FOR PAIN OVER L/S SPINE. + FOR PAIN OVER RIGHT L/S PARASPINALS POSITIVE SLE RIGHT-POSITIVE CALE TEST RIGHT. NEUROLOGIC EXAM: NORMAL SENSATION LIGHT TOUCH BILAT. LOWER EXTREMITIES. DIAGNOSTIC TESTS REVIEWED MRI L/S SPINE-08/30/18. ASSESSMENTS INTERVERTEBRAL DISC DISORDERS WITH RADICULOPATHY, LUMBOSACRAL REGION - M51.17 (PRIMARY) TREATMENT INTERVERTEBRAL DISC DISORDERS WITH RADICULOPATHY, LUMBOSACRAL REGION NOTES: RIGHT L5/S1 LESI W CATH. PREVENTIVE MEDICINE PAIN CLINIC TEACHING: PROCEDURE TEACHING REVIEWED INFORMATION ON LUMBAR EPIDURAL STEROID INJECTION. ALSO REVIEWED PRE-PROCEDURE INSTRUCTIONS. PATIENT VERBALIZED AN UNDERSTANDING. DANIKA HO 02/26/2019 9:46:59 AM > . PROCEDURE CODES FA211 ESTABILISHED PATIENT [facility] CHARGE DISPOSITION & COMMUNICATION FOLLOW UP POST (REASON: RIGHT L5/S1 LESI W CATH) ELECTRONICALLY SIGNED BY JODI COLON ON 03/11/2019 AT 02:56 PM EST DISCLAIMER : THIS IS A VISIT SUMMARY EXTRACTED FROM THE [employer] CHART. IT IS NOT A COPY OF THE [employer] PROGRESS NOTE. MICK
== END ==
LOC: M PAIN 09:00
PROVIDERS: ATTEND Nurse Practitioner Family
DX: M51.17 Intervertebral disc disorders with radiculopathy, lumbosacral region (principal); I10 Essential (primary) hypertension; K21.9 Gastro-esophageal reflux disease without esophagitis; G47.33 Obstructive sleep apnea (adult) (pediatric); E11.9 Type 2 diabetes mellitus without complications; E78.5 Hyperlipidemia, unspecified; Z86.73 Personal history of transient ischemic attack (TIA), and cerebral infarction without residual deficits; Z98.84 Bariatric surgery status; E66.01 Morbid (severe) obesity due to excess calories; Z68.41 Body mass index [BMI] 40.0-44.9, adult; Z79.82 Long term (current) use of aspirin; Z79.84 Long term (current) use of oral hypoglycemic drugs; Z79.899 Other long term (current) drug therapy

== ENCOUNTER → 2019-03-27 | Outpatient (CLI) | payer MEDICARE, MEDICAID ==
[~2019-03-27] MED LIST changes: +ISOVUE-M 300 61% 15ML VIAL (Q9967) As Ordered ONE; +LIDOCAINE 1% SDV INJ 30 ML VIAL As Ordered ONE; +methylPREDNISolone SUSP 40 MG/ML (DEPO-medrol) VIAL (J1030) As Ordered ONE
--- NOTE | 2019-03-27 11:27 | REP ---
Two fluoroscopic images: 03/27/2019. Indication: Operative/procedural guidance. Comparison: 02/05/2019. Findings: Two spot fluoroscopic images of the lower lumbar spine were obtained for operative/procedural guidance. Please see operative/procedural report for details. Impression: Fluoroscopy provided for operative/procedural guidance. 15 seconds fluoroscopy time was utilized. Electronically Signed by Edinson Henao DO 03/27/2019 11:18 A
--- NOTE | 2019-04-16 03:38 | ECWPNPC ---
PATIENT NAME: ABHAY ORNELAS : 1975 GENDER: MALE VISIT DATE: 03/27/2019 DISCHARGE DATE: 03/27/19 1048 VISIT LOCKED DATE TIME: PHYSICIAN: SILVINA MITTAL MD RESOURCE: SILVINA MITTAL MD REASON FOR APPOINTMENT 1. L5/S1 LESI HISTORY OF PRESENT ILLNESS HISTORY OF PRESENT ILLNESS: PAIN THE PATIENT DESCRIBES THE PAIN... THE PATIENT DESCRIBES THE PAIN... PAIN THE PATIENT DESCRIBES THE PAIN... THE PATIENT DESCRIBES THE PAIN... FALL RISK SCREENING: SCREENING :NO FALLS REPORTED IN THE LAST YEAR :NO FALLS REPORTED IN THE LAST YEAR SCREENING :NO FALLS REPORTED IN THE LAST YEAR :NO FALLS REPORTED IN THE LAST YEAR CURRENT MEDICATIONS TAKING OMEPRAZOLE 40 MG CAPSULE DELAYED RELEASE 1 CAPSULE ORALLY TWICE A DAY, NOTES: 03-26-19 0900 TAKING ASPIR-81 81 MG TABLET DELAYED RELEASE 1 TABLET ORALLY ONCE A DAY, NOTES: 03-26-19 2100 TAKING ACCU-CHEK QUINCY PLUS W/DEVICE KIT DIRECTED SUBCUTANEOUSLY BID TESTING TAKING ACCU-CHEK QUINCY PLUS - STRIP DIRECTED IN VITRO BID TESTING TAKING ALCOHOL PADS 70 % PAD DIRECTED TOPICALLY BID TESTING TAKING ACCU-CHEK SOFTCLIX LANCET DEV - KIT DIRECTED _ BID TESTING TAKING ACCU-CHEK SOFTCLIX LANCETS - MISCELLANEOUS DIRECTED _ BID TESTING TAKING METFORMIN HCL 1000 MG TABLET 1 TABLET WITH MEALS ORALLY TWICE A DAY, NOTES: 03-26-19 1900 TAKING ATORVASTATIN CALCIUM 40 MG TABLET 1 TABLET ORALLY ONCE A DAY, NOTES: 03-26-19 2100 TAKING LISINOPRIL 10 MG TABLET 1 TABLET ORALLY ONCE A DAY, NOTES: 03-26-19899 TAKING GLIPIZIDE ER 10 MG TABLET EXTENDED RELEASE 24 HOUR 1 TABLET ORALLY BID PRIOR TO BREAKFAST AND DINNER, NOTES: 03-26-19 08 TAKING GABAPENTIN 600 MG TABLET 1 CAPSULE ORALLY THREE TIMES DAILY, NOTES: 03-26-19899 TAKING IPRATROPIUM-ALBUTEROL 0.5-2.5 (3) MG/3ML SOLUTION 3 ML PRN DX J44.9 INHALATION EVERY 6 HRS, NOTES: NOT LATELY TAKING TRULICITY 0.75 MG/0.5ML SOLUTION PEN-INJECTOR DIRECTED SUBCUTANEOUS , NOTES: WEEKLY LAST WEEK MEDICATION LIST REVIEWED AND RECONCILED WITH THE PATIENT PAST MEDICAL HISTORY HYPERTENSION OBESITY ESOPHAGEAL REFLUX OBSTRUCTIVE SLEEP APNEA, 9 CM WATER TYPE II DIABETIC OSTEOARTHRITIS OF BOTH KNEES PAIN IN JOINT, SHOULDER REGION UNSPECIFIED INTERNAL DERANGEMENT OF KNEE ALLERGIC RHINITIS POSITIVE URINE DRUG SCREEN FOR MARIJUANA, PATIENT DENIES USE HYPERLIPIDEMIA HYPERTENSION MORBID OBESITY STATUS POST BYPASS 2012 WITH REGAINING OF WEIGHT 03/09/2016 TIA ALLERGIES ENVIRONMENTAL: ALLERGY SURGICAL HISTORY TONSILLECTOMY AT AGE 7 ARTHROSCOPIC KNEE SURGERY Amos - DR Brett ROLLINS 11/14 GASTRIC BYPASS SURGERY 12/09/12 RIGHT SHOULDER SURGERY @ SOS 11/2013 LEFT SHOULDER SURGERY @ SOS 12/2013 LUMP REMOVED FROM RIGHT SHOULDER DR. SCOTT 03/2014 RIGHT CARPAL TUNNEL /ELBOW 2015 LOOP RECORDER 09/2016 LEFT KNEE ARTHROSCOPIC -2017 REMOVAL OF CYST RIGHT LEG 08/2018 FAMILY HISTORY FATHER: ALIVE, DIAGNOSED WITH DIABETES MOTHER: ALIVE 61 YRS, DIABETES, HYPERTENSION, OTHER MALIGNANT NEOPLASM OF UNSPECIFIED SITE SIBLINGS: ALIVE, UNSPECIFIED NONPSYCHOTIC MENTAL DISORDER FOLLOWING ORGANIC BRAIN DAMAGE DAUGHTER(S): ALIVE 13 YRS MATERNAL GRAND MOTHER: , OTHER MALIGNANT NEOPLASM OF UNSPECIFIED SITE PATERNAL GRAND FATHER: OTHER SPECIFIED CONDITIONS INFLUENCING HEALTH STATUS PATERNAL GRAND MOTHER: OTHER SPECIFIED CONDITIONS INFLUENCING HEALTH STATUS 1DAUGHTER(S) - HEALTHY. MOM-OVARIAN CA\\NNO H\\\/O COLON\\\/PROSTATE\\\/LUNG CANCER. SON 4 HOURS AFTER DELIVERY AT 21 WEEKS GESTATION. SOCIAL HISTORY GENERAL: TOBACCO USE ARE YOU A:NONSMOKER OTHERS AT HOME: SPOUSE. HOUSING: RENTS APARTMENT. EDUCATION LEVEL OF EDUCATION:HIGH SCHOOL DIET: REGULAR. LANGUAGE LANGUAGES SPOKEN:TURKISH DOMESTIC VIOLENCE DO YOU FEEL SAFE IN YOUR ENVIRONMENT?YES RECREATIONAL DRUG USE DRUG USE?NO EXERCISE: WALKS. LEARNING BARRIERS / SPECIAL NEEDS BARRIERS TO LEARNING?NO HEARING IMPAIRED?NO VISION IMPAIRED?YES COGNITIVELY IMPAIRED?NO :CORRECTIVE LENSES READINESS TO LEARN?NO LEARNING PREFERENCES?YES :DEMONSTRATION/VERBAL INSTRUCTION LEARNING CAPABILITIES PRESENT?NO EMOTIONAL BARRIERS?NO PAIN CLINIC PFS, CLERGY, PUBLIC HEALTH REFERRALS PFS REFERRAL NEEDED?NO CLERGY REFERRAL NEEDED?NO PUBLIC HEALTH REFERRAL NEEDED?NO WAS THE PROVIDER NOTIFIED OF ANY PERTINENT INFO?YES N/A HAS THE PATIENT BEEN EDUCATED REGARDING HIS/HER PLAN OF CARE?YES HAS THE PATIENT BEEN EDUCATED REGARDING PAIN, THE RISK FOR PAIN, THE IMPORTANCE OF EFFECTIVE PAIN MANAGEMENT, AND THE PAIN ASSESSMENT PROCESS?YES LATEX QUESTIONNAIRE LATEX ALLERGY : HAVE YOU EVER DEVELOPED ANY TYPE OF REACTION AFTER HANDLING LATEX PRODUCTS SUCH RUBBER GLOVES, CONDOMS, DIAPHRAGMS, BALLOONS, SOCKS, OR UNDERWEAR?NO LATEX ALLERGY : HAVE YOU EVER DEVELOPED ANY TYPE OF REACTION DURING OR AFTER DENTAL APPOINTMENT, VAGINAL/RECTAL EXAMINATION, SURGICAL PROCEDURE, OR ANY OTHER EXPOSURE?NO DATE ASKED : 02/05/2019 LATEX RISK : HAVE YOU EVER HAD ANY DIFFICULTY BREATHING OR HIVES AFTER EATING OR HANDLING ANY FRUITS, OR VEGETABLES; SUCH KIWI, BANANAS, STONE FRUITS, OR CHESTNUTSNO LATEX RISK : DO YOU HAVE A PREVIOUS PERSONAL HISTORY OF MORE THAN NINE SURGERIES, SPINA BIFIDA, OR REPEATED CATHERIZATIONS? YES - PLEASE INDICATE : > 9 SURGERIES LATEX RISK : ARE YOU FREQUENTLY EXPOSED TO LATEX PRODUCTS IN YOUR OCCUPATION?NO CAFFEINE CAFFEINE USE?YES HOW OFTEN AND HOW MUCH? 2 CUPS OF COFFEE PER WEEK ADVANCE DIRECTIVE ADVANCE DIRECTIVE DISCUSSED WITH PATIENT:YES PT STATES HE HAS A HCP --LUCÍA [phone] ASKED TO BRING A COPY IN. REMINDED PT BRING IN COPY. EVANGELICAL [id number] MORMON MARITAL STATUS: . ALCOHOL SCREENING DID YOU HAVE A DRINK CONTAINING ALCOHOL IN THE PAST YEAR?NO POINTS0 INTERPRETATIONNEGATIVE OCCUPATION: UNEMPLOYED. 04/02/18 1048 REVIEWED WITH PT. AD 06/28/18 1455 REVIEWED WITH PT LAS 08/20/18 REVIEWED WITH PT. AD REVIEWED WITH PATIENT 02/26/19 0910 NLJ. HOSPITALIZATION/MAJOR DIAGNOSTIC PROCEDURE [facility] BYPASS 12/09/2012 TONSILLECTOMY 1982 [facility] - PNEUMONIA 06/2015 [facility] - TIA 03/2016 REVIEW OF SYSTEMS REVIEWED BY: PROVIDER: , . CONSTITUTIONAL: ANY CHANGE IN YOUR MEDICAL CONDITION? NO, NO . CHILLS NO, NO . FEVER NO, NO . INFECTION: DO YOU HAVE NEW INFECTIONS? NO, NO . DO YOU HAVE HISTORY OF MRSA? NO, NO . MUSCULOSKELETAL: ANY NEW PATTERNS OF PAIN OR NUMBNESS? NO, NO . GASTROENTEROLOGY: ANY NEW CHANGE IN BOWEL CONTROL? NO, NO . GENITOURINARY: ANY NEW CHANGE IN BLADDER CONTROL? NO, NO . IS THERE A CHANCE YOU COULD BE ? NO, NO . HEMATOLOGY/LYMPH: DO YOU TAKE ANY BLOOD THINNERS? (FOR EXAMPLE- COUMADIN, PLAVIX, AGGRENOX, PLATEL, PRADAXA, OR XARELTO) NO, NO . WHEN WAS YOUR LAST DOSE? DATE: TIME: , DATE: TIME: . NEUROLOGY: HAVE YOU FALLEN IN THE PAST 12 MONTHS? NO, NO . ANY NEW EXTREMITY NUMBNESS OR WEAKNESS? NO, NO . CARDIOLOGY: DO YOU HAVE A PACEMAKER OR DEFIBRILLATOR? NO, NO . RESPIRATORY: HAVE YOU BEEN SICK IN THE PAST WEEK? NO, NO . FEVER NO, NO . FLU LIKE SYMPTOMS? NO, NO . COUGH NO, NO . INTEGUMENTARY: DO YOU HAVE ANY RASHES OR OPEN SORES? NO, NO . ALLERGIC/IMMUNO: ARE YOU ALLERGIC TO IV DYE? NO, NO . ANY NEW ALLERGIES? NO, NO . PSYCHIATRIC: DO YOU HAVE THOUGHTS OF HURTING YOURSELF OR SOMEONE ELSE? NO, NO . ARE YOU ABUSED, NEGLECTED, OR IN AN UNSAFE ENVIRONMENT? NO, NO . ENDOCRINOLOGY: ARE YOU DIABETIC? FINGER STICK IS 117 THIS AM . OTHER: DO YOU NEED ANY PRESCRIPTIONS? NO, NO . IF YES, PLEASE LIST: ____, ____ . ANY NEW PROBLEMS WITH YOUR MEDICATIONS? NO, NO . WHEN DID YOU LAST EAT? 03-26-19 1030 PM . WHAT DID YOU LAST DRINK? ____, ____[id number] 0630 WATER . NAME OF PERSON DRIVING YOU HOME? LUCÍA . VITAL SIGNS WT 274 LBS, HT 70 IN, BMI 39.31 INDEX, BP 132/80 MM HG, HR 82 /MIN, RR 18 /MIN, TEMP 98.6 F, OXYGEN SAT % 97%, NA INITIALS AW 0941. ASSESSMENTS INTERVERTEBRAL DISC DISORDER WITH RADICULOPATHY OF LUMBOSACRAL REGION - M51.17 (PRIMARY) TREATMENT INTERVERTEBRAL DISC DISORDER WITH RADICULOPATHY OF LUMBOSACRAL REGION [facility] FLUORO GUIDE SPINE INJECTION (PAIN)[id number] PROCEDURES PRE PROCEDURE DIAGNOSIS LUMBOSACRAL DISC DISORDER WITH RADICULOPATHY POST PROCEDURE DIAGNOSIS LUMBOSACRAL DISC DISORDER WITH RADICULOPATHY PROCEDURE LUMBAR EPIDURAL STEROID INJECTION UNDER FLUOROSCOPIC GUIDANCE SURGEON DR. SILVINA MITTAL ORDER FILLER NONE ANESTHESIA LOCAL PRE PROCEDURE NOTE THE PATIENT HAS A HISTORY OF CHRONIC LOW BACK PAIN. I EVALUATED THE PATIENT AND REVIEWED THE CHART. I WENT OVER THE RISKS, ALTERNATIVES, AND BENEFITS ASSOCIATED WITH THIS PROCEDURE. THE PATIENT WOULD LIKE TO PROCEED AND GIVES CONSENT TO PERFORM THE PROCEDURE. THE PATIENT DENIES UNEXPLAINABLE WEIGHT LOSS, FEVER, CHILLS, OR NEW CHANGES IN URINARY OR BOWEL CONTROL. DESCRIPTION OF PROCEDURE THE PATIENT WAS BROUGHT TO THE PROCEDURE ROOM AND PLACED IN THE PRONE POSITION. THE LUMBOSACRAL AREA WAS CLEANED WITH BETADINE SOLUTION AND DRAPED ASEPTICALLY. THE PROCEDURE WAS DONE UNDER STERILE CONDITIONS. I CHECKED LATERALITY AND THE LEVEL WHERE THE PROCEDURE WAS GOING TO BE PERFORMED WITH THE PATIENT AND THE SUPPORTING STAFF AT THE MOMENT OF THE TIME OUT IN THE PROCEDURE ROOM. UNDER FLUOROSCOPIC GUIDANCE, THE TARGET POINT WAS SELECTED AT THE INTERLAMINAR LEVEL OF L5-S1. LIDOCAINE WAS USED TO NUMB THE SKIN AND THE SUBCUTANEOUS TISSUE BELOW IT. EPIDURAL TUOHY NEEDLE, 17-GAUGE, WAS ADVANCED UNDER FLUOROSCOPIC GUIDANCE AND FOLLOWING PATIENT FEEDBACK UNTIL THE EPIDURAL SPACE WAS REACHED, 7 CM DEEP INTO THE SKIN BY THE LOSS OF RESISTANCE TECHNIQUE. ISOVUE M DYE 30%, 0.25 ML, WAS INJECTED SHOWING ADEQUATE SPREAD OF THE DYE. THEN, A SOLUTION OF 3 ML OF NORMAL SALINE WITH DEPO-MEDROL 60 MG WAS INJECTED SLOWLY FOLLOWING PATIENT FEEDBACK. THERE WAS NO EVIDENCE OF BLOOD, PARESTHESIA OR CEREBROSPINAL FLUID DURING THE PROCEDURE. THE PATIENT WAS SENT TO THE RECOVERY ROOM. THE PATIENT WAS MOVING THE EXTREMITIES AND DOING WELL. THERE WAS NO COMPLICATION DURING THE PROCEDURE. FLUOROSCOPY TIME WAS 15 SECONDS. POST PROCEDURE NOTE THE PATIENT WILL BE SEEN IN A FOLLOW UP IN THE NEXT FEW WEEKS. I AM LOOKING FOR LONG LASTING PAIN RELIEF WITH THIS INTERVENTION FOR THE PATIENT. INSTRUCTIONS WERE GIVEN, QUESTIONS WERE ANSWERED, AND THE PATIENT EXPRESSED UNDERSTANDING AND AGREES WITH THE PLAN. I, AMRIK LAWRENCE, DOCUMENTED THE ABOVE INFORMATION ACTING A SCRIBE FOR DR. MITTAL. I HAVE REVIEWED THE ABOVE DOCUMENT, WRITTEN BY AMRIK LAWRENCE SCRIBVishnu AND I VERIFY THAT IT IS ACCURATE. PROCEDURE CODES 14343 LUMBAR/SACRAL W/ IMAGING [id number] RADXPS IN END [id number] PXD DISPOSITION & COMMUNICATION FOLLOW UP 2 WEEKS ELECTRONICALLY SIGNED BY SILVINA MITTAL MD, MD ON 04/15/2019 AT 04:45 PM EST DISCLAIMER : THIS IS A VISIT SUMMARY EXTRACTED FROM THE [employer] CHART. IT IS NOT A COPY OF THE [employer] PROGRESS NOTE. MTDD
== END ==
LOC: M PAIN 09:30
PROVIDERS: ATTEND Anesthesiology
DX: M51.17 Intervertebral disc disorders with radiculopathy, lumbosacral region (principal); I10 Essential (primary) hypertension; K21.9 Gastro-esophageal reflux disease without esophagitis; G47.33 Obstructive sleep apnea (adult) (pediatric); E11.9 Type 2 diabetes mellitus without complications; E78.5 Hyperlipidemia, unspecified; Z98.84 Bariatric surgery status; Z79.82 Long term (current) use of aspirin; Z79.84 Long term (current) use of oral hypoglycemic drugs; Z79.899 Other long term (current) drug therapy
CPT/HCPCS: 62323; J1030; Q9967

== ENCOUNTER → 2019-04-15 | Outpatient (CLI) | payer OTHER, MEDICAID, MEDICARE ==
[~2019-04-15] MED LIST changes: -ISOVUE-M 300 61% 15ML VIAL (Q9967) As Ordered ONE; -LIDOCAINE 1% SDV INJ 30 ML VIAL As Ordered ONE; -methylPREDNISolone SUSP 40 MG/ML (DEPO-medrol) VIAL (J1030) As Ordered ONE
--- NOTE | 2019-04-25 03:23 | ECWPNPC ---
PATIENT NAME: ABHAY ORNELAS : 1975 GENDER: MALE VISIT DATE: 04/15/2019 DISCHARGE DATE: 04/15/19 1118 VISIT LOCKED DATE TIME: PHYSICIAN: LING HURLEY RESOURCE: LING HURLEY REASON FOR APPOINTMENT 1. POST LESI HISTORY OF PRESENT ILLNESS HISTORY OF PRESENT ILLNESS: HERE FOR POST PROCDURE F/U.HAD LESI L5/S1 ON 03/27/19.REPORTING SIGNIFICANT REDUCTION IN RIGHT LOW BACK AND RIGHT LEG PAIN FROM 8/10 VAS TO 2/10VAS.PAIN CONTROL CONTINUES ON RIGHT SIDE TODAY.PAST WEEK LEFT LOW BACK AND LEFT LEG PAIN HAS RETURNED.RATING LEFT LBP AND LEFT LEG RADICULAR SYMPTOMS 6/10 VAS. PAIN THE PATIENT DESCRIBES THE PAIN... FALL RISK SCREENING: SCREENING :NO FALLS REPORTED IN THE LAST YEAR CURRENT MEDICATIONS TAKING OMEPRAZOLE 40 MG CAPSULE DELAYED RELEASE 1 CAPSULE ORALLY TWICE A DAY TAKING ASPIR-81 81 MG TABLET DELAYED RELEASE 1 TABLET ORALLY ONCE A DAY TAKING ACCU-CHEK QUINCY PLUS W/DEVICE KIT DIRECTED SUBCUTANEOUSLY BID TESTING TAKING ACCU-CHEK QUINCY PLUS - STRIP DIRECTED IN VITRO BID TESTING TAKING ALCOHOL PADS 70 % PAD DIRECTED TOPICALLY BID TESTING TAKING ACCU-CHEK SOFTCLIX LANCET DEV - KIT DIRECTED _ BID TESTING TAKING ACCU-CHEK SOFTCLIX LANCETS - MISCELLANEOUS DIRECTED _ BID TESTING TAKING METFORMIN HCL 1000 MG TABLET 1 TABLET WITH MEALS ORALLY TWICE A DAY TAKING ATORVASTATIN CALCIUM 40 MG TABLET 1 TABLET ORALLY ONCE A DAY TAKING LISINOPRIL 10 MG TABLET 1 TABLET ORALLY ONCE A DAY TAKING GLIPIZIDE ER 10 MG TABLET EXTENDED RELEASE 24 HOUR 1 TABLET ORALLY BID PRIOR TO BREAKFAST AND DINNER TAKING GABAPENTIN 600 MG TABLET 1 CAPSULE ORALLY THREE TIMES DAILY TAKING IPRATROPIUM-ALBUTEROL 0.5-2.5 (3) MG/3ML SOLUTION 3 ML PRN DX J44.9 INHALATION EVERY 6 HRS TAKING TRULICITY 0.75 MG/0.5ML SOLUTION PEN-INJECTOR DIRECTED SUBCUTANEOUS MEDICATION LIST REVIEWED AND RECONCILED WITH THE PATIENT PAST MEDICAL HISTORY HYPERTENSION OBESITY ESOPHAGEAL REFLUX OBSTRUCTIVE SLEEP APNEA, 9 CM WATER TYPE II DIABETIC OSTEOARTHRITIS OF BOTH KNEES PAIN IN JOINT, SHOULDER REGION UNSPECIFIED INTERNAL DERANGEMENT OF KNEE ALLERGIC RHINITIS POSITIVE URINE DRUG SCREEN FOR MARIJUANA, PATIENT DENIES USE HYPERLIPIDEMIA HYPERTENSION MORBID OBESITY STATUS POST BYPASS 2012 WITH REGAINING OF WEIGHT 03/09/2016 TIA ALLERGIES ENVIRONMENTAL: ALLERGY SURGICAL HISTORY TONSILLECTOMY AT AGE 7 ARTHROSCOPIC KNEE SURGERY Amos - DR Brett ROLLINS 11/14 GASTRIC BYPASS SURGERY 12/09/12 RIGHT SHOULDER SURGERY @ [facility] 11/2013 LEFT SHOULDER SURGERY @ [facility] 12/2013 LUMP REMOVED FROM RIGHT SHOULDER DR. SCOTT 03/2014 RIGHT CARPAL TUNNEL /ELBOW 2016 LOOP RECORDER 09/2016 LEFT KNEE ARTHROSCOPIC --2017 REMOVAL OF CYST RIGHT LEG 08/2018 FAMILY HISTORY FATHER: ALIVE, DIAGNOSED WITH DIABETES MOTHER: ALIVE 61 YRS, DIABETES, HYPERTENSION, OTHER MALIGNANT NEOPLASM OF UNSPECIFIED SITE SIBLINGS: ALIVE, UNSPECIFIED NONPSYCHOTIC MENTAL DISORDER FOLLOWING ORGANIC BRAIN DAMAGE DAUGHTER(S): ALIVE 13 YRS MATERNAL GRAND MOTHER: , OTHER MALIGNANT NEOPLASM OF UNSPECIFIED SITE PATERNAL GRAND FATHER: OTHER SPECIFIED CONDITIONS INFLUENCING HEALTH STATUS PATERNAL GRAND MOTHER: OTHER SPECIFIED CONDITIONS INFLUENCING HEALTH STATUS 1DAUGHTER(S) - HEALTHY. MOM-OVARIAN CA\\NNO H\\\/O COLON\\\/PROSTATE\\\/LUNG CANCER. SON 4 HOURS AFTER DELIVERY AT 21 WEEKS GESTATION. SOCIAL HISTORY GENERAL: TOBACCO USE ARE YOU A:NONSMOKER OTHERS AT HOME: SPOUSE. HOUSING: RENTS APARTMENT. EDUCATION LEVEL OF EDUCATION:HIGH SCHOOL DIET: REGULAR. LANGUAGE LANGUAGES SPOKEN:AUSTRALIAN DOMESTIC VIOLENCE DO YOU FEEL SAFE IN YOUR ENVIRONMENT?YES RECREATIONAL DRUG USE DRUG USE?NO EXERCISE: WALKS. LEARNING BARRIERS / SPECIAL NEEDS BARRIERS TO LEARNING?NO HEARING IMPAIRED?NO VISION IMPAIRED?YES COGNITIVELY IMPAIRED?NO :CORRECTIVE LENSES READINESS TO LEARN?NO LEARNING PREFERENCES?YES :DEMONSTRATION/VERBAL INSTRUCTION LEARNING CAPABILITIES PRESENT?NO EMOTIONAL BARRIERS?NO PAIN CLINIC PFS, CLERGY, PUBLIC HEALTH REFERRALS PFS REFERRAL NEEDED?NO CLERGY REFERRAL NEEDED?NO PUBLIC HEALTH REFERRAL NEEDED?NO WAS THE PROVIDER NOTIFIED OF ANY PERTINENT INFO?YES N/A HAS THE PATIENT BEEN EDUCATED REGARDING HIS/HER PLAN OF CARE?YES HAS THE PATIENT BEEN EDUCATED REGARDING PAIN, THE RISK FOR PAIN, THE IMPORTANCE OF EFFECTIVE PAIN MANAGEMENT, AND THE PAIN ASSESSMENT PROCESS?YES LATEX QUESTIONNAIRE LATEX ALLERGY : HAVE YOU EVER DEVELOPED ANY TYPE OF REACTION AFTER HANDLING LATEX PRODUCTS SUCH RUBBER GLOVES, CONDOMS, DIAPHRAGMS, BALLOONS, SOCKS, OR UNDERWEAR?NO LATEX ALLERGY : HAVE YOU EVER DEVELOPED ANY TYPE OF REACTION DURING OR AFTER DENTAL APPOINTMENT, VAGINAL/RECTAL EXAMINATION, SURGICAL PROCEDURE, OR ANY OTHER EXPOSURE?NO DATE ASKED : 02/05/2019 LATEX RISK : HAVE YOU EVER HAD ANY DIFFICULTY BREATHING OR HIVES AFTER EATING OR HANDLING ANY FRUITS, OR VEGETABLES; SUCH KIWI, BANANAS, STONE FRUITS, OR CHESTNUTSNO LATEX RISK : DO YOU HAVE A PREVIOUS PERSONAL HISTORY OF MORE THAN NINE SURGERIES, SPINA BIFIDA, OR REPEATED CATHERIZATIONS? YES - PLEASE INDICATE : > 9 SURGERIES LATEX RISK : ARE YOU FREQUENTLY EXPOSED TO LATEX PRODUCTS IN YOUR OCCUPATION?NO CAFFEINE CAFFEINE USE?YES HOW OFTEN AND HOW MUCH? 2 CUPS OF COFFEE PER WEEK ADVANCE DIRECTIVE ADVANCE DIRECTIVE DISCUSSED WITH PATIENT:YES PT STATES HE HAS A HCP --LUCÍA [phone] ASKED TO BRING A COPY IN. REMINDED PT BRING IN COPY. RESTORATIONIST [id number] PENTECOSTALISM MARITAL STATUS: . ALCOHOL SCREENING DID YOU HAVE A DRINK CONTAINING ALCOHOL IN THE PAST YEAR?NO POINTS0 INTERPRETATIONNEGATIVE OCCUPATION: UNEMPLOYED. 04/02/18 1048 REVIEWED WITH PT. AD 06/28/18 1455 REVIEWED WITH PT LAS 08/20/18 REVIEWED WITH PT. AD REVIEWED WITH PATIENT 02/26/19 0910 NLJ. HOSPITALIZATION/MAJOR DIAGNOSTIC PROCEDURE [facility] BYPASS 12/09/[address] [facility] - PNEUMONIA 06/2015 [facility] - TIA 03/2016 REVIEW OF SYSTEMS REVIEWED BY: PROVIDER: LING ZAPATA . CONSTITUTIONAL: ANY CHANGE IN YOUR MEDICAL CONDITION? NO . CHILLS NO . FEVER NO . INFECTION: DO YOU HAVE NEW INFECTIONS? NO . DO YOU HAVE HISTORY OF MRSA? NO . MUSCULOSKELETAL: ANY NEW PATTERNS OF PAIN OR NUMBNESS? NO . GASTROENTEROLOGY: ANY NEW CHANGE IN BOWEL CONTROL? NO . GENITOURINARY: ANY NEW CHANGE IN BLADDER CONTROL? NO . IS THERE A CHANCE YOU COULD BE ? NO . HEMATOLOGY/LYMPH: DO YOU TAKE ANY BLOOD THINNERS? (FOR EXAMPLE- COUMADIN, PLAVIX, AGGRENOX, PLATEL, PRADAXA, OR XARELTO) NO . WHEN WAS YOUR LAST DOSE? DATE: TIME: . NEUROLOGY: HAVE YOU FALLEN IN THE PAST 12 MONTHS? NO . ANY NEW EXTREMITY NUMBNESS OR WEAKNESS? NO . CARDIOLOGY: DO YOU HAVE A PACEMAKER OR DEFIBRILLATOR? NO . RESPIRATORY: HAVE YOU BEEN SICK IN THE PAST WEEK? NO . FEVER NO . FLU LIKE SYMPTOMS? NO . COUGH NO . INTEGUMENTARY: DO YOU HAVE ANY RASHES OR OPEN SORES? NO . ALLERGIC/IMMUNO: ARE YOU ALLERGIC TO IV DYE? NO . ANY NEW ALLERGIES? NO . PSYCHIATRIC: DO YOU HAVE THOUGHTS OF HURTING YOURSELF OR SOMEONE ELSE? NO . ARE YOU ABUSED, NEGLECTED, OR IN AN UNSAFE ENVIRONMENT? NO . ENDOCRINOLOGY: ARE YOU DIABETIC? YES . OTHER: DO YOU NEED ANY PRESCRIPTIONS? NO . IF YES, PLEASE LIST: ____ . ANY NEW PROBLEMS WITH YOUR MEDICATIONS? NO . WHEN DID YOU LAST EAT? ____ . WHEN DID YOU LAST DRINK? ____ . WHAT DID YOU LAST DRINK? ____ . NAME OF PERSON DRIVING YOU HOME? ____ . DO YOU HAVE ANY OTHER QUESTIONS OR CONCERNS NO . VITAL SIGNS WT 268.4 LBS, HT 70 IN, BMI 38.51 INDEX, BP 154/86 MM HG, HR 96 /MIN, RR 18 /MIN, TEMP 97.4 F, OXYGEN SAT % 98%, NA INITIALS AW 1042, REVIEWED BY: DOMENIC. EXAMINATION GENERAL EXAMINATION: GENERAL AWAKE,ALERT ,PLEASANT . PSYCH AFFECT NORMAL . LUNGS: LUNG WOODS ARE CLEAR TO AUSCULTATION BILATERALLY. GOOD MOVEMENT OF AIR . HEART: S1, S2 IN A REGULAR RATE AND RHYTHM. NO SIGNIFICANT MURMURS, RUBS OR GALLOPS NOTED . MUSCULOSKELETAL: WEAK OVER RIGHT LEG. FOR BILAT. SIJ PALPATION: + FOR PAIN OVER L/S SPINE. + FOR PAIN OVER RIGHT L/S PARASPINALS POSITIVE SLE RIGHT-POSITIVE CALE TEST RIGHT. NEUROLOGIC EXAM: NORMAL SENSATION LIGHT TOUCH BILAT. LOWER EXTREMITIES. DIAGNOSTIC TESTS REVIEWED MRI L/S SPINE-08/30/18. ASSESSMENTS INTERVERTEBRAL DISC DISORDER WITH RADICULOPATHY OF LUMBOSACRAL REGION - M51.17 (PRIMARY) TREATMENT INTERVERTEBRAL DISC DISORDER WITH RADICULOPATHY OF LUMBOSACRAL REGION NOTES: L5/S1 LESI. PREVENTIVE MEDICINE 04/15/19 EPIDURAL WITH CATHETER INFORMATION REVIEWED WITH PT. TIM GUPTA. PROCEDURE CODES FA211 ESTABILISHED PATIENT [facility] FACILITY CHARGE DISPOSITION & COMMUNICATION FOLLOW UP POSTY (REASON: L5/S1 LESI CATH TO LEFT) ELECTRONICALLY SIGNED BY JODI COLON ON 04/24/2019 AT 09:39 AM EST DISCLAIMER : THIS IS A VISIT SUMMARY EXTRACTED FROM THE [employer] CHART. IT IS NOT A COPY OF THE [employer] PROGRESS NOTE. MICK
== END ==
LOC: M PAIN 10:00
PROVIDERS: ATTEND Nurse Practitioner Family
DX: M51.17 Intervertebral disc disorders with radiculopathy, lumbosacral region (principal); I10 Essential (primary) hypertension; K21.9 Gastro-esophageal reflux disease without esophagitis; G47.33 Obstructive sleep apnea (adult) (pediatric); E11.9 Type 2 diabetes mellitus without complications; E78.5 Hyperlipidemia, unspecified; Z98.84 Bariatric surgery status; Z86.73 Personal history of transient ischemic attack (TIA), and cerebral infarction without residual deficits; Z79.82 Long term (current) use of aspirin; Z79.84 Long term (current) use of oral hypoglycemic drugs; Z79.899 Other long term (current) drug therapy

== ENCOUNTER → 2019-05-29 | Outpatient (CLI) | payer MEDICARE, MEDICAID ==
[~2019-05-29] MED LIST changes: +ISOVUE-M 300 61% 15ML VIAL (Q9967) As Ordered ONE; +LIDOCAINE 1% SDV INJ 30 ML VIAL As Ordered ONE; +diazePAM 5 MG TAB As Ordered ONE; +methylPREDNISolone SUSP 40 MG/ML (DEPO-medrol) VIAL (J1030) As Ordered ONE; +oxyCODONE 5MG TAB As Ordered ONE
--- NOTE | 2019-05-29 11:20 | REP ---
Partial lumbar spine series: Two views . History: Injection procedure for pain. Five seconds of fluoroscopy time is reported. Findings: A sequence of two fluoroscopically obtained last image hold procedural spot radiographs of the lumbar spine document needle position and contrast injection associated with injection procedure. Electronically Signed by Arnie Sauceda MD 05/29/2019 11:10 A
--- NOTE | 2019-06-13 04:01 | ECWPNPC ---
PATIENT NAME: ABHAY ORNELAS : 1975 GENDER: MALE VISIT DATE: 05/29/2019 DISCHARGE DATE: 05/29/19 1030 VISIT LOCKED DATE TIME: PHYSICIAN: SILVINA MITTAL MD RESOURCE: SILVINA MITTAL MD REASON FOR APPOINTMENT 1. L5/S1 LESI CATH TO LEFT HISTORY OF PRESENT ILLNESS HISTORY OF PRESENT ILLNESS: PAIN THE PATIENT DESCRIBES THE PAIN... FALL RISK SCREENING: SCREENING :NO FALLS REPORTED IN THE LAST YEAR CURRENT MEDICATIONS TAKING OMEPRAZOLE 40 MG CAPSULE DELAYED RELEASE 1 CAPSULE ORALLY TWICE A DAY, NOTES: 05/28/20192199 TAKING ASPIR-81 81 MG TABLET DELAYED RELEASE 1 TABLET ORALLY ONCE A DAY, NOTES: 05/28/20192199 TAKING ACCU-CHEK QUINCY PLUS W/DEVICE KIT DIRECTED SUBCUTANEOUSLY BID TESTING TAKING ACCU-CHEK QUINCY PLUS - STRIP DIRECTED IN VITRO BID TESTING TAKING ALCOHOL PADS 70 % PAD DIRECTED TOPICALLY BID TESTING TAKING ACCU-CHEK SOFTCLIX LANCET DEV - KIT DIRECTED _ BID TESTING TAKING ACCU-CHEK SOFTCLIX LANCETS - MISCELLANEOUS DIRECTED _ BID TESTING TAKING METFORMIN HCL 1000 MG TABLET 1 TABLET WITH MEALS ORALLY TWICE A DAY, NOTES: 05/28/2019 1630 TAKING ATORVASTATIN CALCIUM 40 MG TABLET 1 TABLET ORALLY ONCE A DAY, NOTES: 05/28/20192199 TAKING LISINOPRIL 10 MG TABLET 1 TABLET ORALLY ONCE A DAY, NOTES: 05/28/2019 0700 TAKING GLIPIZIDE ER 10 MG TABLET EXTENDED RELEASE 24 HOUR 1 TABLET ORALLY BID PRIOR TO BREAKFAST AND DINNER, NOTES: 05/28/20192199 TAKING GABAPENTIN 600 MG TABLET 1 CAPSULE ORALLY THREE TIMES DAILY, NOTES: 05/28/20192199 TAKING IPRATROPIUM-ALBUTEROL 0.5-2.5 (3) MG/3ML SOLUTION 3 ML PRN DX J44.9 INHALATION EVERY 6 HRS, NOTES: PRN TAKING TRULICITY 0.75 MG/0.5ML SOLUTION PEN-INJECTOR DIRECTED SUBCUTANEOUS , NOTES: 05/22/2019 MEDICATION LIST REVIEWED AND RECONCILED WITH THE PATIENT PAST MEDICAL HISTORY HYPERTENSION OBESITY ESOPHAGEAL REFLUX OBSTRUCTIVE SLEEP APNEA, 9 CM WATER TYPE II DIABETIC OSTEOARTHRITIS OF BOTH KNEES PAIN IN JOINT, SHOULDER REGION UNSPECIFIED INTERNAL DERANGEMENT OF KNEE ALLERGIC RHINITIS POSITIVE URINE DRUG SCREEN FOR MARIJUANA, PATIENT DENIES USE HYPERLIPIDEMIA HYPERTENSION MORBID OBESITY STATUS POST BYPASS 2012 WITH REGAINING OF WEIGHT 03/09/2016 TIA ALLERGIES ENVIRONMENTAL: ALLERGY SURGICAL HISTORY TONSILLECTOMY AT AGE 7 ARTHROSCOPIC KNEE SURGERY LEFT DR Brett ROLLINS 11/2010 GASTRIC BYPASS SURGERY 12/09/2012 RIGHT SHOULDER SURGERY AT [facility] 11/2013 LEFT SHOUDLER SURGERY AT [facility] 12/2013 LUMP REMOVED FROM RIGHT SHOULDER- DR YANCEY 03/2014 RIGHT CARPAL TUNNEL AND ELBOW 2016 LOOP RECORDER 09/2016 LEFT KNEE ARTHROSCOPIC 02/2018 REMOVAL OF CYST RIGHT LEG 08/2018 FAMILY HISTORY FATHER: ALIVE, DIAGNOSED WITH DIABETES MOTHER: ALIVE 61 YRS, DIABETES, HYPERTENSION, OTHER MALIGNANT NEOPLASM OF UNSPECIFIED SITE SIBLINGS: ALIVE, UNSPECIFIED 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 MOM-OVARIAN CA\\NNO H\\\/O COLON\\\/PROSTATE\\\/LUNG CANCER. SON 4 HOURS AFTER DELIVERY AT 21 WEEKS GESTATION. SOCIAL HISTORY GENERAL: TOBACCO USE ARE YOU A:NONSMOKER VAPORNO E-CIGARETTENO OTHERS AT HOME: SPOUSE. HOUSING: OWNS HOME. EDUCATION LEVEL OF EDUCATION:HIGH SCHOOL DIET: REGULAR. LANGUAGE LANGUAGES SPOKEN:EGYPTIAN DOMESTIC VIOLENCE STATUS: RECREATIONAL DRUG USE DRUG USE?NO PATIENT DENIES ABUSE OR MISSUSED OF ANY MEDICATION DENIES PATIENT DENIES USE OF ANY ILLEGAL SUBSTANCE INCLUDING MARIJUANA OR COCAINE DENIES EXERCISE: WALKS. LEARNING BARRIERS / SPECIAL NEEDS BARRIERS TO LEARNING?NO HEARING IMPAIRED?NO VISION IMPAIRED?YES :CORRECTIVE LENSES COGNITIVELY IMPAIRED?NO READINESS TO LEARN?YES LEARNING PREFERENCES?YES :DEMONSTRATION/VERBAL INSTRUCTION LEARNING CAPABILITIES PRESENT?YES EMOTIONAL BARRIERS?NO SPECIAL DEVICES?NO DRY CELL SEALER NEEDED?NO PAIN CLINIC PFS, CLERGY, PUBLIC HEALTH REFERRALS PFS REFERRAL NEEDED?NO CLERGY REFERRAL NEEDED?NO PUBLIC HEALTH REFERRAL NEEDED?NO WAS THE PROVIDER NOTIFIED OF ANY PERTINENT INFO?YES HAS THE PATIENT BEEN EDUCATED REGARDING HIS/HER PLAN OF CARE?YES HAS THE PATIENT BEEN EDUCATED REGARDING PAIN, THE RISK FOR PAIN, THE IMPORTANCE OF EFFECTIVE PAIN MANAGEMENT, AND THE PAIN ASSESSMENT PROCESS?YES LATEX QUESTIONNAIRE LATEX ALLERGY : HAVE YOU EVER DEVELOPED ANY TYPE OF REACTION AFTER HANDLING LATEX PRODUCTS SUCH RUBBER GLOVES, CONDOMS, DIAPHRAGMS, BALLOONS, SOCKS, OR UNDERWEAR?NO LATEX ALLERGY : HAVE YOU EVER DEVELOPED ANY TYPE OF REACTION DURING OR AFTER DENTAL APPOINTMENT, VAGINAL/RECTAL EXAMINATION, SURGICAL PROCEDURE, OR ANY OTHER EXPOSURE?NO LATEX RISK : HAVE YOU EVER HAD ANY DIFFICULTY BREATHING OR HIVES AFTER EATING OR HANDLING ANY FRUITS, OR VEGETABLES; SUCH KIWI, BANANAS, STONE FRUITS, OR CHESTNUTSNO LATEX RISK : DO YOU HAVE A PREVIOUS PERSONAL HISTORY OF MORE THAN NINE SURGERIES, SPINA BIFIDA, OR REPEATED CATHERIZATIONS? YES - PLEASE INDICATE : > 9 SURGERIES LATEX RISK : ARE YOU FREQUENTLY EXPOSED TO LATEX PRODUCTS IN YOUR OCCUPATION?NO DATE ASKED : 05/29/2019 CAFFEINE CAFFEINE USE?YES HOW OFTEN AND HOW MUCH? 2 CUPS OF COFFEE PER WEEK ADVANCE DIRECTIVE ADVANCE DIRECTIVE DISCUSSED WITH PATIENT:YES YES- PT STATES HE HAS A HCP- - LUCÍA- [phone] ZOROASTRIANISM [id number] SIKHISM MARITAL STATUS: . ALCOHOL SCREENING DID YOU HAVE A DRINK CONTAINING ALCOHOL IN THE PAST YEAR?NO POINTS0 INTERPRETATIONNEGATIVE OCCUPATION: UNEMPLOYED. 04/02/18 1048 REVIEWED WITH PT. AD 06/28/18 1455 REVIEWED WITH PT LAS 08/20/18 REVIEWED WITH PT. AD REVIEWED WITH PATIENT 02/26/19 0910 NLJ REVIEWED WITH PATIENT 05/29/2019 0930 NLJ. HOSPITALIZATION/MAJOR DIAGNOSTIC PROCEDURE SURGERIES REVIEW OF SYSTEMS REVIEWED BY: PROVIDER: . CONSTITUTIONAL: ANY CHANGE IN YOUR MEDICAL CONDITION? NO . CHILLS NO . FEVER NO . INFECTION: DO YOU HAVE NEW INFECTIONS? NO . DO YOU HAVE HISTORY OF MRSA? NO . MUSCULOSKELETAL: ANY NEW PATTERNS OF PAIN OR NUMBNESS? NO . GASTROENTEROLOGY: ANY NEW CHANGE IN BOWEL CONTROL? NO . GENITOURINARY: ANY NEW CHANGE IN BLADDER CONTROL? NO . IS THERE A CHANCE YOU COULD BE ? NO . HEMATOLOGY/LYMPH: DO YOU TAKE ANY BLOOD THINNERS? (FOR EXAMPLE- COUMADIN, PLAVIX, AGGRENOX, PLATEL, PRADAXA, OR XARELTO) NO . WHEN WAS YOUR LAST DOSE? DATE: TIME: . NEUROLOGY: HAVE YOU FALLEN IN THE PAST 12 MONTHS? NO . ANY NEW EXTREMITY NUMBNESS OR WEAKNESS? NO . CARDIOLOGY: DO YOU HAVE A PACEMAKER OR DEFIBRILLATOR? NO . RESPIRATORY: HAVE YOU BEEN SICK IN THE PAST WEEK? NO . FEVER NO . FLU LIKE SYMPTOMS? NO . COUGH NO . INTEGUMENTARY: DO YOU HAVE ANY RASHES OR OPEN SORES? NO . ALLERGIC/IMMUNO: ARE YOU ALLERGIC TO IV DYE? NO . ANY NEW ALLERGIES? NO . PSYCHIATRIC: DO YOU HAVE THOUGHTS OF HURTING YOURSELF OR SOMEONE ELSE? NO . ARE YOU ABUSED, NEGLECTED, OR IN AN UNSAFE ENVIRONMENT? NO . ENDOCRINOLOGY: ARE YOU DIABETIC? YES- FSBS 106 . OTHER: DO YOU NEED ANY PRESCRIPTIONS? NO . IF YES, PLEASE LIST: ____ . ANY NEW PROBLEMS WITH YOUR MEDICATIONS? NO . WHEN DID YOU LAST EAT? 05/28/2019 2300 . WHEN DID YOU LAST DRINK? 05/29/2019 0600 . WHAT DID YOU LAST DRINK? WATER . NAME OF PERSON DRIVING YOU HOME? LUCÍA - . DO YOU HAVE ANY OTHER QUESTIONS OR CONCERNS NO . VITAL SIGNS WT 270.8 LBS, HT 70 IN, BMI 38.85 INDEX, BP 128/91 MM HG, HR 85 /MIN, RR 18 /MIN, TEMP 97.9 F, OXYGEN SAT % 98%, BLOOD GLUCOSE LEVEL 106, SAFE IN ENV? (Y/N) YES, NA INITIALS TL 0928, REVIEWED BY: ANN. ASSESSMENTS INTERVERTEBRAL DISC DISORDERS WITH RADICULOPATHY, LUMBOSACRAL REGION - M51.17 (PRIMARY) TREATMENT INTERVERTEBRAL DISC DISORDERS WITH RADICULOPATHY, LUMBOSACRAL REGION [facility] FLUORO GUIDE SPINE INJECTION (PAIN)[id number] PROCEDURES PRE PROCEDURE DIAGNOSIS LUMBOSACRAL DISC DISORDER WITH RADICULOPATHY POST PROCEDURE DIAGNOSIS LUMBOSACRAL DISC DISORDER WITH RADICULOPATHY PROCEDURE LUMBAR EPIDURAL STEROID INJECTION UNDER FLUOROSCOPIC GUIDANCE SURGEON DR. SILVINA MITTAL MALTHOUSE LABORER NONE ANESTHESIA LOCAL PRE PROCEDURE NOTE THE PATIENT HAS A HISTORY OF CHRONIC LOW BACK PAIN. I EVALUATED THE PATIENT AND REVIEWED THE CHART. I WENT OVER THE RISKS, ALTERNATIVES, AND BENEFITS ASSOCIATED WITH THIS PROCEDURE. THE PATIENT WOULD LIKE TO PROCEED AND GIVES CONSENT TO PERFORM THE PROCEDURE. THE PATIENT DENIES UNEXPLAINABLE WEIGHT LOSS, FEVER, CHILLS, OR NEW CHANGES IN URINARY OR BOWEL CONTROL. DESCRIPTION OF PROCEDURE THE PATIENT WAS BROUGHT TO THE PROCEDURE ROOM AND PLACED IN THE PRONE POSITION. THE LUMBOSACRAL AREA WAS CLEANED WITH BETADINE SOLUTION AND DRAPED ASEPTICALLY. THE PROCEDURE WAS DONE UNDER STERILE CONDITIONS. I CHECKED LATERALITY AND THE LEVEL WHERE THE PROCEDURE WAS GOING TO BE PERFORMED WITH THE PATIENT AND THE SUPPORTING STAFF AT THE MOMENT OF THE TIME OUT IN THE PROCEDURE ROOM. UNDER FLUOROSCOPIC GUIDANCE, THE TARGET POINT WAS SELECTED AT THE INTERLAMINAR LEVEL OF L5-S1. LIDOCAINE WAS USED TO NUMB THE SKIN AND THE SUBCUTANEOUS TISSUE BELOW IT. EPIDURAL TUOHY NEEDLE, 17-GAUGE, WAS ADVANCED UNDER FLUOROSCOPIC GUIDANCE AND FOLLOWING PATIENT FEEDBACK UNTIL THE EPIDURAL SPACE WAS REACHED, 7 CM DEEP INTO THE SKIN BY THE LOSS OF RESISTANCE TECHNIQUE. ISOVUE M DYE 30%, 0.25 ML, WAS INJECTED SHOWING ADEQUATE SPREAD OF THE DYE. THEN, A SOLUTION OF 3 ML OF NORMAL SALINE WITH DEPO-MEDROL 60 MG WAS INJECTED SLOWLY FOLLOWING PATIENT FEEDBACK. THERE WAS NO EVIDENCE OF BLOOD, PARESTHESIA OR CEREBROSPINAL FLUID DURING THE PROCEDURE. THE PATIENT WAS SENT TO THE RECOVERY ROOM. THE PATIENT WAS MOVING THE EXTREMITIES AND DOING WELL. THERE WAS NO COMPLICATION DURING THE PROCEDURE. FLUOROSCOPY TIME WAS 5 SECONDS. POST PROCEDURE NOTE THE PATIENT WILL BE SEEN IN A FOLLOW UP IN THE NEXT FEW WEEKS. I AM LOOKING FOR LONG LASTING PAIN RELIEF WITH THIS INJECTION. INSTRUCTIONS WERE GIVEN, QUESTIONS WERE ANSWERED, AND THE PATIENT EXPRESSED UNDERSTANDING AND AGREES WITH THE PLAN. I, AMRIK LAWRENCE, DOCUMENTED THE ABOVE INFORMATION ACTING A SCRIBE FOR DR. MITTAL. I HAVE REVIEWED THE ABOVE DOCUMENT, WRITTEN BY AMRIK LAWRENCE SCRIBVishnu AND I VERIFY THAT IT IS ACCURATE. PROCEDURE CODES 75216 LUMBAR/SACRAL W/ IMAGING 6045F RADXPS IN END [id number] [id number] DISPOSITION & COMMUNICATION FOLLOW UP 3 WEEKS. 2 WEEKS ELECTRONICALLY SIGNED BY SILVINA MITTAL MD, MD ON 06/12/2019 AT 11:41 AM EST DISCLAIMER : THIS IS A VISIT SUMMARY EXTRACTED FROM THE [employer] CHART. IT IS NOT A COPY OF THE [employer] PROGRESS NOTE. MTDD
== END ==
LOC: M PAIN 09:15
PROVIDERS: ATTEND Anesthesiology
DX: M51.17 Intervertebral disc disorders with radiculopathy, lumbosacral region (principal); I10 Essential (primary) hypertension; K21.9 Gastro-esophageal reflux disease without esophagitis; G47.33 Obstructive sleep apnea (adult) (pediatric); E11.9 Type 2 diabetes mellitus without complications; E78.5 Hyperlipidemia, unspecified; Z86.73 Personal history of transient ischemic attack (TIA), and cerebral infarction without residual deficits; Z98.84 Bariatric surgery status; Z79.82 Long term (current) use of aspirin; Z79.84 Long term (current) use of oral hypoglycemic drugs; Z79.899 Other long term (current) drug therapy
CPT/HCPCS: 62323; J1030; Q9967

== ENCOUNTER → 2019-06-12 | Outpatient (CLI) | payer MEDICARE, MEDICAID ==
[~2019-06-12] MED LIST changes: -ISOVUE-M 300 61% 15ML VIAL (Q9967) As Ordered ONE; -LIDOCAINE 1% SDV INJ 30 ML VIAL As Ordered ONE; -diazePAM 5 MG TAB As Ordered ONE; -methylPREDNISolone SUSP 40 MG/ML (DEPO-medrol) VIAL (J1030) As Ordered ONE; -oxyCODONE 5MG TAB As Ordered ONE
--- NOTE | 2019-07-01 05:10 | ECWPNPC ---
PATIENT NAME: ABHAY ORNELAS : 1975 GENDER: MALE VISIT DATE: 06/12/2019 DISCHARGE DATE: 06/12/19 1016 VISIT LOCKED DATE TIME: PHYSICIAN: LING HURLEY RESOURCE: LING HURLEY REASON FOR APPOINTMENT 1. POST LESI HISTORY OF PRESENT ILLNESS HISTORY OF PRESENT ILLNESS: HERE FOR POST PROCEDURE FOLLOW-UP. HAD LESI L5-S1 ON 05/29/2019. REPORTING SOME IMPROVEMENT FOR ONE WEEK AND THEN PAIN ABRUPTLY RETURNED TO BASELINE. PAIN IS LOCATED ACROSS THE LEFT LOW BACK AND TRAVELS DOWN POSTERIOR ASPECT OF LEFT LEG. HAS HAD MULTIPLE INJECTIONS AT OUR CLINIC OVER THE PAST COUPLE OF YEARS AND HAS HAD SOME GOOD RESPONSE WITH LUMBAR EPIDURAL STEROID INJECTION. HAS NEVER HAD A TRANSFORAMINAL APPROACH. FOLLOWING WITH SARAH BRAND AND IS IN THE PROCESS OF LOSING WEIGHT TO BE CONSIDERED FOR LUMBAR SURGERY. RATING PAIN INTENSITY 7/10 VAS. PAIN THE PATIENT DESCRIBES THE PAIN... FALL RISK SCREENING: SCREENING :NO FALLS REPORTED IN THE LAST YEAR CURRENT MEDICATIONS TAKING OMEPRAZOLE 40 MG CAPSULE DELAYED RELEASE 1 CAPSULE ORALLY TWICE A DAY TAKING ASPIR-81 81 MG TABLET DELAYED RELEASE 1 TABLET ORALLY ONCE A DAY TAKING ACCU-CHEK QUINCY PLUS W/DEVICE KIT DIRECTED SUBCUTANEOUSLY BID TESTING TAKING ACCU-CHEK QUINCY PLUS - STRIP DIRECTED IN VITRO BID TESTING TAKING ALCOHOL PADS 70 % PAD DIRECTED TOPICALLY BID TESTING TAKING ACCU-CHEK SOFTCLIX LANCET DEV - KIT DIRECTED _ BID TESTING TAKING ACCU-CHEK SOFTCLIX LANCETS - MISCELLANEOUS DIRECTED _ BID TESTING TAKING METFORMIN HCL 1000 MG TABLET 1 TABLET WITH MEALS ORALLY TWICE A DAY TAKING ATORVASTATIN CALCIUM 40 MG TABLET 1 TABLET ORALLY ONCE A DAY TAKING LISINOPRIL 10 MG TABLET 1 TABLET ORALLY ONCE A DAY TAKING GLIPIZIDE ER 10 MG TABLET EXTENDED RELEASE 24 HOUR 1 TABLET ORALLY BID PRIOR TO BREAKFAST AND DINNER TAKING GABAPENTIN 600 MG TABLET 1 CAPSULE ORALLY THREE TIMES DAILY TAKING IPRATROPIUM-ALBUTEROL 0.5-2.5 (3) MG/3ML SOLUTION 3 ML PRN DX J44.9 INHALATION EVERY 6 HRS, NOTES: PRN TAKING TRULICITY 0.75 MG/0.5ML SOLUTION PEN-INJECTOR DIRECTED SUBCUTANEOUS MEDICATION LIST REVIEWED AND RECONCILED WITH THE PATIENT PAST MEDICAL HISTORY HYPERTENSION OBESITY ESOPHAGEAL REFLUX OBSTRUCTIVE SLEEP APNEA, 9 CM WATER TYPE II DIABETIC OSTEOARTHRITIS OF BOTH KNEES PAIN IN JOINT, SHOULDER REGION UNSPECIFIED INTERNAL DERANGEMENT OF KNEE ALLERGIC RHINITIS POSITIVE URINE DRUG SCREEN FOR MARIJUANA, PATIENT DENIES USE HYPERLIPIDEMIA HYPERTENSION MORBID OBESITY STATUS POST BYPASS 2012 WITH REGAINING OF WEIGHT 03/09/2016 TIA ALLERGIES ENVIRONMENTAL: ALLERGY SURGICAL HISTORY TONSILLECTOMY AT AGE 7 ARTHROSCOPIC KNEE SURGERY LEFT DR Brett ROLLINS 11/2010 GASTRIC BYPASS SURGERY 12/09/2012 RIGHT SHOULDER SURGERY AT [facility] 11/2013 LEFT SHOUDLER SURGERY AT [facility] 12/2013 LUMP REMOVED FROM RIGHT SHOULDER- DR YANCEY 03/2014 RIGHT CARPAL TUNNEL AND ELBOW 2016 LOOP RECORDER 09/2016 LEFT KNEE ARTHROSCOPIC 02/2018 REMOVAL OF CYST RIGHT LEG 08/2018 FAMILY HISTORY FATHER: ALIVE, DIAGNOSED WITH DIABETES MOTHER: ALIVE 61 YRS, DIABETES, HYPERTENSION, OTHER MALIGNANT NEOPLASM OF UNSPECIFIED SITE SIBLINGS: ALIVE, UNSPECIFIED 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 MOM-OVARIAN CA\\NNO H\\\/O COLON\\\/PROSTATE\\\/LUNG CANCER. SON 4 HOURS AFTER DELIVERY AT 21 WEEKS GESTATION. SOCIAL HISTORY GENERAL: TOBACCO USE ARE YOU A:NONSMOKER VAPORNO E-CIGARETTENO OTHERS AT HOME: SPOUSE. HOUSING: OWNS HOME. EDUCATION LEVEL OF EDUCATION:HIGH SCHOOL DIET: REGULAR. LANGUAGE LANGUAGES SPOKEN:TURKMEN DOMESTIC VIOLENCE STATUS: RECREATIONAL DRUG USE DRUG USE?NO PATIENT DENIES ABUSE OR MISSUSED OF ANY MEDICATION DENIES PATIENT DENIES USE OF ANY ILLEGAL SUBSTANCE INCLUDING MARIJUANA OR COCAINE DENIES EXERCISE: WALKS. LEARNING BARRIERS / SPECIAL NEEDS BARRIERS TO LEARNING?NO HEARING IMPAIRED?NO VISION IMPAIRED?YES COGNITIVELY IMPAIRED?NO :CORRECTIVE LENSES READINESS TO LEARN?YES LEARNING PREFERENCES?YES :DEMONSTRATION/VERBAL INSTRUCTION LEARNING CAPABILITIES PRESENT?YES EMOTIONAL BARRIERS?NO SPECIAL DEVICES?NO INSTRUCTOR ADJUNCT SURGICAL TECHNICIAN NEEDED?NO PAIN CLINIC PFS, CLERGY, PUBLIC HEALTH REFERRALS PFS REFERRAL NEEDED?NO CLERGY REFERRAL NEEDED?NO PUBLIC HEALTH REFERRAL NEEDED?NO WAS THE PROVIDER NOTIFIED OF ANY PERTINENT INFO?YES HAS THE PATIENT BEEN EDUCATED REGARDING HIS/HER PLAN OF CARE?YES HAS THE PATIENT BEEN EDUCATED REGARDING PAIN, THE RISK FOR PAIN, THE IMPORTANCE OF EFFECTIVE PAIN MANAGEMENT, AND THE PAIN ASSESSMENT PROCESS?YES LATEX QUESTIONNAIRE LATEX ALLERGY : HAVE YOU EVER DEVELOPED ANY TYPE OF REACTION AFTER HANDLING LATEX PRODUCTS SUCH RUBBER GLOVES, CONDOMS, DIAPHRAGMS, BALLOONS, SOCKS, OR UNDERWEAR?NO LATEX ALLERGY : HAVE YOU EVER DEVELOPED ANY TYPE OF REACTION DURING OR AFTER DENTAL APPOINTMENT, VAGINAL/RECTAL EXAMINATION, SURGICAL PROCEDURE, OR ANY OTHER EXPOSURE?NO LATEX RISK : HAVE YOU EVER HAD ANY DIFFICULTY BREATHING OR HIVES AFTER EATING OR HANDLING ANY FRUITS, OR VEGETABLES; SUCH KIWI, BANANAS, STONE FRUITS, OR CHESTNUTSNO LATEX RISK : DO YOU HAVE A PREVIOUS PERSONAL HISTORY OF MORE THAN NINE SURGERIES, SPINA BIFIDA, OR REPEATED CATHERIZATIONS? YES - PLEASE INDICATE : > 9 SURGERIES LATEX RISK : ARE YOU FREQUENTLY EXPOSED TO LATEX PRODUCTS IN YOUR OCCUPATION?NO DATE ASKED : 05/29/2019 CAFFEINE CAFFEINE USE?YES HOW OFTEN AND HOW MUCH? 2 CUPS OF COFFEE PER WEEK ADVANCE DIRECTIVE ADVANCE DIRECTIVE DISCUSSED WITH PATIENT:YES YES- PT STATES HE HAS A HCP- - LUCÍA [phone] [facility] [id number] MUSLIM MARITAL STATUS: . ALCOHOL SCREENING DID YOU HAVE A DRINK CONTAINING ALCOHOL IN THE PAST YEAR?NO POINTS0 INTERPRETATIONNEGATIVE OCCUPATION: UNEMPLOYED. 04/02/18 1048 REVIEWED WITH PT. AD 06/28/18 1455 REVIEWED WITH PT LAS 08/20/18 REVIEWED WITH PT. AD REVIEWED WITH PATIENT 02/26/19 0910 NLJ REVIEWED WITH PATIENT 05/29/2019 0930 NLJ REVIEWED WITH PATIENT 06/12/2019 0944 JS. HOSPITALIZATION/MAJOR DIAGNOSTIC PROCEDURE SURGERIES REVIEW OF SYSTEMS REVIEWED BY: PROVIDER: LING ZAPATA . CONSTITUTIONAL: ANY CHANGE IN YOUR MEDICAL CONDITION? NO . CHILLS NO . FEVER NO . INFECTION: DO YOU HAVE NEW INFECTIONS? NO . DO YOU HAVE HISTORY OF MRSA? NO . MUSCULOSKELETAL: ANY NEW PATTERNS OF PAIN OR NUMBNESS? NO . GASTROENTEROLOGY: ANY NEW CHANGE IN BOWEL CONTROL? NO . GENITOURINARY: ANY NEW CHANGE IN BLADDER CONTROL? NO . IS THERE A CHANCE YOU COULD BE ? NO . HEMATOLOGY/LYMPH: DO YOU TAKE ANY BLOOD THINNERS? (FOR EXAMPLE- COUMADIN, PLAVIX, AGGRENOX, PLATEL, PRADAXA, OR XARELTO) NO . WHEN WAS YOUR LAST DOSE? DATE: TIME: . NEUROLOGY: HAVE YOU FALLEN IN THE PAST 12 MONTHS? NO . ANY NEW EXTREMITY NUMBNESS OR WEAKNESS? NO . CARDIOLOGY: DO YOU HAVE A PACEMAKER OR DEFIBRILLATOR? NO . RESPIRATORY: HAVE YOU BEEN SICK IN THE PAST WEEK? NO . FEVER NO . FLU LIKE SYMPTOMS? NO . COUGH NO . INTEGUMENTARY: DO YOU HAVE ANY RASHES OR OPEN SORES? NO . ALLERGIC/IMMUNO: ARE YOU ALLERGIC TO IV DYE? NO . ANY NEW ALLERGIES? NO . PSYCHIATRIC: DO YOU HAVE THOUGHTS OF HURTING YOURSELF OR SOMEONE ELSE? NO . ARE YOU ABUSED, NEGLECTED, OR IN AN UNSAFE ENVIRONMENT? NO . ENDOCRINOLOGY: ARE YOU DIABETIC? YES . OTHER: DO YOU NEED ANY PRESCRIPTIONS? NO . IF YES, PLEASE LIST: ____ . ANY NEW PROBLEMS WITH YOUR MEDICATIONS? NO . WHEN DID YOU LAST EAT? ____ . WHEN DID YOU LAST DRINK? ____ . WHAT DID YOU LAST DRINK? ____ . NAME OF PERSON DRIVING YOU HOME? ____ . DO YOU HAVE ANY OTHER QUESTIONS OR CONCERNS NO . VITAL SIGNS WT 272.0 LBS, HT 70 IN, BMI 39.02 INDEX, BP 143/92 MM HG, HR 95 /MIN, RR 18 /MIN, TEMP 98.7 F, OXYGEN SAT % 96%, SAFE IN ENV? (Y/N) YES, NA INITIALS AW 0936, REVIEWED BY: DANIEL. EXAMINATION GENERAL EXAMINATION: GENERAL AWAKE,ALERT ,PLEASANT . PSYCH AFFECT NORMAL . LUNGS: LUNG WOODS ARE CLEAR TO AUSCULTATION BILATERALLY. GOOD MOVEMENT OF AIR . HEART: S1, S2 IN A REGULAR RATE AND RHYTHM. NO SIGNIFICANT MURMURS, RUBS OR GALLOPS NOTED . MUSCULOSKELETAL: WEAK OVER RIGHT LEG. LUMBAR:PALPATION: + FOR PAIN OVER L/S SPINE. + FOR PAIN OVER LEFT L/S PARASPINALS. NEUROLOGIC EXAM: NORMAL SENSATION LIGHT TOUCH BILAT. LOWER EXTREMITIES. DIAGNOSTIC TESTS REVIEWED MRI L/S SPINE-08/30/18. ASSESSMENTS INTERVERTEBRAL DISC DISORDERS WITH RADICULOPATHY, LUMBOSACRAL REGION - M51.17 (PRIMARY) TREATMENT INTERVERTEBRAL DISC DISORDERS WITH RADICULOPATHY, LUMBOSACRAL REGION NOTES: LEFT L5/S1 TRANSFORAMINAL LESI. PREVENTIVE MEDICINE PAIN CLINIC TEACHING: PROCEDURE TEACHING REVIEWED INFORMATION ON TRANSFORAMINAL LUMBAR EPIDURAL STEROID INJECTION PROCEDURE WITH PATIENT. ALSO REVIEWED PRE-PROCEDURE INSTRUCTIONS. PATIENT VERBALIZED AN UNDERSTANDING. DANIKA HO 06/12/2019 2:25:57 PM > . PROCEDURE CODES FA211 ESTABILISHED PATIENT [facility] FACILITY CHARGE DISPOSITION & COMMUNICATION FOLLOW UP POST (REASON: LEFT L5/S1 TRANSFORAMINAL LESI) ELECTRONICALLY SIGNED BY LING ZAPATA, JODI ON 06/30/2019 AT 04:00 PM EST DISCLAIMER : THIS IS A VISIT SUMMARY EXTRACTED FROM THE [employer] CHART. IT IS NOT A COPY OF THE [employer] PROGRESS NOTE. MICK
== END ==
LOC: M PAIN 09:30
PROVIDERS: ATTEND Nurse Practitioner Family
DX: M51.17 Intervertebral disc disorders with radiculopathy, lumbosacral region (principal); E11.9 Type 2 diabetes mellitus without complications; I10 Essential (primary) hypertension; Z79.4 Long term (current) use of insulin; Z79.899 Other long term (current) drug therapy; Z98.84 Bariatric surgery status

== ENCOUNTER → 2019-07-14 | Outpatient (CLI) | payer MEDICARE, MEDICAID ==
[~2019-07-14] MED LIST changes: +BUPIVACAINE HCL 0.25% 30 ML VIAL As Ordered ONE; +ISOVUE-M 300 61% 15ML VIAL (Q9967) As Ordered ONE; +LIDOCAINE 1% SDV INJ 30 ML VIAL As Ordered ONE; +dexameTHASONE 10 MG/1 ML VIAL PRES.FREE (J1100) As Ordered ONE; +diazePAM 5 MG TAB As Ordered ONE; +oxyCODONE 5MG TAB As Ordered ONE
--- NOTE | 2019-07-14 13:13 | REP ---
Partial lumbar spine series: 74 views . History: Injection procedure for pain. 1 minute 45 seconds of fluoroscopy time is reported. Findings: A sequence of 74 fluoroscopically obtained last image hold procedural spot radiographs of the lumbar spine document needle position and contrast injection associated with injection procedure. Electronically Signed by Arnie Sauceda MD 07/14/2019 01:05 P
--- NOTE | 2019-07-17 04:47 | ECWPNPC ---
PATIENT NAME: ABHAY ORNELAS : 1975 GENDER: MALE VISIT DATE: 07/14/2019 DISCHARGE DATE: 07/14/19 1314 VISIT LOCKED DATE TIME: PHYSICIAN: SILVINA MITTAL MD RESOURCE: SILVINA MITTAL MD REASON FOR APPOINTMENT 1. LESI HISTORY OF PRESENT ILLNESS HISTORY OF PRESENT ILLNESS: PAIN THE PATIENT DESCRIBES THE PAIN... FALL RISK SCREENING: SCREENING :NO FALLS REPORTED IN THE LAST YEAR CURRENT MEDICATIONS TAKING OMEPRAZOLE 40 MG CAPSULE DELAYED RELEASE 1 CAPSULE ORALLY TWICE A DAY, NOTES: 07-13-192099 TAKING ASPIR-81 81 MG TABLET DELAYED RELEASE 1 TABLET ORALLY ONCE A DAY, NOTES: 07-13-192099 TAKING ACCU-CHEK QUINCY PLUS W/DEVICE KIT DIRECTED SUBCUTANEOUSLY BID TESTING TAKING ACCU-CHEK QUINCY PLUS - STRIP DIRECTED IN VITRO BID TESTING TAKING ALCOHOL PADS 70 % PAD DIRECTED TOPICALLY BID TESTING TAKING ACCU-CHEK SOFTCLIX LANCET DEV - KIT DIRECTED _ BID TESTING TAKING ACCU-CHEK SOFTCLIX LANCETS - MISCELLANEOUS DIRECTED _ BID TESTING TAKING METFORMIN HCL 1000 MG TABLET 1 TABLET WITH MEALS ORALLY TWICE A DAY, NOTES: 07-13-19 TAKING ATORVASTATIN CALCIUM 40 MG TABLET 1 TABLET ORALLY ONCE A DAY, NOTES: 07-13-19 TAKING LISINOPRIL 10 MG TABLET 1 TABLET ORALLY ONCE A DAY, NOTES: 07-13-19 0800 TAKING GLIPIZIDE ER 10 MG TABLET EXTENDED RELEASE 24 HOUR 1 TABLET ORALLY BID PRIOR TO BREAKFAST AND DINNER, NOTES: 07-13-19 TAKING GABAPENTIN 600 MG TABLET 1 CAPSULE ORALLY THREE TIMES DAILY, NOTES: 07-13-192099 TAKING IPRATROPIUM-ALBUTEROL 0.5-2.5 (3) MG/3ML SOLUTION 3 ML PRN DX J44.9 INHALATION EVERY 6 HRS, NOTES: PRN TAKING TRULICITY 0.75 MG/0.5ML SOLUTION PEN-INJECTOR DIRECTED SUBCUTANEOUS , NOTES: LAST SUNDAY MEDICATION LIST REVIEWED AND RECONCILED WITH THE PATIENT PAST MEDICAL HISTORY HYPERTENSION OBESITY ESOPHAGEAL REFLUX OBSTRUCTIVE SLEEP APNEA, 9 CM WATER TYPE II DIABETIC OSTEOARTHRITIS OF BOTH KNEES PAIN IN JOINT, SHOULDER REGION UNSPECIFIED INTERNAL DERANGEMENT OF KNEE ALLERGIC RHINITIS POSITIVE URINE DRUG SCREEN FOR MARIJUANA, PATIENT DENIES USE HYPERLIPIDEMIA HYPERTENSION MORBID OBESITY STATUS POST BYPASS 2012 WITH REGAINING OF WEIGHT 03/09/2016 TIA ALLERGIES ENVIRONMENTAL: ALLERGY SURGICAL HISTORY TONSILLECTOMY AT AGE 7 ARTHROSCOPIC KNEE SURGERY LEFT DR Brett ROLLINS 11/2010 GASTRIC BYPASS SURGERY 12/09/2012 RIGHT SHOULDER SURGERY AT [facility] 11/2013 LEFT SHOUDLER SURGERY AT [facility] 12/2013 LUMP REMOVED FROM RIGHT SHOULDER- DR YANCEY 03/2014 RIGHT CARPAL TUNNEL AND ELBOW 2016 LOOP RECORDER 09/2016 LEFT KNEE ARTHROSCOPIC 02/2018 REMOVAL OF CYST RIGHT LEG 08/2018 FAMILY HISTORY FATHER: ALIVE, DIAGNOSED WITH DIABETES MOTHER: ALIVE 61 YRS, HYPERTENSION, OTHER MALIGNANT NEOPLASM OF UNSPECIFIED SITE, DIABETES SIBLINGS: ALIVE, UNSPECIFIED 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 MOM-OVARIAN CA\\NNO H\\\/O COLON\\\/PROSTATE\\\/LUNG CANCER. SON 4 HOURS AFTER DELIVERY AT 21 WEEKS GESTATION. SOCIAL HISTORY GENERAL: TOBACCO USE ARE YOU A:NONSMOKER VAPORNO E-CIGARETTENO OTHERS AT HOME: SPOUSE. HOUSING: OWNS HOME. EDUCATION LEVEL OF EDUCATION:HIGH SCHOOL DIET: REGULAR. LANGUAGE LANGUAGES SPOKEN:DIVEHI DOMESTIC VIOLENCE STATUS: RECREATIONAL DRUG USE DRUG USE?NO PATIENT DENIES ABUSE OR MISSUSED OF ANY MEDICATION DENIES PATIENT DENIES USE OF ANY ILLEGAL SUBSTANCE INCLUDING MARIJUANA OR COCAINE DENIES EXERCISE: WALKS. LEARNING BARRIERS / SPECIAL NEEDS BARRIERS TO LEARNING?NO HEARING IMPAIRED?NO VISION IMPAIRED?YES COGNITIVELY IMPAIRED?NO :CORRECTIVE LENSES READINESS TO LEARN?YES LEARNING PREFERENCES?YES :DEMONSTRATION/VERBAL INSTRUCTION LEARNING CAPABILITIES PRESENT?YES EMOTIONAL BARRIERS?NO SPECIAL DEVICES?NO MULTIMEDIA COORDINATOR NEEDED?NO PAIN CLINIC PFS, CLERGY, PUBLIC HEALTH REFERRALS PFS REFERRAL NEEDED?NO CLERGY REFERRAL NEEDED?NO PUBLIC HEALTH REFERRAL NEEDED?NO WAS THE PROVIDER NOTIFIED OF ANY PERTINENT INFO?YES HAS THE PATIENT BEEN EDUCATED REGARDING HIS/HER PLAN OF CARE?YES HAS THE PATIENT BEEN EDUCATED REGARDING PAIN, THE RISK FOR PAIN, THE IMPORTANCE OF EFFECTIVE PAIN MANAGEMENT, AND THE PAIN ASSESSMENT PROCESS?YES LATEX QUESTIONNAIRE LATEX ALLERGY : HAVE YOU EVER DEVELOPED ANY TYPE OF REACTION AFTER HANDLING LATEX PRODUCTS SUCH RUBBER GLOVES, CONDOMS, DIAPHRAGMS, BALLOONS, SOCKS, OR UNDERWEAR?NO LATEX ALLERGY : HAVE YOU EVER DEVELOPED ANY TYPE OF REACTION DURING OR AFTER DENTAL APPOINTMENT, VAGINAL/RECTAL EXAMINATION, SURGICAL PROCEDURE, OR ANY OTHER EXPOSURE?NO DATE ASKED : 05/29/2019 LATEX RISK : HAVE YOU EVER HAD ANY DIFFICULTY BREATHING OR HIVES AFTER EATING OR HANDLING ANY FRUITS, OR VEGETABLES; SUCH KIWI, BANANAS, STONE FRUITS, OR CHESTNUTSNO LATEX RISK : DO YOU HAVE A PREVIOUS PERSONAL HISTORY OF MORE THAN NINE SURGERIES, SPINA BIFIDA, OR REPEATED CATHERIZATIONS? YES - PLEASE INDICATE : > 9 SURGERIES LATEX RISK : ARE YOU FREQUENTLY EXPOSED TO LATEX PRODUCTS IN YOUR OCCUPATION?NO CAFFEINE CAFFEINE USE?YES HOW OFTEN AND HOW MUCH? 2 CUPS OF COFFEE PER WEEK ADVANCE DIRECTIVE ADVANCE DIRECTIVE DISCUSSED WITH PATIENT:YES YES- PT STATES HE HAS A HCP- - LUCÍA- [phone] [employer] [id number] CHURCH MARITAL STATUS: . ALCOHOL SCREENING DID YOU HAVE A DRINK CONTAINING ALCOHOL IN THE PAST YEAR?NO POINTS0 INTERPRETATIONNEGATIVE OCCUPATION: UNEMPLOYED. 04/02/18 1048 REVIEWED WITH PT. AD 06/28/18 1455 REVIEWED WITH PT LAS 08/20/18 REVIEWED WITH PT. AD REVIEWED WITH PATIENT 02/26/19 0910 NLJ REVIEWED WITH PATIENT 05/29/2019 0930 NLJ REVIEWED WITH PATIENT 06/12/2019 0944 JSPRE-SCREENING CALL DONE 07/07/19 EM. HOSPITALIZATION/MAJOR DIAGNOSTIC PROCEDURE SURGERIES REVIEW OF SYSTEMS REVIEWED BY: PROVIDER: . CONSTITUTIONAL: ANY CHANGE IN YOUR MEDICAL CONDITION? NO . CHILLS NO . FEVER NO . INFECTION: DO YOU HAVE NEW INFECTIONS? NO . DO YOU HAVE HISTORY OF MRSA? NO . MUSCULOSKELETAL: ANY NEW PATTERNS OF PAIN OR NUMBNESS? NO . GASTROENTEROLOGY: ANY NEW CHANGE IN BOWEL CONTROL? NO . GENITOURINARY: ANY NEW CHANGE IN BLADDER CONTROL? NO . IS THERE A CHANCE YOU COULD BE ? NO . HEMATOLOGY/LYMPH: DO YOU TAKE ANY BLOOD THINNERS? (FOR EXAMPLE- COUMADIN, PLAVIX, AGGRENOX, PLATEL, PRADAXA, OR XARELTO) NO . WHEN WAS YOUR LAST DOSE? DATE: TIME: . NEUROLOGY: HAVE YOU FALLEN IN THE PAST 12 MONTHS? NO . ANY NEW EXTREMITY NUMBNESS OR WEAKNESS? NO . CARDIOLOGY: DO YOU HAVE A PACEMAKER OR DEFIBRILLATOR? NO . RESPIRATORY: HAVE YOU BEEN SICK IN THE PAST WEEK? NO . FEVER NO . FLU LIKE SYMPTOMS? NO . COUGH NO . INTEGUMENTARY: DO YOU HAVE ANY RASHES OR OPEN SORES? NO . ALLERGIC/IMMUNO: ARE YOU ALLERGIC TO IV DYE? NO . ANY NEW ALLERGIES? NO . PSYCHIATRIC: DO YOU HAVE THOUGHTS OF HURTING YOURSELF OR SOMEONE ELSE? NO . ARE YOU ABUSED, NEGLECTED, OR IN AN UNSAFE ENVIRONMENT? NO . ENDOCRINOLOGY: ARE YOU DIABETIC? YES . OTHER: DO YOU NEED ANY PRESCRIPTIONS? NO . IF YES, PLEASE LIST: ____ . ANY NEW PROBLEMS WITH YOUR MEDICATIONS? NO . WHEN DID YOU LAST EAT? 1130 LAST NIGHT . WHEN DID YOU LAST DRINK? 0800 . WHAT DID YOU LAST DRINK? WATER . NAME OF PERSON DRIVING YOU HOME? LUCÍA . DO YOU HAVE ANY OTHER QUESTIONS OR CONCERNS NO . VITAL SIGNS WT 277.0 LBS, HT 70 IN, BMI 39.74 INDEX, BP 128/85 MM HG, HR 76 /MIN, RR 18 /MIN, TEMP 98.4 F, OXYGEN SAT % 98%, SAFE IN ENV? (Y/N) YES, NA INITIALS AW 1039, REVIEWED BY: KG. ASSESSMENTS INTERVERTEBRAL DISC DISORDER WITH RADICULOPATHY OF LUMBOSACRAL REGION - M51.17 (PRIMARY) TREATMENT INTERVERTEBRAL DISC DISORDER WITH RADICULOPATHY OF LUMBOSACRAL REGION [facility] FLUORO GUIDE SPINE INJECTION (PAIN)[id number] PROCEDURES PN LUMBAR TRANSFORAMINAL BLOCKS PRE PROCEDURE DIAGNOSIS LUMBAR DISC DISORDER WITH RADICULOPATHY POST PROCEDURE DIAGNOSIS LUMBAR DISC DISORDER WITH RADICULOPATHY PROCEDURE LEFT L5 AND LEFT S1 TRANSFORAMINAL EPIDURAL STEROID INJECTION UNDER FLUOROSCOPIC GUIDANCE SURGEON DR SILVINA MITTAL STEM CUTTER NONE ANESTHESIA LOCAL PRE PROCEDURE NOTE PATIENT WITH HISTORY OF CHRONIC LOW BACK PAIN. I EVALUATED THE PATIENT AND REVIEWED THE CHART. I WENT OVER THE RISKS, ALTERNATIVES, AND BENEFITS ASSOCIATED WITH THIS PROCEDURE. THE PATIENT WOULD LIKE TO PROCEED AND GIVES CONSENT TO PERFORM THE PROCEDURE. THE PATIENT DENIES UNEXPLAINABLE WEIGHT LOSS, FEVER, CHILLS, OR CHANGES IN URINARY OR BOWEL CONTROL DESCRIPTION OF PROCEDURE THE PATIENT WAS BROUGHT TO THE PROCEDURE ROOM AND PLACED IN THE PRONE POSITION. THE LUMBOSACRAL AREA WAS CLEANED WITH BETADINE SOLUTION AND DRAPED ASEPTICALLY. THE PROCEDURE WAS DONE UNDER STERILE CONDITIONS. I CHECKED LATERALITY AND THE LEVEL WHERE THE PROCEDURE WAS GOING TO BE PERFORMED WITH THE PATIENT AND THE SUPPORTING STAFF AT THE MOMENT OF THE TIME OUT IN THE PROCEDURE ROOM. UNDER FLUOROSCOPIC GUIDANCE, TARGETS WERE SELECTED AT THE LEFT TRANSFORAMINAL OPENING OF L5 AND LEFT TRANSFORAMINAL OPENING OF S1. TARGET POINT WAS SELECTED AFTER LATERAL ROTATION AND TILT OF THE MAGNIFIER OF THE C-ARM. LIDOCAINE 0.5% WAS USED TO NUMB THE SKIN AND THE SUBCUTANEOUS TISSUE BELOW IT. AN EPIMED INTRODUCER 18-GAUGE WAS ADVANCED UNTIL WE WENT CLOSE TO THE SELECTED TRANSFORAMINAL OPENINGS. AFTER PROPER POSITION OF THE NEEDLES WAS ACHIEVED, A 22-GAUGE EPIMED NEEDLE WAS PLACED INSIDE OF THE INTRODUCER AND ADVANCED TO THE TRANSFORAMINAL OPENING OF THE SELECTED SITES. WHEN PROPER POSITION OF THE NEEDLE WAS ACHIEVED, ISOVUE M DYE 30%, 0.25 ML, WAS INJECTED SHOWING ADEQUATE SPREAD OF THE DYE. THIS WAS DONE UNDER DIGITAL SUBTRACTION AND ANGIOGRAPHY. THERE WAS NO VASCULAR UPDATE. THEN, A SOLUTION OF 2 ML OF BUPIVACAINE 0.25% AND DEXAMETHASONE 10 MG WAS INJECTED AT EACH SITE. THERE WAS NO EVIDENCE OF BLOOD, PARESTHESIA OR CEREBROSPINAL FLUID DURING THE PROCEDURE. THE PATIENT WAS SENT TO THE RECOVERY ROOM. THE PATIENT WAS MOVING THE EXTREMITIES AND DOING WELL. THERE WAS NO COMPLICATION DURING THE PROCEDURE. FLUOROSCOPY TIME WAS 1 MINUTE 45 SECONDS POST PROCEDURE NOTE THE PROCEDURE DONE WAS DISCUSSED WITH THE PATIENT. THE PATIENT WILL BE SEEN IN A FOLLOW UP IN THE NEXT FEW WEEKS. INSTRUCTIONS WERE GIVEN, QUESTIONS WERE ANSWERED, AND THE PATIENT EXPRESSED UNDERSTANDING AND AGREES WITH THE PLAN. I, AMRIK LAWRENCE, DOCUMENTED THE ABOVE INFORMATION ACTING A SCRIBE FOR DR. MTITAL. I HAVE REVIEWED THE ABOVE DOCUMENT, WRITTEN BY AMRIK ROACH AND I VERIFY THAT IT IS ACCURATE. PROCEDURE CODES 90997 INJ FORAMEN EPIDURAL L/S, [place]: [place] [address] INJ FORAMEN EPIDURAL ADD-ON, MODIFIERS: LT 6045F RADXPS IN END [id number] PXD DISPOSITION & COMMUNICATION FOLLOW UP 3 WEEKS ELECTRONICALLY SIGNED BY SILVINA MITTAL MD, MD ON 07/16/2019 AT 03:12 PM EDT DISCLAIMER : THIS IS A VISIT SUMMARY EXTRACTED FROM THE [employer] CHART. IT IS NOT A COPY OF THE [employer] PROGRESS NOTE. MTDD
== END ==
LOC: M PAIN 10:30
PROVIDERS: ATTEND Anesthesiology
DX: M51.17 Intervertebral disc disorders with radiculopathy, lumbosacral region (principal); I10 Essential (primary) hypertension; E66.9 Obesity, unspecified; G47.33 Obstructive sleep apnea (adult) (pediatric); E11.9 Type 2 diabetes mellitus without complications; M17.0 Bilateral primary osteoarthritis of knee; E78.5 Hyperlipidemia, unspecified; Z98.84 Bariatric surgery status; J30.9 Allergic rhinitis, unspecified; Z68.39 Body mass index [BMI] 39.0-39.9, adult; Z79.82 Long term (current) use of aspirin; Z79.899 Other long term (current) drug therapy; Z79.84 Long term (current) use of oral hypoglycemic drugs
CPT/HCPCS: 64483; 64484; J1100; Q9967

== ENCOUNTER → 2019-07-28 | Outpatient (CLI) | payer MEDICARE, MEDICAID ==
[~2019-07-28] MED LIST changes: -BUPIVACAINE HCL 0.25% 30 ML VIAL As Ordered ONE; -ISOVUE-M 300 61% 15ML VIAL (Q9967) As Ordered ONE; -LIDOCAINE 1% SDV INJ 30 ML VIAL As Ordered ONE; -dexameTHASONE 10 MG/1 ML VIAL PRES.FREE (J1100) As Ordered ONE; -diazePAM 5 MG TAB As Ordered ONE; -oxyCODONE 5MG TAB As Ordered ONE
--- NOTE | 2019-07-29 04:21 | ECWPNPC ---
PATIENT NAME: ABHAY ORNELAS : 1975 GENDER: MALE VISIT DATE: 07/28/2019 DISCHARGE DATE: 07/28/1942 VISIT LOCKED DATE TIME: PHYSICIAN: LING HURLEY RESOURCE: LING HURLEY REASON FOR APPOINTMENT 1. POST LETY HISTORY OF PRESENT ILLNESS HISTORY OF PRESENT ILLNESS: HERE FOR POST PROCEDURE FOLLOW-UP. HAD LEFT TRANSFORAMINAL STEROID INJECTION 6 WEEKS AGO. REPORTING SEVERE AGGRAVATION IN HIS PAIN POST PROCEDURE. REPORTING NO IMPROVEMENT IN PAIN POST PROCEDURE. IT SHOULD BE NOTED THIS WAS A TRANSFORAMINAL APPROACH OPPOSED TO LUMBAR EPIDURAL STEROID INJECTION, INTRALAMINAR. RATING PAIN LEVEL AN 8/10 VAS. REPORTING POOR SLEEP DUE TO INCREASE IN PAIN. REVIEWED MRI AND DISCUSSED MEDICATION AND TREATMENT OPTIONS. PAIN THE PATIENT DESCRIBES THE PAIN... FALL RISK SCREENING: SCREENING :NO FALLS REPORTED IN THE LAST YEAR CURRENT MEDICATIONS TAKING OMEPRAZOLE 40 MG CAPSULE DELAYED RELEASE 1 CAPSULE ORALLY TWICE A DAY TAKING ASPIR-81 81 MG TABLET DELAYED RELEASE 1 TABLET ORALLY ONCE A DAY TAKING ACCU-CHEK QUINCY PLUS W/DEVICE KIT DIRECTED SUBCUTANEOUSLY BID TESTING TAKING ACCU-CHEK QUINCY PLUS - STRIP DIRECTED IN VITRO BID TESTING TAKING ALCOHOL PADS 70 % PAD DIRECTED TOPICALLY BID TESTING TAKING ACCU-CHEK SOFTCLIX LANCET DEV - KIT DIRECTED _ BID TESTING TAKING ACCU-CHEK SOFTCLIX LANCETS - MISCELLANEOUS DIRECTED _ BID TESTING TAKING METFORMIN HCL 1000 MG TABLET 1 TABLET WITH MEALS ORALLY TWICE A DAY TAKING ATORVASTATIN CALCIUM 40 MG TABLET 1 TABLET ORALLY ONCE A DAY TAKING LISINOPRIL 10 MG TABLET 1 TABLET ORALLY ONCE A DAY TAKING GLIPIZIDE ER 10 MG TABLET EXTENDED RELEASE 24 HOUR 1 TABLET ORALLY BID PRIOR TO BREAKFAST AND DINNER TAKING GABAPENTIN 600 MG TABLET 1 CAPSULE ORALLY THREE TIMES DAILY TAKING IPRATROPIUM-ALBUTEROL 0.5-2.5 (3) MG/3ML SOLUTION 3 ML PRN DX J44.9 INHALATION EVERY 6 HRS TAKING TRULICITY 0.75 MG/0.5ML SOLUTION PEN-INJECTOR DIRECTED SUBCUTANEOUS MEDICATION LIST REVIEWED AND RECONCILED WITH THE PATIENT PAST MEDICAL HISTORY HYPERTENSION OBESITY ESOPHAGEAL REFLUX OBSTRUCTIVE SLEEP APNEA, 9 CM WATER TYPE II DIABETIC OSTEOARTHRITIS OF BOTH KNEES PAIN IN JOINT, SHOULDER REGION UNSPECIFIED INTERNAL DERANGEMENT OF KNEE ALLERGIC RHINITIS POSITIVE URINE DRUG SCREEN FOR MARIJUANA, PATIENT DENIES USE HYPERLIPIDEMIA HYPERTENSION MORBID OBESITY STATUS POST BYPASS 2012 WITH REGAINING OF WEIGHT 03/09/2016 TIA ALLERGIES ENVIRONMENTAL: ALLERGY SURGICAL HISTORY TONSILLECTOMY AT AGE 7 ARTHROSCOPIC KNEE SURGERY LEFT DR Brett ROLLINS 11/2010 GASTRIC BYPASS SURGERY 12/09/2012 RIGHT SHOULDER SURGERY AT [facility] 11/2013 LEFT SHOUDLER SURGERY AT [facility] 12/2013 LUMP REMOVED FROM RIGHT SHOULDER- DR YANCEY 03/2014 RIGHT CARPAL TUNNEL AND ELBOW 2016 LOOP RECORDER 09/2016 LEFT KNEE ARTHROSCOPIC 02/2018 REMOVAL OF CYST RIGHT LEG 08/2018 FAMILY HISTORY FATHER: ALIVE, DIAGNOSED WITH DIABETES MOTHER: ALIVE 61 YRS, HYPERTENSION, OTHER MALIGNANT NEOPLASM OF UNSPECIFIED SITE, DIABETES SIBLINGS: ALIVE, UNSPECIFIED 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 MOM-OVARIAN CA\\NNO H\\\/O COLON\\\/PROSTATE\\\/LUNG CANCER. SON 4 HOURS AFTER DELIVERY AT 21 WEEKS GESTATION. SOCIAL HISTORY GENERAL: TOBACCO USE ARE YOU A:NONSMOKER VAPORNO E-CIGARETTENO OTHERS AT HOME: SPOUSE. HOUSING: OWNS HOME. EDUCATION LEVEL OF EDUCATION:HIGH SCHOOL DIET: REGULAR. LANGUAGE LANGUAGES SPOKEN:INDIAN DOMESTIC VIOLENCE STATUS: NEW PATIENT PAIN DIARY TODAY'S VISITNOTES 07/28/2019 PATIENT DESCRIBES PAIN :HAVE IT ALL THE TIME, SHOOTING FROM 0-10, WHAT LEVEL IS YOUR PAIN TODAY?7 RECREATIONAL DRUG USE DRUG USE?NO PATIENT DENIES ABUSE OR MISSUSED OF ANY MEDICATION DENIES PATIENT DENIES USE OF ANY ILLEGAL SUBSTANCE INCLUDING MARIJUANA OR COCAINE DENIES EXERCISE: WALKS. LEARNING BARRIERS / SPECIAL NEEDS BARRIERS TO LEARNING?NO HEARING IMPAIRED?NO VISION IMPAIRED?YES COGNITIVELY IMPAIRED?NO :CORRECTIVE LENSES READINESS TO LEARN?YES LEARNING PREFERENCES?YES :DEMONSTRATION/VERBAL INSTRUCTION LEARNING CAPABILITIES PRESENT?YES EMOTIONAL BARRIERS?NO SPECIAL DEVICES?NO SKINNER PELTS NEEDED?NO PAIN CLINIC PFS, CLERGY, PUBLIC HEALTH REFERRALS PFS REFERRAL NEEDED?NO CLERGY REFERRAL NEEDED?NO PUBLIC HEALTH REFERRAL NEEDED?NO WAS THE PROVIDER NOTIFIED OF ANY PERTINENT INFO?YES HAS THE PATIENT BEEN EDUCATED REGARDING HIS/HER PLAN OF CARE?YES HAS THE PATIENT BEEN EDUCATED REGARDING PAIN, THE RISK FOR PAIN, THE IMPORTANCE OF EFFECTIVE PAIN MANAGEMENT, AND THE PAIN ASSESSMENT PROCESS?YES LATEX QUESTIONNAIRE LATEX ALLERGY : HAVE YOU EVER DEVELOPED ANY TYPE OF REACTION AFTER HANDLING LATEX PRODUCTS SUCH RUBBER GLOVES, CONDOMS, DIAPHRAGMS, BALLOONS, SOCKS, OR UNDERWEAR?NO LATEX ALLERGY : HAVE YOU EVER DEVELOPED ANY TYPE OF REACTION DURING OR AFTER DENTAL APPOINTMENT, VAGINAL/RECTAL EXAMINATION, SURGICAL PROCEDURE, OR ANY OTHER EXPOSURE?NO LATEX RISK : HAVE YOU EVER HAD ANY DIFFICULTY BREATHING OR HIVES AFTER EATING OR HANDLING ANY FRUITS, OR VEGETABLES; SUCH KIWI, BANANAS, STONE FRUITS, OR CHESTNUTSNO LATEX RISK : DO YOU HAVE A PREVIOUS PERSONAL HISTORY OF MORE THAN NINE SURGERIES, SPINA BIFIDA, OR REPEATED CATHERIZATIONS? YES - PLEASE INDICATE : > 9 SURGERIES LATEX RISK : ARE YOU FREQUENTLY EXPOSED TO LATEX PRODUCTS IN YOUR OCCUPATION?NO DATE ASKED : 05/29/2019 CAFFEINE CAFFEINE USE?YES HOW OFTEN AND HOW MUCH? 2 CUPS OF COFFEE PER WEEK ADVANCE DIRECTIVE ADVANCE DIRECTIVE DISCUSSED WITH PATIENT:YES YES- PT STATES HE HAS A HCP- - LUCÍA- [phone] MANDAEISM [id number] SIKH MARITAL STATUS: . ALCOHOL SCREENING DID YOU HAVE A DRINK CONTAINING ALCOHOL IN THE PAST YEAR?NO POINTS0 INTERPRETATIONNEGATIVE OCCUPATION: UNEMPLOYED. HOSPITALIZATION/MAJOR DIAGNOSTIC PROCEDURE SURGERIES REVIEW OF SYSTEMS REVIEWED BY: PROVIDER: LING ZAPATA . CONSTITUTIONAL: ANY CHANGE IN YOUR MEDICAL CONDITION? NO . CHILLS NO . FEVER NO . INFECTION: DO YOU HAVE NEW INFECTIONS? NO . DO YOU HAVE HISTORY OF MRSA? NO . MUSCULOSKELETAL: ANY NEW PATTERNS OF PAIN OR NUMBNESS? YES, STATES INCREASED PAIN SINCE INJECTION . GASTROENTEROLOGY: ANY NEW CHANGE IN BOWEL CONTROL? YES, STATES CONSTIPATION SINCE THE INJECTION - ONLY GOING EVERY FEW DAYS AND IS HAVING A LOT OF DIFFICULTY GOING . GENITOURINARY: ANY NEW CHANGE IN BLADDER CONTROL? NO . IS THERE A CHANCE YOU COULD BE ? NO . HEMATOLOGY/LYMPH: DO YOU TAKE ANY BLOOD THINNERS? (FOR EXAMPLE- COUMADIN, PLAVIX, AGGRENOX, PLATEL, PRADAXA, OR XARELTO) NO . WHEN WAS YOUR LAST DOSE? DATE: TIME: . NEUROLOGY: HAVE YOU FALLEN IN THE PAST 12 MONTHS? NO . ANY NEW EXTREMITY NUMBNESS OR WEAKNESS? NO . CARDIOLOGY: DO YOU HAVE A PACEMAKER OR DEFIBRILLATOR? NO . RESPIRATORY: HAVE YOU BEEN SICK IN THE PAST WEEK? NO . FEVER NO . FLU LIKE SYMPTOMS? NO . COUGH NO . INTEGUMENTARY: DO YOU HAVE ANY RASHES OR OPEN SORES? NO . ALLERGIC/IMMUNO: ARE YOU ALLERGIC TO IV DYE? NO . ANY NEW ALLERGIES? NO . PSYCHIATRIC: DO YOU HAVE THOUGHTS OF HURTING YOURSELF OR SOMEONE ELSE? NO . ARE YOU ABUSED, NEGLECTED, OR IN AN UNSAFE ENVIRONMENT? NO . ENDOCRINOLOGY: ARE YOU DIABETIC? YES . OTHER: DO YOU NEED ANY PRESCRIPTIONS? NO . IF YES, PLEASE LIST: ____ . ANY NEW PROBLEMS WITH YOUR MEDICATIONS? NO . WHEN DID YOU LAST EAT? ____ . WHEN DID YOU LAST DRINK? ____ . WHAT DID YOU LAST DRINK? ____ . NAME OF PERSON DRIVING YOU HOME? ____ . DO YOU HAVE ANY OTHER QUESTIONS OR CONCERNS NO . VITAL SIGNS WT 275 LBS, HT 70 IN, BMI 39.45 INDEX, BP 119/71 MM HG, HR 89 /MIN, RR 18 /MIN, TEMP 98.6 F, OXYGEN SAT % 99%, SAFE IN ENV? (Y/N) YES, NA INITIALS AW 0853, REVIEWED BY: DANIEL. EXAMINATION GENERAL EXAMINATION: GENERAL AWAKE,ALERT ,PLEASANT . PSYCH AFFECT NORMAL . LUNGS: LUNG WOODS ARE CLEAR TO AUSCULTATION BILATERALLY. GOOD MOVEMENT OF AIR . HEART: S1, S2 IN A REGULAR RATE AND RHYTHM. NO SIGNIFICANT MURMURS, RUBS OR GALLOPS NOTED . LUMBAR: PALPATION: + FOR PAIN OVER L/S SPINE. + FOR PAIN OVER L/S PARASPINALS SLE: POSITIVE OVER LEFT LEG AT 45. NEUROLOGIC EXAM: WEAKNESS NOTED OVER LEFT LEG. DIAGNOSTIC TESTS REVIEWED MRI L/S SPINE-08/30/18. ASSESSMENTS INTERVERTEBRAL DISC DISORDER WITH RADICULOPATHY OF LUMBOSACRAL REGION - M51.17 (PRIMARY) TREATMENT INTERVERTEBRAL DISC DISORDER WITH RADICULOPATHY OF LUMBOSACRAL REGION START PERCOCET TABLET, 5-325 MG, 1 TO 2, MDD4, EVERY 6 HRS, 30 DAYS, 45, REFILLS 0 NOTES: L5/S1 LESI, ISTOP REGISTRY REVIEWED AND DEMONSTRATES COMPLLIANCE. PREVENTIVE MEDICINE PAIN CLINIC TEACHING: PROCEDURE TEACHING REVIEWED INFORMATION ON LUMBAR EPIDURAL STEROID INJECTION PROCEDURE WITH PATIENT. ALSO REVIEWED PRE-PROCEDURE INSTRUCTIONS. PATIENT VERBALIZED AN UNDERSTANDING. DANIKA HO 07/28/2019 9:39:06 AM > . DISPOSITION & COMMUNICATION FOLLOW UP POST (REASON: L5/S1 LESI) ELECTRONICALLY SIGNED BY JODI COLON ON 07/28/2019 AT 10:13 AM EDT DISCLAIMER : THIS IS A VISIT SUMMARY EXTRACTED FROM THE [employer] CHART. IT IS NOT A COPY OF THE [employer] PROGRESS NOTE. MICK
== END ==
LOC: M PAIN 08:45
PROVIDERS: ATTEND Nurse Practitioner Family
DX: M51.17 Intervertebral disc disorders with radiculopathy, lumbosacral region (principal); I10 Essential (primary) hypertension; E11.9 Type 2 diabetes mellitus without complications; Z79.82 Long term (current) use of aspirin; Z79.84 Long term (current) use of oral hypoglycemic drugs

== ENCOUNTER → 2019-08-25 | Outpatient (CLI) | payer MEDICARE, MEDICAID ==
[~2019-08-25] MED LIST changes: +CYCL-707 PO; -CYCL10TA PO
--- NOTE | 2019-08-27 03:06 | ECWPNPC ---
PATIENT NAME: ABHAY ORNELAS : 1975 GENDER: MALE VISIT DATE: 08/25/2019 DISCHARGE DATE: 08/25/19 1020 VISIT LOCKED DATE TIME: PHYSICIAN: SILVINA MITTAL MD RESOURCE: SILVINA MITTAL MD REASON FOR APPOINTMENT 1. L5/S1 LESI HISTORY OF PRESENT ILLNESS HISTORY OF PRESENT ILLNESS: PAIN THE PATIENT DESCRIBES THE PAIN... PERMISSION FROM PATIENT WAS RECEIVED TO DO TELEMEDICINE VISIT USING ZOOM APPLICATION. 43 YEAR OLD MALE PATIENT WITH A HISTORY OF CHRONIC LOW BACK AND LEG PAIN. THE PATIENT DESCRIBES THE PAIN CONSTANT, STABBING, AND SHOOTING WITH A PAIN SCORE OF 5-9/10 DEPENDING ON PHYSICAL ACTIVITY. THE PATIENT RECEIVED AN INTERLAMINAR EPIDURAL IN THE PAST THAT HE SAYS HAS HELPED WITH HIS PAIN, BUT HE'S NOT SURE IF THE TRANSFORAMINAL EPIDURAL HELPED WITH MUCH PAIN RELIEF. THE PATIENT SAYS HE IS USING UP TO 4 TABLETS OF PERCOCET 5-325 MG NEEDED FOR HIS PAIN, MAINLY AT NIGHT SINCE IT CAUSES SLEEPINESS FOR HIM DURING THE DAY. THE PATIENT SAYS THE MEDICATION IS HELPING TO MANAGE HIS PAIN AND HE UNDERSTANDS PROCEDURES ARE CURRENTLY ON HOLD DUE TO THE CURRENT COVID SITUATION. , PATIENT DENIES UNEXPLAINABLE WEIGHT LOSS, FEVER, CHILLS, NEW CHANGES ON HIS URINARY OR BOWEL CONTROL. FALL RISK SCREENING: SCREENING :NO FALLS REPORTED IN THE LAST YEAR CURRENT MEDICATIONS TAKING OMEPRAZOLE 40 MG CAPSULE DELAYED RELEASE 1 CAPSULE ORALLY TWICE A DAY TAKING ASPIR-81 81 MG TABLET DELAYED RELEASE 1 TABLET ORALLY ONCE A DAY TAKING ACCU-CHEK QUINCY PLUS W/DEVICE KIT DIRECTED SUBCUTANEOUSLY BID TESTING TAKING ACCU-CHEK QUINCY PLUS - STRIP DIRECTED IN VITRO BID TESTING TAKING ALCOHOL PADS 70 % PAD DIRECTED TOPICALLY BID TESTING TAKING ACCU-CHEK SOFTCLIX LANCET DEV - KIT DIRECTED _ BID TESTING TAKING ACCU-CHEK SOFTCLIX LANCETS - MISCELLANEOUS DIRECTED _ BID TESTING TAKING METFORMIN HCL 1000 MG TABLET 1 TABLET WITH MEALS ORALLY TWICE A DAY TAKING ATORVASTATIN CALCIUM 40 MG TABLET 1 TABLET ORALLY ONCE A DAY TAKING LISINOPRIL 10 MG TABLET 1 TABLET ORALLY ONCE A DAY TAKING GLIPIZIDE ER 10 MG TABLET EXTENDED RELEASE 24 HOUR 1 TABLET ORALLY BID PRIOR TO BREAKFAST AND DINNER TAKING GABAPENTIN 600 MG TABLET 1 CAPSULE ORALLY THREE TIMES DAILY TAKING IPRATROPIUM-ALBUTEROL 0.5-2.5 (3) MG/3ML SOLUTION 3 ML PRN DX J44.9 INHALATION EVERY 6 HRS TAKING TRULICITY 0.75 MG/0.5ML SOLUTION PEN-INJECTOR DIRECTED SUBCUTANEOUS , NOTES: THURSDAYS TAKING PERCOCET 5-325 MG TABLET 1 TO 2 MDD4 EVERY 6 HRS MEDICATION LIST REVIEWED AND RECONCILED WITH THE PATIENT PAST MEDICAL HISTORY HYPERTENSION OBESITY ESOPHAGEAL REFLUX OBSTRUCTIVE SLEEP APNEA, 9 CM WATER- CPAP TYPE II DIABETIC OSTEOARTHRITIS OF BOTH KNEES PAIN IN JOINT, SHOULDER REGION UNSPECIFIED INTERNAL DERANGEMENT OF KNEE ALLERGIC RHINITIS POSITIVE URINE DRUG SCREEN FOR MARIJUANA, PATIENT DENIES USE HYPERLIPIDEMIA HYPERTENSION MORBID OBESITY STATUS POST BYPASS 2012 WITH REGAINING OF WEIGHT 03/09/2016 TIA ALLERGIES ENVIRONMENTAL: ALLERGY SURGICAL HISTORY TONSILLECTOMY AT AGE 7 ARTHROSCOPIC KNEE SURGERY LEFT DR Brett ROLLINS 11/2010 GASTRIC BYPASS SURGERY 12/09/2012 RIGHT SHOULDER SURGERY AT [facility] 11/2013 LEFT SHOUDLER SURGERY AT [facility] 12/2013 LUMP REMOVED FROM RIGHT SHOULDER- DR YANCEY 03/2014 RIGHT CARPAL TUNNEL AND ELBOW 2016 LOOP RECORDER 09/2016 LEFT KNEE ARTHROSCOPIC 02/2018 REMOVAL OF CYST RIGHT LEG 08/2018 FAMILY HISTORY FATHER: ALIVE, DIAGNOSED WITH DIABETES MOTHER: ALIVE 61 YRS, DIABETES, HYPERTENSION, OTHER MALIGNANT NEOPLASM OF UNSPECIFIED SITE SIBLINGS: ALIVE, UNSPECIFIED 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 MOM-OVARIAN CA\\NNO H\\\/O COLON\\\/PROSTATE\\\/LUNG CANCER. SON 4 HOURS AFTER DELIVERY AT 21 WEEKS GESTATION. SOCIAL HISTORY GENERAL: TOBACCO USE ARE YOU A:NONSMOKER VAPORNO E-CIGARETTENO LATEX QUESTIONNAIRE LATEX ALLERGY : HAVE YOU EVER DEVELOPED ANY TYPE OF REACTION AFTER HANDLING LATEX PRODUCTS SUCH RUBBER GLOVES, CONDOMS, DIAPHRAGMS, BALLOONS, SOCKS, OR UNDERWEAR?NO LATEX ALLERGY : HAVE YOU EVER DEVELOPED ANY TYPE OF REACTION DURING OR AFTER DENTAL APPOINTMENT, VAGINAL/RECTAL EXAMINATION, SURGICAL PROCEDURE, OR ANY OTHER EXPOSURE?NO DATE ASKED : 05/29/2019 LATEX RISK : HAVE YOU EVER HAD ANY DIFFICULTY BREATHING OR HIVES AFTER EATING OR HANDLING ANY FRUITS, OR VEGETABLES; SUCH KIWI, BANANAS, STONE FRUITS, OR CHESTNUTSNO LATEX RISK : DO YOU HAVE A PREVIOUS PERSONAL HISTORY OF MORE THAN NINE SURGERIES, SPINA BIFIDA, OR REPEATED CATHERIZATIONS? YES - PLEASE INDICATE : > 9 SURGERIES LATEX RISK : ARE YOU FREQUENTLY EXPOSED TO LATEX PRODUCTS IN YOUR OCCUPATION?NO ALCOHOL SCREENING DID YOU HAVE A DRINK CONTAINING ALCOHOL IN THE PAST YEAR?NO POINTS0 INTERPRETATIONNEGATIVE RECREATIONAL DRUG USE DRUG USE?NO PATIENT DENIES ABUSE OR MISSUSED OF ANY MEDICATION DENIES PATIENT DENIES USE OF ANY ILLEGAL SUBSTANCE INCLUDING MARIJUANA OR COCAINE DENIES CAFFEINE CAFFEINE USE?YES HOW OFTEN AND HOW MUCH? 2 CUPS OF COFFEE PER WEEK TAOISM [id number] GNOSTICIST LANGUAGE LANGUAGES SPOKEN:ANGUILLAN EDUCATION LEVEL OF EDUCATION:HIGH SCHOOL LEARNING BARRIERS / SPECIAL NEEDS BARRIERS TO LEARNING?NO HEARING IMPAIRED?NO VISION IMPAIRED?YES COGNITIVELY IMPAIRED?NO :CORRECTIVE LENSES READINESS TO LEARN?YES LEARNING PREFERENCES?YES :DEMONSTRATION/VERBAL INSTRUCTION LEARNING CAPABILITIES PRESENT?YES EMOTIONAL BARRIERS?NO SPECIAL DEVICES?NO SENIOR FINANCIAL ACCOUNTANT NEEDED?NO DOMESTIC VIOLENCE STATUS: OCCUPATION: UNEMPLOYED. DIET: REGULAR. EXERCISE: WALKS. MARITAL STATUS: . OTHERS AT HOME: SPOUSE. NEW PATIENT PAIN DIARY TODAY'S VISITNOTES 08/25/2019 PATIENT DESCRIBES PAIN :HAVE IT ALL THE TIME, STABBING, SHOOTING FROM 0-10, WHAT LEVEL IS YOUR PAIN TODAY?7 PAIN CLINIC PFS, CLERGY, PUBLIC HEALTH REFERRALS PFS REFERRAL NEEDED?NO CLERGY REFERRAL NEEDED?NO PUBLIC HEALTH REFERRAL NEEDED?NO WAS THE PROVIDER NOTIFIED OF ANY PERTINENT INFO?YES HAS THE PATIENT BEEN EDUCATED REGARDING HIS/HER PLAN OF CARE?YES HAS THE PATIENT BEEN EDUCATED REGARDING PAIN, THE RISK FOR PAIN, THE IMPORTANCE OF EFFECTIVE PAIN MANAGEMENT, AND THE PAIN ASSESSMENT PROCESS?YES HOUSING: OWNS HOME. ADVANCE DIRECTIVE ADVANCE DIRECTIVE DISCUSSED WITH PATIENT:YES YES- PT STATES HE HAS A HCP- - LUCÍA- [phone] HOSPITALIZATION/MAJOR DIAGNOSTIC PROCEDURE SURGERIES REVIEW OF SYSTEMS REVIEWED BY: PROVIDER: SILVINA MITTAL MD . CONSTITUTIONAL: ANY CHANGE IN YOUR MEDICAL CONDITION? NO . CHILLS NO . FEVER NO . INFECTION: DO YOU HAVE NEW INFECTIONS? NO . DO YOU HAVE HISTORY OF MRSA? NO . MUSCULOSKELETAL: ANY NEW PATTERNS OF PAIN OR NUMBNESS? NO- PT STATES NO NEW PATTERNS OF PAIN OR NUMBNESS, STATES CONTINUED LOW BACK PAIN RADIATING DOWN BILATERAL LOWER EXTREMITIES THAT HAS INCREASED LATELY. . GASTROENTEROLOGY: ANY NEW CHANGE IN BOWEL CONTROL? NO . GENITOURINARY: ANY NEW CHANGE IN BLADDER CONTROL? NO . IS THERE A CHANCE YOU COULD BE ? NO . HEMATOLOGY/LYMPH: DO YOU TAKE ANY BLOOD THINNERS? (FOR EXAMPLE- COUMADIN, PLAVIX, AGGRENOX, PLATEL, PRADAXA, OR XARELTO) NO . WHEN WAS YOUR LAST DOSE? DATE: TIME: . NEUROLOGY: HAVE YOU FALLEN IN THE PAST 12 MONTHS? NO . ANY NEW EXTREMITY NUMBNESS OR WEAKNESS? NO . CARDIOLOGY: DO YOU HAVE A PACEMAKER OR DEFIBRILLATOR? NO . RESPIRATORY: HAVE YOU BEEN SICK IN THE PAST WEEK? NO . FEVER NO . FLU LIKE SYMPTOMS? NO . COUGH NO . INTEGUMENTARY: DO YOU HAVE ANY RASHES OR OPEN SORES? NO . ALLERGIC/IMMUNO: ARE YOU ALLERGIC TO IV DYE? NO . ANY NEW ALLERGIES? NO . PSYCHIATRIC: DO YOU HAVE THOUGHTS OF HURTING YOURSELF OR SOMEONE ELSE? NO . ARE YOU ABUSED, NEGLECTED, OR IN AN UNSAFE ENVIRONMENT? NO . ENDOCRINOLOGY: ARE YOU DIABETIC? YES . OTHER: DO YOU NEED ANY PRESCRIPTIONS? YES . IF YES, PLEASE LIST: PERCOCET . ANY NEW PROBLEMS WITH YOUR MEDICATIONS? NO . WHEN DID YOU LAST EAT? ____ . WHEN DID YOU LAST DRINK? ____ . WHAT DID YOU LAST DRINK? ____ . NAME OF PERSON DRIVING YOU HOME? ____ . DO YOU HAVE ANY OTHER QUESTIONS OR CONCERNS NO . EXAMINATION GENERAL EXAMINATION: TELEMEDICINE USING ZOOM APPLICATION. PATIENT IS ALERT O X 3 AND COOPERATIVE. MRI OF THE LUMBAR SPINE DONE ON 08/30/2018 SHOWS BULGING DISCS AT MULTIPLE LEVELS. ASSESSMENTS INTERVERTEBRAL DISC DISORDERS WITH RADICULOPATHY, LUMBAR REGION - M51.16 (PRIMARY) INTERVERTEBRAL DISC DISORDER WITH RADICULOPATHY OF LUMBOSACRAL REGION - M51.17 TREATMENT INTERVERTEBRAL DISC DISORDERS WITH RADICULOPATHY, LUMBAR REGION CLINICAL NOTES: WE DISCUSSED SEVERAL ISSUES WITH MR. ORNELAS'S PAIN MANAGEMENT CASE. THE PATIENT WILL CONTINUE WITH PERCOCET TABLET 5-325 MG, WHICH I REFILLED 100 TABLETS FOR THE MONTH TO BE USED UP TO 4 TABLETS DAILY NEEDED TO AID IN PAIN RELIEF. ISTOP # [id number] WAS REVIEWED. I DISCUSSED THE RISKS ASSOCIATED WITH THE USE OF OPIOIDS INCLUDING THE POSSIBLE DEVELOPMENT OF ADDICTION OR TOLERANCE AND THE PATIENT VERBALIZED UNDERSTANDING. THE PATIENT REPORTS THE USE OF THE PRESCRIBED MEDICATION IS ONLY FOR PAIN CONTROL AND THAT NO MISUSE OF THE MEDICATION WILL OCCUR. THE PATIENT DENIES THE USE OF ANY ILLEGAL SUBSTANCES INCLUDING MARIHUANA. THE PATIENT REPORTS UNDERSTANDING OF TODAY'S DISCUSSION. THE PATIENT WILL FOLLOW UP WITH BROOM WORKER LING HURLEY IN 3 WEEKS TO SEE HOW HE IS DOING. INSTRUCTIONS WERE GIVEN, QUESTIONS WERE ANSWERED, PATIENT REPORTS UNDERSTANDING AND AGREES WITH THE PLAN. I, AMRIK LAWRENCE, DOCUMENTED THE ABOVE INFORMATION ACTING A SCRIBE FOR DR. MITTAL. I HAVE REVIEWED THE ABOVE DOCUMENT, WRITTEN BY AMRIK ROACH AND I VERIFY THAT IT IS ACCURATE. . INTERVERTEBRAL DISC DISORDER WITH RADICULOPATHY OF LUMBOSACRAL REGION CONTINUE PERCOCET TABLET, 5-325 MG, 1, ORALLY FOR PAIN, EVERY 5 HOURS NEEDED MDD4, 30 DAYS, 100, REFILLS 0 OTHERS NOTES: THIS MANUFACTURING QUALITY ENGINEER IS UNABLE TO OBTAIN VITAL SIGNS ON PATIENT DUE TO VIRTUAL VISIT 08/25/2019 0900 NLJ . DISPOSITION & COMMUNICATION FOLLOW UP 3-4 WEEKS (REASON: F/UP WITH LING IN 3 WEEKS (CHANGE FROM THE SEPTEMBER 07 APPT).) ELECTRONICALLY SIGNED BY SILVINA MITTAL MD, MD ON 08/26/2019 AT 05:01 PM EDT DISCLAIMER : THIS IS A VISIT SUMMARY EXTRACTED FROM THE [employer] CHART. IT IS NOT A COPY OF THE [employer] PROGRESS NOTE. RODNEYD
== END ==
LOC: M PAIN 08:45
PROVIDERS: ATTEND Anesthesiology
DX: M51.16 Intervertebral disc disorders with radiculopathy, lumbar region (principal); M51.17 Intervertebral disc disorders with radiculopathy, lumbosacral region; I10 Essential (primary) hypertension; E11.9 Type 2 diabetes mellitus without complications; Z79.82 Long term (current) use of aspirin; Z79.84 Long term (current) use of oral hypoglycemic drugs; Z79.891 Long term (current) use of opiate analgesic; Z79.899 Other long term (current) drug therapy

== ENCOUNTER → 2019-09-22 | Outpatient (CLI) | payer MEDICARE, MEDICAID ==
--- NOTE | 2019-09-24 03:33 | ECWPNPC ---
PATIENT NAME: ABHAY ORNELAS : 1975 GENDER: MALE VISIT DATE: 09/22/2019 DISCHARGE DATE: 09/22/19 1148 VISIT LOCKED DATE TIME: PHYSICIAN: LING HURLEY RESOURCE: LING HULREY REASON FOR APPOINTMENT 1. F/UP WITH LING IN 3 WEEKS (CHANGE FROM THE SEPTEMBER 07 APPT) 2. .[phone] PAT DONE HISTORY OF PRESENT ILLNESS HISTORY OF PRESENT ILLNESS: PATIENT IS AGREEABLE TO TELEMED VISIT VIA ZOOM. THIS IS A FOLLOW-UP OF CHRONIC LOW BACK PAIN. REPORTING INCREASE IN LOW BACK PAIN. RATING PAIN LEVEL A 10 OVER 10 VAS WITH ACTIVITY. RATING PAIN LEVEL A 4/10 AT REST. HAS RESPONDED TO LUMBAR EPIDURAL STEROID INJECTIONS IN THE PAST. DISCUSSED MEDICATION AND TREATMENT OPTIONS. PAIN THE PATIENT DESCRIBES THE PAIN... FALL RISK SCREENING: SCREENING :NO FALLS REPORTED IN THE LAST YEAR CURRENT MEDICATIONS TAKING OMEPRAZOLE 40 MG CAPSULE DELAYED RELEASE 1 CAPSULE ORALLY TWICE A DAY TAKING ASPIR-81 81 MG TABLET DELAYED RELEASE 1 TABLET ORALLY ONCE A DAY TAKING ACCU-CHEK QUINCY PLUS W/DEVICE KIT DIRECTED SUBCUTANEOUSLY BID TESTING TAKING ACCU-CHEK QUINCY PLUS - STRIP DIRECTED IN VITRO BID TESTING TAKING ALCOHOL PADS 70 % PAD DIRECTED TOPICALLY BID TESTING TAKING ACCU-CHEK SOFTCLIX LANCET DEV - KIT DIRECTED _ BID TESTING TAKING ACCU-CHEK SOFTCLIX LANCETS - MISCELLANEOUS DIRECTED _ BID TESTING TAKING METFORMIN HCL 1000 MG TABLET 1 TABLET WITH MEALS ORALLY TWICE A DAY TAKING ATORVASTATIN CALCIUM 40 MG TABLET 1 TABLET ORALLY ONCE A DAY TAKING LISINOPRIL 10 MG TABLET 1 TABLET ORALLY ONCE A DAY TAKING GLIPIZIDE ER 10 MG TABLET EXTENDED RELEASE 24 HOUR 1 TABLET ORALLY BID PRIOR TO BREAKFAST AND DINNER TAKING GABAPENTIN 600 MG TABLET 1 CAPSULE ORALLY THREE TIMES DAILY TAKING IPRATROPIUM-ALBUTEROL 0.5-2.5 (3) MG/3ML SOLUTION 3 ML PRN DX J44.9 INHALATION EVERY 6 HRS TAKING TRULICITY 0.75 MG/0.5ML SOLUTION PEN-INJECTOR DIRECTED SUBCUTANEOUS , NOTES: THURSDAYS TAKING PERCOCET 5-325 MG TABLET 1 ORALLY FOR PAIN EVERY 5 HOURS NEEDED MDD4 MEDICATION LIST REVIEWED AND RECONCILED WITH THE PATIENT PAST MEDICAL HISTORY HYPERTENSION OBESITY ESOPHAGEAL REFLUX OBSTRUCTIVE SLEEP APNEA, 9 CM WATER- CPAP TYPE II DIABETIC OSTEOARTHRITIS OF BOTH KNEES PAIN IN JOINT, SHOULDER REGION UNSPECIFIED INTERNAL DERANGEMENT OF KNEE ALLERGIC RHINITIS POSITIVE URINE DRUG SCREEN FOR MARIJUANA, PATIENT DENIES USE HYPERLIPIDEMIA HYPERTENSION MORBID OBESITY STATUS POST BYPASS 2012 WITH REGAINING OF WEIGHT 03/09/2016 TIA ALLERGIES ENVIRONMENTAL: ALLERGY SURGICAL HISTORY TONSILLECTOMY AT AGE 7 ARTHROSCOPIC KNEE SURGERY LEFT DR Brett ROLLINS 11/2010 GASTRIC BYPASS SURGERY 12/09/2012 RIGHT SHOULDER SURGERY AT SOS 11/2013 LEFT SHOUDLER SURGERY AT SOS 12/2013 LUMP REMOVED FROM RIGHT SHOULDER- DR YANCEY 03/2014 RIGHT CARPAL TUNNEL AND ELBOW 2016 LOOP RECORDER 09/2016 LEFT KNEE ARTHROSCOPIC 02/2018 REMOVAL OF CYST RIGHT LEG 08/2018 FAMILY HISTORY FATHER: ALIVE, DIAGNOSED WITH DIABETES MOTHER: ALIVE 61 YRS, OTHER MALIGNANT NEOPLASM OF UNSPECIFIED SITE, DIABETES, HYPERTENSION SIBLINGS: ALIVE, UNSPECIFIED 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 MOM-OVARIAN CA\\NNO H\\\/O COLON\\\/PROSTATE\\\/LUNG CANCER. SON 4 HOURS AFTER DELIVERY AT 21 WEEKS GESTATION. SOCIAL HISTORY GENERAL: TOBACCO USE ARE YOU A:NONSMOKER VAPORNO E-CIGARETTENO LATEX QUESTIONNAIRE LATEX ALLERGY : HAVE YOU EVER DEVELOPED ANY TYPE OF REACTION AFTER HANDLING LATEX PRODUCTS SUCH RUBBER GLOVES, CONDOMS, DIAPHRAGMS, BALLOONS, SOCKS, OR UNDERWEAR?NO LATEX ALLERGY : HAVE YOU EVER DEVELOPED ANY TYPE OF REACTION DURING OR AFTER DENTAL APPOINTMENT, VAGINAL/RECTAL EXAMINATION, SURGICAL PROCEDURE, OR ANY OTHER EXPOSURE?NO DATE ASKED : 05/29/2019 LATEX RISK : HAVE YOU EVER HAD ANY DIFFICULTY BREATHING OR HIVES AFTER EATING OR HANDLING ANY FRUITS, OR VEGETABLES; SUCH KIWI, BANANAS, STONE FRUITS, OR CHESTNUTSNO LATEX RISK : DO YOU HAVE A PREVIOUS PERSONAL HISTORY OF MORE THAN NINE SURGERIES, SPINA BIFIDA, OR REPEATED CATHERIZATIONS? YES - PLEASE INDICATE : > 9 SURGERIES LATEX RISK : ARE YOU FREQUENTLY EXPOSED TO LATEX PRODUCTS IN YOUR OCCUPATION?NO ALCOHOL SCREENING DID YOU HAVE A DRINK CONTAINING ALCOHOL IN THE PAST YEAR?NO POINTS0 INTERPRETATIONNEGATIVE RECREATIONAL DRUG USE DRUG USE?NO PATIENT DENIES ABUSE OR MISSUSED OF ANY MEDICATION DENIES PATIENT DENIES USE OF ANY ILLEGAL SUBSTANCE INCLUDING MARIJUANA OR COCAINE DENIES CAFFEINE CAFFEINE USE?YES HOW OFTEN AND HOW MUCH? 2 CUPS OF COFFEE PER WEEK MANDAEISM [id number] MANDAEN LANGUAGE LANGUAGES SPOKEN:CITIZ[place] OF [place] EDUCATION LEVEL OF EDUCATION:HIGH SCHOOL LEARNING BARRIERS / SPECIAL NEEDS BARRIERS TO LEARNING?NO HEARING IMPAIRED?NO VISION IMPAIRED?YES COGNITIVELY IMPAIRED?NO :CORRECTIVE LENSES READINESS TO LEARN?YES LEARNING PREFERENCES?YES :DEMONSTRATION/VERBAL INSTRUCTION LEARNING CAPABILITIES PRESENT?YES EMOTIONAL BARRIERS?NO SPECIAL DEVICES?NO POULTRY INSEMINATOR NEEDED?NO DOMESTIC VIOLENCE STATUS: OCCUPATION: UNEMPLOYED. DIET: REGULAR. EXERCISE: WALKS. MARITAL STATUS: . OTHERS AT HOME: SPOUSE. NEW PATIENT PAIN DIARY TODAY'S VISITNOTES 09/19/2019 PATIENT DESCRIBES PAIN :HAVE IT ALL THE TIME, STABBING, SHOOTING FROM 0-10, WHAT LEVEL IS YOUR PAIN TODAY?7 PRECIPITATING FACTORS WALKING, SITTING ALLEVIATING FACTORS LAYING DOWN IMPACT ON FUNCTION YES PAIN CLINIC PFS, CLERGY, PUBLIC HEALTH REFERRALS PFS REFERRAL NEEDED?NO CLERGY REFERRAL NEEDED?NO PUBLIC HEALTH REFERRAL NEEDED?NO WAS THE PROVIDER NOTIFIED OF ANY PERTINENT INFO?YES HAS THE PATIENT BEEN EDUCATED REGARDING HIS/HER PLAN OF CARE?YES HAS THE PATIENT BEEN EDUCATED REGARDING PAIN, THE RISK FOR PAIN, THE IMPORTANCE OF EFFECTIVE PAIN MANAGEMENT, AND THE PAIN ASSESSMENT PROCESS?YES HOUSING: OWNS HOME. ADVANCE DIRECTIVE ADVANCE DIRECTIVE DISCUSSED WITH PATIENT:YES YES- PT STATES HE HAS A HCP- - LUCÍA- [phone] HOSPITALIZATION/MAJOR DIAGNOSTIC PROCEDURE SURGERIES REVIEW OF SYSTEMS REVIEWED BY: PROVIDER: LING ZAPATA . CONSTITUTIONAL: ANY CHANGE IN YOUR MEDICAL CONDITION? NO . CHILLS NO . FEVER NO . INFECTION: DO YOU HAVE NEW INFECTIONS? NO . DO YOU HAVE HISTORY OF MRSA? NO . MUSCULOSKELETAL: ANY NEW PATTERNS OF PAIN OR NUMBNESS? NO . GASTROENTEROLOGY: ANY NEW CHANGE IN BOWEL CONTROL? NO . GENITOURINARY: ANY NEW CHANGE IN BLADDER CONTROL? NO . IS THERE A CHANCE YOU COULD BE ? NO . HEMATOLOGY/LYMPH: DO YOU TAKE ANY BLOOD THINNERS? (FOR EXAMPLE- COUMADIN, PLAVIX, AGGRENOX, PLATEL, PRADAXA, OR XARELTO) NO . WHEN WAS YOUR LAST DOSE? DATE: TIME: . NEUROLOGY: HAVE YOU FALLEN IN THE PAST 12 MONTHS? NO . ANY NEW EXTREMITY NUMBNESS OR WEAKNESS? NO . CARDIOLOGY: DO YOU HAVE A PACEMAKER OR DEFIBRILLATOR? NO . RESPIRATORY: HAVE YOU BEEN SICK IN THE PAST WEEK? NO . FEVER NO . FLU LIKE SYMPTOMS? NO . COUGH NO . INTEGUMENTARY: DO YOU HAVE ANY RASHES OR OPEN SORES? NO . ALLERGIC/IMMUNO: ARE YOU ALLERGIC TO IV DYE? NO . ANY NEW ALLERGIES? NO . PSYCHIATRIC: DO YOU HAVE THOUGHTS OF HURTING YOURSELF OR SOMEONE ELSE? NO . ARE YOU ABUSED, NEGLECTED, OR IN AN UNSAFE ENVIRONMENT? NO . ENDOCRINOLOGY: ARE YOU DIABETIC? YES . OTHER: DO YOU NEED ANY PRESCRIPTIONS? PERCOSET CALLED ON SCRIPT LINE . IF YES, PLEASE LIST: ____ . ANY NEW PROBLEMS WITH YOUR MEDICATIONS? NO . WHEN DID YOU LAST EAT? ____ . WHEN DID YOU LAST DRINK? ____ . WHAT DID YOU LAST DRINK? ____ . NAME OF PERSON DRIVING YOU HOME? ____ . DO YOU HAVE ANY OTHER QUESTIONS OR CONCERNS NO . EXAMINATION GENERAL EXAMINATION: GENERALNO ACUTE DISTRESS, WELL NOURISHED AND HYDRATED. PSYCHAPPROPRIATE MOOD AND AFFECT . FACE:UNREMARKABLE. LAB TESTS REVIEWEDMRI L/S SPINE . DEMONSTRATES TENDERNESS WITH PALPATION OVER L/S AXIS. DEMONSTRATED POSITIVE MODIFIED STRAIGHT LEG EXAM AT 45 . ASSESSMENTS INTERVERTEBRAL DISC DISORDER WITH RADICULOPATHY OF LUMBOSACRAL REGION - M51.17 (PRIMARY) TREATMENT INTERVERTEBRAL DISC DISORDER WITH RADICULOPATHY OF LUMBOSACRAL REGION REFILL PERCOCET TABLET, 5-325 MG, 1, ORALLY FOR PAIN, EVERY 5 HOURS NEEDED MDD4, 30 DAYS, 100, REFILLS 0 NOTES: L5-S1 LESI , ISTOP REGISTRY REVIEWED AND DEMONSTRATES COMPLLIANCE. RECENT URINE TOXICOLOGY REVIEWED. NO UNAUTHORIZED MEDICATIONS. NO ILLICIT SUBSTANCES AND PRESCRIBED MEDICATIONS WERE PRESENT. CLINICAL NOTES: PRE-PROCEDURE TEACHING COMPLETED WITH PT ON PHONE. 09/22/19, NA. PT. AGREES AND UNDERSTANDS TEACHING. VERBAL CONSENT GIVEN PER PATIENT. . OTHERS CLINICAL NOTES: PRE SCREENING CALL DONE 09/19/19 EM. DISPOSITION & COMMUNICATION FOLLOW UP POST (REASON: L5-S1 LESI) ELECTRONICALLY SIGNED BY JODI COLON ON 09/23/2019 AT 01:59 PM EDT DISCLAIMER : THIS IS A VISIT SUMMARY EXTRACTED FROM THE [employer] CHART. IT IS NOT A COPY OF THE [employer] PROGRESS NOTE. MICK
== END ==
LOC: M TMPAIN 10:30 → M PAIN 10:30
PROVIDERS: ATTEND Nurse Practitioner Family
DX: M51.17 Intervertebral disc disorders with radiculopathy, lumbosacral region (principal); I10 Essential (primary) hypertension; E11.9 Type 2 diabetes mellitus without complications; Z79.82 Long term (current) use of aspirin; Z79.84 Long term (current) use of oral hypoglycemic drugs; Z79.891 Long term (current) use of opiate analgesic; Z79.899 Other long term (current) drug therapy

== ENCOUNTER → 2019-10-02 | Outpatient (CLI) | payer MEDICARE, MEDICAID ==
--- NOTE | 2019-10-02 12:20 | REP ---
REASON: Atraumatic hip pain. PRIORS: None. HIP SINGLE VIEW: FINDINGS: The hip joint space is symmetric and relatively well maintained. There is no acute or destructive osseous lesion. Electronically Signed by Yg Lindsey DO 10/02/2019 01:08 P
== END ==
LOC: M RAD 11:36
PROVIDERS: ATTEND Family Medicine
DX: M25.552 Pain in left hip (principal); E11.9 Type 2 diabetes mellitus without complications; Z86.73 Personal history of transient ischemic attack (TIA), and cerebral infarction without residual deficits; Z79.899 Other long term (current) drug therapy

== ENCOUNTER → 2019-10-02 | Outpatient (REF) | payer MEDICARE, MEDICAID ==
[2019-10-02 20:50] LABS: ALBUMIN 4.3 GM/DL (3.2-5.2); ALT/SGPT 48 U/L (12-78); BILIRUBIN,TOTAL 0.7 MG/DL (0.2-1.0); BLOOD UREA NITROGEN 16 MG/DL (7-18); CARBON DIOXIDE LEVEL 19 MEQ/L (21-32); CHLORIDE LEVEL 109 MEQ/L (98-107); CHOLESTEROL LEVEL 130 MG/DL (<200); CHOLESTEROL RISK RATIO 2.826 (<5); CREATININE FOR GFR 1.02 MG/DL (0.70-1.30); GLOMERULAR FILTRATION RATE > 60.0 (>60); GLUCOSE, FASTING 88 MG/DL (70-100); HDL CHOLESTEROL 46 MG/DL (>40); LDL CHOLESTEROL 50 MG/DL (<100); NON-HDL-C 84 MG/DL; POTASSIUM SERUM 4.2 MEQ/L (3.5-5.1); SODIUM LEVEL 141 MEQ/L (136-145); TOTAL 25(OH) VITAMIN D 23.2 NG/ML (30.0-100.0); TOTAL PROTEIN 7.5 GM/DL (6.4-8.2); TRIGLYCERIDES LEVEL 171 MG/DL (<150)
[2019-10-02 20:51] LABS: BASO % 0.3 % (0.0-1.0); EOS # 0.1 10^3/uL (0.0-0.5); EOS % 1.2 % (0.0-3.0); HEMATOCRIT 46.1 % (42.0-52.0); HEMOGLOBIN 16.1 g/dl (13.5-17.5); LYMPH # 2.9 10^3/uL (1.5-5.0); LYMPH % 24.4 % (24.0-44.0); MEAN CORPUSCULAR HGB CONC 34.9 g/dl (32.0-36.5); MEAN CORPUSCULAR VOLUME 83.1 fl (80.0-96.0); MONO # 0.7 10^3/uL (0.0-0.8); MONO % 5.9 % (0.0-5.0); NEUTROPHILS # 8.1 10^3/uL (1.5-8.5); NEUTROPHILS % 67.8 % (36.0-66.0); PLATELET COUNT, AUTOMATED 272 10^3/uL (150-450); RED BLOOD COUNT 5.55 10^6/uL (4.30-6.10)
[2019-10-02 21:24] LABS: HEMOGLOBIN A1c 7.7 %
== END ==
LOC: M LAB REF 17:13
PROVIDERS: ATTEND Family Medicine
DX: E11.9 Type 2 diabetes mellitus without complications (principal); Z86.73 Personal history of transient ischemic attack (TIA), and cerebral infarction without residual deficits

== ENCOUNTER → 2019-10-05 | Outpatient (CLI) | payer MEDICARE, MEDICAID | LOC: M LABSMTC 11:40 | PROVIDERS: ATTEND Anesthesiology | DX: Z03.818 Encounter for observation for suspected exposure to other biological agents ruled out (principal); Z11.59 Encounter for screening for other viral diseases | CPT/HCPCS: C9803; U0003 ==

== ENCOUNTER → 2019-10-08 | Outpatient (CLI) | payer MEDICARE, MEDICAID ==
[~2019-10-08] MED LIST changes: +ISOVUE-M 300 61% 15ML VIAL As Ordered ONE; +LIDOCAINE 1% SDV 30ML VIAL As Ordered ONE; +dexameTHASONE 10MG/1ML VIAL PRES.FREE (J1100 PER 1MG) As Ordered ONE; +diazePAM 5 MG TAB As Ordered ONE; +oxyCODONE 5MG TAB As Ordered ONE
--- NOTE | 2019-10-08 11:23 | REP ---
C-ARM VIEWS LOWER LUMBAR SPINE: CLINICAL HISTORY: Pain. Two C-arm views of the lower lumbar spine performed during lumbar epidural injection by Dr. Grayson. A needle is seen at the L5 level and a small amount of contrast is injected. 15 seconds of fluoroscopy time utilized. Electronically Signed by Theo Eller MD 10/08/2019 12:56 P
--- NOTE | 2019-10-09 01:29 | ECWPNPC ---
PATIENT NAME: ABHAY ORNELAS : 1975 GENDER: MALE VISIT DATE: 10/08/2019 DISCHARGE DATE: 10/08/19 1034 VISIT LOCKED DATE TIME: PHYSICIAN: SILVINA MITTAL MD RESOURCE: SILVINA MITTAL MD REASON FOR APPOINTMENT 1. LESI L5/S1 PAT DONE HISTORY OF PRESENT ILLNESS GENERAL: -. FALL RISK SCREENING: SCREENING :NO FALLS REPORTED IN THE LAST YEAR PAIN SCREENING: PATIENT HAS A COMPLAINT OF ACUTE OR CHRONIC PAIN :YES LOCATION OF PAIN:LOW BACK INTENSITY OF PAIN (SCALE OF 1 TO 10):7 WHAT DOES YOUR PAIN FEEL LIKE:ACHING, BURNING, CONTINOUS, THROBBING, SHOOTING DURATION:CONTINOUS, CONSTANT, ALL DAY PAIN IS INCREASED BY:ACTIVITIES, PROLONGED STANDING PAIN IS DECREASED BY:OTHERS LAYING POSITION NURSING NOTE: -. PAIN CENTER INTAKE QUESTIONS: DO YOU HAVE A HISTORY OF MRSA? :NO DO YOU TAKE A BLOOD THINNERS? :NO DO YOU HAVE ANY BLEEDING DISORDERS? :NO ANY NEW NUMBNESS OR WEAKNESS IN YOUR LEGS OR ARMS? :NO ANY PACEMAKER,DEFIBRILLATOR, OR DORSAL COLUMN STIMULATOR? :NO DO YOU HAVE ANY RASHES OR OPEN SORES? :NO ARE YOU ALLERGIC TO IV DYE? :NO ARE YOU DIABETIC? :YES MANAGED WITH ORAL MED[facility] FSBS @ 0530 TODAY WAS 123 ANY NEW PROBLEMS WITH YOUR MEDICATIONS? :NO HAVE YOU RECEIVED A VACCINE IN THE PAST 30 DAYS? :NO DO YOU PLAN TO RECEIVE A VACCINE IN THE NEXT 21 DAYS? :NO ANY HISTORY OF SEIZURES? :NO ANY HISTORY OF CARDIAC ISSUES OR EVENTS? :YES 2016 STROKE, HX OF HTN, LOOP RECORDER DO YOU HAVE SLEEP APNEA? :YES DO YOU WEAR A CPAP?YES ANY RECENT HEAD INJURY? :NO DO YOU HAVE ANY NEW INFECTIONS? :NO WHEN DID YOU LAST EAT? : - WHEN DID YOU LAST DRINK? : - WHAT DID YOU LAST DRINK? : - NAME OF PERSON DRIVING YOU HOME? : -LUCÍA DO YOU HAVE ANY OTHER QUESTIONS OR CONCERNS? : - CURRENT MEDICATIONS TAKING OMEPRAZOLE 40 MG CAPSULE DELAYED RELEASE 1 CAPSULE ORALLY TWICE A DAY TAKING ASPIR-81 81 MG TABLET DELAYED RELEASE 1 TABLET ORALLY ONCE A DAY TAKING ACCU-CHEK QUINCY PLUS W/DEVICE KIT DIRECTED SUBCUTANEOUSLY BID TESTING TAKING ACCU-CHEK QUINCY PLUS - STRIP DIRECTED IN VITRO BID TESTING TAKING ALCOHOL PADS 70 % PAD DIRECTED TOPICALLY BID TESTING TAKING ACCU-CHEK SOFTCLIX LANCET DEV - KIT DIRECTED _ BID TESTING TAKING ACCU-CHEK SOFTCLIX LANCETS - MISCELLANEOUS DIRECTED _ BID TESTING TAKING METFORMIN HCL 1000 MG TABLET 1 TABLET WITH MEALS ORALLY TWICE A DAY TAKING ATORVASTATIN CALCIUM 40 MG TABLET 1 TABLET ORALLY ONCE A DAY TAKING LISINOPRIL 10 MG TABLET 1 TABLET ORALLY ONCE A DAY TAKING GLIPIZIDE ER 10 MG TABLET EXTENDED RELEASE 24 HOUR 1 TABLET ORALLY BID PRIOR TO BREAKFAST AND DINNER TAKING GABAPENTIN 600 MG TABLET 1 CAPSULE ORALLY THREE TIMES DAILY TAKING IPRATROPIUM-ALBUTEROL 0.5-2.5 (3) MG/3ML SOLUTION 3 ML PRN DX J44.9 INHALATION EVERY 6 HRS TAKING TRULICITY 0.75 MG/0.5ML SOLUTION PEN-INJECTOR DIRECTED SUBCUTANEOUS , NOTES: THURSDAYS TAKING PERCOCET 5-325 MG TABLET 1 ORALLY FOR PAIN EVERY 5 HOURS NEEDED MDD4 MEDICATION LIST REVIEWED AND RECONCILED WITH THE PATIENT PAST MEDICAL HISTORY HYPERTENSION OBESITY ESOPHAGEAL REFLUX OBSTRUCTIVE SLEEP APNEA, 9 CM WATER- CPAP TYPE II DIABETIC OSTEOARTHRITIS OF BOTH KNEES PAIN IN JOINT, SHOULDER REGION UNSPECIFIED INTERNAL DERANGEMENT OF KNEE ALLERGIC RHINITIS POSITIVE URINE DRUG SCREEN FOR MARIJUANA, PATIENT DENIES USE HYPERLIPIDEMIA HYPERTENSION MORBID OBESITY STATUS POST BYPASS 2012 WITH REGAINING OF WEIGHT 03/09/2016 TIA CHRONIC LOW BACK PAIN ALLERGIES ENVIRONMENTAL: ALLERGY SURGICAL HISTORY TONSILLECTOMY AT AGE 7 ARTHROSCOPIC KNEE SURGERY LEFT DR Brett ROLLINS 11/2010 GASTRIC BYPASS SURGERY 12/09/2012 RIGHT SHOULDER SURGERY AT SOS 11/2013 LEFT SHOUDLER SURGERY AT SOS 12/2013 LUMP REMOVED FROM RIGHT SHOULDER- DR YANCEY 03/2014 RIGHT CARPAL TUNNEL AND ELBOW 2016 LOOP RECORDER 09/2016 LEFT KNEE ARTHROSCOPIC 02/2018 REMOVAL OF CYST RIGHT LEG 08/2018 FAMILY HISTORY FATHER: ALIVE, DIAGNOSED WITH DIABETES MOTHER: ALIVE 61 YRS, OTHER MALIGNANT NEOPLASM OF UNSPECIFIED SITE, DIABETES, HYPERTENSION SIBLINGS: ALIVE, UNSPECIFIED 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 MOM-OVARIAN CA\\NNO H\\\/O COLON\\\/PROSTATE\\\/LUNG CANCER. SON 4 HOURS AFTER DELIVERY AT 21 WEEKS GESTATION. SOCIAL HISTORY GENERAL: TOBACCO USE ARE YOU A:NONSMOKER VAPORNO E-CIGARETTENO LATEX QUESTIONNAIRE LATEX ALLERGY : HAVE YOU EVER DEVELOPED ANY TYPE OF REACTION AFTER HANDLING LATEX PRODUCTS SUCH RUBBER GLOVES, CONDOMS, DIAPHRAGMS, BALLOONS, SOCKS, OR UNDERWEAR?NO LATEX ALLERGY : HAVE YOU EVER DEVELOPED ANY TYPE OF REACTION DURING OR AFTER DENTAL APPOINTMENT, VAGINAL/RECTAL EXAMINATION, SURGICAL PROCEDURE, OR ANY OTHER EXPOSURE?NO LATEX RISK : HAVE YOU EVER HAD ANY DIFFICULTY BREATHING OR HIVES AFTER EATING OR HANDLING ANY FRUITS, OR VEGETABLES; SUCH KIWI, BANANAS, STONE FRUITS, OR CHESTNUTSNO LATEX RISK : DO YOU HAVE A PREVIOUS PERSONAL HISTORY OF MORE THAN NINE SURGERIES, SPINA BIFIDA, OR REPEATED CATHERIZATIONS? YES - PLEASE INDICATE : > 9 SURGERIES LATEX RISK : ARE YOU FREQUENTLY EXPOSED TO LATEX PRODUCTS IN YOUR OCCUPATION?NO DATE ASKED : 10/07/2019 ALCOHOL SCREENING DID YOU HAVE A DRINK CONTAINING ALCOHOL IN THE PAST YEAR?NO POINTS0 INTERPRETATIONNEGATIVE RECREATIONAL DRUG USE DRUG USE?NO PATIENT DENIES ABUSE OR MISSUSED OF ANY MEDICATION DENIES PATIENT DENIES USE OF ANY ILLEGAL SUBSTANCE INCLUDING MARIJUANA OR COCAINE DENIES CAFFEINE CAFFEINE USE?YES HOW OFTEN AND HOW MUCH? 2 CUPS OF COFFEE PER WEEK JEW [id number] RESTORATIONISM LANGUAGE LANGUAGES SPOKEN:PORTUGUESE EDUCATION LEVEL OF EDUCATION:HIGH SCHOOL LEARNING BARRIERS / SPECIAL NEEDS BARRIERS TO LEARNING?NO HEARING IMPAIRED?NO VISION IMPAIRED?YES COGNITIVELY IMPAIRED?NO :CORRECTIVE LENSES READINESS TO LEARN?YES LEARNING PREFERENCES?YES :DEMONSTRATION/VERBAL INSTRUCTION LEARNING CAPABILITIES PRESENT?YES EMOTIONAL BARRIERS?NO SPECIAL DEVICES?NO PHOTOGRAPHIC DEVELOPER AND PRINTER NEEDED?NO DOMESTIC VIOLENCE STATUS: OCCUPATION: UNEMPLOYED. DIET: REGULAR. EXERCISE: WALKS. MARITAL STATUS: . OTHERS AT HOME: SPOUSE. NEW PATIENT PAIN DIARY TODAY'S VISITNOTES PATIENT DESCRIBES PAIN :HAVE IT ALL THE TIME, STABBING, SHOOTING FROM 0-10, WHAT LEVEL IS YOUR PAIN TODAY?7 PRECIPITATING FACTORS WALKING, SITTING ALLEVIATING FACTORS LAYING DOWN IMPACT ON FUNCTION YES PAIN CLINIC PFS, CLERGY, PUBLIC HEALTH REFERRALS PFS REFERRAL NEEDED?NO CLERGY REFERRAL NEEDED?NO PUBLIC HEALTH REFERRAL NEEDED?NO WAS THE PROVIDER NOTIFIED OF ANY PERTINENT INFO?YES HAS THE PATIENT BEEN EDUCATED REGARDING HIS/HER PLAN OF CARE?YES HAS THE PATIENT BEEN EDUCATED REGARDING PAIN, THE RISK FOR PAIN, THE IMPORTANCE OF EFFECTIVE PAIN MANAGEMENT, AND THE PAIN ASSESSMENT PROCESS?YES HOUSING: OWNS HOME. ADVANCE DIRECTIVE ADVANCE DIRECTIVE DISCUSSED WITH PATIENT:YES YES- PT STATES HE HAS A HCP- - LUCÍA- [phone] HOSPITALIZATION/MAJOR DIAGNOSTIC PROCEDURE SURGERIES VITAL SIGNS WT 276 LBS, HT 70 IN, BMI 39.60 INDEX, BP 152/77 MM HG, HR 94 /MIN, RR 18 /MIN, TEMP 99.0 F, OXYGEN SAT % 100%, SAFE IN ENV? (Y/N) Y, NA INITIALS AW 0853, REVIEWED BY: LUCINA. EXAMINATION GENERAL EXAMINATION: THE PATIENT IS ALERT, ORIENTED TIMES THREE AND COOPERATIVE. HEART SHOWS REGULAR RHYTHM, NO MURMURS AND NO GALLOPS. LUNGS ARE CLEAR TO AUSCULTATION. ASSESSMENTS INTERVERTEBRAL DISC DISORDER WITH RADICULOPATHY OF LUMBOSACRAL REGION - M51.17 TREATMENT INTERVERTEBRAL DISC DISORDER WITH RADICULOPATHY OF LUMBOSACRAL REGION [facility] FLUORO GUIDE SPINE INJECTION (PAIN)[id number] PROCEDURES PAIN NURSING RECORD PRE-PROCEDURE IV SITE N/A, PRE-PROCEDURE ORAL MEDICATIONS VALIUM 10 MGS AND OXYCODONE 10 MGS PO AT 0919 AD PROCEDURE IN ROOM 0925, PHYSICIAN IN ROOM 1000, START 1004, FINISH 1011, PHYSICIAN OUT OF ROOM 1014, OUT OF ROOM 1023 VIA STRETCHER PT HAD MUSCLE SPASMS IN LEG DURING THE PROCEDURE., STEROID DEXAMETHASONE, O2 RA, ECG NORMAL SINUS, PATIENT SHIELDED YES, SAFETY STRAP YES, PREP BETADINE Sena HUERTA RN, IV INFUSED N/A, DRESSING TEGADERM LOC: CAMILLA WEEKS 10/08/2019 9:27:44 AM > 1. ALERT, ORIENTED RESP: CAMILLA WEEKS 10/08/2019 9:27:50 AM > 1. REGULAR, NO DYSPNEA COLOR: CAMILLA WEEKS 10/08/2019 9:28:00 AM > 1. PINK SKIN: CAMILLA WEEKS 10/08/2019 9:28:08 AM > 1. WARM, DRY POSITION: 1. PRONE VITALS: CAMILLA WEEKS 10/08/2019 9:26:40 AM > 154/100, 85, 16, 96% CAMILLA WEEKS 10/08/2019 9:40:31 AM > 155/102, 92, 16, 96% CAMILLA WEEKS 10/08/2019 9:55:07 AM > 149/90, 85, 16, 95% CAMILLA WEEKS 10/08/2019 10:10:08 AM > 148/91, 85, 16, 92% CAMILLA WEEKS 10/08/2019 10:18:14 AM > 151/92, 86, 16, 94% CAMILLA WEEKS 10/08/2019 10:29:46 AM > 116/74,83, 16, 98% DISCHARGE: POST PAIN 0-1 BILATERAL LOW BACK, DRESSING SITE DRY AND INTACT, IV N/A, GAIT STEADY, TEACHING COMPLETED, PATIENT ACKNOWLEDGES UNDERSTANDING YES, PATIENT DISCHARGED AT 1033 PRE PROCEDURE DIAGNOSIS LUMBOSACRAL DISC DISORDER WITH RADICULOPATHY POST PROCEDURE DIAGNOSIS LUMBOSACRAL DISC DISORDER WITH RADICULOPATHY PROCEDURE LUMBAR EPIDURAL STEROID INJECTION UNDER FLUOROSCOPIC GUIDANCE SURGEON DR. SILVINA MITTAL GREASE MACHINE WORKER NONE ANESTHESIA LOCAL PRE PROCEDURE NOTE THE PATIENT HAS A HISTORY OF CHRONIC LOW BACK PAIN. I EVALUATED THE PATIENT AND REVIEWED THE CHART. I WENT OVER THE RISKS, ALTERNATIVES, AND BENEFITS ASSOCIATED WITH THIS PROCEDURE. I DISCUSSED THAT THE USE OF STEROIDS MAY CONTRIBUTE TO IMMUNOSUPPRESSION OF THE PATIENT'S BODY AGAINST INFECTIONS SUCH THE MORE VIRUS, COVID-19. THE PATIENT IS AWARE OF THE POTENTIAL COMPLICATIONS ASSOCIATED WITH AN INFECTION OF THIS VIRUS INCLUDING . THE PATIENT WOULD LIKE TO PROCEED AND GIVE CONSENT TO PERFORMED THE PROCEDURE. THE PATIENT DENIES UNEXPLAINABLE WEIGHT LOSS, FEVER, CHILLS, OR NEW CHANGES IN URINARY OR BOWEL CONTROL. THE PATIENT IS COVID-19 NEGATIVE DESCRIPTION OF PROCEDURE THE PATIENT WAS BROUGHT TO THE PROCEDURE ROOM AND PLACED IN THE PRONE POSITION. THE LUMBOSACRAL AREA WAS CLEANED WITH BETADINE SOLUTION AND DRAPED ASEPTICALLY. THE PROCEDURE WAS DONE UNDER STERILE CONDITIONS. I CHECKED LATERALITY AND THE LEVEL WHERE THE PROCEDURE WAS GOING TO BE PERFORMED WITH THE PATIENT AND THE SUPPORTING STAFF AT THE MOMENT OF THE TIME OUT IN THE PROCEDURE ROOM. UNDER FLUOROSCOPIC GUIDANCE, THE TARGET POINT WAS SELECTED AT THE INTERLAMINAR LEVEL OF L5-S1. LIDOCAINE WAS USED TO NUMB THE SKIN AND THE SUBCUTANEOUS TISSUE BELOW IT. EPIDURAL TUOHY NEEDLE, 17-GAUGE, WAS ADVANCED UNDER FLUOROSCOPIC GUIDANCE AND FOLLOWING PATIENT FEEDBACK UNTIL THE EPIDURAL SPACE WAS REACHED 7 CM DEEP INTO THE SKIN BY THE LOSS OF RESISTANCE TECHNIQUE. ISOVUE M DYE 30%, 0.25 ML, WAS INJECTED SHOWING ADEQUATE SPREAD OF THE DYE. THEN, A SOLUTION OF 3 ML OF NORMAL SALINE WITH DEXAMETHASONE 10 MG WAS INJECTED SLOWLY FOLLOWING PATIENT FEEDBACK. THERE WAS NO EVIDENCE OF BLOOD, PARESTHESIA OR CEREBROSPINAL FLUID DURING THE PROCEDURE. THE PATIENT WAS SENT TO THE RECOVERY ROOM. THE PATIENT WAS MOVING THE EXTREMITIES AND DOING WELL. THERE WAS NO COMPLICATION DURING THE PROCEDURE. FLUOROSCOPY TIME WAS 15 SECONDS POST PROCEDURE NOTE THE PATIENT WILL BE SEEN IN A FOLLOW UP IN THE NEXT FEW WEEKS. I AM LOOKING FOR LONG LASTING RELIEF FOR THE PATIENT WITH THIS INTERVENTION. INSTRUCTIONS WERE GIVEN, QUESTIONS WERE ANSWERED, AND THE PATIENT EXPRESSED UNDERSTANDING AND AGREES WITH THE PLAN. THE PATIENT IS AWARE TO STAY HOME FOR THE NEXT WEEK, IF POSSIBLE, DUE TO COVID-19. I, PJ JOINER, DOCUMENTED THE ABOVE INFORMATION ACTING A SCRIBE FOR DR. MITTAL. I HAVE REVIEWED THE ABOVE DOCUMENT, WRITTEN BY PJ JOINER, [employer], AND I VERIFY THAT IT IS ACCURATE PROCEDURE CODES 12338 LUMBAR/SACRAL W/ IMAGING DISPOSITION & COMMUNICATION FOLLOW UP F/UP WITH WASTEWATER ENGINEER (REASON: POST LESI L5-S1) ELECTRONICALLY SIGNED BY SILVINA MITTAL MD, MD ON 10/08/2019 AT 04:40 PM EDT DISCLAIMER : THIS IS A VISIT SUMMARY EXTRACTED FROM THE [employer] CHART. IT IS NOT A COPY OF THE [employer] PROGRESS NOTE. MICK
== END ==
LOC: M PAIN 09:00
PROVIDERS: ATTEND Anesthesiology
DX: M51.17 Intervertebral disc disorders with radiculopathy, lumbosacral region (principal)
CPT/HCPCS: 62323; J1100; Q9967

== ENCOUNTER → 2019-12-08 | Emergency (ER) | payer MEDICARE, MEDICAID, OTHER ==
[~2019-12-08] MED LIST changes: +GABA600T4; -ISOVUE-M 300 61% 15ML VIAL As Ordered ONE; +LIDO5DIS41 TOP; -LIDOCAINE 1% SDV 30ML VIAL As Ordered ONE; +OXYC1TAB23; +TOPI50TA9; +TRUL0.5I; -dexameTHASONE 10MG/1ML VIAL PRES.FREE (J1100 PER 1MG) As Ordered ONE; -diazePAM 5 MG TAB As Ordered ONE; -oxyCODONE 5MG TAB As Ordered ONE
== END | disposition home or self-care (01) ==
LOC: M ED 11:40
DX: L72.9 Follicular cyst of the skin and subcutaneous tissue, unspecified (principal); E11.9 Type 2 diabetes mellitus without complications; I10 Essential (primary) hypertension; Z79.84 Long term (current) use of oral hypoglycemic drugs; Z79.899 Other long term (current) drug therapy

== ENCOUNTER → 2019-12-10 | Outpatient (POV) | payer MEDICARE, MEDICAID ==
[~2019-12-10] MED LIST changes: +ISOVUE-M 300 61% 15ML VIAL ONE; +LIDOCAINE 1% SDV 30ML VIAL ONE; +diazePAM 5 MG TAB ONE; +methylPREDNISolone SUSP 40MG/ML 1ML VIAL (DEPO MEDROL) ONE; +oxyCODONE 5MG TAB ONE
--- NOTE | 2020-01-30 09:21 | REP ---
PARTIAL LUMBAR SPINE SERIES: 2-VIEWS HISTORY: Injection procedure for pain. 11 seconds of fluoroscopy time was recorded. FINDINGS: A sequence of 2 last image hold fluoroscopically obtained spot radiographs of the lumbar spine document needle position and contrast injection associated with injection procedure. MICK
== END ==
LOC: M PAIN 11:30
PROVIDERS: ATTEND Anesthesiology
DX: M51.17 Intervertebral disc disorders with radiculopathy, lumbosacral region (principal)

== ENCOUNTER → 2019-12-17 | Outpatient (REF) | payer MEDICARE, MEDICAID ==
[~2019-12-17] MED LIST changes: -ISOVUE-M 300 61% 15ML VIAL ONE; -LIDOCAINE 1% SDV 30ML VIAL ONE; -diazePAM 5 MG TAB ONE; -methylPREDNISolone SUSP 40MG/ML 1ML VIAL (DEPO MEDROL) ONE; -oxyCODONE 5MG TAB ONE
[2020-01-19 09:49] LABS: BASO % 0.3 % (0.0-1.0); EOS # 0.2 10^3/uL (0.0-0.5); EOS % 2.2 % (0.0-3.0); HEMATOCRIT 42.9 % (42.0-52.0); HEMOGLOBIN 14.8 g/dl (13.5-17.5); LYMPH # 2.5 10^3/uL (1.5-5.0); LYMPH % 28.4 % (24.0-44.0); MEAN CORPUSCULAR HEMOGLOBIN 29.1 pg (27.0-33.0); MEAN CORPUSCULAR HGB CONC 34.5 g/dl (32.0-36.5); MEAN CORPUSCULAR VOLUME 84.3 fl (80.0-96.0); MONO # 0.7 10^3/uL (0.0-0.8); MONO % 7.6 % (0.0-5.0); NEUTROPHILS # 5.4 10^3/uL (1.5-8.5); NEUTROPHILS % 60.9 % (36.0-66.0); PLATELET COUNT, AUTOMATED 267 10^3/uL (150-450); RED BLOOD COUNT 5.09 10^6/uL (4.30-6.10); WHITE BLOOD COUNT 8.9 10^3/uL (4.0-10.0)
[2020-02-01 06:33] LABS: ALBUMIN 3.7 GM/DL (3.2-5.2); ALT/SGPT 44 U/L (12-78); BILIRUBIN,TOTAL 0.5 MG/DL (0.2-1.0); BLOOD UREA NITROGEN 17 MG/DL (7-18); CALCIUM LEVEL 8.7 MG/DL (8.5-10.1); CARBON DIOXIDE LEVEL 23 MEQ/L (21-32); CHLORIDE LEVEL 109 MEQ/L (98-107); CHOLESTEROL LEVEL 110 MG/DL (<200); CHOLESTEROL RISK RATIO 2.619 (<5); CREATININE FOR GFR 1.06 MG/DL (0.70-1.30); GLOMERULAR FILTRATION RATE > 60.0 (>60); GLUCOSE, FASTING 208 MG/DL (70-100); HDL CHOLESTEROL 42 MG/DL (>40); HEMOGLOBIN A1c 6.9 %; LDL CHOLESTEROL 36 MG/DL (<100); NON-HDL-C 68 MG/DL; POTASSIUM SERUM 4.2 MEQ/L (3.5-5.1); SODIUM LEVEL 140 MEQ/L (136-145); TOTAL 25(OH) VITAMIN D 18.6 NG/ML (30.0-100.0); TOTAL PROTEIN 6.8 GM/DL (6.4-8.2); TRIGLYCERIDES LEVEL 161 MG/DL (<150)
== END ==
LOC: M LAB REF 10:00
PROVIDERS: ATTEND Family Medicine
DX: E11.9 Type 2 diabetes mellitus without complications (principal); M62.838 Other muscle spasm; E78.00 Pure hypercholesterolemia, unspecified

== ENCOUNTER → 2019-12-24 | Outpatient (POV) | payer MEDICARE, MEDICAID | LOC: M PAIN 09:00 | PROVIDERS: ATTEND Nurse Practitioner Family | DX: M51.16 Intervertebral disc disorders with radiculopathy, lumbar region (principal) ==

== ENCOUNTER → 2020-01-06 | Outpatient (REF) | payer MEDICARE, MEDICAID | LOC: M LAB REF 18:24 | PROVIDERS: ATTEND Surgery | DX: M60 Myositis (principal) ==

== ENCOUNTER → 2020-02-13 | Outpatient (CLI) | payer MEDICARE, MEDICAID ==
--- NOTE | 2020-02-18 16:08 | ECWPNPC ---
PATIENT NAME: ABHAY ORNELAS : 1975 GENDER: MALE VISIT DATE: 02/13/2020 DISCHARGE DATE: 02/13/20 1148 VISIT LOCKED DATE TIME: PHYSICIAN: LING HURLEY PHYSICIAN PAGER NO: ACTIVE RESOURCE: LING HURLEY REASON FOR APPOINTMENT 1. LOW BACK/HIPS HISTORY OF PRESENT ILLNESS GENERAL: HERE FOR FOLLOW-UP OF CHRONIC LOW BACK PAIN. WAS DOING WELL AFTER LUMBAR EPIDURAL STEROID INJECTION UNTIL 2 WEEKS AGO. STATES PAIN IS SEVERE. RATING PAIN LEVEL A 8/10 VAS. PAIN IS LOCATED ACROSS THE LOWER BACK WITH RADIATION INTO THE GROIN. REVIEWED MRI AND DISCUSSED TREATMENT OPTIONS. -. FALL RISK SCREENING: SCREENING :ONE FALL WITHOUT INJURY IN THE PAST YEAR LAST WEEK LEFT LEG GAVE OUT, DUE TO LOSS OF BALANCE, DID NOT SEE MEDICAL ATTENTION PAIN SCREENING: PATIENT HAS A COMPLAINT OF ACUTE OR CHRONIC PAIN :YES LOCATION OF PAIN: LOW BACK, BILATERAL LEGS INTENSITY OF PAIN (SCALE OF 1 TO 10): 9 WHAT DOES YOUR PAIN FEEL LIKE:ACHING, SHARP DURATION:CONTINOUS PLAN/GOALS/TREATMENT/INTERVENTION/FOLLOW UP:SEE PLAN NURSING NOTE: -. PAIN CENTER INTAKE QUESTIONS: DO YOU HAVE A HISTORY OF MRSA? :NO DO YOU TAKE A BLOOD THINNERS? :NO DO YOU HAVE ANY BLEEDING DISORDERS? :NO ANY NEW NUMBNESS OR WEAKNESS IN YOUR LEGS OR ARMS? :NO ANY PACEMAKER,DEFIBRILLATOR, OR DORSAL COLUMN STIMULATOR? :NO DO YOU HAVE ANY RASHES OR OPEN SORES? :NO ARE YOU ALLERGIC TO IV DYE? :NO ARE YOU DIABETIC? :YES FS 103 ANY NEW PROBLEMS WITH YOUR MEDICATIONS? :NO HAVE YOU RECEIVED A VACCINE IN THE PAST 30 DAYS? :NO DO YOU PLAN TO RECEIVE A VACCINE IN THE NEXT 21 DAYS? :NO DO YOU NEED ANY PRESCRIPTION? :NO DO YOU TAKE ANY IMMUNOSUPPRESSIVE MEDICATIONS? :NO IS THERE A CHANCE YOU COULD BE ? :NO ARE YOU BREAST FEEDING? :NO CURRENT MEDICATIONS TAKING OMEPRAZOLE 40 MG CAPSULE DELAYED RELEASE 1 CAPSULE ORALLY TWICE A DAY TAKING ASPIR-81 81 MG TABLET DELAYED RELEASE 1 TABLET ORALLY ONCE A DAY TAKING ACCU-CHEK QUINCY PLUS W/DEVICE KIT DIRECTED SUBCUTANEOUSLY BID TESTING TAKING ACCU-CHEK QUINCY PLUS - STRIP DIRECTED IN VITRO BID TESTING TAKING ALCOHOL PADS 70 % PAD DIRECTED TOPICALLY BID TESTING TAKING ACCU-CHEK SOFTCLIX LANCET DEV - KIT DIRECTED _ BID TESTING TAKING ACCU-CHEK SOFTCLIX LANCETS - MISCELLANEOUS DIRECTED _ BID TESTING TAKING METFORMIN HCL 1000 MG TABLET 1 TABLET WITH MEALS ORALLY TWICE A DAY TAKING ATORVASTATIN CALCIUM 40 MG TABLET 1 TABLET ORALLY ONCE A DAY TAKING LISINOPRIL 10 MG TABLET 1 TABLET ORALLY ONCE A DAY TAKING GLIPIZIDE ER 10 MG TABLET EXTENDED RELEASE 24 HOUR 1 TABLET ORALLY BID PRIOR TO BREAKFAST AND DINNER TAKING GABAPENTIN 800 MG TABLET 1 CAPSULE ORALLY THREE TIMES DAILY TAKING IPRATROPIUM-ALBUTEROL 0.5-2.5 (3) MG/3ML SOLUTION 3 ML PRN DX J44.9 INHALATION EVERY 6 HRS TAKING TRULICITY 0.75 MG/0.5ML SOLUTION PEN-INJECTOR DIRECTED SUBCUTANEOUS , NOTES: THURSDAYS TAKING PERCOCET 5-325 MG TABLET 1 ORALLY FOR PAIN EVERY 5 HOURS NEEDED MDD4 MEDICATION LIST REVIEWED AND RECONCILED WITH THE PATIENT PAST MEDICAL HISTORY HYPERTENSION OBESITY ESOPHAGEAL REFLUX OBSTRUCTIVE SLEEP APNEA, 9 CM WATER- CPAP TYPE II DIABETIC OSTEOARTHRITIS OF BOTH KNEES PAIN IN JOINT, SHOULDER REGION UNSPECIFIED INTERNAL DERANGEMENT OF KNEE ALLERGIC RHINITIS POSITIVE URINE DRUG SCREEN FOR MARIJUANA, PATIENT DENIES USE HYPERLIPIDEMIA HYPERTENSION MORBID OBESITY STATUS POST BYPASS 2012 WITH REGAINING OF WEIGHT 03/09/2016 TIA CHRONIC LOW BACK PAIN ALLERGIES ENVIRONMENTAL: ALLERGY SURGICAL HISTORY TONSILLECTOMY AT AGE 7 ARTHROSCOPIC KNEE SURGERY LEFT DR Brett ROLLINS 11/2010 GASTRIC BYPASS SURGERY 12/09/2012 RIGHT SHOULDER SURGERY AT [facility] 11/2013 LEFT SHOUDLER SURGERY AT [facility] 12/2013 LUMP REMOVED FROM RIGHT SHOULDER- DR YANCEY 03/2014 RIGHT CARPAL TUNNEL AND ELBOW 2016 LOOP RECORDER 09/2016 LEFT KNEE ARTHROSCOPIC 02/2018 REMOVAL OF CYST RIGHT LEG 08/2018 REMOVAL OF CYST LEFT KNEE 01/06/20 FAMILY HISTORY FATHER: ALIVE, DIAGNOSED WITH DIABETES MOTHER: ALIVE 61 YRS, HYPERTENSION, DIABETES, OTHER MALIGNANT NEOPLASM OF UNSPECIFIED SITE SIBLINGS: ALIVE, UNSPECIFIED 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 MOM-OVARIAN CA\\NNO H\\\/O COLON\\\/PROSTATE\\\/LUNG CANCER. SON 4 HOURS AFTER DELIVERY AT 21 WEEKS GESTATION. SOCIAL HISTORY GENERAL: TOBACCO USE ARE YOU A:NONSMOKER VAPORNO E-CIGARETTENO LATEX QUESTIONNAIRE LATEX ALLERGY : HAVE YOU EVER DEVELOPED ANY TYPE OF REACTION AFTER HANDLING LATEX PRODUCTS SUCH RUBBER GLOVES, CONDOMS, DIAPHRAGMS, BALLOONS, SOCKS, OR UNDERWEAR?NO LATEX ALLERGY : HAVE YOU EVER DEVELOPED ANY TYPE OF REACTION DURING OR AFTER DENTAL APPOINTMENT, VAGINAL/RECTAL EXAMINATION, SURGICAL PROCEDURE, OR ANY OTHER EXPOSURE?NO DATE ASKED : 11/21/2019 LATEX RISK : HAVE YOU EVER HAD ANY DIFFICULTY BREATHING OR HIVES AFTER EATING OR HANDLING ANY FRUITS, OR VEGETABLES; SUCH KIWI, BANANAS, STONE FRUITS, OR CHESTNUTSNO LATEX RISK : DO YOU HAVE A PREVIOUS PERSONAL HISTORY OF MORE THAN NINE SURGERIES, SPINA BIFIDA, OR REPEATED CATHERIZATIONS? YES - PLEASE INDICATE : > 9 SURGERIES LATEX RISK : ARE YOU FREQUENTLY EXPOSED TO LATEX PRODUCTS IN YOUR OCCUPATION?NO ALCOHOL SCREENING DID YOU HAVE A DRINK CONTAINING ALCOHOL IN THE PAST YEAR?NO POINTS0 INTERPRETATIONNEGATIVE RECREATIONAL DRUG USE DRUG USE?NO PATIENT DENIES ABUSE OR MISSUSED OF ANY MEDICATION DENIES PATIENT DENIES USE OF ANY ILLEGAL SUBSTANCE INCLUDING MARIJUANA OR COCAINE DENIES CAFFEINE CAFFEINE USE?YES HOW OFTEN AND HOW MUCH? 2 CUPS OF COFFEE PER WEEK [employer] [id number] [place] LANGUAGE LANGUAGES SPOKEN:CROATIAN EDUCATION LEVEL OF EDUCATION:HIGH SCHOOL LEARNING BARRIERS / SPECIAL NEEDS CHANGE FROM LAST VISIT?NO BARRIERS TO LEARNING?NO HEARING IMPAIRED?NO VISION IMPAIRED?YES :CORRECTIVE LENSES COGNITIVELY IMPAIRED?NO READINESS TO LEARN?YES LEARNING PREFERENCES?YES :DEMONSTRATION/VERBAL INSTRUCTION LEARNING CAPABILITIES PRESENT?YES EMOTIONAL BARRIERS?NO SPECIAL DEVICES?NO CIRCULATION SALES REPRESENTATIVE NEEDED?NO DOMESTIC VIOLENCE STATUS: DO YOU FEEL SAFE IN YOUR ENVIRONMENT?YES OCCUPATION: UNEMPLOYED. DIET: REGULAR. EXERCISE: WALKS. MARITAL STATUS: . OTHERS AT HOME: SPOUSE. PAIN CLINIC PFS, CLERGY, PUBLIC HEALTH REFERRALS PFS REFERRAL NEEDED?NO CLERGY REFERRAL NEEDED?NO PUBLIC HEALTH REFERRAL NEEDED?NO WAS THE PROVIDER NOTIFIED OF ANY PERTINENT INFO?YES HAS THE PATIENT BEEN EDUCATED REGARDING HIS/HER PLAN OF CARE?YES HAS THE PATIENT BEEN EDUCATED REGARDING PAIN, THE RISK FOR PAIN, THE IMPORTANCE OF EFFECTIVE PAIN MANAGEMENT, AND THE PAIN ASSESSMENT PROCESS?YES HOUSING: OWNS HOME. ADVANCE DIRECTIVE ADVANCE DIRECTIVE DISCUSSED WITH PATIENT:YES YES- PT STATES HE HAS A HCP- - LUCÍA- HOSPITALIZATION/MAJOR DIAGNOSTIC PROCEDURE SURGERIES REVIEW OF SYSTEMS PAIN DIARY: PAIN SCORE . DESCRIPTION OF PAIN? . WHEN DID YOU LAST EAT? N/A . WHEN DID YOU LAST DRINK? __ . WHAT DID YOU DRINK? ____ . NAME OF PERSON DRIVING YOU HOME: ____ . IS THERE A CHANCE YOU COULD BE ? NO . HAVE YOU BEEN SICK IN THE PAST WEEK (COUGH, COLD, FEVER, OR FLU)? NO . DO YOU TAKE ANY BLOOD THINNERS? (COUMADIN, PLAVIX, AGGRENOX, PLETAL, PRADAXA, OR XARELTO) NO . DO YOU HAVE ANY RASHES OR OPEN SORES? NO . ANY CHANGE IN BOWEL OR BLADDER CONTROL? NO . ARE YOU ALLERGIC TO SHELLFISH OR IV DYE? NO . ARE YOU DIABETIC? NO . DO YOU HAVE PACEMAKER OR DEFIBRILLATOR? NO . ANY NEW PROBLEMS WITH MEDICINES OR NEW ALLERGIES? NO . ANY NEW PATTERNS OF PAIN OR NUMBNESS? NO . ANY CHANGE IN YOUR MEDICAL CONDITION? NO . HAVE YOU FALLEN IN THE PAST SIX MONTHS? NO . DO YOU USE ANY TYPE OF TOBACCO (SMOKE, SMOKELESS, CHEW)? NO . ARE YOU ABUSED, NEGLECTED, OR IN AN UNSAFE ENVIRONMENT? NO . DO YOU HAVE THOUGHTS OF HURTING YOURSELF OR SOMEONE ELSE? NO . DO YOU NEED ANY PRESCRIPTIONS? NO . DO YOU HAVE ANY OTHER QUESTIONS OR CONCERNS? NO . VITAL SIGNS WT 274.2 LBS, HT 70 IN, BMI 39.34 INDEX, BP 133/75 MM HG, HR 87 /MIN, RR 18 /MIN, TEMP 98.2 F, OXYGEN SAT % 100%, SAFE IN ENV? (Y/N) YES, NA INITIALS AW 1102, REVIEWED BY: MT. EXAMINATION GENERAL EXAMINATION: GENERALNO ACUTE DISTRESS, WELL NOURISHED AND HYDRATED. PSYCHAPPROPRIATE MOOD AND AFFECT . FACE:UNREMARKABLE. LAB TESTS REVIEWEDMRI L/S SPINE . DEMONSTRATES TENDERNESS WITH PALPATION OVER L/S AXIS. DEMONSTRATED POSITIVE MODIFIED STRAIGHT LEG EXAM AT 45. ASSESSMENTS INTERVERTEBRAL DISC DISORDER WITH RADICULOPATHY OF LUMBOSACRAL REGION - M51.17 (PRIMARY) TREATMENT INTERVERTEBRAL DISC DISORDER WITH RADICULOPATHY OF LUMBOSACRAL REGION NOTES: L5/S1 LESI. PREVENTIVE MEDICINE PAIN CLINIC TEACHING: THE PATIENT HAS BEEN EDUCATED REGARDING PAIN, THE RISK FOR PAIN, THE IMPORTANCE OF EFFECTIVE PAIN MANAGEMENT, AND THE PAIN ASSESSMENT PROCESS. : DISCUSSED PRE PROCEDURE INSTRUCTIONS WITH PATIENT FOR LUMBAR EPIDURAL STEROID INJECTION. PATIENT VERBALIZES UNDERSTANDING. PROCEDURE CODES FA211 ESTABILISHED PATIENT [facility] CHARGE DISPOSITION & COMMUNICATION FOLLOW UP POST PROC (REASON: L5/S1 LESI) ELECTRONICALLY SIGNED BY JODI COLON ON 02/18/2020 AT 04:04 PM EDT DISCLAIMER : THIS IS A VISIT SUMMARY EXTRACTED FROM THE [employer] CHART. IT IS NOT A COPY OF THE [employer] PROGRESS NOTE. MICK
== END ==
LOC: M PAIN 10:30
PROVIDERS: ATTEND Nurse Practitioner Family
DX: M51.17 Intervertebral disc disorders with radiculopathy, lumbosacral region (principal); G89.29 Other chronic pain; I10 Essential (primary) hypertension; K21.9 Gastro-esophageal reflux disease without esophagitis; G47.33 Obstructive sleep apnea (adult) (pediatric); E11.9 Type 2 diabetes mellitus without complications; Z86.73 Personal history of transient ischemic attack (TIA), and cerebral infarction without residual deficits; Z98.84 Bariatric surgery status; Z79.82 Long term (current) use of aspirin; Z79.84 Long term (current) use of oral hypoglycemic drugs; Z79.899 Other long term (current) drug therapy

== ENCOUNTER → 2020-02-14 | Outpatient (CLI) | payer MEDICARE, MEDICAID | LOC: M LABSMTC 10:03 | PROVIDERS: ATTEND Anesthesiology | DX: Z20.828 Contact with and (suspected) exposure to other viral communicable diseases (principal) | CPT/HCPCS: C9803; U0003 ==

== ENCOUNTER → 2020-02-16 | Outpatient (CLI) | payer MEDICARE, MEDICAID ==
[~2020-02-16] MED LIST changes: +ISOVUE-M 300 61% 15ML VIAL As Ordered ONE; +LIDOCAINE 1% SDV 30ML VIAL As Ordered ONE; +diazePAM 5 MG TAB As Ordered ONE; +methylPREDNISolone SUSP 40MG/ML 1ML VIAL (DEPO MEDROL) As Ordered ONE; +oxyCODONE 5MG TAB As Ordered ONE
--- NOTE | 2020-02-18 12:59 | ECWPNPC ---
PATIENT NAME: ABHAY ORNELAS : 1975 GENDER: MALE VISIT DATE: 02/16/2020 DISCHARGE DATE: 02/16/20 1130 VISIT LOCKED DATE TIME: PHYSICIAN: SILVINA MITTAL MD PHYSICIAN PAGER NO: ACTIVE RESOURCE: SILVINA MITTAL MD REASON FOR APPOINTMENT 1. L5/S1 LESI HISTORY OF PRESENT ILLNESS PAIN CENTER INTAKE QUESTIONS: DO YOU HAVE A HISTORY OF MRSA? :NO DO YOU TAKE A BLOOD THINNERS? :NO DO YOU HAVE ANY BLEEDING DISORDERS? :NO ANY NEW NUMBNESS OR WEAKNESS IN YOUR LEGS OR ARMS? :NO ANY PACEMAKER,DEFIBRILLATOR, OR DORSAL COLUMN STIMULATOR? :NO DO YOU HAVE ANY RASHES OR OPEN SORES? :NO ARE YOU ALLERGIC TO IV DYE? :NO ARE YOU DIABETIC? :YES ANY NEW PROBLEMS WITH YOUR MEDICATIONS? :NO HAVE YOU RECEIVED A VACCINE IN THE PAST 30 DAYS? :NO DO YOU PLAN TO RECEIVE A VACCINE IN THE NEXT 21 DAYS? :NO DO YOU TAKE ANY IMMUNOSUPPRESSIVE MEDICATIONS? :NO ANY HISTORY OF SEIZURES? :NO ANY HISTORY OF CARDIAC ISSUES OR EVENTS? :YES DUE TO STROKE IN 03/2016 DO YOU HAVE SLEEP APNEA? :NO ANY RECENT HEAD INJURY? :NO DO YOU HAVE ANY NEW INFECTIONS? :NO IS THERE A CHANCE YOU COULD BE ? :NO ARE YOU BREAST FEEDING? :NO WHEN DID YOU LAST EAT? : 02/15/202229 WHEN DID YOU LAST DRINK? : 02/16/20 0830 WHAT DID YOU LAST DRINK? : WATER NAME OF PERSON DRIVING YOU HOME? : LUCÍA () DO YOU HAVE ANY OTHER QUESTIONS OR CONCERNS? : NO GENERAL: -. FALL RISK SCREENING: SCREENING :ONE FALL WITHOUT INJURY IN THE PAST YEAR FALL LAST WEEK WITHOUT INJURY HIPS "GAVE OUT" PATIENT DID NOT SEEK MEDICAL ATTENTION. PAIN SCREENING: PATIENT HAS A COMPLAINT OF ACUTE OR CHRONIC PAIN :YES LOCATION OF PAIN:LOW BACK, LEG(S) INTENSITY OF PAIN (SCALE OF 1 TO 10):9 WHAT DOES YOUR PAIN FEEL LIKE:ACHING, SHARP, SHOOTING DURATION:CONTINOUS PAIN IS INCREASED BY:ACTIVITIES, PROLONGED STANDING PLAN/GOALS/TREATMENT/INTERVENTION/FOLLOW UP:SEE PLAN NURSING NOTE: -. CURRENT MEDICATIONS TAKING OMEPRAZOLE 40 MG CAPSULE DELAYED RELEASE 1 CAPSULE ORALLY TWICE A DAY, NOTES: 02/15/202199 TAKING ASPIR-81 81 MG TABLET DELAYED RELEASE 1 TABLET ORALLY ONCE A DAY, NOTES: 02/15/202199 TAKING ACCU-CHEK QUINCY PLUS W/DEVICE KIT DIRECTED SUBCUTANEOUSLY BID TESTING, NOTES: 02/16/20599 TAKING ACCU-CHEK QUINCY PLUS - STRIP DIRECTED IN VITRO BID TESTING, NOTES: 02/16/20599 TAKING ALCOHOL PADS 70 % PAD DIRECTED TOPICALLY BID TESTING, NOTES: 02/16/20599 TAKING ACCU-CHEK SOFTCLIX LANCET DEV - KIT DIRECTED _ BID TESTING, NOTES: 02/16/20599 TAKING ACCU-CHEK SOFTCLIX LANCETS - MISCELLANEOUS DIRECTED _ BID TESTING, NOTES: 02/16/20599 TAKING METFORMIN HCL 1000 MG TABLET 1 TABLET WITH MEALS ORALLY TWICE A DAY, NOTES: 02/15/201629 TAKING ATORVASTATIN CALCIUM 40 MG TABLET 1 TABLET ORALLY ONCE A DAY, NOTES: 02/15/202199 TAKING LISINOPRIL 10 MG TABLET 1 TABLET ORALLY ONCE A DAY, NOTES: 02/15/20699 TAKING GLIPIZIDE ER 10 MG TABLET EXTENDED RELEASE 24 HOUR 1 TABLET ORALLY BID PRIOR TO BREAKFAST AND DINNER, NOTES: 02/15/201629 TAKING GABAPENTIN 800 MG TABLET 1 CAPSULE ORALLY THREE TIMES DAILY, NOTES: 02/15/202199 TAKING IPRATROPIUM-ALBUTEROL 0.5-2.5 (3) MG/3ML SOLUTION 3 ML PRN DX J44.9 INHALATION EVERY 6 HRS, NOTES: NOT RECENTLY TAKING TRULICITY 0.75 MG/0.5ML SOLUTION PEN-INJECTOR DIRECTED SUBCUTANEOUS , NOTES: Thursdays02/12/20 TAKING PERCOCET 5-325 MG TABLET 1 ORALLY FOR PAIN EVERY 5 HOURS NEEDED MDD4, NOTES: 02/15/202199 MEDICATION LIST REVIEWED AND RECONCILED WITH THE PATIENT PAST MEDICAL HISTORY HYPERTENSION OBESITY ESOPHAGEAL REFLUX OBSTRUCTIVE SLEEP APNEA, 9 CM WATER- CPAP TYPE II DIABETIC OSTEOARTHRITIS OF BOTH KNEES PAIN IN JOINT, SHOULDER REGION UNSPECIFIED INTERNAL DERANGEMENT OF KNEE ALLERGIC RHINITIS POSITIVE URINE DRUG SCREEN FOR MARIJUANA, PATIENT DENIES USE HYPERLIPIDEMIA HYPERTENSION MORBID OBESITY STATUS POST BYPASS 2012 WITH REGAINING OF WEIGHT 03/09/2016 TIA CHRONIC LOW BACK PAIN ALLERGIES ENVIRONMENTAL: ALLERGY SURGICAL HISTORY TONSILLECTOMY AT AGE 7 ARTHROSCOPIC KNEE SURGERY LEFT DR Brett ROLLINS 11/2010 GASTRIC BYPASS SURGERY 12/09/2012 RIGHT SHOULDER SURGERY AT [facility] 11/2013 LEFT SHOUDLER SURGERY AT [facility] 12/2013 LUMP REMOVED FROM RIGHT SHOULDER- DR YANCEY 03/2014 RIGHT CARPAL TUNNEL AND ELBOW 2016 LOOP RECORDER 09/2016 LEFT KNEE ARTHROSCOPIC 02/2018 REMOVAL OF CYST RIGHT LEG 08/2018 REMOVAL OF CYST LEFT KNEE 01/06/20 FAMILY HISTORY FATHER: ALIVE, DIAGNOSED WITH DIABETES MOTHER: ALIVE 61 YRS, HYPERTENSION, DIABETES, OTHER MALIGNANT NEOPLASM OF UNSPECIFIED SITE SIBLINGS: ALIVE, UNSPECIFIED 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 MOM-OVARIAN CA\\\\NNO H\\\\\\/O COLON\\\\\\/PROSTATE\\\\\\/LUNG CANCER. SON 4 HOURS AFTER DELIVERY AT 21 WEEKS GESTATION. SOCIAL HISTORY GENERAL: TOBACCO USE ARE YOU A:NONSMOKER VAPORNO E-CIGARETTENO LATEX QUESTIONNAIRE LATEX ALLERGY : HAVE YOU EVER DEVELOPED ANY TYPE OF REACTION AFTER HANDLING LATEX PRODUCTS SUCH RUBBER GLOVES, CONDOMS, DIAPHRAGMS, BALLOONS, SOCKS, OR UNDERWEAR?NO LATEX ALLERGY : HAVE YOU EVER DEVELOPED ANY TYPE OF REACTION DURING OR AFTER DENTAL APPOINTMENT, VAGINAL/RECTAL EXAMINATION, SURGICAL PROCEDURE, OR ANY OTHER EXPOSURE?NO DATE ASKED : 11/21/2019 LATEX RISK : HAVE YOU EVER HAD ANY DIFFICULTY BREATHING OR HIVES AFTER EATING OR HANDLING ANY FRUITS, OR VEGETABLES; SUCH KIWI, BANANAS, STONE FRUITS, OR CHESTNUTSNO LATEX RISK : DO YOU HAVE A PREVIOUS PERSONAL HISTORY OF MORE THAN NINE SURGERIES, SPINA BIFIDA, OR REPEATED CATHERIZATIONS? YES - PLEASE INDICATE : > 9 SURGERIES LATEX RISK : ARE YOU FREQUENTLY EXPOSED TO LATEX PRODUCTS IN YOUR OCCUPATION?NO ALCOHOL SCREENING DID YOU HAVE A DRINK CONTAINING ALCOHOL IN THE PAST YEAR?NO POINTS0 INTERPRETATIONNEGATIVE RECREATIONAL DRUG USE DRUG USE?NO PATIENT DENIES ABUSE OR MISSUSED OF ANY MEDICATION DENIES PATIENT DENIES USE OF ANY ILLEGAL SUBSTANCE INCLUDING MARIJUANA OR COCAINE DENIES CAFFEINE CAFFEINE USE?YES HOW OFTEN AND HOW MUCH? 2 CUPS OF COFFEE PER WEEK TEMPLE [id number] PROTESTANT LANGUAGE LANGUAGES SPOKEN:CITIZ[place] OF [place] EDUCATION LEVEL OF EDUCATION:HIGH SCHOOL LEARNING BARRIERS / SPECIAL NEEDS CHANGE FROM LAST VISIT?NO BARRIERS TO LEARNING?NO HEARING IMPAIRED?NO VISION IMPAIRED?YES COGNITIVELY IMPAIRED?NO :CORRECTIVE LENSES READINESS TO LEARN?YES LEARNING PREFERENCES?YES :DEMONSTRATION/VERBAL INSTRUCTION LEARNING CAPABILITIES PRESENT?YES EMOTIONAL BARRIERS?NO SPECIAL DEVICES?NO STEAM FRAME OPERATOR NEEDED?NO DOMESTIC VIOLENCE STATUS: DO YOU FEEL SAFE IN YOUR ENVIRONMENT?YES OCCUPATION: UNEMPLOYED. DIET: REGULAR. EXERCISE: WALKS. MARITAL STATUS: . OTHERS AT HOME: SPOUSE. PAIN CLINIC PFS, CLERGY, PUBLIC HEALTH REFERRALS PFS REFERRAL NEEDED?NO CLERGY REFERRAL NEEDED?NO PUBLIC HEALTH REFERRAL NEEDED?NO WAS THE PROVIDER NOTIFIED OF ANY PERTINENT INFO?YES HAS THE PATIENT BEEN EDUCATED REGARDING HIS/HER PLAN OF CARE?YES HAS THE PATIENT BEEN EDUCATED REGARDING PAIN, THE RISK FOR PAIN, THE IMPORTANCE OF EFFECTIVE PAIN MANAGEMENT, AND THE PAIN ASSESSMENT PROCESS?YES HOUSING: OWNS HOME. ADVANCE DIRECTIVE ADVANCE DIRECTIVE DISCUSSED WITH PATIENT:YES YES- PT STATES HE HAS A HCP- - LUCÍA- HOSPITALIZATION/MAJOR DIAGNOSTIC PROCEDURE SURGERIES VITAL SIGNS WT 274.0 LBS, HT 70 IN, BMI 39.31 INDEX, BP 140/81 MM HG, HR 83 /MIN, RR 18 /MIN, TEMP 98.5 F, OXYGEN SAT % 97%, BLOOD GLUCOSE LEVEL 106, SAFE IN ENV? (Y/N) YES, NA INITIALS AW 1021, REVIEWED BY: MT. EXAMINATION GENERAL EXAMINATION: THE PATIENT IS ALERT, ORIENTED TIMES THREE AND COOPERATIVE. HEART SHOWS REGULAR RHYTHM, NO MURMURS AND NO GALLOPS. LUNGS ARE CLEAR TO AUSCULTATION. ASSESSMENTS INTERVERTEBRAL DISC DISORDERS WITH RADICULOPATHY, LUMBOSACRAL REGION - M51.17 (PRIMARY) TREATMENT INTERVERTEBRAL DISC DISORDERS WITH RADICULOPATHY, LUMBOSACRAL REGION [facility] FLUORO GUIDE SPINE INJECTION (PAIN)[id number] MEDICATION: VALIUM TAB 10MG ORALLY (DIAZEPAM)CAMILLA WEEKS 02/16/2020 10:39:22 AM > VERIFIED JAK WASHINGTON 02/16/2020 10:41:14 AM > JAK WASHINGTON 02/16/2020 10:37:49 AM > LOT #: [id number] EXP: 07/2020 PADMINIJAK 02/16/2020 10:41:23 AM > ADMINISTERED MEDICATION: OXYCODONE HCL TAB 10MG ORALLYDECAMILLA MONGE 02/16/2020 10:40:04 AM > VERIFIED PADMINIJAK 02/16/2020 10:41:58 AM > PADMINIJAK 02/16/2020 10:37:10 AM > LOT NUMBER:[id number] EXP: 06/2021. ADMINSTERED. PROCEDURES PAIN NURSING RECORD PRE-PROCEDURE IV SITE N/A, PRE-PROCEDURE ORAL MEDICATIONS YES 10MG OXYCODONE AND 10MG OF VALIUM ADMINSTERED 104. PROCEDURE IN ROOM 1055, PHYSICIAN IN ROOM 1101, START 1107, FINISH 111, PHYSICIAN OUT OF ROOM 1114, OUT OF ROOM 1118, STEROID DEPOMEDROL, O2 N/A, ECG NORMAL SINUS, PATIENT SHIELDED YES, SAFETY STRAP YES, PREP BETADINE, IV INFUSED N/A, DRESSING TEGADERM LOC: JAK WASHINGTON 02/16/2020 11:05:33 AM > , 1. ALERT, ORIENTED RESP: JAK WASHINGTON 02/16/2020 11:05:39 AM > , 1. REGULAR, NO DYSPNEA COLOR: JAK WASHINGTON 02/16/2020 11:05:45 AM > , 1. PINK SKIN: JAK WASHINGTON 02/16/2020 11:05:49 AM > , 1. WARM, DRY POSITION: JAK WASHINGTON 02/16/2020 11:05:55 AM > , 1. PRONE VITALS: JAK WASHINGTON 02/16/2020 11:06:00 AM > 148/95, 95% RA, 18, 82. JAK WASHINGTON 02/16/2020 11:08:26 AM > 138/76, 95% RA, 18, 79. , JAK WASHINGTON 02/16/2020 11:24:53 AM > POST PROCEDRE 132/84, 94% RA, 18, 85. DISCHARGE: POST PAIN 05/16, DRESSING SITE DRY AND INTACT, IV N/A, GAIT STEADY 4 QUAD CANE, TEACHING COMPLETED, PATIENT ACKNOWLEDGES UNDERSTANDING YES, PATIENT DISCHARGED AT 1130 PRE PROCEDURE DIAGNOSIS LUMBOSACRAL DISC DISORDER WITH RADICULOPATHY POST PROCEDURE DIAGNOSIS LUMBOSACRAL DISC DISORDER WITH RADICULOPATHY PROCEDURE LUMBAR EPIDURAL STEROID INJECTION UNDER FLUOROSCOPIC GUIDANCE SURGEON DR. SILVINA MITTAL CAMPAIGN ASSOCIATE NONE ANESTHESIA LOCAL PRE PROCEDURE NOTE THE PATIENT HAS A HISTORY OF CHRONIC LOW BACK PAIN. I EVALUATED THE PATIENT AND REVIEWED THE CHART. I WENT OVER THE RISKS, ALTERNATIVES, AND BENEFITS ASSOCIATED WITH THIS PROCEDURE. I DISCUSSED THAT THE USE OF STEROIDS MAY CONTRIBUTE TO IMMUNOSUPPRESSION OF THE PATIENT'S BODY AGAINST INFECTIONS SUCH COVID-19. THE PATIENT IS AWARE OF THE POTENTIAL COMPLICATIONS ASSOCIATED WITH THIS VIRUS, INCLUDING, BUT NOT LIMITED TO, . THE PATIENT WOULD LIKE TO PROCEED AND GIVE CONSENT TO PERFORMED THE PROCEDURE. THE PATIENT DENIES UNEXPLAINABLE WEIGHT LOSS, FEVER, CHILLS, OR NEW CHANGES IN URINARY OR BOWEL CONTROL. THE PATIENT IS COVID-19 NEGATIVE DESCRIPTION OF PROCEDURE THE PATIENT WAS BROUGHT TO THE PROCEDURE ROOM AND PLACED IN THE PRONE POSITION. THE LUMBOSACRAL AREA WAS CLEANED WITH BETADINE SOLUTION AND DRAPED ASEPTICALLY. THE PROCEDURE WAS DONE UNDER STERILE CONDITIONS. A TIMEOUT WAS PERFORMED WHERE LATERALITY AND THE SITE OF THE PROCEDURE WERE CHECKED AND CONFIRMED WITH EVERYONE IN THE ROOM. UNDER FLUOROSCOPIC GUIDANCE, THE TARGET POINT WAS SELECTED AT THE INTERLAMINAR LEVEL OF L5-S1. I CONFIRMED AGAIN WITH EVERYONE IN THE ROOM THE LATERALITY OF THE TARGET AT 1106. LIDOCAINE WAS USED TO NUMB THE SKIN AND THE SUBCUTANEOUS TISSUE BELOW IT. EPIDURAL TUOHY NEEDLE, 17-GAUGE, WAS ADVANCED UNDER FLUOROSCOPIC GUIDANCE AND FOLLOWING PATIENT FEEDBACK UNTIL THE EPIDURAL SPACE WAS REACHED 9 CM DEEP INTO THE SKIN BY THE LOSS OF RESISTANCE TECHNIQUE. ISOVUE-M DYE 30%, 0.25 ML, WAS INJECTED SHOWING ADEQUATE SPREAD OF THE DYE. THEN, A SOLUTION OF 3 ML OF NORMAL SALINE WITH DEPO-MEDROL 80 MG WAS INJECTED SLOWLY FOLLOWING PATIENT FEEDBACK. THE MEDICATIONS WERE VERIFIED WITH THE NURSE. THERE WAS NO EVIDENCE OF BLOOD, PARESTHESIA OR CEREBROSPINAL FLUID DURING THE PROCEDURE. THE PATIENT WAS SENT TO THE RECOVERY ROOM. THE PATIENT WAS MOVING THE EXTREMITIES AND DOING WELL. THERE WERE NO COMPLICATIONS DURING THE PROCEDURE. ESTIMATED BLOOD LOSS WAS LESS THAN 5 ML. FLUOROSCOPY TIME WAS 16 SECONDS POST PROCEDURE NOTE THE PATIENT WILL BE SEEN IN A FOLLOW UP IN THE NEXT FEW WEEKS. I AM LOOKING FOR LONG LASTING RELIEF FOR THE PATIENT WITH THIS INTERVENTION. INSTRUCTIONS WERE GIVEN, QUESTIONS WERE ANSWERED, AND THE PATIENT EXPRESSED UNDERSTANDING AND AGREES WITH THE PLAN. I, PJ JOINER, DOCUMENTED THE ABOVE INFORMATION ACTING A SCRIBE FOR DR. MITTAL. I HAVE REVIEWED THE ABOVE DOCUMENT, WRITTEN BY PJ JOINER, CHINESE TEACHER, AND I VERIFY THAT IT IS ACCURATE PROCEDURE CODES 20529 LUMBAR/SACRAL W/ IMAGING DISPOSITION & COMMUNICATION FOLLOW UP FOLLOW UP WITH TUTORIAL LABORATORY SUPERVISOR (REASON: POST LESI L5-S1) ELECTRONICALLY SIGNED BY SILVINA MITTAL MD, MD ON 02/18/2020 AT 11:51 AM EDT DISCLAIMER : THIS IS A VISIT SUMMARY EXTRACTED FROM THE [employer] CHART. IT IS NOT A COPY OF THE [employer] PROGRESS NOTE. MICK
--- NOTE | 2020-02-19 09:42 | REP ---
PARTIAL LUMBAR SPINE: 2-VIEWS HISTORY: Lumbar epidural steroid injection for pain. FINDINGS: A sequence of two [id number] fluoroscopically obtained spot radiographs document needle position and contrast injection associated with lumbar epidural injection procedure. FLUOROSCOPY TIME: 17 seconds reported. MTDD
== END ==
LOC: M PAIN 10:30
PROVIDERS: ATTEND Anesthesiology
DX: M51.17 Intervertebral disc disorders with radiculopathy, lumbosacral region (principal); I10 Essential (primary) hypertension; E66.9 Obesity, unspecified; Z98.84 Bariatric surgery status; E11.9 Type 2 diabetes mellitus without complications; M17.0 Bilateral primary osteoarthritis of knee; J30.9 Allergic rhinitis, unspecified; E78.5 Hyperlipidemia, unspecified; Z68.39 Body mass index [BMI] 39.0-39.9, adult; Z79.82 Long term (current) use of aspirin; Z79.84 Long term (current) use of oral hypoglycemic drugs; Z79.891 Long term (current) use of opiate analgesic; Z79.899 Other long term (current) drug therapy
CPT/HCPCS: 62323; J1030; Q9967

== ENCOUNTER → 2020-03-01 | Outpatient (CLI) | payer MEDICARE, MEDICAID ==
[~2020-03-01] MED LIST changes: -ISOVUE-M 300 61% 15ML VIAL As Ordered ONE; -LIDOCAINE 1% SDV 30ML VIAL As Ordered ONE; -diazePAM 5 MG TAB As Ordered ONE; -methylPREDNISolone SUSP 40MG/ML 1ML VIAL (DEPO MEDROL) As Ordered ONE; -oxyCODONE 5MG TAB As Ordered ONE
--- NOTE | 2020-03-06 06:35 | ECWPNPC ---
PATIENT NAME: ABHAY ORNELAS : 1975 GENDER: MALE VISIT DATE: 03/01/2020 DISCHARGE DATE: 03/01/20 1151 VISIT LOCKED DATE TIME: PHYSICIAN: LING HURLEY PHYSICIAN PAGER NO: ACTIVE RESOURCE: LING HURLEY REASON FOR APPOINTMENT 1. POST LESI L5-S1 HISTORY OF PRESENT ILLNESS DEPRESSION SCREENING: PHQ-2 (2015 EDITION) LITTLE INTEREST OR PLEASURE IN DOING THINGS?NOT AT ALL FEELING DOWN, DEPRESSED, OR HOPELESS?NOT AT ALL TOTAL SCORE0 GENERAL: HERE FOR POST PROCEDURE FOLLOW-UP. HAD L5-S1 LESI TO THE RIGHT ON 02/16/2020. REPORTS IMPROVEMENT IN RIGHT LOW BACK PAIN BUT NO IMPROVEMENT IN LEFT LOW BACK PAIN POST PROCEDURE. HE FELL 3 DAYS AGO AND HAS BEEN HAVING SEVERE INCREASE IN LEFT LOW BACK PAIN AND LEFT HIP PAIN. HE HAS NOT BEEN EVALUATED AT THE ER. HE LOOKS VERY UNCOMFORTABLE TODAY. DENIES LOSS OF CONTROL OF BOWEL OR BLADDER. DENIES SUDDEN LOSS OF CONTROL OF HIS LOWER EXTREMITIES. FALL RISK SCREENING: SCREENING :NO FALLS REPORTED IN THE LAST YEAR PAIN SCREENING: PATIENT HAS A COMPLAINT OF ACUTE OR CHRONIC PAIN :YES LOCATION OF PAIN: LEFT LOW BACK AND LEFT BUTTOCK INTENSITY OF PAIN (SCALE OF 1 TO 10):7 WHAT DOES YOUR PAIN FEEL LIKE:ACHING, BURNING, SHOOTING DURATION:CONTINOUS PAIN IS INCREASED BY:OTHERS SITTING PAIN IS DECREASED BY:USE OF PAIN MEDICATIONS HEAT, ICY HOT NURSING NOTE: -. PAIN CENTER INTAKE QUESTIONS: DO YOU HAVE A HISTORY OF MRSA? :NO DO YOU TAKE A BLOOD THINNERS? :NO DO YOU HAVE ANY BLEEDING DISORDERS? :NO ANY NEW NUMBNESS OR WEAKNESS IN YOUR LEGS OR ARMS? :NO ANY PACEMAKER,DEFIBRILLATOR, OR DORSAL COLUMN STIMULATOR? :NO DO YOU HAVE ANY RASHES OR OPEN SORES? :NO ARE YOU ALLERGIC TO IV DYE? :NO ARE YOU DIABETIC? :YES ANY NEW PROBLEMS WITH YOUR MEDICATIONS? :NO HAVE YOU RECEIVED A VACCINE IN THE PAST 30 DAYS? :NO DO YOU PLAN TO RECEIVE A VACCINE IN THE NEXT 21 DAYS? :NO DO YOU NEED ANY PRESCRIPTION? :YES PERCOCET DO YOU TAKE ANY IMMUNOSUPPRESSIVE MEDICATIONS? :NO IS THERE A CHANCE YOU COULD BE ? :NO ARE YOU BREAST FEEDING? :NO CURRENT MEDICATIONS TAKING OMEPRAZOLE 40 MG CAPSULE DELAYED RELEASE 1 CAPSULE ORALLY TWICE A DAY, NOTES: 02/15/202199 TAKING ASPIR-81 81 MG TABLET DELAYED RELEASE 1 TABLET ORALLY ONCE A DAY, NOTES: 02/15/202199 TAKING ACCU-CHEK QUINCY PLUS W/DEVICE KIT DIRECTED SUBCUTANEOUSLY BID TESTING, NOTES: 02/16/20599 TAKING ACCU-CHEK QUINCY PLUS - STRIP DIRECTED IN VITRO BID TESTING, NOTES: 02/16/20599 TAKING ALCOHOL PADS 70 % PAD DIRECTED TOPICALLY BID TESTING, NOTES: 02/16/20599 TAKING ACCU-CHEK SOFTCLIX LANCET DEV - KIT DIRECTED _ BID TESTING, NOTES: 02/16/20599 TAKING ACCU-CHEK SOFTCLIX LANCETS - MISCELLANEOUS DIRECTED _ BID TESTING, NOTES: 02/16/20599 TAKING METFORMIN HCL 1000 MG TABLET 1 TABLET WITH MEALS ORALLY TWICE A DAY, NOTES: 02/15/201629 TAKING ATORVASTATIN CALCIUM 40 MG TABLET 1 TABLET ORALLY ONCE A DAY, NOTES: 02/15/202199 TAKING LISINOPRIL 10 MG TABLET 1 TABLET ORALLY ONCE A DAY, NOTES: 02/15/20699 TAKING GLIPIZIDE ER 10 MG TABLET EXTENDED RELEASE 24 HOUR 1 TABLET ORALLY BID PRIOR TO BREAKFAST AND DINNER, NOTES: 02/15/201629 TAKING GABAPENTIN 800 MG TABLET 1 CAPSULE ORALLY THREE TIMES DAILY, NOTES: 02/15/202199 TAKING IPRATROPIUM-ALBUTEROL 0.5-2.5 (3) MG/3ML SOLUTION 3 ML PRN DX J44.9 INHALATION EVERY 6 HRS, NOTES: NOT RECENTLY TAKING TRULICITY 1.5 MG/0.5ML SOLUTION PEN-INJECTOR DIRECTED SUBCUTANEOUS , NOTES: Thursdays02/12/20 TAKING PERCOCET 5-325 MG TABLET 1 ORALLY FOR PAIN EVERY 5 HOURS NEEDED MDD4, NOTES: 02/15/202199 MEDICATION LIST REVIEWED AND RECONCILED WITH THE PATIENT PAST MEDICAL HISTORY HYPERTENSION OBESITY ESOPHAGEAL REFLUX OBSTRUCTIVE SLEEP APNEA, 9 CM WATER- CPAP TYPE II DIABETIC OSTEOARTHRITIS OF BOTH KNEES PAIN IN JOINT, SHOULDER REGION UNSPECIFIED INTERNAL DERANGEMENT OF KNEE ALLERGIC RHINITIS POSITIVE URINE DRUG SCREEN FOR MARIJUANA, PATIENT DENIES USE HYPERLIPIDEMIA HYPERTENSION MORBID OBESITY STATUS POST BYPASS 2012 WITH REGAINING OF WEIGHT 03/09/2016 TIA CHRONIC LOW BACK PAIN ALLERGIES ENVIRONMENTAL: ALLERGY SURGICAL HISTORY TONSILLECTOMY AT AGE 7 ARTHROSCOPIC KNEE SURGERY LEFT DR Brett ROLLINS 11/2010 GASTRIC BYPASS SURGERY 12/09/2012 RIGHT SHOULDER SURGERY AT [facility] 11/2013 LEFT SHOUDLER SURGERY AT [facility] 12/2013 LUMP REMOVED FROM RIGHT SHOULDER- DR YANCEY 03/2014 RIGHT CARPAL TUNNEL AND ELBOW 2016 LOOP RECORDER 09/2016 LEFT KNEE ARTHROSCOPIC 02/2018 REMOVAL OF CYST RIGHT LEG 08/2018 REMOVAL OF CYST LEFT KNEE 01/06/20 FAMILY HISTORY FATHER: ALIVE 64 YRS, DIAGNOSED WITH DIABETES MOTHER: ALIVE 62 YRS, HYPERTENSION, DIABETES, OTHER MALIGNANT NEOPLASM OF UNSPECIFIED SITE SIBLINGS: ALIVE, UNSPECIFIED 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 MOM-OVARIAN CA\\NNO H\\\/O COLON\\\/PROSTATE\\\/LUNG CANCER. SON 4 HOURS AFTER DELIVERY AT 21 WEEKS GESTATION. SOCIAL HISTORY GENERAL: TOBACCO USE ARE YOU A:NONSMOKER VAPORNO E-CIGARETTENO LATEX QUESTIONNAIRE LATEX ALLERGY : HAVE YOU EVER DEVELOPED ANY TYPE OF REACTION AFTER HANDLING LATEX PRODUCTS SUCH RUBBER GLOVES, CONDOMS, DIAPHRAGMS, BALLOONS, SOCKS, OR UNDERWEAR?NO LATEX ALLERGY : HAVE YOU EVER DEVELOPED ANY TYPE OF REACTION DURING OR AFTER DENTAL APPOINTMENT, VAGINAL/RECTAL EXAMINATION, SURGICAL PROCEDURE, OR ANY OTHER EXPOSURE?NO DATE ASKED : 11/21/2019 LATEX RISK : HAVE YOU EVER HAD ANY DIFFICULTY BREATHING OR HIVES AFTER EATING OR HANDLING ANY FRUITS, OR VEGETABLES; SUCH KIWI, BANANAS, STONE FRUITS, OR CHESTNUTSNO LATEX RISK : DO YOU HAVE A PREVIOUS PERSONAL HISTORY OF MORE THAN NINE SURGERIES, SPINA BIFIDA, OR REPEATED CATHERIZATIONS? YES - PLEASE INDICATE : > 9 SURGERIES LATEX RISK : ARE YOU FREQUENTLY EXPOSED TO LATEX PRODUCTS IN YOUR OCCUPATION?NO ALCOHOL SCREENING DID YOU HAVE A DRINK CONTAINING ALCOHOL IN THE PAST YEAR?NO POINTS0 INTERPRETATIONNEGATIVE RECREATIONAL DRUG USE DRUG USE?NO PATIENT DENIES ABUSE OR MISSUSED OF ANY MEDICATION DENIES PATIENT DENIES USE OF ANY ILLEGAL SUBSTANCE INCLUDING MARIJUANA OR COCAINE DENIES CAFFEINE CAFFEINE USE?YES HOW OFTEN AND HOW MUCH? 2 CUPS OF COFFEE PER WEEK ORTHODOX [id number] ORTHODOXY LANGUAGE LANGUAGES SPOKEN:BHUTANESE EDUCATION LEVEL OF EDUCATION:HIGH SCHOOL LEARNING BARRIERS / SPECIAL NEEDS CHANGE FROM LAST VISIT?NO BARRIERS TO LEARNING?NO HEARING IMPAIRED?NO VISION IMPAIRED?YES COGNITIVELY IMPAIRED?NO :CORRECTIVE LENSES READINESS TO LEARN?YES LEARNING PREFERENCES?YES :DEMONSTRATION/VERBAL INSTRUCTION LEARNING CAPABILITIES PRESENT?YES EMOTIONAL BARRIERS?NO SPECIAL DEVICES?NO MANUAL WRITER NEEDED?NO DOMESTIC VIOLENCE STATUS: DO YOU FEEL SAFE IN YOUR ENVIRONMENT?YES OCCUPATION: UNEMPLOYED. DIET: REGULAR. EXERCISE: WALKS. MARITAL STATUS: . OTHERS AT HOME: SPOUSE. PAIN CLINIC PFS, CLERGY, PUBLIC HEALTH REFERRALS PFS REFERRAL NEEDED?NO CLERGY REFERRAL NEEDED?NO PUBLIC HEALTH REFERRAL NEEDED?NO WAS THE PROVIDER NOTIFIED OF ANY PERTINENT INFO?YES HAS THE PATIENT BEEN EDUCATED REGARDING HIS/HER PLAN OF CARE?YES HAS THE PATIENT BEEN EDUCATED REGARDING PAIN, THE RISK FOR PAIN, THE IMPORTANCE OF EFFECTIVE PAIN MANAGEMENT, AND THE PAIN ASSESSMENT PROCESS?YES HOUSING: OWNS HOME. ADVANCE DIRECTIVE ADVANCE DIRECTIVE DISCUSSED WITH PATIENT:YES YES- PT STATES HE HAS A HCP- - LUCÍA- HOSPITALIZATION/MAJOR DIAGNOSTIC PROCEDURE SURGERIES REVIEW OF SYSTEMS CONSTITUTIONAL: ANY RECENT FEVER NO . CHILLS NO . WEIGHT CHANGE OF UNKNOWN REASONS NO . GASTROENTEROLOGY: NEW UNEXPLAINABLE CHANGES IN BOWEL CONTROL NO . CONSTIPATION NO . GENITOURINARY: ANY NEW CHANGE IN BLADDER CONTROL? NO . NEUROLOGY: NEW ONSET DIZZINESS OR NEUROLOGICAL CHANGES NOT MENTIONED NO . NEW NUMBNESS OR PAIN PATTERNS NOT MENTIONED AND PERTINENT TO TODAY'S VISIT NO . CARDIOLOGY: NEW CHEST PRESSURE NO . NEW CHEST PAIN NO . RESPIRATORY: UNEXPLAINABLE COUGH NO . NEW SHORTNESS OF BREATH NO . VITAL SIGNS WT 272.4 LBS, HT 70 IN, BMI 39.08 INDEX, BP 138/93 MM HG, HR 100 /MIN, RR 18 /MIN, TEMP 97.8 F, OXYGEN SAT % 98, SAFE IN ENV? (Y/N) YES, REVIEWED BY: VARGAS. EXAMINATION GENERAL EXAMINATION: GENERALAWAKE,ALERT ,PLEASANT . PSYCHAFFECT NORMAL . LUNGS:LUNG WOODS ARE CLEAR TO AUSCULTATION BILATERALLY. GOOD MOVEMENT OF AIR . HEART:S1, S2 IN A REGULAR RATE AND RHYTHM. NO SIGNIFICANT MURMURS, RUBS OR GALLOPS NOTED . ASSESSMENTS OTHER CHRONIC PAIN - G89.29 (PRIMARY) LUMBOSACRAL RADICULOPATHY - M54.17 TREATMENT OTHER CHRONIC PAIN CONTINUE PERCOCET TABLET, 5-325 MG, 1, ORALLY FOR PAIN, EVERY 5 HOURS NEEDED MDD4, NOTES: 02/15/20 2200 PAIN PROCEDURE LOGDATE OF [id number]/12/2020PROCEDURE:L5/S1 LESIAMOUNT OF PRE SEDATEVALIUM TAB 10MG ORALLY & OXYCODONE 10 MG TAB ORALLYRESULT:IMPROVEMENT WITH RIGHT LOW BACK PAIN. NO IMPROVEMENT LEFT LOW BACK PAIN. NOTES: PATIENT IS AGREEABLE TO BE SEEN AT ER OR URGENT CARE FOR ACUTE LEFT LOW BACK PAIN, LEFT HIP PAIN STATUS POST FALL INJURY 3 DAYS AGO. FOLLOW-UP AT THE PAIN CLINIC IN 4-6 WEEKS. PROCEDURE CODES FA211 ESTABILISHED PATIENT [facility] CHARGE DISPOSITION & COMMUNICATION FOLLOW UP 4-6 WEEKS (REASON: LOW BACK PAIN, LUMBAR RADICULOPATHY) ELECTRONICALLY SIGNED BY JODI COLON ON 03/05/2020 AT 03:05 PM EDT DISCLAIMER : THIS IS A VISIT SUMMARY EXTRACTED FROM THE [employer] CHART. IT IS NOT A COPY OF THE [employer] PROGRESS NOTE. MICK
== END ==
LOC: M PAIN 10:15
PROVIDERS: ATTEND Nurse Practitioner Family
DX: G89.29 Other chronic pain (principal); M54.17 Radiculopathy, lumbosacral region; I10 Essential (primary) hypertension; E66.9 Obesity, unspecified; K21.9 Gastro-esophageal reflux disease without esophagitis; G47.33 Obstructive sleep apnea (adult) (pediatric); E11.9 Type 2 diabetes mellitus without complications; M17.0 Bilateral primary osteoarthritis of knee; E78.5 Hyperlipidemia, unspecified; J30.9 Allergic rhinitis, unspecified; Z68.39 Body mass index [BMI] 39.0-39.9, adult; Z79.82 Long term (current) use of aspirin; Z79.891 Long term (current) use of opiate analgesic; Z79.899 Other long term (current) drug therapy; Z79.84 Long term (current) use of oral hypoglycemic drugs

== ENCOUNTER 2020-03-03 11:06 | Emergency (ER) | payer MEDICARE, MEDICAID ==
[~2020-03-03] VITALS: Ht 177.8 cm; Wt 120.3 kg
[~2020-03-03 11:06] MED LIST changes: -GABA600T4; -LIDO5DIS41 TOP; -OXYC1TAB23; -TOPI50TA9; -TRUL0.5I
[2020-03-03] MEDS ORDERED: TRUL0.5I (11:19)
[2020-03-03] MEDS ORDERED: GABA600T4 (11:19)
[2020-03-03] MEDS ORDERED: OXYC1TAB23 (11:19)
[2020-03-03] MEDS ORDERED: TOPI50TA9 (11:19)
[2020-03-03] MEDS ORDERED: LIDOCAINE 5% (LIDODERM) PATCH TD ONE (12:15)
--- NOTE | 2020-03-03 12:43 | REP ---
INDICATION: left hip pain s/p mechanical fall. COMPARISON: 10/02/2019. TECHNIQUE: AP view of the pelvis and AP and frogleg views of the left hip performed. FINDINGS: There is no acute fracture or dislocation. There are mild degenerative changes at each hip joint with mild joint space narrowing and subchondral sclerosis. IMPRESSION: No fracture or dislocation. <Electronically signed by Theo Eller > 03/03/20 [id number]
[2020-03-03 12:45] VITALS: BP 138/83
[2020-03-03] MEDS ORDERED: LIDO5DIS41 TOP (12:52)
[2020-03-03] MEDS ORDERED: **NOTE PATIENT COMMENT** MISC XX SCH (21:00)
== END 2020-03-03 13:00 | disposition home or self-care (01) ==
LOC: M ED 11:06
DX: S70.02XA Contusion of left hip, initial encounter (principal); S76.012A Strain of muscle, fascia and tendon of left hip, initial encounter; S73.102A Unspecified sprain of left hip, initial encounter; W19.XXXA Unspecified fall, initial encounter; Y92.099 Unspecified place in other non-institutional residence as the place of occurrence of the external cause; Y93.9 Activity, unspecified; Y99.9 Unspecified external cause status; E11.9 Type 2 diabetes mellitus without complications; I10 Essential (primary) hypertension; Z86.73 Personal history of transient ischemic attack (TIA), and cerebral infarction without residual deficits; E78.5 Hyperlipidemia, unspecified; G47.33 Obstructive sleep apnea (adult) (pediatric); K21.9 Gastro-esophageal reflux disease without esophagitis; G89.29 Other chronic pain; M54.9 Dorsalgia, unspecified; J30.89 Other allergic rhinitis; Z98.84 Bariatric surgery status; Z79.82 Long term (current) use of aspirin; Z79.4 Long term (current) use of insulin; Z79.899 Other long term (current) drug therapy

== ENCOUNTER → 2020-06-18 | Outpatient (CLI) | payer MEDICARE, MEDICAID ==
[~2020-06-18] MED LIST changes: +GABA600T4; +LIDO5DIS41 TOP; +LISI10TA22 PO; -LISI10TA4 PO; +OXYC1TAB23; +TOPI50TA9; +TRUL0.5I
--- NOTE | 2020-06-23 04:45 | ECWPNPC ---
PATIENT NAME: ABHAY ORNELAS : 1975 GENDER: MALE VISIT DATE: 06/18/2020 DISCHARGE DATE: 06/18/20 1212 VISIT LOCKED DATE TIME: PHYSICIAN: LING HURLEY PHYSICIAN PAGER NO: ACTIVE RESOURCE: LING HURLEY REASON FOR APPOINTMENT 1. LOW BACK HISTORY OF PRESENT ILLNESS GENERAL: HERE FOR F/U OF CHRONIC LOW BACK PAIN.LAST VISIT IN FEBRUARY HE WAS EXPERIENCING SEVERE LOW BACK PAIN AFTER FALL INJURY.HE HAS RECOVERED FROM ACUTE PAIN BUT IS HAVING INCREASE IN HIS CHRONIC LBP.REVIEWED MRI L/S SPINE AND DISCUSSED TREATMENT OPTONS.-. FALL RISK SCREENING: SCREENING :TWO OR MORE FALLS WITHOUT INJURY IN THE PAST YEAR PAIN SCREENING: PATIENT HAS A COMPLAINT OF ACUTE OR CHRONIC PAIN :YES LOCATION OF PAIN:LOW BACK INTENSITY OF PAIN (SCALE OF 1 TO 10):8 WHAT DOES YOUR PAIN FEEL LIKE:ACHING, BURNING, SHARP, STABBING, THROBBING, SHOOTING DURATION:CONTINOUS, CONSTANT, ALL DAY PAIN IS INCREASED BY:ACTIVITIES PAIN IS DECREASED BY:USE OF PAIN MEDICATIONS NURSING NOTE: -. PAIN CENTER INTAKE QUESTIONS: DO YOU HAVE A HISTORY OF MRSA? :NO DO YOU TAKE A BLOOD THINNERS? :NO DO YOU HAVE ANY BLEEDING DISORDERS? :NO ANY NEW NUMBNESS OR WEAKNESS IN YOUR LEGS OR ARMS? :NO ANY PACEMAKER,DEFIBRILLATOR, OR DORSAL COLUMN STIMULATOR? :NO DO YOU HAVE ANY RASHES OR OPEN SORES? :NO ARE YOU ALLERGIC TO IV DYE? :NO ARE YOU DIABETIC? :YES ANY NEW PROBLEMS WITH YOUR MEDICATIONS? :NO HAVE YOU RECEIVED A VACCINE IN THE PAST 30 DAYS? :NO DO YOU PLAN TO RECEIVE A VACCINE IN THE NEXT 21 DAYS? :NO DO YOU NEED ANY PRESCRIPTION? :NO DO YOU TAKE ANY IMMUNOSUPPRESSIVE MEDICATIONS? :NO IS THERE A CHANCE YOU COULD BE ? :NO ARE YOU BREAST FEEDING? :NO CURRENT MEDICATIONS TAKING OMEPRAZOLE 40 MG CAPSULE DELAYED RELEASE 1 CAPSULE ORALLY TWICE A DAY, NOTES: 02/15/202199 TAKING ASPIR-81 81 MG TABLET DELAYED RELEASE 1 TABLET ORALLY ONCE A DAY, NOTES: 02/15/202199 TAKING ACCU-CHEK QUINCY PLUS W/DEVICE KIT DIRECTED SUBCUTANEOUSLY BID TESTING, NOTES: 02/16/20599 TAKING ACCU-CHEK QUINCY PLUS - STRIP DIRECTED IN VITRO BID TESTING, NOTES: 02/16/20599 TAKING ALCOHOL PADS 70 % PAD DIRECTED TOPICALLY BID TESTING, NOTES: 02/16/20599 TAKING ACCU-CHEK SOFTCLIX LANCET DEV - KIT DIRECTED _ BID TESTING, NOTES: 02/16/20599 TAKING ACCU-CHEK SOFTCLIX LANCETS - MISCELLANEOUS DIRECTED _ BID TESTING, NOTES: 02/16/20599 TAKING METFORMIN HCL 1000 MG TABLET 1 TABLET WITH MEALS ORALLY TWICE A DAY, NOTES: 02/15/201629 TAKING ATORVASTATIN CALCIUM 40 MG TABLET 1 TABLET ORALLY ONCE A DAY, NOTES: 02/15/202199 TAKING LISINOPRIL 10 MG TABLET 1 TABLET ORALLY ONCE A DAY, NOTES: 02/15/20699 TAKING GLIPIZIDE ER 10 MG TABLET EXTENDED RELEASE 24 HOUR 1 TABLET ORALLY BID PRIOR TO BREAKFAST AND DINNER, NOTES: 02/15/201629 TAKING GABAPENTIN 800 MG TABLET 1 CAPSULE ORALLY THREE TIMES DAILY, NOTES: 02/15/202199 TAKING IPRATROPIUM-ALBUTEROL 0.5-2.5 (3) MG/3ML SOLUTION 3 ML PRN DX J44.9 INHALATION EVERY 6 HRS, NOTES: NOT RECENTLY TAKING TRULICITY 1.5 MG/0.5ML SOLUTION PEN-INJECTOR DIRECTED SUBCUTANEOUS , NOTES: Thursdays02/12/20 TAKING PERCOCET 5-325 MG TABLET 1 ORALLY FOR PAIN EVERY 5 HOURS NEEDED MDD4, NOTES: 02/15/202199 MEDICATION LIST REVIEWED AND RECONCILED WITH THE PATIENT PAST MEDICAL HISTORY HYPERTENSION OBESITY ESOPHAGEAL REFLUX OBSTRUCTIVE SLEEP APNEA, 9 CM WATER- CPAP TYPE II DIABETIC OSTEOARTHRITIS OF BOTH KNEES PAIN IN JOINT, SHOULDER REGION UNSPECIFIED INTERNAL DERANGEMENT OF KNEE ALLERGIC RHINITIS POSITIVE URINE DRUG SCREEN FOR MARIJUANA, PATIENT DENIES USE HYPERLIPIDEMIA HYPERTENSION MORBID OBESITY STATUS POST BYPASS 2012 WITH REGAINING OF WEIGHT 03/09/2016 TIA CHRONIC LOW BACK PAIN ALLERGIES ENVIRONMENTAL: ALLERGY SOCIAL HISTORY GENERAL: TOBACCO USE ARE YOU A:NONSMOKER VAPORNO E-CIGARETTENO LATEX QUESTIONNAIRE LATEX ALLERGY : HAVE YOU EVER DEVELOPED ANY TYPE OF REACTION AFTER HANDLING LATEX PRODUCTS SUCH RUBBER GLOVES, CONDOMS, DIAPHRAGMS, BALLOONS, SOCKS, OR UNDERWEAR?NO LATEX ALLERGY : HAVE YOU EVER DEVELOPED ANY TYPE OF REACTION DURING OR AFTER DENTAL APPOINTMENT, VAGINAL/RECTAL EXAMINATION, SURGICAL PROCEDURE, OR ANY OTHER EXPOSURE?NO LATEX RISK : HAVE YOU EVER HAD ANY DIFFICULTY BREATHING OR HIVES AFTER EATING OR HANDLING ANY FRUITS, OR VEGETABLES; SUCH KIWI, BANANAS, STONE FRUITS, OR CHESTNUTSNO LATEX RISK : DO YOU HAVE A PREVIOUS PERSONAL HISTORY OF MORE THAN NINE SURGERIES, SPINA BIFIDA, OR REPEATED CATHERIZATIONS? YES - PLEASE INDICATE : > 9 SURGERIES LATEX RISK : ARE YOU FREQUENTLY EXPOSED TO LATEX PRODUCTS IN YOUR OCCUPATION?NO DATE ASKED : 06/18/2020 ALCOHOL USE: NO. ALCOHOL SCREENING DID YOU HAVE A DRINK CONTAINING ALCOHOL IN THE PAST YEAR?NO POINTS0 INTERPRETATIONNEGATIVE RECREATIONAL DRUG USE DRUG USE?NO PATIENT DENIES ABUSE OR MISSUSED OF ANY MEDICATION DENIES PATIENT DENIES USE OF ANY ILLEGAL SUBSTANCE INCLUDING MARIJUANA OR COCAINE DENIES CAFFEINE CAFFEINE USE?YES HOW OFTEN AND HOW MUCH? 2 CUPS OF COFFEE PER WEEK DRUZE [id number] TAOIST LANGUAGE LANGUAGES SPOKEN:PALESTINIAN EDUCATION LEVEL OF EDUCATION:HIGH SCHOOL LEARNING BARRIERS / SPECIAL NEEDS CHANGE FROM LAST VISIT?YES BARRIERS TO LEARNING?NO HEARING IMPAIRED?NO VISION IMPAIRED?YES :CORRECTIVE LENSES COGNITIVELY IMPAIRED?NO READINESS TO LEARN?YES LEARNING PREFERENCES?YES :DEMONSTRATION/VERBAL INSTRUCTION LEARNING CAPABILITIES PRESENT?YES EMOTIONAL BARRIERS?NO SPECIAL DEVICES?YES :CANE, WALKER CODING COMPLIANCE MANAGER NEEDED?NO DOMESTIC VIOLENCE STATUS: DO YOU FEEL SAFE IN YOUR ENVIRONMENT?YES OCCUPATION: UNEMPLOYED. DIET: REGULAR. EXERCISE: WALKS. MARITAL STATUS: . OTHERS AT HOME: SPOUSE. - PFS REFERRAL NEEDED?NO CLERGY REFERRAL NEEDED?NO PUBLIC HEALTH REFERRAL NEEDED?NO WAS THE PROVIDER NOTIFIED OF ANY PERTINENT INFO?YES HAS THE PATIENT BEEN EDUCATED REGARDING HIS/HER PLAN OF CARE?YES HAS THE PATIENT BEEN EDUCATED REGARDING PAIN, THE RISK FOR PAIN, THE IMPORTANCE OF EFFECTIVE PAIN MANAGEMENT, AND THE PAIN ASSESSMENT PROCESS?YES HOUSING: OWNS HOME. ADVANCE DIRECTIVE ADVANCE DIRECTIVE DISCUSSED WITH PATIENT:YES YES- PT STATES HE HAS A HCP- - LUCÍA- REVIEW OF SYSTEMS CONSTITUTIONAL: ANY RECENT FEVER NO . CHILLS NO . WEIGHT CHANGE OF UNKNOWN REASONS NO . GASTROENTEROLOGY: NEW UNEXPLAINABLE CHANGES IN BOWEL CONTROL NO . CONSTIPATION NO . GENITOURINARY: ANY NEW CHANGE IN BLADDER CONTROL? NO . NEUROLOGY: NEW ONSET DIZZINESS OR NEUROLOGICAL CHANGES NOT MENTIONED NO . NEW NUMBNESS OR PAIN PATTERNS NOT MENTIONED AND PERTINENT TO TODAY'S VISIT NO . CARDIOLOGY: NEW CHEST PRESSURE NO . NEW CHEST PAIN NO . RESPIRATORY: UNEXPLAINABLE COUGH NO . NEW SHORTNESS OF BREATH NO . VITAL SIGNS WT 272.4 LBS, HT 70 IN, BMI 39.08 INDEX, BP 155/89 MM HG, HR 92 /MIN, RR 20 /MIN, TEMP 98.0 F, OXYGEN SAT % 98%, SAFE IN ENV? (Y/N) YES, NA INITIALS ME 11:31T.GUALBERTO SOARES. EXAMINATION GENERAL EXAMINATION: GENERALNO ACUTE DISTRESS, WELL NOURISHED AND HYDRATED. PSYCHAPPROPRIATE MOOD AND AFFECT . FACE:UNREMARKABLE. LUMBAR:PALPATION: + FOR PAIN OVER L/S SPINE. + FOR PAIN OVER LEFT L/S PARSPINALS. NONTENDER OVER RIGHT LOW BACK.POSITIVE MODIFIED SLE OVER LEFT LEG AT 45 DEGREES. DIAGNOSTIC TESTS REVIEWEDMRI L/S SPINE 2019 . ASSESSMENTS INTERVERTEBRAL DISC DISORDER WITH RADICULOPATHY OF LUMBOSACRAL REGION - M51.17 (PRIMARY) TREATMENT INTERVERTEBRAL DISC DISORDER WITH RADICULOPATHY OF LUMBOSACRAL REGION NOTES: LUMBAR EPIDURAL STEROID INJECTION L5-S1 URINE TOXICOLOGY TODAY. PATIENT STATES HE HAS HAD EDIBLE GUMMIE MARIJUANA CANDY RECENTLY. I'VE INFORMED HIM THAT HE NEEDS TO CHOOSE BETWEEN MEDICAL MARIJUANA OR OXYCODONE. HE IS CHOOSING NOT TO USE EDIBLE MARIJUANA. INFORMED HIM THAT IF FUTURE TOXICOLOGY'S SHOW MARIJUANA/THC WE WILL NOT BE PRESCRIBING NARCOTIC PAIN MEDICATIONS. PATIENT VOICES UNDERSTANDING. HE IS ALSO AWARE THAT HE NEEDS TO KEEP SCHEDULED APPOINTMENTS AND THAT HE NEEDS TO BRING HIS PAIN MEDICATION INTO ALL FUTURE APPOINTMENTS AND IF HE IS NOT COMPLIANT WE WILL BE DISCONTINUING NARCOTIC PAIN MEDICATIONS AND HE WILL BE CONSIDERED FOR DISCHARGE FROM PRACTICE. PRINTED AND REVIEWED PRE PROCEDURE WITH PATIENT WHIT SOARES. PROCEDURE CODES FA211 ESTABILISHED PATIENT [facility] CHARGE DISPOSITION & COMMUNICATION FOLLOW UP POST PROCEDURE (REASON: LUMBAR EPIDURAL STEROID INJECTION L5-S1) ELECTRONICALLY SIGNED BY JODI COLON ON 06/22/2020 AT 07:52 PM EST DISCLAIMER : THIS IS A VISIT SUMMARY EXTRACTED FROM THE [employer] CHART. IT IS NOT A COPY OF THE [employer] PROGRESS NOTE. MICK
== END ==
LOC: M PAIN 11:15
PROVIDERS: ATTEND Nurse Practitioner Family
DX: M51.17 Intervertebral disc disorders with radiculopathy, lumbosacral region (principal); G89.29 Other chronic pain; E11.9 Type 2 diabetes mellitus without complications; K21.9 Gastro-esophageal reflux disease without esophagitis; G47.33 Obstructive sleep apnea (adult) (pediatric); Z79.82 Long term (current) use of aspirin; Z79.84 Long term (current) use of oral hypoglycemic drugs; Z79.899 Other long term (current) drug therapy

== ENCOUNTER → 2020-06-25 | Outpatient (CLI) | payer MEDICARE, MEDICAID | LOC: M LABSMTC 10:32 | PROVIDERS: ATTEND Anesthesiology | DX: Z20.822 Contact with and (suspected) exposure to COVID-19 (principal) ==

== ENCOUNTER → 2020-06-30 | Outpatient (CLI) | payer MEDICARE, MEDICAID ==
[~2020-06-30] MED LIST changes: +ISOVUE-M 300 61% 15ML VIAL As Ordered ONE; +LIDOCAINE 1% SDV 30ML VIAL As Ordered ONE; +diazePAM 5MG TABLET As Ordered ONE; +methylPREDNISolone SUSP 40MG/ML 1ML VIAL (DEPO MEDROL) As Ordered ONE; +oxyCODONE 5MG TAB As Ordered ONE
--- NOTE | 2020-06-30 11:47 | REP ---
INDICATION: LUMBAR EPIDURAL STEROID INJECTION. COMPARISON: 02/16/2020. TECHNIQUE: For C-arm views lower lumbar spine performed. FINDINGS: Needle is seen at the L5 level. A small amount of contrast is injected. IMPRESSION: 14 seconds of fluoroscopy time is utilized. <Electronically signed by Theo Eller > 06/30/20 1144
--- NOTE | 2020-07-02 00:48 | ECWPNPC ---
PATIENT NAME: ABHAY ORNELAS : 1975 GENDER: MALE VISIT DATE: 06/30/2020 DISCHARGE DATE: 06/30/20 1038 VISIT LOCKED DATE TIME: PHYSICIAN: SILVINA MITTAL MD PHYSICIAN PAGER NO: ACTIVE RESOURCE: SILVINA MITTAL MD REASON FOR APPOINTMENT 1. LUMBAR EPIDURAL STEROID INJECTION HISTORY OF PRESENT ILLNESS GENERAL: -. PAIN SCREENING: PATIENT HAS A COMPLAINT OF ACUTE OR CHRONIC PAIN :YES LOCATION OF PAIN:LOW BACK LEFT INTENSITY OF PAIN (SCALE OF 1 TO 10):8 WHAT DOES YOUR PAIN FEEL LIKE:ACHING, CONTINOUS, SHARP, STABBING, TENDER, THROBBING, SORE, SHOOTING DURATION:CONTINOUS, CONSTANT PAIN IS INCREASED BY:ACTIVITIES, OTHERS PROLONGED SITTING PAIN IS DECREASED BY:USE OF PAIN MEDICATIONS, OTHERS RESTING SHORT PERIODS NURSING NOTE: -. PAIN CENTER INTAKE QUESTIONS: DO YOU HAVE A HISTORY OF MRSA? :NO DO YOU TAKE A BLOOD THINNERS? :NO DO YOU HAVE ANY BLEEDING DISORDERS? :NO ANY NEW NUMBNESS OR WEAKNESS IN YOUR LEGS OR ARMS? :NO ANY PACEMAKER,DEFIBRILLATOR, OR DORSAL COLUMN STIMULATOR? :NO DO YOU HAVE ANY RASHES OR OPEN SORES? :NO ARE YOU ALLERGIC TO IV DYE? :NO ARE YOU DIABETIC? :YES FSBS: 127 ANY NEW PROBLEMS WITH YOUR MEDICATIONS? :NO HAVE YOU RECEIVED A VACCINE IN THE PAST 30 DAYS? :NO DO YOU PLAN TO RECEIVE A VACCINE IN THE NEXT 21 DAYS? :NO DO YOU TAKE ANY IMMUNOSUPPRESSIVE MEDICATIONS? :NO ANY HISTORY OF SEIZURES? :NO ANY HISTORY OF CARDIAC ISSUES OR EVENTS? :YES HX CVA DO YOU HAVE SLEEP APNEA? :YES DO YOU WEAR A CPAP?YES ANY RECENT HEAD INJURY? :NO DO YOU HAVE ANY NEW INFECTIONS? :NO IS THERE A CHANCE YOU COULD BE ? :NO ARE YOU BREAST FEEDING? :NO WHEN DID YOU LAST EAT? : 2200 06/29/20 WHEN DID YOU LAST DRINK? : 0500 WHAT DID YOU LAST DRINK? : WATER NAME OF PERSON DRIVING YOU HOME? : - LUCÍA DO YOU HAVE ANY OTHER QUESTIONS OR CONCERNS? : - FALL RISK SCREENING: SCREENING :TWO OR MORE FALLS WITH INJURY IN THE PAST YEAR CURRENT MEDICATIONS TAKING OMEPRAZOLE 40 MG CAPSULE DELAYED RELEASE 1 CAPSULE ORALLY TWICE A DAY TAKING ASPIR-81 81 MG TABLET DELAYED RELEASE 1 TABLET ORALLY ONCE A DAY, NOTES: 06/29/202199 TAKING ACCU-CHEK QUINCY PLUS W/DEVICE KIT DIRECTED SUBCUTANEOUSLY BID TESTING TAKING ACCU-CHEK QUINCY PLUS - STRIP DIRECTED IN VITRO BID TESTING TAKING ALCOHOL PADS 70 % PAD DIRECTED TOPICALLY BID TESTING TAKING ACCU-CHEK SOFTCLIX LANCET DEV - KIT DIRECTED _ BID TESTING TAKING ACCU-CHEK SOFTCLIX LANCETS - MISCELLANEOUS DIRECTED _ BID TESTING TAKING METFORMIN HCL 1000 MG TABLET 1 TABLET WITH MEALS ORALLY TWICE A DAY, NOTES: 06/29/201899 TAKING ATORVASTATIN CALCIUM 40 MG TABLET 1 TABLET ORALLY ONCE A DAY TAKING LISINOPRIL 10 MG TABLET 1 TABLET ORALLY ONCE A DAY, NOTES: 06/29/20 06 TAKING GLIPIZIDE ER 10 MG TABLET EXTENDED RELEASE 24 HOUR 1 TABLET ORALLY BID PRIOR TO BREAKFAST AND DINNER, NOTES: 1899 TAKING GABAPENTIN 800 MG TABLET 1 CAPSULE ORALLY THREE TIMES DAILY TAKING IPRATROPIUM-ALBUTEROL 0.5-2.5 (3) MG/3ML SOLUTION 3 ML PRN DX J44.9 INHALATION EVERY 6 HRS, NOTES: NOT RECENTLY TAKING TRULICITY 1.5 MG/0.5ML SOLUTION PEN-INJECTOR DIRECTED SUBCUTANEOUS , NOTES: Thursdays06/24/20 TAKING PERCOCET 5-325 MG TABLET 1 ORALLY FOR PAIN EVERY 5 HOURS NEEDED MDD4, NOTES: 06/29/201899 MEDICATION LIST REVIEWED AND RECONCILED WITH THE PATIENT PAST MEDICAL HISTORY HYPERTENSION OBESITY ESOPHAGEAL REFLUX OBSTRUCTIVE SLEEP APNEA, 9 CM WATER- CPAP TYPE II DIABETIC OSTEOARTHRITIS OF BOTH KNEES PAIN IN JOINT, SHOULDER REGION UNSPECIFIED INTERNAL DERANGEMENT OF KNEE ALLERGIC RHINITIS POSITIVE URINE DRUG SCREEN FOR MARIJUANA, PATIENT DENIES USE HYPERLIPIDEMIA HYPERTENSION MORBID OBESITY STATUS POST BYPASS 2012 WITH REGAINING OF WEIGHT 03/09/2016 TIA CHRONIC LOW BACK PAIN ALLERGIES ENVIRONMENTAL: ALLERGY SURGICAL HISTORY TONSILLECTOMY AT AGE 7 ARTHROSCOPIC KNEE SURGERY LEFT DR Brett ROLLINS 11/2010 GASTRIC BYPASS SURGERY 12/09/2012 [facility]2013 LEFT SHOUDLER SURGERY AT [facility] 12/2013 LUMP REMOVED FROM RIGHT SHOULDER- DR YANCEY 03/2014 RIGHT CARPAL TUNNEL AND ELBOW 2016 LOOP RECORDER 09/2016 LEFT KNEE ARTHROSCOPIC 02/2018 REMOVAL OF CYST RIGHT LEG 08/2018 REMOVAL OF CYST LEFT KNEE 01/06/20 FAMILY HISTORY FATHER: ALIVE 65 YRS, DIAGNOSED WITH DIABETES MOTHER: ALIVE 63 YRS, HYPERTENSION, DIABETES, OTHER MALIGNANT NEOPLASM OF UNSPECIFIED SITE SIBLINGS: ALIVE, UNSPECIFIED 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 MOM-OVARIAN CA\\NNO H\\\/O COLON\\\/PROSTATE\\\/LUNG CANCER. SON 4 HOURS AFTER DELIVERY AT 21 WEEKS GESTATION. SOCIAL HISTORY GENERAL: TOBACCO USE ARE YOU A:NONSMOKER VAPORNO E-CIGARETTENO LATEX QUESTIONNAIRE LATEX ALLERGY : HAVE YOU EVER DEVELOPED ANY TYPE OF REACTION AFTER HANDLING LATEX PRODUCTS SUCH RUBBER GLOVES, CONDOMS, DIAPHRAGMS, BALLOONS, SOCKS, OR UNDERWEAR?NO LATEX ALLERGY : HAVE YOU EVER DEVELOPED ANY TYPE OF REACTION DURING OR AFTER DENTAL APPOINTMENT, VAGINAL/RECTAL EXAMINATION, SURGICAL PROCEDURE, OR ANY OTHER EXPOSURE?NO LATEX RISK : HAVE YOU EVER HAD ANY DIFFICULTY BREATHING OR HIVES AFTER EATING OR HANDLING ANY FRUITS, OR VEGETABLES; SUCH KIWI, BANANAS, STONE FRUITS, OR CHESTNUTSNO LATEX RISK : DO YOU HAVE A PREVIOUS PERSONAL HISTORY OF MORE THAN NINE SURGERIES, SPINA BIFIDA, OR REPEATED CATHERIZATIONS? YES - PLEASE INDICATE : > 9 SURGERIES LATEX RISK : ARE YOU FREQUENTLY EXPOSED TO LATEX PRODUCTS IN YOUR OCCUPATION?NO DATE ASKED : 06/29/2020 ALCOHOL USE: NO. ALCOHOL SCREENING DID YOU HAVE A DRINK CONTAINING ALCOHOL IN THE PAST YEAR?NO POINTS0 INTERPRETATIONNEGATIVE RECREATIONAL DRUG USE DRUG USE?NO PATIENT DENIES ABUSE OR MISSUSED OF ANY MEDICATION DENIES PATIENT DENIES USE OF ANY ILLEGAL SUBSTANCE INCLUDING MARIJUANA OR COCAINE DENIES CAFFEINE CAFFEINE USE?YES HOW OFTEN AND HOW MUCH? 2 CUPS OF COFFEE PER WEEK HOLINESS [id number] CONFUCIANISM LANGUAGE LANGUAGES SPOKEN:FIJIAN EDUCATION LEVEL OF EDUCATION:HIGH SCHOOL LEARNING BARRIERS / SPECIAL NEEDS CHANGE FROM LAST VISIT?NO BARRIERS TO LEARNING?NO HEARING IMPAIRED?NO VISION IMPAIRED?YES :CORRECTIVE LENSES COGNITIVELY IMPAIRED?NO READINESS TO LEARN?YES LEARNING PREFERENCES?YES :DEMONSTRATION/VERBAL INSTRUCTION LEARNING CAPABILITIES PRESENT?YES EMOTIONAL BARRIERS?NO SPECIAL DEVICES?YES :CANE, WALKER UTILIZATION REVIEWER NEEDED?NO DOMESTIC VIOLENCE STATUS: DO YOU FEEL SAFE IN YOUR ENVIRONMENT?YES OCCUPATION: UNEMPLOYED. DIET: REGULAR. EXERCISE: WALKS. MARITAL STATUS: . OTHERS AT HOME: SPOUSE. - PFS REFERRAL NEEDED?NO CLERGY REFERRAL NEEDED?NO PUBLIC HEALTH REFERRAL NEEDED?NO WAS THE PROVIDER NOTIFIED OF ANY PERTINENT INFO?YES HAS THE PATIENT BEEN EDUCATED REGARDING HIS/HER PLAN OF CARE?YES HAS THE PATIENT BEEN EDUCATED REGARDING PAIN, THE RISK FOR PAIN, THE IMPORTANCE OF EFFECTIVE PAIN MANAGEMENT, AND THE PAIN ASSESSMENT PROCESS?YES HOUSING: OWNS HOME. ADVANCE DIRECTIVE ADVANCE DIRECTIVE DISCUSSED WITH PATIENT:YES YES- PT STATES HE HAS A HCP- - LUCÍA- HOSPITALIZATION/MAJOR DIAGNOSTIC PROCEDURE SURGERIES VITAL SIGNS WT 272.6 LBS, HT 70 IN, BMI 39.11 INDEX, BP 134/81 MM HG, HR 96 /MIN, RR 18 /MIN, TEMP 96.5 F, OXYGEN SAT % 98%, BLOOD GLUCOSE LEVEL 127, SAFE IN ENV? (Y/N) YES, NA INITIALS AW 0831, REVIEWED BY: APA. CASIMIRO RN. EXAMINATION GENERAL EXAMINATION: THE PATIENT IS ALERT, ORIENTED TIMES THREE AND COOPERATIVE. LUNGS ARE CLEAR TO AUSCULTATION. HEART SHOWS REGULAR RHYTHM, NO MURMURS AND NO GALLOPS. ASSESSMENTS INTERVERTEBRAL DISC DISORDERS WITH RADICULOPATHY, LUMBOSACRAL REGION - M51.17 TREATMENT INTERVERTEBRAL DISC DISORDERS WITH RADICULOPATHY, LUMBOSACRAL REGION [facility] FLUORO GUIDE SPINE INJECTION (PAIN)[id number] MEDICATION: VALIUM TAB 10MG ORALLY (DIAZEPAM)OLIVE LITTLEJOHN 06/30/2020 9:21:27 AM > VERIFIED DANIELA KIRKPATRICK 06/30/2020 9:26:10 AM > ADMINISTERED MEDICATION: OXYCODONE HCL TAB 10MG ORALLYDANIKA HO 06/30/2020 9:24:37 AM > VERIFIED. DANIELA KIRKPATRICK 06/30/2020 9:26:28 AM > ADMINSTERED COMPLETION OF PROCEDURAL VISIT WHEN MEETS CRITERIADANIELA KIRKPATRICK 06/30/2020 10:34:59 AM > CRITERIA MET OTHERS NOTES: PAT COMPLETED 06/29/20 M CAMELIA GUPTA. PROCEDURES PAIN NURSING RECORD PROCEDURE IN ROOM 0945, PHYSICIAN IN ROOM 1013, START 1017, FINISH 1023, PHYSICIAN OUT OF ROOM 1025, OUT OF ROOM 1028, ECG NORMAL SINUS, PATIENT SHIELDED YES, SAFETY STRAP YES, PREP BETADINE BY: Evelyn KIRKPATRICK RN, DRESSING TEGADERM BY: DR. MITTAL LOC: DANIELA KIRKPATRICK 06/30/2020 10:18:46 AM > 1. ALERT, ORIENTED RESP: MICHELE KIRKPATRICKGAIL R 06/30/2020 10:18:49 AM > 1. REGULAR, NO DYSPNEA COLOR: CASIMIRODANIELA R 06/30/2020 10:18:52 AM > 1. PINK SKIN: PETRKRYSDANIELA R 06/30/2020 10:19:00 AM > 1. WARM, DRY POSITION: PETRKRYSDANIELA R 06/30/2020 10:19:03 AM > 1. PRONE VITALS: PETRKRYSDANIELA R 06/30/2020 9:49:40 AM > 171/99, 86, 18, 96% PETRAS,DANIELA R 06/30/2020 9:51:12 AM > 160/92, 82, 18, 94% PETRAS,DANIELA R 06/30/2020 10:00:20 AM > 172/100, 92, 18, 95% PETRAS,DANIELA R 06/30/2020 10:13:35 AM > 172/96, 91, 18, 94% PETRAS,DANIELA R 06/30/2020 10:25:59 AM > 172/103, 88, 18, 94% PETRAS,DANIELA R 06/30/2020 10:33:05 AM > 141/85, 89. 20, 99% COMPLETION OF PROCEDURE APPOINTMENT: POST PAIN 1, DRESSING SITE DRY AND INTACT, IV N/A, GAIT STEADY, TEACHING COMPLETED, PATIENT ACKNOWLEDGES UNDERSTANDING YES, PROCEDURE APPOINTMENT COMPLETED AT 1038 BY: Evelyn KIRKPATRICK RN PRE PROCEDURE DIAGNOSIS LUMBOSACRAL DISC DISORDER WITH RADICULOPATHY POST PROCEDURE DIAGNOSIS LUMBOSACRAL DISC DISORDER WITH RADICULOPATHY PROCEDURE LUMBAR EPIDURAL STEROID INJECTION UNDER FLUOROSCOPIC GUIDANCE SURGEON DR. SILVINA MITTAL CURATOR [employer] NONE ANESTHESIA LOCAL PRE PROCEDURE NOTE THE PATIENT HAS A HISTORY OF CHRONIC LOW BACK PAIN. I EVALUATED THE PATIENT AND REVIEWED THE CHART. I WENT OVER THE RISKS, ALTERNATIVES, AND BENEFITS ASSOCIATED WITH THIS PROCEDURE. THE PATIENT WOULD LIKE TO PROCEED AND GIVE CONSENT TO PERFORMED THE PROCEDURE. THE PATIENT DENIES UNEXPLAINABLE WEIGHT LOSS, FEVER, CHILLS, OR NEW CHANGES IN URINARY OR BOWEL CONTROL. PATIENT IS COVID-19 NEGATIVE. DESCRIPTION OF PROCEDURE THE PATIENT WAS BROUGHT TO THE PROCEDURE ROOM AND PLACED IN THE PRONE POSITION. THE LUMBOSACRAL AREA WAS CLEANED WITH BETADINE SOLUTION AND DRAPED ASEPTICALLY. THE PROCEDURE WAS DONE UNDER STERILE CONDITIONS. A TIMEOUT WAS PERFORMED WHERE THE CONSENTED SITE WAS VERIFIED WITH EVERYONE IN THE ROOM. UNDER FLUOROSCOPIC GUIDANCE, THE TARGET POINT WAS SELECTED AT THE INTERLAMINAR LEVEL OF L5-S1. I CONFIRMED AGAIN THE SITE OF TARGET. LIDOCAINE WAS USED TO NUMB THE SKIN AND THE SUBCUTANEOUS TISSUE BELOW IT. EPIDURAL TUOHY NEEDLE, 17-GAUGE, WAS ADVANCED UNDER FLUOROSCOPIC GUIDANCE AND FOLLOWING PATIENT FEEDBACK UNTIL THE EPIDURAL SPACE WAS REACHED 8 CM DEEP INTO THE SKIN BY THE LOSS OF RESISTANCE TECHNIQUE. ISOVUE-M DYE 30%, 0.25 ML, WAS INJECTED SHOWING ADEQUATE SPREAD OF THE DYE. THEN, A SOLUTION OF 3 ML OF NORMAL SALINE WITH DEPO-MEDROL 40 MG WAS INJECTED SLOWLY FOLLOWING PATIENT FEEDBACK. THE MEDICATIONS WERE VERIFIED WITH THE NURSE. THERE WAS NO EVIDENCE OF BLOOD, PARESTHESIA OR CEREBROSPINAL FLUID DURING THE PROCEDURE. THE PATIENT WAS SENT TO THE RECOVERY ROOM. THE PATIENT WAS MOVING THE EXTREMITIES AND DOING WELL. THERE WERE NO COMPLICATIONS DURING THE PROCEDURE. ESTIMATED BLOOD LOSS WAS LESS THAN 5 ML. FLUOROSCOPY TIME WAS 14 SECONDS POST PROCEDURE NOTE THE PATIENT WILL BE SEEN IN A FOLLOW UP IN THE NEXT FEW WEEKS. I AM LOOKING FOR LONG LASTING RELIEF FOR THE PATIENT WITH THIS INTERVENTION. INSTRUCTIONS WERE GIVEN, QUESTIONS WERE ANSWERED, AND THE PATIENT EXPRESSED UNDERSTANDING AND AGREES WITH THE PLAN. I, PJ JOINER, DOCUMENTED THE ABOVE INFORMATION ACTING A SCRIBE FOR DR. MITTAL. I HAVE REVIEWED THE ABOVE DOCUMENT, WRITTEN BY PJ JOINER, VOCATIONAL SCHOOL TEACHER, AND I VERIFY THAT IT IS ACCURATE PROCEDURE CODES 44220 LUMBAR/SACRAL W/ IMAGING DISPOSITION & COMMUNICATION FOLLOW UP FOLLOW UP WITH SOLUTIONS EXECUTIVE SECURITY (REASON: POST LUMBAR EPIDURAL STEROID INJECTION) ELECTRONICALLY SIGNED BY SILVINA MITTAL MD, MD ON 07/01/2020 AT 11:47 AM EST DISCLAIMER : THIS IS A VISIT SUMMARY EXTRACTED FROM THE [employer] CHART. IT IS NOT A COPY OF THE [employer] PROGRESS NOTE. MICK
== END ==
LOC: M PAIN 08:30
PROVIDERS: ATTEND Anesthesiology
DX: M51.17 Intervertebral disc disorders with radiculopathy, lumbosacral region (principal); E11.9 Type 2 diabetes mellitus without complications; G47.33 Obstructive sleep apnea (adult) (pediatric); K21.9 Gastro-esophageal reflux disease without esophagitis; Z86.73 Personal history of transient ischemic attack (TIA), and cerebral infarction without residual deficits; Z98.84 Bariatric surgery status; Z79.82 Long term (current) use of aspirin; Z79.84 Long term (current) use of oral hypoglycemic drugs; Z79.899 Other long term (current) drug therapy
CPT/HCPCS: 62323; J1030; Q9967

== ENCOUNTER → 2020-07-19 | Outpatient (REF) | payer MEDICARE, MEDICAID ==
[~2020-07-19] MED LIST changes: -ISOVUE-M 300 61% 15ML VIAL As Ordered ONE; -LIDOCAINE 1% SDV 30ML VIAL As Ordered ONE; -diazePAM 5MG TABLET As Ordered ONE; -methylPREDNISolone SUSP 40MG/ML 1ML VIAL (DEPO MEDROL) As Ordered ONE; -oxyCODONE 5MG TAB As Ordered ONE
[2020-07-19 18:06] LABS: HEMOGLOBIN A1c 7.2 %
[2020-07-19 18:19] LABS: ALBUMIN 4.1 GM/DL (3.2-5.2); ALT/SGPT 57 U/L (12-78); BILIRUBIN,TOTAL 0.6 MG/DL (0.2-1.0); BLOOD UREA NITROGEN 15 MG/DL (7-18); CARBON DIOXIDE LEVEL 24 MEQ/L (21-32); CHLORIDE LEVEL 106 MEQ/L (98-107); CHOLESTEROL LEVEL 137 MG/DL (<200); CHOLESTEROL RISK RATIO 2.795 (<5); CREATININE FOR GFR 1.08 MG/DL (0.70-1.30); GLOMERULAR FILTRATION RATE > 60.0 (>60); GLUCOSE, FASTING 177 MG/DL (70-100); HDL CHOLESTEROL 49 MG/DL (>40); LDL CHOLESTEROL 56 MG/DL (<100); NON-HDL-C 88 MG/DL; POTASSIUM SERUM 4.6 MEQ/L (3.5-5.1); SODIUM LEVEL 138 MEQ/L (136-145); TOTAL PROTEIN 7.1 GM/DL (6.4-8.2); TRIGLYCERIDES LEVEL 162 MG/DL (<150)
== END ==
LOC: M LAB REF 16:41
PROVIDERS: ATTEND Family Medicine Addiction Medicine
DX: E11.9 Type 2 diabetes mellitus without complications (principal)

== ENCOUNTER → 2021-10-19 | Outpatient (CLI) | payer MEDICARE, MEDICAID ==
[~2021-10-19] MED LIST changes: +GABA-283 PO; -GABA-845 PO; +OMEP40CA4 PO; -OMEP40CA97 PO
== END ==
LOC: M RAD 07:00
PROVIDERS: ATTEND Pediatrics
DX: K76.0 Fatty (change of) liver, not elsewhere classified (principal); R16.1 Splenomegaly, not elsewhere classified

== ENCOUNTER → 2022-02-01 | Outpatient (REF) | payer MEDICARE, MEDICAID | LOC: M LAB REF 10:05 | PROVIDERS: ATTEND Physician Assistant Medical | DX: R19.4 Change in bowel habit (principal) ==

== ENCOUNTER → 2022-02-22 | Outpatient (CLI) | payer MEDICARE, MEDICAID ==
[~2022-02-22] MED LIST changes: +ATOR40TA75 PO; +DULA4.5P SC; +FAMO20TA5 PO; +GABA800T4 PO; -TOPI50TA9; +TOPI50TA9 PO
== END ==
LOC: M LABSMTC 11:31
PROVIDERS: ATTEND Anesthesiology
DX: Z01.818 Encounter for other preprocedural examination (principal); Z11.52 Encounter for screening for COVID-19

== ENCOUNTER 2022-02-27 11:14 | Day surgery (SDC) | payer MEDICARE, MEDICAID ==
[~2022-02-27] VITALS: Ht 177.8 cm; Wt 119.7 kg
[~2022-02-27 11:14] MED LIST changes: +NS 1,000 ML IV ONE
[2022-02-27] MEDS ORDERED: LIDOCAINE 2% 100MG/5ML SDV (FOR ANES.) As Ordered ONE (11:53)
[2022-02-27] MEDS ORDERED: propofoL 500 MG/50 ML VIAL As Ordered ONE (11:55)
[2022-02-27] MEDS ORDERED: fentaNYL 100 MCG/2 ML INJECTION As Ordered ONE (12:13)
[2022-02-27] MEDS ORDERED: propofoL 200 MG/20 ML VIAL As Ordered ONE (12:23)
[2022-02-27 12:50] VITALS: BP 119/76
== END 2022-02-27 13:00 | disposition home or self-care (01) ==
LOC: M OPP 11:14
PROVIDERS: ATTEND Internal Medicine Gastroenterology
DX: D12.4 Benign neoplasm of descending colon (principal); K64.8 Other hemorrhoids; R19.4 Change in bowel habit; Z98.0 Intestinal bypass and anastomosis status; R12 Heartburn; R11.0 Nausea; Z79.02 Long term (current) use of antithrombotics/antiplatelets; Z79.51 Long term (current) use of inhaled steroids; Z79.82 Long term (current) use of aspirin; Z79.84 Long term (current) use of oral hypoglycemic drugs; Z79.891 Long term (current) use of opiate analgesic; Z79.899 Other long term (current) drug therapy; J45.909 Unspecified asthma, uncomplicated; G47.30 Sleep apnea, unspecified; K21.00 Gastro-esophageal reflux disease with esophagitis, without bleeding; Z80.41 Family history of malignant neoplasm of ovary; Z80.49 Family history of malignant neoplasm of other genital organs
CPT/HCPCS: 43235; 45380; 45385; 88305; J3010

== ENCOUNTER → 2022-02-28 | Outpatient (CLI) | payer MEDICARE, MEDICAID ==
[~2022-02-28] MED LIST changes: -NS 1,000 ML IV ONE; +PROHANCE 279.3MG/ML 15ML VIAL ONE; +PROHANCE 279.3MG/ML 5ML VIAL ONE
== END ==
LOC: M PLAIMG 13:22
PROVIDERS: ATTEND Internal Medicine Medical Oncology
DX: K76.0 Fatty (change of) liver, not elsewhere classified (principal); R16.1 Splenomegaly, not elsewhere classified; N28.1 Cyst of kidney, acquired
CPT/HCPCS: 74183; A9576

== ENCOUNTER → 2022-07-21 | Outpatient (CLI) | payer MEDICARE, MEDICAID ==
[~2022-07-21] MED LIST changes: -PROHANCE 279.3MG/ML 15ML VIAL ONE; -PROHANCE 279.3MG/ML 5ML VIAL ONE; +TOPI-254 PO; -TOPI50TA9 PO
[2022-07-21 12:21] LABS: CHOLESTEROL RISK RATIO 2.7 (<5); HDL CHOLESTEROL 38.5 MG/DL (>40); NON-HDL-C 65.5 MG/DL
[2022-07-21 18:03] LABS: LDL CHOLESTEROL 31.7 MG/DL (<100)
== END ==
LOC: M LAB 11:03
PROVIDERS: ATTEND Physician Assistant
DX: E78.2 Mixed hyperlipidemia (principal)

== ENCOUNTER → 2022-08-25 | Outpatient (CLI) | payer MEDICARE, MEDICAID | LOC: M RAD 07:17 | PROVIDERS: ATTEND Nurse Practitioner | DX: R16.1 Splenomegaly, not elsewhere classified (principal) ==

== ENCOUNTER → 2022-09-12 | Outpatient (CLI) | payer MEDICARE, MEDICAID ==
[2022-09-12 14:17] LABS: HEMATOCRIT 45.8 % (42.0-52.0); HEMOGLOBIN 15.6 g/dl (13.5-17.5); MEAN CORPUSCULAR HEMOGLOBIN 27.7 pg (27.0-33.0); MEAN CORPUSCULAR HGB CONC 34.1 g/dl (32.0-36.5); MEAN CORPUSCULAR VOLUME 81.3 fl (80.0-96.0); PLATELET COUNT, AUTOMATED 214 10^3/uL (150-450); RED BLOOD COUNT 5.63 10^6/uL (4.30-6.10); WHITE BLOOD COUNT 8.6 10^3/uL (4.0-10.0)
[2022-09-12 14:36] LABS: HEMOGLOBIN A1c 8.1 % (4.0-6.0)
[2022-09-12 14:37] LABS: APPEARANCE, URINE CLEAR (CLEAR); BACTERIA, URINE AUTO NEGATIVE (NEGATIVE); BILIRUBIN, URINE AUTO NEGATIVE (NEGATIVE); BLOOD, URINE BLOOD NEGATIVE (NEGATIVE); COLOR, URINE YELLOW (YELLOW); GLUCOSE, URINE (UA) AUTO NEGATIVE (NEGATIVE); KETONE, URINE AUTO NEGATIVE (NEGATIVE); LEUKOCYTE ESTERASE, URINE AUTO NEGATIVE (NEGATIVE); MUCUS, URINE SMALL (NEGATIVE); NITRITE, URINE AUTO NEGATIVE (NEGATIVE); PROTEIN, URINE AUTO NEGATIVE (NEGATIVE); RBC, URINE AUTO 0 /HPF (0-3); SQUAMOUS EPITHELIAL CELL UR AU 0 /HPF (0-6); UROBILINOGEN, URINE AUTO 0.2 mg/dL (0.0-2.0); WBC, URINE AUTO 0 /HPF (0-3)
[2022-09-12 14:46] LABS: MAU/CREAT RATIO 2.2 MCG/MG (0.0-30.0)
[2022-09-12 14:49] LABS: FERRITIN 11.1 NG/ML (10.5-307.3)
[2022-09-12 14:50] LABS: ALKALINE PHOSPHATASE 110 U/L (46-116); ALT/SGPT 39 U/L (7.0-40); AST/SGOT 16 U/L (<34); BILIRUBIN,TOTAL 0.4 MG/DL (0.3-1.2); BLOOD UREA NITROGEN 13 MG/DL (9-23); CARBON DIOXIDE LEVEL 22 MMOL/L (20-31); CHLORIDE LEVEL 107 MMOL/L (98-107); CHOLESTEROL LEVEL 109 MG/DL (<200); CHOLESTEROL RISK RATIO 2.81 (<5); CREATININE FOR GFR 0.88 MG/DL (0.70-1.30); GLOMERULAR FILTRATION RATE > 60.0 (>60); GLUCOSE, FASTING 79 MG/DL (60-100); HDL CHOLESTEROL 38.7 MG/DL (>40); LDL CHOLESTEROL 36.9 MG/DL (<100); NON-HDL-C 70.3 MG/DL; POTASSIUM SERUM 4.1 MMOL/L (3.5-5.1); SODIUM LEVEL 141 MMOL/L (136-145); TOTAL PROTEIN 6.7 G/DL (5.7-8.2); TRIGLYCERIDES LEVEL 167 MG/DL (<150)
== END ==
LOC: M PLALAB 11:52
PROVIDERS: ATTEND Family Medicine
DX: K76.0 Fatty (change of) liver, not elsewhere classified (principal); I10 Essential (primary) hypertension; E11.9 Type 2 diabetes mellitus without complications; E78.2 Mixed hyperlipidemia; Z98.84 Bariatric surgery status; Z79.899 Other long term (current) drug therapy

== ENCOUNTER → 2022-09-21 | Outpatient (CLI) | payer MEDICARE, MEDICAID | LOC: M PLAIMG 11:38 | PROVIDERS: ATTEND Family Medicine | DX: M54.50 Low back pain, unspecified (principal); M79.601 Pain in right arm; M25.551 Pain in right hip; M19.021 Primary osteoarthritis, right elbow; M77.8 Other enthesopathies, not elsewhere classified; M47.817 Spondylosis without myelopathy or radiculopathy, lumbosacral region; M47.816 Spondylosis without myelopathy or radiculopathy, lumbar region ==

== ENCOUNTER → 2022-11-16 | Outpatient (CLI) | payer MEDICARE, MEDICAID | LOC: M PLARAD 10:56 | PROVIDERS: ATTEND Orthopaedic Surgery | DX: M25.552 Pain in left hip (principal) ==

== ENCOUNTER → 2023-02-21 | Outpatient (CLI) | payer MEDICARE, MEDICAID ==
[~2023-02-21] MED LIST changes: -GABA-283 PO; +GABA-284 PO
== END ==
LOC: M PAIN 13:00
PROVIDERS: ATTEND Anesthesiology
DX: M51.16 Intervertebral disc disorders with radiculopathy, lumbar region (principal); G89.29 Other chronic pain; Z98.84 Bariatric surgery status; Z80.41 Family history of malignant neoplasm of ovary; Z79.82 Long term (current) use of aspirin; Z79.84 Long term (current) use of oral hypoglycemic drugs; Z79.85 Long-term (current) use of injectable non-insulin antidiabetic drugs; Z79.899 Other long term (current) drug therapy

== ENCOUNTER → 2023-03-07 | Outpatient (CLI) | payer MEDICARE, MEDICAID ==
[2023-03-07 18:48] LABS: HEMOGLOBIN A1c 7.1 % (4.0-6.0)
== END ==
LOC: M PLALAB 16:35
PROVIDERS: ATTEND Family Medicine
DX: E11.9 Type 2 diabetes mellitus without complications (principal)

== ENCOUNTER → 2023-04-06 | Outpatient (CLI) | payer MEDICARE, MEDICAID ==
[~2023-04-06] MED LIST changes: +TOPI-21 PO; -TOPI-254 PO
== END ==
LOC: M PAIN 14:30
PROVIDERS: ATTEND Nurse Practitioner Family
DX: M51.16 Intervertebral disc disorders with radiculopathy, lumbar region (principal); G89.29 Other chronic pain; E11.42 Type 2 diabetes mellitus with diabetic polyneuropathy; I10 Essential (primary) hypertension; K21.9 Gastro-esophageal reflux disease without esophagitis; G47.33 Obstructive sleep apnea (adult) (pediatric); E78.5 Hyperlipidemia, unspecified; E66.01 Morbid (severe) obesity due to excess calories; Z98.84 Bariatric surgery status; K76.0 Fatty (change of) liver, not elsewhere classified; Z68.35 Body mass index [BMI] 35.0-35.9, adult; Z79.84 Long term (current) use of oral hypoglycemic drugs; Z79.82 Long term (current) use of aspirin; Z79.899 Other long term (current) drug therapy

== ENCOUNTER → 2023-04-16 | Outpatient (CLI) | payer MEDICARE, MEDICAID | LOC: M PAIN 10:00 | PROVIDERS: ATTEND Nurse Practitioner Family | DX: M51.16 Intervertebral disc disorders with radiculopathy, lumbar region (principal); G89.29 Other chronic pain; Z98.84 Bariatric surgery status; Z80.41 Family history of malignant neoplasm of ovary; Z79.82 Long term (current) use of aspirin; Z79.84 Long term (current) use of oral hypoglycemic drugs; Z79.85 Long-term (current) use of injectable non-insulin antidiabetic drugs; Z79.899 Other long term (current) drug therapy ==

== ENCOUNTER → 2023-04-18 | Outpatient (CLI) | payer MEDICARE, MEDICAID | LOC: M ADAMS 13:27 | PROVIDERS: ATTEND Family Medicine | DX: M51.17 Intervertebral disc disorders with radiculopathy, lumbosacral region (principal); M54.50 Low back pain, unspecified; M47.817 Spondylosis without myelopathy or radiculopathy, lumbosacral region; M47.816 Spondylosis without myelopathy or radiculopathy, lumbar region ==

== ENCOUNTER → 2023-06-07 | Outpatient (CLI) | payer MEDICARE, MEDICAID ==
[~2023-06-07] MED LIST changes: +ISOVUE-M 300 61% 15ML VIAL As Ordered ONE; +LIDOCAINE 1% SDV 30ML VIAL As Ordered ONE; +diazePAM 5MG TABLET As Ordered ONE; +methylPREDNISolone SUSP 40MG/ML 1ML VIAL (DEPO MEDROL) As Ordered ONE; +oxyCODONE 5MG TAB As Ordered ONE
== END ==
LOC: M PAIN 08:30
PROVIDERS: ATTEND Anesthesiology
DX: M51.16 Intervertebral disc disorders with radiculopathy, lumbar region (principal); E11.42 Type 2 diabetes mellitus with diabetic polyneuropathy; M54.50 Low back pain, unspecified; G89.29 Other chronic pain; I10 Essential (primary) hypertension; K21.9 Gastro-esophageal reflux disease without esophagitis; G47.33 Obstructive sleep apnea (adult) (pediatric); E78.5 Hyperlipidemia, unspecified; E66.01 Morbid (severe) obesity due to excess calories; Z68.34 Body mass index [BMI] 34.0-34.9, adult; Z98.84 Bariatric surgery status; Z79.85 Long-term (current) use of injectable non-insulin antidiabetic drugs; Z79.82 Long term (current) use of aspirin; Z79.899 Other long term (current) drug therapy
CPT/HCPCS: 62323; J1030; Q9967

== ENCOUNTER → 2023-06-14 | Outpatient (CLI) | payer MEDICARE, MEDICAID ==
[~2023-06-14] MED LIST changes: -ISOVUE-M 300 61% 15ML VIAL As Ordered ONE; -LIDOCAINE 1% SDV 30ML VIAL As Ordered ONE; -diazePAM 5MG TABLET As Ordered ONE; -methylPREDNISolone SUSP 40MG/ML 1ML VIAL (DEPO MEDROL) As Ordered ONE; -oxyCODONE 5MG TAB As Ordered ONE
[2023-06-14 14:37] LABS: HEMATOCRIT 45.4 % (42.0-52.0); HEMOGLOBIN 15.7 g/dl (13.5-17.5); MEAN CORPUSCULAR HEMOGLOBIN 28.2 pg (27.0-33.0); MEAN CORPUSCULAR HGB CONC 34.6 g/dl (32.0-36.5); MEAN CORPUSCULAR VOLUME 81.7 fl (80.0-96.0); PLATELET COUNT, AUTOMATED 269 10^3/uL (150-450); RED BLOOD COUNT 5.56 10^6/uL (4.30-6.10); WHITE BLOOD COUNT 10.4 10^3/uL (4.0-10.0)
[2023-06-14 14:48] LABS: HEMOGLOBIN A1c 7.2 % (4.0-6.0)
[2023-06-14 15:04] LABS: MALB URINE SIEMENS < 3.0 MG/L; MAU/CREAT RATIO 3.1 MCG/MG (0.0-30.0)
[2023-06-14 15:05] LABS: FERRITIN 6.8 NG/ML (10.5-307.3)
[2023-06-14 15:06] LABS: ALBUMIN 4.1 G/DL (3.2-5.2); ALKALINE PHOSPHATASE 102 U/L (46-116); ALT/SGPT 42 U/L (7.0-40); AST/SGOT 14 U/L (<34); BILIRUBIN,TOTAL 0.5 MG/DL (0.3-1.2); BLOOD UREA NITROGEN 22 MG/DL (9-23); CALCIUM LEVEL 8.8 MG/DL (8.5-10.1); CARBON DIOXIDE LEVEL 22 MMOL/L (20-31); CHLORIDE LEVEL 105 MMOL/L (98-107); CHOLESTEROL LEVEL 124 MG/DL (<200); CHOLESTEROL RISK RATIO 2.98 (<5); CREATININE FOR GFR 0.92 MG/DL (0.70-1.30); GLOMERULAR FILTRATION RATE > 60.0 (>60); GLUCOSE, FASTING 167 MG/DL (60-100); HDL CHOLESTEROL 41.5 MG/DL (>40); LDL CHOLESTEROL 45.5 MG/DL (<100); NON-HDL-C 82.5 MG/DL; POTASSIUM SERUM 4.2 MMOL/L (3.5-5.1); SODIUM LEVEL 136 MMOL/L (136-145); TOTAL PROTEIN 6.7 G/DL (5.7-8.2); TRIGLYCERIDES LEVEL 185 MG/DL (<150)
[2023-06-14 15:07] LABS: VITAMIN B12 LEVEL 518 PG/ML (211-911)
== END ==
LOC: M PLALAB 10:02
PROVIDERS: ATTEND Family Medicine
DX: E11.9 Type 2 diabetes mellitus without complications (principal); I10 Essential (primary) hypertension; E78.2 Mixed hyperlipidemia; Z98.84 Bariatric surgery status

== ENCOUNTER → 2023-07-06 | Outpatient (CLI) | payer MEDICARE, MEDICAID | LOC: M PAIN 11:30 | PROVIDERS: ATTEND Nurse Practitioner Family | DX: M51.16 Intervertebral disc disorders with radiculopathy, lumbar region (principal); E11.9 Type 2 diabetes mellitus without complications; I10 Essential (primary) hypertension; G47.30 Sleep apnea, unspecified; E78.5 Hyperlipidemia, unspecified; Z79.02 Long term (current) use of antithrombotics/antiplatelets; Z79.82 Long term (current) use of aspirin; Z79.84 Long term (current) use of oral hypoglycemic drugs; Z79.891 Long term (current) use of opiate analgesic; Z79.899 Other long term (current) drug therapy ==

== ENCOUNTER → 2023-07-19 | Outpatient (CLI) | payer MEDICARE, MEDICAID | LOC: M RAD 11:09 | PROVIDERS: ATTEND Family Medicine | DX: M25.411 Effusion, right shoulder (principal) ==

== ENCOUNTER → 2023-08-27 | Outpatient (CLI) | payer MEDICARE, MEDICAID | LOC: M RAD 07:50 | PROVIDERS: ATTEND Internal Medicine Hematology & Oncology | DX: K76.0 Fatty (change of) liver, not elsewhere classified (principal) ==

== ENCOUNTER → 2023-09-20 | Outpatient (CLI) | payer MEDICARE, MEDICAID ==
[~2023-09-20] MED LIST changes: +ISOVUE-M 300 61% 15ML VIAL As Ordered ONE; +LIDOCAINE 1% SDV 30ML VIAL As Ordered ONE; +dexAMETHasone 10MG/1ML VIAL PRES.FREE As Ordered ONE; +diazePAM 5MG TABLET As Ordered ONE; +oxyCODONE 5MG TAB As Ordered ONE
== END ==
LOC: M PAIN 08:30
PROVIDERS: ATTEND Anesthesiology
DX: M51.16 Intervertebral disc disorders with radiculopathy, lumbar region (principal); G89.29 Other chronic pain; E11.42 Type 2 diabetes mellitus with diabetic polyneuropathy; I10 Essential (primary) hypertension; K21.9 Gastro-esophageal reflux disease without esophagitis; G47.33 Obstructive sleep apnea (adult) (pediatric); E78.5 Hyperlipidemia, unspecified; E66.01 Morbid (severe) obesity due to excess calories; K76.0 Fatty (change of) liver, not elsewhere classified; Z98.84 Bariatric surgery status; Z68.34 Body mass index [BMI] 34.0-34.9, adult; Z79.82 Long term (current) use of aspirin; Z79.891 Long term (current) use of opiate analgesic; Z79.84 Long term (current) use of oral hypoglycemic drugs; Z79.899 Other long term (current) drug therapy
CPT/HCPCS: 64483; J0665; J1100; Q9967

== ENCOUNTER → 2023-11-12 | Outpatient (CLI) | payer MEDICARE, MEDICAID ==
[~2023-11-12] MED LIST changes: -ISOVUE-M 300 61% 15ML VIAL As Ordered ONE; -LIDOCAINE 1% SDV 30ML VIAL As Ordered ONE; -dexAMETHasone 10MG/1ML VIAL PRES.FREE As Ordered ONE; -diazePAM 5MG TABLET As Ordered ONE; -oxyCODONE 5MG TAB As Ordered ONE
== END ==
LOC: M PAIN 14:00
PROVIDERS: ATTEND Nurse Practitioner Family
DX: M51.16 Intervertebral disc disorders with radiculopathy, lumbar region (principal); G89.29 Other chronic pain; E11.42 Type 2 diabetes mellitus with diabetic polyneuropathy; I10 Essential (primary) hypertension; K21.9 Gastro-esophageal reflux disease without esophagitis; G47.33 Obstructive sleep apnea (adult) (pediatric); E78.5 Hyperlipidemia, unspecified; Z79.84 Long term (current) use of oral hypoglycemic drugs; Z79.899 Other long term (current) drug therapy; Z79.82 Long term (current) use of aspirin; J30.1 Allergic rhinitis due to pollen

== ENCOUNTER → 2023-12-14 | Outpatient (CLI) | payer MEDICARE ==
[~2023-12-14] MED LIST changes: +SEMA2PEN SQ
[2023-12-14 13:55] LABS: HEMATOCRIT 46.4 % (42.0-52.0); HEMOGLOBIN 16.1 g/dl (13.5-17.5); MEAN CORPUSCULAR HEMOGLOBIN 28.4 pg (27.0-33.0); MEAN CORPUSCULAR HGB CONC 34.7 g/dl (32.0-36.5); PLATELET COUNT, AUTOMATED 248 10^3/uL (150-450); RED BLOOD COUNT 5.66 10^6/uL (4.30-6.10); WHITE BLOOD COUNT 11.3 10^3/uL (4.0-10.0)
[2023-12-14 14:00] LABS: ALKALINE PHOSPHATASE 99 U/L (46-116); ALT/SGPT 59 U/L (7.0-40); AST/SGOT 13 U/L (<34); BILIRUBIN,TOTAL 0.4 MG/DL (0.3-1.2); BLOOD UREA NITROGEN 14 MG/DL (9-23); CALCIUM LEVEL 9.2 MG/DL (8.5-10.1); CARBON DIOXIDE LEVEL 24 MMOL/L (20-31); CHLORIDE LEVEL 108 MMOL/L (98-107); CREATININE FOR GFR 0.96 MG/DL (0.70-1.30); GLOMERULAR FILTRATION RATE > 60.0 (>60); GLUCOSE, FASTING 63 MG/DL (60-100); POTASSIUM SERUM 4.4 MMOL/L (3.5-5.1); SODIUM LEVEL 140 MMOL/L (136-145); TOTAL PROTEIN 6.8 G/DL (5.7-8.2)
[2023-12-14 14:02] LABS: FERRITIN 9.8 NG/ML (10.5-307.3)
[2023-12-14 14:28] LABS: HEMOGLOBIN A1c 7.1 % (4.0-6.0)
== END ==
LOC: M PLALAB 10:52
PROVIDERS: ATTEND Family Medicine
DX: R35.0 Frequency of micturition (principal); E11.9 Type 2 diabetes mellitus without complications; Z98.84 Bariatric surgery status

== ENCOUNTER → 2024-01-14 | Outpatient (CLI) | payer MEDICARE, MEDICAID ==
[~2024-01-14] MED LIST changes: +GABA-1490; +GABA-1635 PO; -GABA600T4; -GABA800T4 PO
== END ==
LOC: M PAIN 11:15
PROVIDERS: ATTEND Nurse Practitioner Family
DX: M51.16 Intervertebral disc disorders with radiculopathy, lumbar region (principal); G89.29 Other chronic pain; E11.42 Type 2 diabetes mellitus with diabetic polyneuropathy; I10 Essential (primary) hypertension; K21.9 Gastro-esophageal reflux disease without esophagitis; G47.33 Obstructive sleep apnea (adult) (pediatric); E78.5 Hyperlipidemia, unspecified; Z98.84 Bariatric surgery status; Z79.84 Long term (current) use of oral hypoglycemic drugs; Z79.82 Long term (current) use of aspirin; Z79.899 Other long term (current) drug therapy; Z79.891 Long term (current) use of opiate analgesic

== ENCOUNTER → 2024-01-17 | Outpatient (CLI) | payer MEDICARE, MEDICAID | LOC: M LRY 10:22 | PROVIDERS: ATTEND Physician Assistant Medical | DX: K76.0 Fatty (change of) liver, not elsewhere classified (principal) ==

== ENCOUNTER → 2024-03-06 | Outpatient (CLI) | payer MEDICARE, MEDICAID | LOC: M RAD 08:29 | PROVIDERS: ATTEND Internal Medicine Medical Oncology | DX: R16.1 Splenomegaly, not elsewhere classified (principal) ==

== ENCOUNTER → 2024-03-21 | Outpatient (REF) | payer MEDICARE, MEDICAID ==
[2024-03-21 17:33] LABS: CHOLESTEROL RISK RATIO 2.59 (<5); HDL CHOLESTEROL 46.6 MG/DL (>40); LDL CHOLESTEROL 54.4 MG/DL (<100); NON-HDL-C 74.4 MG/DL
[2024-03-21 17:37] LABS: MALB URINE SIEMENS < 3.0 MG/L
[2024-03-21 17:38] LABS: CREATININE, URINE 151.3 MG/DL
[2024-03-21 18:21] LABS: HEMOGLOBIN A1c 6.4 % (4.0-6.0)
== END ==
LOC: M SFHCPLAZ 11:43
PROVIDERS: ATTEND Family Medicine
DX: E11.9 Type 2 diabetes mellitus without complications (principal); E78.2 Mixed hyperlipidemia

== ENCOUNTER → 2024-03-31 | Outpatient (CLI) | payer MEDICARE, MEDICAID | LOC: M PAIN 11:00 | PROVIDERS: ATTEND Nurse Practitioner Family | DX: M51.16 Intervertebral disc disorders with radiculopathy, lumbar region (principal); M47.816 Spondylosis without myelopathy or radiculopathy, lumbar region; G89.29 Other chronic pain; E11.42 Type 2 diabetes mellitus with diabetic polyneuropathy; I10 Essential (primary) hypertension; K21.9 Gastro-esophageal reflux disease without esophagitis; G47.33 Obstructive sleep apnea (adult) (pediatric); E78.5 Hyperlipidemia, unspecified; Z98.84 Bariatric surgery status; Z79.84 Long term (current) use of oral hypoglycemic drugs; Z79.82 Long term (current) use of aspirin; Z79.891 Long term (current) use of opiate analgesic; Z79.899 Other long term (current) drug therapy ==

== ENCOUNTER → 2024-05-21 | Outpatient (CLI) | payer MEDICARE, MEDICAID | LOC: M PAIN 08:30 | PROVIDERS: ATTEND Anesthesiology | DX: M51.16 Intervertebral disc disorders with radiculopathy, lumbar region (principal); G89.29 Other chronic pain; E11.42 Type 2 diabetes mellitus with diabetic polyneuropathy; M47.816 Spondylosis without myelopathy or radiculopathy, lumbar region; I10 Essential (primary) hypertension; K21.9 Gastro-esophageal reflux disease without esophagitis; G47.33 Obstructive sleep apnea (adult) (pediatric); E78.5 Hyperlipidemia, unspecified; Z98.84 Bariatric surgery status; Z79.84 Long term (current) use of oral hypoglycemic drugs; Z79.82 Long term (current) use of aspirin; Z79.891 Long term (current) use of opiate analgesic; Z79.899 Other long term (current) drug therapy ==

== ENCOUNTER → 2024-06-05 | Outpatient (CLI) | payer MEDICARE, MEDICAID | LOC: M PLAIMG 09:27 | PROVIDERS: ATTEND Anesthesiology | DX: M51.16 Intervertebral disc disorders with radiculopathy, lumbar region (principal); M47.816 Spondylosis without myelopathy or radiculopathy, lumbar region; M48.061 Spinal stenosis, lumbar region without neurogenic claudication; M48.07 Spinal stenosis, lumbosacral region ==

== ENCOUNTER → 2024-06-12 | Outpatient (CLI) | payer MEDICARE, MEDICAID | LOC: M PAIN 15:00 | PROVIDERS: ATTEND Nurse Practitioner Family | DX: M51.16 Intervertebral disc disorders with radiculopathy, lumbar region (principal); M47.816 Spondylosis without myelopathy or radiculopathy, lumbar region; G89.29 Other chronic pain; E11.42 Type 2 diabetes mellitus with diabetic polyneuropathy; I10 Essential (primary) hypertension; K21.9 Gastro-esophageal reflux disease without esophagitis; E78.5 Hyperlipidemia, unspecified; Z79.84 Long term (current) use of oral hypoglycemic drugs; Z79.891 Long term (current) use of opiate analgesic; Z79.899 Other long term (current) drug therapy ==

== ENCOUNTER 2024-06-16 10:27 | Emergency (ER) | payer MEDICARE, MEDICAID ==
[~2024-06-16] VITALS: Ht 177.8 cm; Wt 105.4 kg
[2024-06-16 11:51] LABS: BASO % 0.3 % (0.0-1.0); EOS # 0.2 10^3/uL (0.0-0.5); EOS % 1.7 % (0.0-3.0); HEMATOCRIT 46.6 % (42.0-52.0); HEMOGLOBIN 16.5 g/dl (13.5-17.5); LYMPH # 2.3 10^3/uL (1.5-5.0); LYMPH % 24.3 % (24.0-44.0); MEAN CORPUSCULAR HEMOGLOBIN 30.2 pg (27.0-33.0); MEAN CORPUSCULAR HGB CONC 35.4 g/dl (32.0-36.5); MEAN CORPUSCULAR VOLUME 85.2 fl (80.0-96.0); MONO # 0.6 10^3/uL (0.0-0.8); MONO % 6.6 % (2.0-8.0); NEUTROPHILS # 6.3 10^3/uL (1.5-8.5); NEUTROPHILS % 66.6 % (36.0-66.0); PLATELET COUNT, AUTOMATED 238 10^3/uL (150-450); RED BLOOD COUNT 5.47 10^6/uL (4.30-6.10); WHITE BLOOD COUNT 9.5 10^3/uL (4.0-10.0)
[2024-06-16] MEDS: ONDANSETRON 4MG 2ML VIAL IV ONE (12:02)
[2024-06-16] MEDS: KETOROLAC 30 MG/ML 1ML VIAL IV ONE (12:08)
[2024-06-16 12:25] LABS: ALBUMIN 4.1 G/DL (3.2-5.2); BILIRUBIN,DIRECT 0.2 MG/DL (<0.4); BILIRUBIN,TOTAL 0.6 MG/DL (0.3-1.2); TOTAL PROTEIN 7.1 G/DL (5.7-8.2)
[2024-06-16 14:52] VITALS: BP 111/65; TEMP 97.6; O2SAT 96
== END 2024-06-16 15:16 | disposition home or self-care (01) ==
LOC: M ED 10:27
DX: R10.12 Left upper quadrant pain (principal); Z86.73 Personal history of transient ischemic attack (TIA), and cerebral infarction without residual deficits; K21.9 Gastro-esophageal reflux disease without esophagitis; F32.A Depression, unspecified; F41.9 Anxiety disorder, unspecified; Z98.84 Bariatric surgery status; Z79.899 Other long term (current) drug therapy
CPT/HCPCS: 74176; 80047; 80076; 83690; 85025; 96374; 96375; 99284; J1885; J2405

== ENCOUNTER → 2024-09-04 | Outpatient (CLI) | payer MEDICARE, MEDICAID | LOC: M RAD 07:47 | PROVIDERS: ATTEND Neurological Surgery | DX: M54.16 Radiculopathy, lumbar region (principal); M47.9 Spondylosis, unspecified ==

== ENCOUNTER → 2024-09-08 | Outpatient (CLI) | payer MEDICARE, MEDICAID | LOC: M RAD 08:02 | PROVIDERS: ATTEND Internal Medicine Hematology & Oncology | DX: R16.1 Splenomegaly, not elsewhere classified (principal) ==

== ENCOUNTER → 2024-11-26 | Outpatient (CLI) | payer MEDICARE, MEDICAID ==
[~2024-11-26] MED LIST changes: +LIDO1ADH93 TOP; -LIDO5DIS41 TOP
== END ==
LOC: M RAD 09:09
PROVIDERS: ATTEND Neurological Surgery
DX: M51.16 Intervertebral disc disorders with radiculopathy, lumbar region (principal); M47.26 Other spondylosis with radiculopathy, lumbar region; M47.27 Other spondylosis with radiculopathy, lumbosacral region; M48.061 Spinal stenosis, lumbar region without neurogenic claudication; M51.46 Schmorl's nodes, lumbar region; M51.44 Schmorl's nodes, thoracic region; M51.45 Schmorl's nodes, thoracolumbar region; M51.47 Schmorl's nodes, lumbosacral region; M47.814 Spondylosis without myelopathy or radiculopathy, thoracic region

== ENCOUNTER → 2025-02-25 | Outpatient (CLI) | payer MEDICARE, MEDICAID | LOC: M RAD 08:22 | DX: R16.1 Splenomegaly, not elsewhere classified (principal) ==

== ENCOUNTER → 2025-03-04 | Outpatient (CLI) | payer MEDICARE, MEDICAID ==
[2025-03-04 11:40] LABS: PLATELET COUNT, AUTOMATED 259 10^3/uL (150-450)
[2025-03-04 11:45] LABS: ESTIMATED AVERAGE GLUCOSE 143.0 MG/DL (60-110)
[2025-03-04 12:07] LABS: CREATININE, URINE 80.4 MG/DL
[2025-03-04 12:08] LABS: MALB URINE SIEMENS < 3.0 MG/L
[2025-03-04 12:10] LABS: ALT/SGPT 47 U/L (7.0-40); AST/SGOT 19 U/L (<34); CALCIUM LEVEL 9.4 MG/DL (8.5-10.1); CARBON DIOXIDE LEVEL 25 MMOL/L (20-31); CHLORIDE LEVEL 104 MMOL/L (98-107); CHOLESTEROL LEVEL 109 MG/DL (<200); CHOLESTEROL RISK RATIO 2.04 (<5); CREATININE FOR GFR 0.97 MG/DL (0.70-1.30); GLOMERULAR FILTRATION RATE > 90.0 (>60); LDL CHOLESTEROL 38.8 MG/DL (<100); NON-HDL-C 55.8 MG/DL; POTASSIUM SERUM 4.4 MMOL/L (3.5-5.1); SODIUM LEVEL 141 MMOL/L (136-145); TRIGLYCERIDES LEVEL 85 MG/DL (<150)
[2025-03-04 12:15] LABS: TOTAL 25(OH) VITAMIN D 41.0 NG/ML (20.0-100.0)
[2025-03-04 12:17] LABS: VITAMIN B12 LEVEL 949 PG/ML (211-911)
== END ==
LOC: M PLALAB 09:04
PROVIDERS: ATTEND Family Medicine
DX: E11.42 Type 2 diabetes mellitus with diabetic polyneuropathy (principal); E78.2 Mixed hyperlipidemia; Z98.84 Bariatric surgery status; Z79.899 Other long term (current) drug therapy

== ENCOUNTER → 2025-03-20 | Outpatient (CLI) | payer MEDICARE, MEDICAID ==
[2025-03-20 18:21] LABS: INR 0.89
== END ==
LOC: M PLALAB 16:29
PROVIDERS: ATTEND Family Medicine
DX: K75.81 Nonalcoholic steatohepatitis (NASH) (principal)